=== PATIENT | male | born 1950 | race American Indian/Alaskan Native ===

== ENCOUNTER 2018-06-08 15:12 | Emergency (ER) | payer MEDICARE ==
[2018-06-08 15:22] VITALS: BP 116/74
--- NOTE | 2018-06-08 15:22 | Emergency Department Report ---
Chief Complaint: Upper Respiratory Infection Stated Complaint: COUGH UP BLOOD Time Seen by Provider: 06/08/18 15:19 - HPI History of Present Illness: DR OLIVEIRA CC COUGH WITH BLOOD IN IT FOR COUPLE WEEKS SPUTUM NEW SOB WITH ACTIVITY NO CHEST PAIN SMOKED UNTIL 12 Y AGO PMH GOUT HTN HPLD DENIES CAD/CVA PSH THROAT SURGERY RX ALLOPURINOL STATIN NORVASC METOP LOSARTAN/HCTZ ALLERGY MED DAD DEC PANC CANCER MOM DEC ACS NO ALCOHOL 12 Y MSE COMPLETED MSE screening note: Focused history and physical exam performed. Due to findings the following was ordered: ED Disposition for MSE Condition: Stable
--- NOTE | 2018-06-08 16:31 | Emergency Department Report ---
Minor Respiratory - HPI Chief Complaint: Upper Respiratory Infection Stated Complaint: COUGH UP BLOOD Time Seen by Provider: 06/08/18 15:19 Duration: patient states he's had a chronic cough for the last 2-3 months and was scheduled to see his primary care physician again in the week for an x-ray however he coughed up some blood today and was concerned Severity: mild Minor Respiratory: Yes Able to Tolerate Fluids, Yes Cough (cough normally productive of clear sputum however was bloody today), Yes Hemoptysis, No Sick Contacts, No Chest Pain, No Shortness of Breath, No Fever ED Review of Systems ROS: Stated complaint: COUGH UP BLOOD Other details as noted in HPI Comment: All other systems reviewed and negative ED Past Medical Hx - Past Medical History Previous Medical History?: Yes Hx Hypertension: Yes - Surgical History Past Surgical History?: No - Social History Smoking Status: Former Smoker Substance Use Type: None - Medications Home Medications: Home Medications Medication Instructions Recorded Confirmed Last Taken Type ALBUTEROL Inhaler (OR & NICU) 2 puff IH QID PRN #1 inhalation 06/08/18 Unknown Rx [ProAir HFA Inhaler] predniSONE [Deltasone] 20 mg PO QDAY #5 tab 06/08/18 Unknown Rx Minor Respiratory Exam - Exam General: Vital signs noted. No distress. Alert and acting appropriately. HEENT: Yes Moist Mucous Membranes, No Pharyngeal Erythema, No Pharyngeal Exudates, No Rhinorrhea, No Conjuctival Injection, No Frontal Tenderness, No Maxillary Tenderness Ear: Neither TM Bulge, Neither TM Erythema, Neither EAC Pain, Neither EAC Di scharge Neck: Yes Supple, No Adenopathy Lungs: Yes Good Air Exchange, No Wheezes, No Ronchi, No Stridor, No Cough, No Labored Respirations, No Retractions, No Use of Accessory Muscles, No Other Abnormal Lung Sounds Heart: Yes Regular, No Murmur Abdomen: Yes Normal Bowel Sounds, No Tenderness, No Peritoneal Signs Skin: No Rash, No Edema Neurologic: Alert and oriented, no deficits. Musculoskeletal: Unremarkable. ED Course Vital Signs 06/08/18 15:19 Temperature 97.9 F Pulse Rate 103 H Respiratory 16 Rate Blood Pressure 116/74 O2 Sat by Pulse 94 Oximetry ED Medical Decision Making - EKG Data -: EKG Interpreted by Me EKG shows normal: sinus rhythm, axis, intervals, QRS complexes, ST-T waves Rate: normal - EKG Data Interpretation: normal EKG - Radiology Data interpreted by me: Patient with a mass in the right lower lung. No other abnormalities are seen - Medical Decision Making Patient to be referred to Dr. Mckeon for further care. Patient does have a lung mass that can be worked up as an outpatient. Critical care attestation.: If time is entered above; I have spent that time in minutes in the direct care of this critically ill patient, excluding procedure time. ED Disposition Clinical Impression: Hemoptysis, Lung mass Disposition: TO HOME OR SELFCARE Is pt being admited?: No Does the pt Need Aspirin: No Condition: Stable Instructions: Needle Biopsy of the Lung (ED), Lung Cancer (ED) Referrals: JOANN MCKEON MD [Staff Physician] - 3-5 Days Time of Disposition: 16:31
[2018-06-08 16:39] LABS: Hematocrit 39.6 % (35.5-45.6); Hemoglobin 13.3 gm/dl (11.8-15.2); Mean Corpuscular HGB Conc 34 % (32-34); Mean Corpuscular Volume 86 fl (84-94); Platelet Count 297 K/mm3 (140-440); Red Blood Count 4.59 M/mm3 (3.65-5.03); Red Cell Distribution Width 14.8 % (13.2-15.2)
[2018-06-08 16:46] LABS: Calcium 9.7 mg/dL (8.4-10.2)
--- NOTE | 2018-06-08 16:56 | XRay Report ---
FINAL REPORT EXAM: XR CHEST ROUTINE 2V HISTORY: COUGH TECHNIQUE: Frontal and lateral views of the chest. PRIORS: None currently available. FINDINGS: Cardiac silhouette is within normal limits. Large opacity in the right lower lobe is suspicious for mass. Slightly blunted right costophrenic ang le. No pneumothorax. Left lung is clear. COPD. There are no suspicious osseous lesions. IMPRESSION: Suspect mass in the right lower lobe. Possible small right pleural effusion. Further imaging with a CT thorax with contrast may be helpful if clinically indicated. COPD.
== END 2018-06-08 16:41 | disposition home or self-care (01) ==
LOC: ED 15:12
DX: R04.2 Hemoptysis (principal); R91.8 Other nonspecific abnormal finding of lung field; I10 Essential (primary) hypertension; Z87.891 Personal history of nicotine dependence
CPT/HCPCS: 36415; 71046; 80048; 85027; 93005; 93010

== ENCOUNTER 2018-06-28 09:53 | Inpatient (IN) | payer MEDICARE ==
[2018-06-28] MEDS ORDERED: MAXIPIME/NS 1 GM/100 ML 1 GM/100 ML BAG IV ONE (10:25)
[2018-06-28] MEDS ORDERED: SOLU-Medrol IV ONE (10:29)
--- NOTE | 2018-06-28 10:29 | Emergency Department Report ---
ED Shortness of Breath HPI - General Chief Complaint: Dyspnea/Respdistress Stated Complaint: JOAQUIM Time Seen by Provider: 06/28/18 10:15 Source: patient, EMS Mode of arrival: Stretcher Limitations: No Limitations - History of Present Illness Initial Comments: is 67-year-old gentleman that presents emergency room with complaints of shortness of breath and wheezing 2 hours. Patient states he's been having shortness of breath and wheezing for approximately 2 weeks and has already been referred to a property utilization officer. She states today his symptoms worsens acutely. Patient was given by EMS 3 rounds of albuterol nebs and his symptoms have improved slightly. Patient denies chest pain. Patient states his shortness of breath is better with rest and Pratts dilators. Patient states that shortness breath is worse with exertion and movement. Is also complaining of coughing up blood for 2 weeks. MD Complaint: shortness of breath, cough -: Sudden Severity: severe Consistency: constant Improves With: oxygen, rest, bronchodilators, upright position Worsens With: lying flat, exertion, movement, coughing, inspiration Associated Symptoms: cough, sputum production, orhopnia Treatments Prior to Arrival: oxygen, bronchodilator - Related Data Home Oxygen Therapy: No Home Medications Medication Instructions Recorded Confirmed Last Taken ALBUTEROL Inhaler (OR & NICU) 1 puff IH Q4H PRN 06/28/18 06/28/18 Unknown [ProAir HFA Inhaler] Allopurinol [Zyloprim] 300 mg PO DAILY 06/28/18 06/28/18 Unknown AtorvaSTATin [Lipitor] 20 mg PO DAILY 06/28/18 06/28/18 Unknown Levocetirizine Dihydrochloride 5 mg PO DAILY 06/28/18 06/28/18 Unknown [Xyzal] Losartan/Hydrochlorothiazide 1 each PO QPM 06/28/18 06/28/18 Unknown [Losartan-Hctz 100-25 mg Tab] Metoprolol [Lopressor] 100 mg PO DAILY 06/28/18 06/28/18 Unknown amLODIPine [Norvasc] 10 mg PO DAILY 06/28/18 06/28/18 Unknown predniSONE [Deltasone] 20 mg PO DAILY 06/28/18 06/28/18 Unknown Allergies Allergy/AdvReac Type Severity Reaction Status Date / Time No Known Allergies Allergy Unverified 06/08/18 15:14 ED Review of Systems ROS: Stated complaint: JOAQUIM Other details as noted in HPI Constitutional: denies: chills, fever Eyes: denies: eye pain, eye discharge, vision change ENT: denies: ear pain, throat pain Respiratory: cough, shortness of breath, wheezing Cardiovascular: denies: chest pain, palpitations Endocrine: no symptoms reported Gastrointestinal: denies: abdominal pain, nausea, diarrhea Genitourinary: denies: urgency, dysuria Musculoskeletal: denies: back pain, joint swelling, arthralgia Skin: denies: rash, lesions Neurological: denies: headache, weakness, paresthesias Psychiatric: denies: anxiety, depression Hematological/Lymphatic: denies: easy bleeding, easy bruising ED Past Medical Hx - Past Medical History Previous Medical History?: Yes Hx Hypertension: Yes Additional medical history: Right lung mass - Surgical History Past Surgical History?: No - Family History Family history: no significant - Social History Smoking Status: Former Smoker Substance Use Type: None - Medications Home Medications: Home Medications Medication Instructions Recorded Confirmed Last Taken Type ALBUTEROL Inhaler (OR & NICU) 1 puff IH Q4H PRN 06/28/18 06/28/18 Unknown History [ProAir HFA Inhaler] Allopurinol [Zyloprim] 300 mg PO DAILY 06/28/18 06/28/18 Unknown History AtorvaSTATin [Lipitor] 20 mg PO DAILY 06/28/18 06/28/18 Unknown History Levocetirizine Dihydrochloride 5 mg PO DAILY 06/28/18 06/28/18 Unknown History [Xyzal] Losartan/Hydrochlorothiazide 1 each PO QPM 06/28/18 06/28/18 Unknown History [Losartan-Hctz 100-25 mg Tab] Metoprolol [Lopressor] 100 mg PO DAILY 06/28/18 06/28/18 Unknown History amLODIPine [Norvasc] 10 mg PO DAILY 06/28/18 06/28/18 Unknown History predniSONE [Deltasone] 20 mg PO DAILY 06/28/18 06/28/18 Unknown History ED Physical Exam - General Limitations: No Limitations General appearance: alert, in no apparent distress - Head Head exam: Present: atraumatic, normocephalic - Eye Eye exam: Present: normal appearance - ENT ENT exam: Present: mucous membranes moist - Neck Neck exam: Present: normal inspection - Respiratory Respiratory exam: Present: respiratory distress, wheezes, decreased breath sounds - Cardiovascular Cardiovascular Exam: Present: regular rate, normal rhythm. Absent: systolic murmur, diastolic murmur, rubs, gallop - GI/Abdominal GI/Abdominal exam: Present: soft, normal bowel sounds - Rectal Rectal exam: Present: deferred - Extremities Exam Extremities exam: Present: normal inspection - Back Exam Back exam: Present: normal inspection - Neurological Exam Neurological exam: Present: alert, oriented X3 - Psychiatric Psychiatric exam: Present: normal affect, normal mood - Skin Skin exam: Present: warm, dry, intact, normal color. Absent: rash ED Course Vital Signs 06/28/18 06/28/18 06/28/18 10:01 10:10 10:15 Pulse Rate 82 86 85 Respiratory 16 21 22 Rate Blood Pressure 155/74 155/74 O2 Sat by Pulse 95 97 94 Oximetry 06/28/18 06/28/18 06/28/18 10:30 10:45 11:00 Pulse Rate 85 74 78 Respiratory 14 17 19 Rate Blood Pressure 158/75 151/72 150/70 O2 Sat by Pulse 94 93 95 Oximetry 06/28/18 06/28/18 06/28/18 11:15 11:31 11:45 Pulse Rate 73 80 75 Respiratory 20 18 19 Rate Blood Pressure 139/69 139/69 139/69 O2 Sat by Pulse 95 96 95 Oximetry 06/28/18 06/28/18 06/28/18 12:01 12:15 12:31 Pulse Rate 79 85 79 Respiratory 16 17 18 Rate Blood Pressure 139/69 139/69 139/69 O2 Sat by Pulse 92 90 88 Oximetry 06/28/18 06/28/18 06/28/18 12:45 13:01 13:15 Pulse Rate 77 78 76 Respiratory 26 H 19 22 Rate Blood Pressure 139/69 139/69 139/69 O2 Sat by Pulse 87 90 90 Oximetry 06/28/18 06/28/18 06/28/18 13:31 13:45 14:01 Pulse Rate 74 79 78 Respiratory 18 21 18 Rate Blood Pressure 139/69 139/69 139/69 O2 Sat by Pulse 91 91 93 Oximetry 06/28/18 06/28/18 14:15 14:31 Pulse Rate 89 77 Respiratory 23 17 Rate Blood Pressure 139/69 139/69 O2 Sat by Pulse 95 93 Oximetry - Reevaluation(s) Reevaluation #1: Discussed all results with patient. Patient agrees with plan of care and admission. Patient will be admitted to the hospitalist service 06/28/18 11:45 Patient states he is feeling better. 06/28/18 12:01 - Consultations Consultation #1: Hospitals consulted for admission. Hospitalist will admit patient and assume care of patient. Bridge orders placed 06/28/18 11:46 ED Medical Decision Making - Lab Data Result diagrams: 06/28/18 10:02 06/28/18 10:02 - EKG Data -: EKG Interpreted by Me EKG shows normal: sinus rhythm, axis, intervals, QRS complexes, ST-T waves Rate: normal - Radiology Data Radiology results: report reviewed, image reviewed interpreted by me: Right lung mass noted on my interpretation AP CHEST: HISTORY: Dyspnea Approximate 9 cm mass in the right lower lobe appears unchanged since 06/08/18. The remainder the lungs are clear. Emphysematous changes are again noted. Heart size and pulmonary vascularity are within normal limits. IMPRESSION: Emphysema. No significant change in the right lower lobe mass. No new acute process - Medical Decision Making Agent is 67-year-old male that presents emergency room with complaints of shortness of breath and wheezing and spitting up blood. Patient found to be hypoxic. In route EMS gave the patient 3 nebulizer treatments. Patient's symptoms improved. Patient was admitted to the hospitalist service for further evaluation treatment. Patient's labs are unremarkable except for an elevated white count. - Differential Diagnosis UPT. COPD exacerbation. Wheeze. Hypoxia. Shortness of breath Critical Care Time: Yes Critical care attestation.: If time is entered above; I have spent that time in minutes in the direct care of this critically ill patient, excluding procedure time. Critical Care Time: 45 minutes ED Disposition Clinical Impression: SOB (shortness of breath), Hypoxia, COPD exacerbation, Lung mass, Coughing up blood COPD (chronic obstructive pulmonary disease) with emphysema Qualifiers: Emphysema type: unspecified Qualified Code(s): J43.9 - Emphysema, unspecified Disposition: OP ADMIT IP TO THIS HOSP Is pt being admited?: Yes Does the pt Need Aspirin: No Condition: Critical Time of Disposition: 12:02
[2018-06-28 10:33] LABS: Basophils % (Auto) 0.1 % (0.0-1.8); Eosinophils # (Auto) 0.1 K/mm3 (0.0-0.4); Eosinophils % (Auto) 0.5 % (0.0-4.3); Hematocrit 40.9 % (35.5-45.6); Hemoglobin 13.5 gm/dl (11.8-15.2); Lymphocytes # (Auto) 1.7 K/mm3 (1.2-5.4); Lymphocytes % (Auto) 9.9 % (13.4-35.0); Mean Corpuscular HGB Conc 33 % (32-34); Mean Corpuscular Volume 88 fl (84-94); Monocytes # (Auto) 0.9 K/mm3 (0.0-0.8); Monocytes % (Auto) 5.5 % (0.0-7.3); Platelet Count 311 K/mm3 (140-440); Red Blood Count 4.66 M/mm3 (3.65-5.03); Red Cell Distribution Width 15.8 % (13.2-15.2)
[2018-06-28 10:59] LABS: Creatine Kinase MB 1.6 ng/mL (0.0-4.0)
[2018-06-28 11:01] LABS: Alanine Aminotransferase 11 units/L (7-56); Albumin 3.9 g/dL (3.9-5); BUN/Creatinine Ratio 18; Blood Urea Nitrogen 23 mg/dL (9-20); Calcium 9.9 mg/dL (8.4-10.2); Hemolysis Index 11
--- NOTE | 2018-06-28 11:36 | XRay Report ---
AP CHEST: HISTORY: Dyspnea Approximate 9 cm mass in the right lower lobe appears unchanged since 06/08/18. The remainder the lungs are clear. Emphysematous changes are again noted. Heart size and pulmonary vascularity are within normal limits. IMPRESSION: Emphysema. No significant change in the right lower lobe mass. No new acute process.
[2018-06-28] MEDS ORDERED: MAGNESIUM SULFATE 2GM/50ML 2 GM/50 ML BAG IV ONE (11:47)
[2018-06-28] MEDS ORDERED: PROAIR IH PRN (20:34)
[2018-06-28] MEDS ORDERED: PROVENTIL IH PRN (20:41)
[2018-06-28] MEDS ORDERED: COZAAR PO SCH (21:00)
[2018-06-28] MEDS: ZYLOPRIM PO SCH (22:57)
[2018-06-28] MEDS: NORVASC PO SCH (22:57)
[2018-06-28] MEDS: LEVAQUIN 750MG/150ML 750 MG/150 ML BAG IV SCH (22:57)
[2018-06-28] MEDS: LOPRESSOR PO SCH (23:06)
[2018-06-28] MEDS: SOLU-Medrol IV SCH (23:07)
[2018-06-28] MEDS: NON-FORMULARY (Levocetirizine Dihydrochloride [Xyzal] 5 MG) PO SCH (23:08)
[2018-06-29] MEDS: SOLU-Medrol IV SCH ×3 (05:52→22:42)
--- NOTE | 2018-06-29 06:16 | Event Note ---
Date: 06/28/18 See dictated H/p in reports Acute resp failure COPD exacerbation Follows with Dr Pasha Mckeon
--- NOTE | 2018-06-29 07:38 | History and Physical Report ---
CHIEF COMPLAINT: Dyspnea and severe wheezing for 3 hours. HISTORY OF PRESENT ILLNESS: A 67-year-old male with a history of right lung mass and hypertension, comes in for increasing shortness of breath and wheezing for 3 hours. In the Emergency Room, multiple breathing treatments were given with no relief. Hence, the patient is being admitted. The patient has cough productive of mucoid sputum. No fever or chills. No recent travel. No exacerbating or relieving factors except exercise. No chest pain. PAST MEDICAL HISTORY: As mentioned, asthma/COPD, gout, and hyperlipidemia. PAST SURGICAL HISTORY: None. FAMILY HISTORY: No significant family history. SOCIAL HISTORY: Does not smoke. REVIEW OF SYSTEMS: Significant for bilateral wheezing and mild respiratory distress. Otherwise, review of systems negative. PHYSICAL EXAMINATION: GENERAL: Elderly male, cheerful, cooperative during examination, very pleasant. VITAL SIGNS: Blood pressure is 171/87, temperature is 97.7, pulse is 104, respirations are 18. HEENT: Unremarkable. Pupils equal and reactive. NECK: Supple, no lymphadenopathy, no thyromegaly. LUNGS: Clear to auscultation and percussion. Good air entry. On the re-examination of lungs, bilateral wheezing present, bilateral rhonchi present, diminished air entry. CARDIOVASCULAR SYSTEM: S1, S2 heard. No gallop, no murmur, no rub. ABDOMEN: Soft and benign. No hepatosplenomegaly. No guarding, no rigidity. Hernial orifices are normal. EXTREMITIES: Good pedal pulses. No pedal edema. LABORATORY DATA: Significant for white count of 17,100. H and H is 13.5 and 40.0, platelet count is 311,000. Electrolytes are normal. BUN and creatinine is 23 and 1.3. CK-MB is normal. DIAGNOSTIC DATA: Chest x-ray shows emphysema. No significant change in the right lower lobe mass. ASSESSMENT AND PLAN: 1. Chronic obstructive pulmonary disease exacerbation. The patient started on bronchodilators, nebulizer treatments and IV Solu-Medrol and IV Levaquin, IV antibiotics. 2. Hypertension. Continue antihypertensives in the form of amlodipine and metoprolol. 3. Hyperlipidemia. Continue atorvastatin. 4. Gout. Continue allopurinol for prevention. 5. Deep venous thrombosis prophylaxis, Lovenox 40 mg subcutaneous daily. 6. Pulmonary consult requested by Dr. Diaz who covers for ____. JOB# [id number] CAM/ANN MARIE
[2018-06-29] MEDS: DUONEB *Not for PRN Use IH SCH ×4 (08:28→20:37)
[2018-06-29] MEDS: NORVASC PO SCH (10:55)
[2018-06-29] MEDS: LOPRESSOR PO SCH (10:56)
[2018-06-29] MEDS: LEVAQUIN 750MG/150ML 750 MG/150 ML BAG IV SCH (10:56)
[2018-06-29] MEDS: ZYLOPRIM PO SCH (10:56)
[2018-06-29] MEDS: NON-FORMULARY (Levocetirizine Dihydrochloride [Xyzal] 5 MG) PO SCH (10:56)
[2018-06-29] MEDS: DELTASONE PO SCH (10:56)
--- NOTE | 2018-06-29 13:11 | Consultation ---
History of Present Illness Consult date: 06/29/18 Requesting physician: RAUL ROSARIO Reason for consult: abnormal CXR/CT History of present illness: 67 y/o male admitted with shortness of breath. 1 st seen in the ED back in [place] after coughing some blood while playing basketball. CXR showed large right lower lobe mass but rest of lung clear. Patient was set up for outpatient follow up with Dr. Mckeon but she was ill and had to cancel. Rescheduled for today, but came to ED yesterday weak with more hemoptysis. Has lost about 5lbs intentionally in the last month. Quit smoking 12 years ago but did smoker for about 25 years. No other B symptoms. Past History Past Medical History: hypertension, hyperlipidemia, other (Gout) Medications and Allergies Allergies Allergy/AdvReac Type Severity Reaction Status Date / Time pollen extracts Allergy Mild Itching Verified 06/28/18 16:42 strawberry Allergy Mild Hives Verified 06/28/18 16:42 Home Medications Medication Instructions Recorded Confirmed Last Taken Type ALBUTEROL Inhaler (OR & NICU) 1 puff IH Q4H PRN 06/28/18 06/28/18 06/28/18 History [ProAir HFA Inhaler] Allopurinol [Zyloprim] 300 mg PO DAILY 06/28/18 06/28/18 1 Day Ago History ~06/27/18 AtorvaSTATin [Lipitor] 20 mg PO DAILY 06/28/18 06/28/18 1 Day Ago History ~06/27/18 Levocetirizine Dihydrochloride 5 mg PO DAILY 06/28/18 06/28/18 1 Week Ago History [Xyzal] ~06/21/18 Losartan/Hydrochlorothiazide 1 each PO QPM 06/28/18 06/28/18 1 Day Ago History [Losartan-Hctz 100-25 mg Tab] ~06/27/18 Metoprolol [Lopressor] 100 mg PO DAILY 06/28/18 06/28/18 1 Day Ago History ~06/27/18 amLODIPine [Norvasc] 10 mg PO DAILY 06/28/18 06/28/18 1 Day Ago History ~06/27/18 predniSONE [Deltasone] 20 mg PO DAILY 06/28/18 06/28/18 06/28/18 History Active Meds: Active Medications Albuterol (Proventil) 2.5 mg IH Q4HRT PRN PRN Reason: Shortness Of Breath Albuterol/Ipratropium (Duoneb *Not For Prn Use*) 1 ampul IH QIDRT [facility] Last Admin: 06/29/18 12:26 Dose: 1 ampul Documented by: Allopurinol (Zyloprim) 300 mg PO DAILY [facility] Last Admin: 06/29/18 10:56 Dose: 300 mg Documented by: Amlodipine Besylate (Norvasc) 10 mg PO DAILY [facility] Last Admin: 06/29/18 10:55 Dose: 10 mg Documented by: Atorvastatin Calcium (Lipitor) 20 mg PO DAILY [facility] Last Admin: 06/29/18 10:54 Dose: 20 mg Documented by: Hydrochlorothiazide (Hctz) 25 mg PO QPM [facility] Levofloxacin/Dextrose (Levaquin 750mg/150ml) 750 mg in 150 mls @ 100 mls/hr IV Q24HR [facility]; Protocol Last Admin: 06/29/18 10:56 Dose: 100 mls/hr Documented by: Losartan Potassium (Cozaar) 100 mg PO QPM [facility] Methylprednisolone Sodium Succinate (Solu-Medrol) 60 mg IV Q8HR [facility] Last Admin: 06/29/18 05:52 Dose: 60 mg Documented by: Metoprolol Tartrate (Lopressor) 100 mg PO DAILY [facility] Last Admin: 06/29/18 10:56 Dose: 100 mg Documented by: Miscellaneous Medication (Levocetirizine Dihydrochloride [Xyzal]) 5 mg PO DAILY [facility] Last Admin: 06/29/18 10:56 Dose: Not Given Documented by: Prednisone (Deltasone) 20 mg PO DAILY [facility] Last Admin: 06/29/18 10:56 Dose: 20 mg Documented by: Review of Systems All systems: negative Physical Examination Vital signs: Vital Signs Pulse Resp Pulse Ox 82 16 95 06/28/18 10:01 06/28/18 10:01 06/28/18 10:01 General appearance: no acute distress, alert Eyes: non-icteric ENT: oropharynx moist Neck: supple Effort: normal Ascultation: Bilateral: clear Percussion: Bilateral: not dull Tactile fremitus: Bilateral: normal Cardiovascular: regular rate and rhythm Gastrointestinal: normoactive bowel sounds, non-tender Extremities: no edema, pink and warm, pulses normal normal mental status, non-focal exam Results - Laboratory Findings CBC and BMP: 06/28/18 10:02 06/28/18 10:02 Abnormal lab findings: Abnormal Labs 06/28/18 06/28/18 10:02 10:02 WBC 17.1 H RDW 15.8 H Lymph % (Auto) 9.9 L Cole # 0.9 H Seg Neutrophils % 84.0 H Seg Neutrophils # 14.4 H BUN 23 H Glucose 125 H Total Creatine Kinase 43 L - Diagnostic Findings Chest x-ray: image reviewed Assessment and Plan 67 y/o male with right sided lung mass and hemoptysis. 1. Attempted to get CT guided biopsy today but cannot 2. Will obtain contrasted CT scan (PE protocol) given hemoptysis to rule out PE and further evaluate mass 3. Set up for CT guided biopsy on Monday.
[2018-06-29 14:12] LABS: INR 0.95 (0.87-1.13)
--- NOTE | 2018-06-29 15:44 | Progress Note ---
Assessment and Plan Acute resp failure due to COPD COPD exacerbation hemoptysis, likley from lung mass Right lung mass LL, possible malignancy leukocytosis, reactive. likely from underlying malignancy (patient not septic) - cont to monitor, nebs, supplemental O2, tapering steroid, abx - cont home meds, avoid, heparin/aspirin produce - plan for CT guided bopsy on Monday, if unsuccessful then may need bronch - will consult Onc - SCd for DVt Px Brief History: 67 y/o male presented to the ED back in May after coughing some blood while playing basketball. CXR showed large right lower lobe mass but rest of lung clear. Patient was set up for outpatient follow up with Dr. Mckeon but he was ill and had to cancel and Rescheduled. But came to ED this time with more hemoptysis, SOB and generalized weakness. Has lost about 5lbs intentionally in the last month. Quit smoking 12 years ago but did smoker for about 25 years. Admitted for COPD exacerbation and possible lung biopsy CTA chest: No PE. RLL lung mass Subjective Date of service: 06/29/18 Interval history: Patient seen and examined No acute event o/n denies any SOB or chest pain Objective - Constitutional Vitals: Vital Signs - 12hr 06/29/18 06/29/18 06/29/18 05:21 10:00 10:55 Temperature 97.7 F Pulse Rate 75 83 Respiratory 20 22 Rate Blood Pressure 144/76 143/85 O2 Sat by Pulse 92 96 Oximetry 06/29/18 06/29/18 10:56 11:17 Temperature 97.9 F Pulse Rate 83 74 Respiratory 18 Rate Blood Pressure 143/85 147/81 O2 Sat by Pulse 94 Oximetry General appearance: Present: no acute distress, well-nourished - EENT Eyes: PERRL, EOM intact ENT: hearing intact, clear oral mucosa Ears: bilateral: normal - Neck Neck: supple, normal ROM - Respiratory Respiratory effort: normal Respiratory: bilateral: diminished, rhonchi (RLL) - Cardiovascular Rhythm: regular Heart Sounds: Present: S1 & S2. Absent: gallop, rub Extremities: pulses intact, No edema, normal color, Full ROM - Gastrointestinal General gastrointestinal: Present: soft, non-tender, non-distended, normal bowel sounds - Integumentary Integumentary: clear, warm, dry - Musculoskeletal Musculoskeletal: 1, strength equal bilaterally - Neurologic Neurologic: moves all extremities - Psychiatric Psychiatric: memory intact, appropriate mood/affect, intact judgment & insight - Labs CBC & Chem 7: 06/28/18 10:02 06/28/18 10:02 Labs: Abnormal lab results 06/29/18 Range/Units 13:35 APTT 20.0 L (24.2-36.6) Sec. - Imaging and cardiology CT scan - chest: report reviewed
[2018-06-29] MEDS ORDERED: NON-FORMULARY (Losartan/Hydrochlorothiazide [Losartan-Hctz 100-25 Mg Tab] 1 EACH) PO SCH (18:00)
[2018-06-29] MEDS: COZAAR PO SCH (18:18)
[2018-06-29] MEDS: HCTZ PO SCH (18:19)
[2018-06-29] MEDS ORDERED: HCTZ PO SCH (21:00)
[2018-06-30] MEDS: SOLU-Medrol IV SCH ×3 (06:19→22:52)
--- NOTE | 2018-06-30 07:56 | Cat Scan Report ---
PROCEDURE: CT ANGIO CHEST TECHNIQUE: CT imaging is obtained to the abdomen and pulmonary and systemic angiographic phases foll owing intravenous administration of contrast. Transaxial, coronal and sagittal reformations with maxi mum intensity projection are provided HISTORY: Hemoptysis with large right lower lobe mass COMPARISONS: Radiographs 06/28/2018 and 06/08/2018 FINDINGS: A posterior lower lung mass measures at least 10 x 7 x 6 cm. An endobronchial lesion confluent with a large and possibly partially necrotic subcarinal lymph node is present in the bronchus intermedius a nd axial series 3, images 150-154. The endobronchial lesion measures around 1 cm in greatest dimensio n. The subcarinal heterogeneous likely partially necrotic lymph node measures 1.9 cm AP x 2.9 cm aggarwal sverse. No left hilar lymphadenopathy identified. A couple of punctate left hilar calcifications are noted. Heart size is normal. No pericardial effusion. Coronary artery calcifications are present. Normal ning iber main pulmonary artery. No pulmonary embolism identified. Thoracic aorta is normal in course and caliber. Centrilobular emphysema. Large right apical bullae measure up to 10 cm. A left apical calcified pulmo nary granuloma measures up to 8 mm on axial series 3, image 64. Imaged portion of the upper abdomen i s unremarkable. There are no adrenal masses. The superficial soft tissues are unremarkable. No acute bony abnormality or worrisome osseous lesions identified. IMPRESSION: Right lower lung mass consistent with malignancy measures approximately 10 x 7 x 6 cm. Heterogeneous possibly partially necrotic subcarinal lymph node measures 2.9 x 1.9 cm and may be confluent with a b ronchus intermedius endobronchial lesion measuring up to 1 cm. Pulmonology consultation is recommende d if not already obtained. Bullous emphysema as detailed above. Coronary artery disease. This document is electronically signed by Marshall Monsivais MD., June 30 2018 07:54:19 AM ET
[2018-06-30] MEDS: DUONEB *Not for PRN Use IH SCH (08:05)
[2018-06-30] MEDS ORDERED: DUONEB *Not for PRN Use IH (11:00)
--- NOTE | 2018-06-30 11:00 | Progress Note ---
Assessment and Plan 67 y/o male with right sided lung mass and hemoptysis. 1. Biopsy, CT guided, if not able to could bronch and biopsy endobronchial lesion but CT guided bould be easy to accomplish 2. COPd as evidenced by bullous emphysema on CT scan. Treat for acute exacerbation. Steroids IV 3. Will need Onc consult, POST BIOPSY so they can arrange follow up as an outpatient. Will continue to follow Subjective Date of service: 06/30/18 Interval history: CTA done. No PE. Found to have endobronchial lesion with lymphadenopathy (subcarinal) and large mass in right lower lobe. Also bullous emphysema, proving evidence of COPD Objective Vital Signs - 12hr 06/30/18 06/30/18 06/30/18 05:32 06:12 06:22 Temperature 97.7 F Pulse Rate 92 H Pulse Rate [ 85 88 Anterior Bilateral Throughout] Respiratory 18 Rate Respiratory 20 18 Rate [Anterior Bilateral Throughout] Blood Pressure 119/63 O2 Sat by Pulse 88 Oximetry 06/30/18 06/30/18 06/30/18 08:03 08:07 08:17 Temperature Pulse Rate Pulse Rate [ 89 92 H Anterior Bilateral Throughout] Respiratory Rate Respiratory 22 18 Rate [Anterior Bilateral Throughout] Blood Pressure O2 Sat by Pulse 93 Oximetry Constitutional: no acute distress, alert Eyes: non-icteric ENT: oropharynx moist Neck: supple Effort: normal Ascultation: Bilateral: clear Percussion: Bilateral: not dull Tactile fremitus: Bilateral: normal Cardiovascular: regular rate and rhythm Gastrointestinal: normoactive bowel sounds, non-tender Extremities: no edema, pink and warm, pulses normal Neurologic: normal mental status, non-focal exam CBC and BMP: 06/28/18 10:02 06/28/18 10:02 ABG, PT/INR, D-dimer: PT/INR, D-dimer PT 13.2 Sec. (12.2-14.9) 06/29/18 13:35 INR 0.95 (0.87-1.13) 06/29/18 13:35 Abnormal lab findings: Abnormal Labs 06/28/18 06/28/18 06/29/18 10:02 10:02 13:35 WBC 17.1 H RDW 15.8 H Lymph % (Auto) 9.9 L [place] # 0.9 H Seg Neutrophils % 84.0 H Seg Neutrophils # 14.4 H APTT 20.0 L BUN 23 H Glucose 125 H Total Creatine Kinase 43 L
[2018-06-30] MEDS: NORVASC PO SCH (11:18)
[2018-06-30] MEDS: ZYLOPRIM PO SCH (11:18)
[2018-06-30] MEDS: LOPRESSOR PO SCH (11:19)
[2018-06-30] MEDS: LEVAQUIN 750MG/150ML 750 MG/150 ML BAG IV SCH (11:20)
[2018-06-30] MEDS: NON-FORMULARY (Levocetirizine Dihydrochloride [Xyzal] 5 MG) PO SCH (11:20)
[2018-06-30] MEDS ORDERED: BROVANA NEBU IH SCH (12:00)
[2018-06-30] MEDS ORDERED: PULMICORT IH SCH (12:00)
[2018-06-30] MEDS: PROVENTIL IH PRN ×2 (12:22→17:27)
--- NOTE | 2018-06-30 14:27 | Progress Note ---
Assessment and Plan Acute resp failure due to COPD COPD exacerbation hemoptysis, likley from lung mass Right lung mass LL, possible malignancy leukocytosis, reactive. likely from underlying malignancy (patient not septic) - cont to monitor, nebs, supplemental O2, tapering steroid, abx - cont home meds, avoid, heparin/aspirin produce - plan for CT guided bopsy on Monday, if unsuccessful then may need bronch - will consult Onc - SCd for DVt Px Brief History: 67 y/o male presented to the ED back in May after coughing some blood while playing basketball. CXR showed large right lower lobe mass but rest of lung clear. Patient was set up for outpatient follow up with Dr. Mckeon but he was ill and had to cancel and Rescheduled. But came to ED this time with more hemoptysis, SOB and generalized weakness. Has lost about 5lbs intentionally in the last month. Quit smoking 12 years ago but did smoker for about 25 years. Admitted for COPD exacerbation and possible lung biopsy CTA chest: No PE. RLL lung mass Physical exam: General appearance: Present: no acute distress, well-nourished - EENT Eyes: PERRL, EOM intact ENT: hearing intact, clear oral mucosa Ears: bilateral: normal - Neck Neck: supple, normal ROM - Respiratory Respiratory effort: normal Respiratory: bilateral: diminished, rhonchi (RLL) - Cardiovascular Rhythm: regular Heart Sounds: Present: S1 & S2. Absent: gallop, rub Extremities: pulses intact, No edema, normal color, Full ROM - Gastrointestinal General gastrointestinal: Present: soft, non-tender, non-distended, normal bowel sounds - Integumentary Integumentary: clear, warm, dry - Musculoskeletal Musculoskeletal: 1, strength equal bilaterally - Neurologic Neurologic: moves all extremities - Psychiatric Psychiatric: memory intact, appropriate mood/affect, intact judgment & insight Subjective Date of service: 06/30/18 Interval history: Patient seen and examined No acute event o/n denies any SOB or chest pain pending lung biosy Objective - Constitutional Vitals: Vital Signs - 12hr 06/30/18 06/30/18 06/30/18 05:32 06:12 06:22 Temperature 97.7 F Pulse Rate 92 H Pulse Rate [ 85 88 Anterior Bilateral Throughout] Respiratory 18 Rate Respiratory 20 18 Rate [Anterior Bilateral Throughout] Blood Pressure 119/63 O2 Sat by Pulse 88 Oximetry 06/30/18 06/30/18 06/30/18 08:03 08:07 08:17 Temperature Pulse Rate Pulse Rate [ 89 92 H Anterior Bilateral Throughout] Respiratory Rate Respiratory 22 18 Rate [Anterior Bilateral Throughout] Blood Pressure O2 Sat by Pulse 93 Oximetry 06/30/18 06/30/18 06/30/18 11:18 11:19 11:31 Temperature 97.7 F Pulse Rate 104 H Pulse Rate [ Anterior Bilateral Throughout] Respiratory 18 Rate Respiratory Rate [Anterior Bilateral Throughout] Blood Pressure 144/68 144/68 140/66 O2 Sat by Pulse 89 Oximetry 06/30/18 06/30/18 12:22 12:38 Temperature Pulse Rate Pulse Rate [ 98 H 70 Anterior Bilateral Throughout] Respiratory Rate Respiratory 18 18 Rate [Anterior Bilateral Throughout] Blood Pressure O2 Sat by Pulse Oximetry - Labs CBC & Chem 7: 07/01/18 09:36 07/01/18 09:36
[2018-06-30] MEDS: COZAAR PO SCH (18:37)
[2018-06-30] MEDS: HCTZ PO SCH (18:38)
[2018-06-30] MEDS: BROVANA NEBU IH SCH (19:35)
[2018-06-30] MEDS: PULMICORT IH SCH (19:35)
[2018-06-30] MEDS: DELTASONE PO SCH (19:38)
[2018-07-01] MEDS: BROVANA NEBU IH SCH ×2 (08:45→20:29)
[2018-07-01] MEDS: PULMICORT IH SCH ×2 (08:45→20:29)
--- NOTE | 2018-07-01 09:21 | Event Note ---
Date: 06/30/18 [id number]
[2018-07-01] MEDS: LEVAQUIN 750MG/150ML 750 MG/150 ML BAG IV SCH (10:21)
[2018-07-01 10:24] LABS: Hematocrit 45.7 % (35.5-45.6); Hemoglobin 15.1 gm/dl (11.8-15.2); Mean Corpuscular HGB Conc 33 % (32-34); Mean Corpuscular Volume 88 fl (84-94); Platelet Count 302 K/mm3 (140-440); Red Cell Distribution Width 16.6 % (13.2-15.2)
[2018-07-01] MEDS: SOLU-Medrol IV SCH ×2 (10:26→22:30)
[2018-07-01] MEDS: NORVASC PO SCH (10:28)
[2018-07-01] MEDS: LOPRESSOR PO SCH (10:28)
[2018-07-01] MEDS: ZYLOPRIM PO SCH (10:28)
[2018-07-01] MEDS: NON-FORMULARY (Levocetirizine Dihydrochloride [Xyzal] 5 MG) PO SCH (10:29)
[2018-07-01 10:47] LABS: Albumin 4.4 g/dL (3.9-5); Calcium 10.6 mg/dL (8.4-10.2)
--- NOTE | 2018-07-01 11:37 | Progress Note ---
Assessment and Plan 67 y/o male with right sided lung mass and hemoptysis. 1. Biopsy, CT guided, if not able to could bronch and biopsy endobronchial lesion but CT guided bould be easy to accomplish, ordered for tomorrow. NPO after midnight. 2. COPd as evidenced by bullous emphysema on CT scan. Treat for acute exacerbation. Steroids IV. If oxygen requirement does not come down, should increase roids to q8 dosing. 3. Onc already consulted and evaluated. Will continue to follow Subjective Date of service: 07/01/18 Interval history: oxygen requirement increased on yesterday. Etiology not certain. RT is titrating back down. Objective Vital Signs - 12hr 07/01/18 07/01/18 07/01/18 04:50 08:46 08:47 Temperature 97.6 F Pulse Rate 97 H Pulse Rate [ 86 Anterior Bilateral Throughout] Respiratory 18 Rate Respiratory 18 Rate [Anterior Bilateral Throughout] Blood Pressure 157/77 O2 Sat by Pulse 97 92 Oximetry 07/01/18 07/01/18 09:00 10:28 Temperature Pulse Rate 97 H Pulse Rate [ 88 Anterior Bilateral Throughout] Respiratory Rate Respiratory 18 Rate [Anterior Bilateral Throughout] Blood Pressure 157/77 O2 Sat by Pulse Oximetry Constitutional: no acute distress, alert Eyes: non-icteric ENT: oropharynx moist Neck: supple Effort: normal Ascultation: Bilateral: clear Percussion: Bilateral: not dull Tactile fremitus: Bilateral: normal Cardiovascular: regular rate and rhythm Gastrointestinal: normoactive bowel sounds, non-tender Extremities: no edema, pink and warm, pulses normal Neurologic: normal mental status, non-focal exam CBC and BMP: 07/01/18 09:36 07/01/18 09:36 ABG, PT/INR, D-dimer: PT/INR, D-dimer PT 13.2 Sec. (12.2-14.9) 06/29/18 13:35 INR 0.95 (0.87-1.13) 06/29/18 13:35 Abnormal lab findings: Abnormal Labs 06/28/18 06/28/18 06/29/18 10:02 10:02 13:35 WBC 17.1 H RBC Hct RDW 15.8 H Lymph % (Auto) 9.9 L [place] # 0.9 H Seg Neutrophils % 84.0 H Seg Neutrophils # 14.4 H APTT 20.0 L Chloride BUN 23 H Creatinine Glucose 125 H Calcium Total Creatine Kinase 43 L 07/01/18 07/01/18 09:36 09:36 WBC 17.9 H RBC 5.20 H Hct 45.7 H RDW 16.6 H Lymph % (Auto) [place] # Seg Neutrophils % Seg Neutrophils # APTT Chloride 95.9 L BUN 47 H Creatinine 1.9 H Glucose 191 H Calcium 10.6 H Total Creatine Kinase
--- NOTE | 2018-07-01 11:47 | Hem/Onc Progress Note ---
Assessment and Plan 1. Lung mass. 2. Hemoptysis. 3. Subcarinal lymph nodes. 4. This may be a neoplastic process in the lung. We will do CT abdomen, pelvis and CT head, which was also planned by the primary care. 5. Bronchoscopic versus CT-guided biopsy is being looked into. 6. We will do tumor markers. 7. History of hyperlipidemia. 8. On gout medications. 9. History of hypertension, on medications. I will follow the patient during inpatient stay and then in the clinic setting I discussed with him possibly being neoplastic process. Staging will guide some of our next step. 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 - CT abdo - only oral - and no IV contrast - d/w RN and pt - Patient Problems (1) Lung mass Current Visit: Yes Status: Acute Subjective Date of service: 07/01/18 Principal diagnosis: lung mass Interval history: dizzy - on ambulation - observe for now Objective - Constitutional Vitals: Last Vital Signs Temp 97.6 F 07/01/18 04:50 Pulse 97 H 07/01/18 10:28 Resp 18 07/01/18 09:00 BP 157/77 07/01/18 10:28 Pulse Ox 92 07/01/18 08:46 Pain Intensity (0-10): denies any pain General appearance: no acute distress Performance status: 3-limited selfcare - EENT Eyes: EOM intact ENT: clear oral mucosa Lymph node exam: negative cervical - Neck Neck: supple - Respiratory Respiratory effort: Positive: normal Respiratory: bilateral: diminished (decrease in bases) - Cardiovascular Heart Sounds: Present: S1 & S2 Extremities: No edema - Gastrointestinal General gastrointestinal: Present: soft, non-tender Rectal Exam: deferred - Genitourinary Male genitourinary: Present: deferred - Integumentary Integumentary: warm - Musculoskeletal Musculoskeletal: strength equal bilaterally - Neurologic Neurologic: moves all extremities - Psychiatric Psychiatric: appropriate mood/affect - Labs Lab Results: Laboratory Results - last 24 hr 07/01/18 07/01/18 09:36 09:36 WBC 17.9 H RBC 5.20 H Hgb 15.1 Hct 45.7 H MCV 88 MCH 29 MCHC 33 RDW 16.6 H Plt Count 302 Seg Neutrophils % Wealth Management Consultant Sodium 137 Potassium 4.1 Chloride 95.9 L Carbon Dioxide 22 Anion Gap 23 BUN 47 H Creatinine 1.9 H Estimated GFR 43 BUN/Creatinine Ratio 25 Glucose 191 H Calcium 10.6 H Total Bilirubin 0.40 AST 15 ALT 16 Alkaline Phosphatase 62 Total Protein 8.1 Albumin 4.4 Albumin/Globulin Ratio 1.2 Medications & Allergies - Medications Allergies/Adverse Reactions: Allergies pollen extracts Allergy (Mild, Verified 06/28/18 16:42) Itching runny nose/watery eyes strawberry Allergy (Mild, Verified 06/28/18 16:42) Hives Home Medications: Home Medications Medication Instructions Recorded Confirmed Last Taken Type Allopurinol [Zyloprim] 300 mg PO DAILY 06/28/18 06/28/18 1 Day Ago History ~06/27/18 AtorvaSTATin [Lipitor] 20 mg PO DAILY 06/28/18 06/28/18 1 Day Ago History ~06/27/18 Levocetirizine Dihydrochloride 5 mg PO DAILY 06/28/18 06/28/18 1 Week Ago History [Xyzal] ~06/21/18 Losartan/Hydrochlorothiazide 1 each PO QPM 06/28/18 06/28/18 1 Day Ago History [Losartan-Hctz 100-25 mg Tab] ~06/27/18 Metoprolol [Lopressor] 100 mg PO DAILY 06/28/18 06/28/18 1 Day Ago History ~06/27/18 RX: ALBUTEROL Inhaler (OR & NICU) 1 puff IH Q4H PRN 06/28/18 06/28/18 06/28/18 History [ProAir HFA Inhaler] RX: predniSONE [Deltasone] 20 mg PO DAILY 06/28/18 06/28/18 06/28/18 History amLODIPine [Norvasc] 10 mg PO DAILY 06/28/18 06/28/18 1 Day Ago History ~06/27/18 Active Medications: Generic Name Dose Route Start Last Admin Trade Name Freq PRN Reason Stop Dose Admin Albuterol 2.5 mg 06/30/18 11:01 06/30/18 17:27 Proventil IH 2.5 mg Q4HRT PRN Administration Shortness Of Breath Allopurinol 300 mg 06/28/18 21:00 07/01/18 10:28 Zyloprim PO 300 mg DAILY TRISTAN Administration Amlodipine Besylate 10 mg 06/28/18 21:00 07/01/18 10:28 Norvasc PO 10 mg DAILY TRISTAN Administration Arformoterol Tartrate 15 mcg 06/30/18 20:00 07/01/18 08:45 Brovana Nebu IH 15 mcg Q12HRT TRISTAN Administration Atorvastatin Calcium 20 mg 06/28/18 20:45 07/01/18 10:28 Lipitor PO 20 mg DAILY TRISTAN Administration Budesonide 0.5 mg 06/30/18 20:00 07/01/18 08:45 Pulmicort IH 0.5 mg Q12HRT TRISTAN Administration Hydrochlorothiazide 25 mg 06/29/18 18:00 06/30/18 18:38 Hctz PO Not Given QPM TRISTAN Levofloxacin/Dextrose 750 mg in 150 mls @ 100 mls/hr 06/28/18 21:00 07/01/18 10:21 Levaquin 750mg/150ml IV 100 mls/hr Q24HR TRISTAN Administration Protocol Losartan Potassium 100 mg 06/29/18 18:00 06/30/18 18:37 Cozaar PO Not Given QPM [facility] Methylprednisolone Sodium Succinate 40 mg 06/30/18 22:00 07/01/18 10:26 Solu-Medrol IV 40 mg Q12HR TRISTAN Administration Metoprolol Tartrate 100 mg 06/28/18 21:00 07/01/18 10:28 Lopressor PO 100 mg DAILY TRISTAN Administration Miscellaneous Medication 5 mg 06/28/18 20:45 07/01/18 10:29 Levocetirizine Dihydrochloride [Xyzal] PO Not Given DAILY TRISTAN
[2018-07-01 11:56] LABS: Basophils % (Manual) 0 % (0.0-1.8); Eosinophils % (Manual) 0 % (0.0-4.3); Total Cells Counted 100
--- NOTE | 2018-07-01 11:59 | Progress Note ---
Assessment and Plan Acute resp failure due to COPD COPD exacerbation hemoptysis, likley from lung mass Right lung mass LL, possible malignancy leukocytosis, reactive. likely from underlying malignancy (patient not septic) DIAZ, vasomotor nephropathy vs contrast induced - cont to monitor, nebs, supplemental O2, tapering steroid, abx - cont home meds, avoid, heparin/aspirin produce - plan for CT guided bopsy on Monday, if unsuccessful then may need bronch - Onc following, will start IV fluid for DIAZ, monitor Cr, consult renal - SCd for DVt Px Brief History: 67 y/o male presented to the ED back in May after coughing some blood while playing basketball. CXR showed large right lower lobe mass but rest of lung clear. Patient was set up for outpatient follow up with Dr. Mckeon but he was ill and had to cancel and Rescheduled. But came to ED this time with more hemoptysis, SOB and generalized weakness. Has lost about 5lbs intentionally in the last month. Quit smoking 12 years ago but did smoker for about 25 years. Admitted for COPD exacerbation and possible lung biopsy CTA chest: No PE. RLL lung mass Physical exam: General appearance: Present: no acute distress, well-nourished - EENT Eyes: PERRL, EOM intact ENT: hearing intact, clear oral mucosa Ears: bilateral: normal - Neck Neck: supple, normal ROM - Respiratory Respiratory effort: normal Respiratory: bilateral: diminished, rhonchi (RLL) - Cardiovascular Rhythm: regular Heart Sounds: Present: S1 & S2. Absent: gallop, rub Extremities: pulses intact, No edema, normal color, Full ROM - Gastrointestinal General gastrointestinal: Present: soft, non-tender, non-distended, normal bowel sounds - Integumentary Integumentary: clear, warm, dry - Musculoskeletal Musculoskeletal: 1, strength equal bilaterally - Neurologic Neurologic: moves all extremities - Psychiatric Psychiatric: memory intact, appropriate mood/affect, intact judgment & insight Subjective Date of service: 07/01/18 Interval history: Patient seen and examined No acute event o/n denies any SOB or chest pain pending lung biosy Objective - Constitutional Vitals: Vital Signs - 12hr 07/01/18 07/01/18 07/01/18 04:50 08:46 08:47 Temperature 97.6 F Pulse Rate 97 H Pulse Rate [ 86 Anterior Bilateral Throughout] Respiratory 18 Rate Respiratory 18 Rate [Anterior Bilateral Throughout] Blood Pressure 157/77 O2 Sat by Pulse 97 92 Oximetry 07/01/18 07/01/18 09:00 10:28 Temperature Pulse Rate 97 H Pulse Rate [ 88 Anterior Bilateral Throughout] Respiratory Rate Respiratory 18 Rate [Anterior Bilateral Throughout] Blood Pressure 157/77 O2 Sat by Pulse Oximetry - Labs CBC & Chem 7: 07/01/18 09:36 07/01/18 09:36 Labs: Abnormal lab results 07/01/18 07/01/18 Range/Units 09:36 09:36 WBC 17.9 H (4.5-11.0) K/mm3 RBC 5.20 H (3.65-5.03) M/mm3 Hct 45.7 H (35.5-45.6) % RDW 16.6 H (13.2-15.2) % Chloride 95.9 L (98-107) mmol/L BUN 47 H (9-20) mg/dL Creatinine 1.9 H (0.8-1.5) mg/dL Glucose 191 H (75-100) mg/dL Calcium 10.6 H (8.4-10.2) mg/dL
[2018-07-01 12:06] LABS: Platelet Estimate Consistent w Auto; RBC Morphology Normal
[2018-07-01] MEDS: NACL 0.9% 1000 ML 1,000 ML IV SCH (13:03)
--- NOTE | 2018-07-01 13:22 | Consultation ---
REFERRING PHYSICIAN: Samia Vitale MD REASON FOR CONSULTATION: Right lung mass. HISTORY OF PRESENT ILLNESS: I saw the patient 68-year-old male in the medical floor. He came to the hospital because of increasing shortness of breath and wheezes. Recently for the same complaint he had seen his primary. At that time, there was a plan for chest x-ray and CT chest. As his symptoms became worse, he came to the hospital, was admitted. He has also been having hemoptysis for a few days. During this admission, Radiology showed right lung mass. I have been asked to evaluate the patient for this, plan for bronchoscopy versus CT-guided biopsy to find the primary. At this time, no headache, no visual disturbances. No ear discharge. No chest pain. History of shortness of breath and history of hemoptysis present. No abdominal pain, no vomiting, no diarrhea, no dysuria. PAST MEDICAL HISTORY: As above, COPD, asthma, gout, hyperlipidemia. SURGICAL HISTORY: None. FAMILY HISTORY: Not contributory. The patient has ex-. The patient's son is a tire trucker. The patient has friends, who will help him. REVIEW OF SYSTEMS: No history of smoking. ALLERGIES: POLLEN EXTRACTS and STRAWBERRIES. MEDICATIONS: Includes albuterol, allopurinol, atorvastatin, hydrochlorothiazide, losartan, metoprolol. PHYSICAL EXAMINATION: VITAL SIGNS: Temperature 97, pulse 85, respirations 24, BP 139/67. No pallor, no icterus. NECK: No neck lymph nodes. HEART: S1, S2. LUNGS: Decreased air entry bases. ABDOMEN: Soft. EXTREMITIES: No calf tenderness. NEUROLOGIC: Alert, awake, oriented. LABORATORY DATA: White cells 17, hemoglobin 13, MCV 88, platelet 311. INR 0.9, potassium 3.9, creatinine 1.3, bilirubin 0.4. RADIOLOGY: CT chest was done. This shows 10 cm right lung mass. Endobronchial lesion confluent with large necrotic subcarinal lymph nodes. The subcarinal lymph node is 2.9 cm. ASSESSMENT: 1. Lung mass. 2. Hemoptysis. 3. Subcarinal lymph nodes. 4. This may be a neoplastic process in the lung. We will do CT abdomen, pelvis and CT head, which was also planned by the primary care. 5. Bronchoscopic versus CT-guided biopsy is being looked into. 6. We will do tumor markers. 7. History of hyperlipidemia. 8. On gout medications. 9. History of hypertension, on medications. I will follow the patient during inpatient stay and then in the clinic setting I discussed with him possibly being neoplastic process. Staging will guide some of our next step. JOB# [id number] NM/NTS
--- NOTE | 2018-07-01 17:50 | Cat Scan Report ---
PROCEDURE: CT HEAD/BRAIN WO CON TECHNIQUE: Axial images obtained without intravenous contrast. HISTORY: lung mass COMPARISONS: None FINDINGS: No extra-axial fluid collection. No midline shift. No cisternal effacement. Mild prominence of the garland lci and ventricles compatible with age-appropriate volume loss. Minimal hypoattenuation white matter compatible with chronic microvessel ischemic change. No white matter edema. No parenchymal hemorrhage . Baltazar-white interface maintained. No suspect hyperdensity over the middle cerebral arteries. Calvari um demonstrates no acute abnormality. Paranasal sinuses demonstrate no air-fluid level. IMPRESSION: No acute intracranial process.. This document is electronically signed by Perry Perkins MD., July 01 2018 05:47:04 PM ET
[2018-07-01] MEDS: NORMODYNE PO SCH ×2 (17:51→22:29)
[2018-07-01] MEDS: MUCOMYST ORAL PO SCH ×2 (17:56→22:29)
--- NOTE | 2018-07-01 18:16 | Cat Scan Report ---
PROCEDURE: CT ABDOMEN PELVIS WO CON Technique: Axial images abdomen and pelvis. No intravenous contrast. Oral contrast administered. Sagi ttal and coronal reformatted images obtained. HISTORY: lung mass COMPARISONS: Chest CT June 29, 2018 FINDINGS: Large lobulated mass compatible with neoplasm identified right lower lobe. Please see prior chest CT dictation. No significant interval change. No pleural effusion. Liver, spleen and pancreas unremarkable noncontrast appearance Density in the gallbladder likely reflecting vicarious excretion of contrast. No biliary dilatation. The adrenal glands are unremarkable. Kidneys demonstrate bilateral cysts. No calculus. No hydronephrosis. Bladder unremarkable. Prostate m ildly enlarged. Calcification noted. Atherosclerotic calcification of the aorta. No aneurysm. No retroperitoneal adenopathy. No bowel obstruction. Mild diverticulosis. No diverticulitis. No free air. No free fluid. Normal appe ndix. Omentum and mesentery unremarkable. No acute bony abnormality identified. IMPRESSION: Large lobulated right lower lobe mass reidentified. Please see prior chest CT dictation The abdomen and pelvis demonstrate no adenopathy or mass No free air. No free fluid. No bowel obstruction No acute inflammatory change Renal cysts are present. No calculus. No hydronephrosis.. This document is electronically signed by Perry Perkins MD., July 01 2018 06:15:27 PM ET
[2018-07-01 19:57] LABS: Creatinine,Urine 58.9 mg/dL (0.1-20.0)
[2018-07-01 20:20] LABS: Bilirubin,Urine NEG (Negative); Blood,Urine NEG (Negative); Color,Urine Straw (Yellow); Mucus,Urine FEW /HPF; Protein,Urine <15 mg/dL mg/dL (Negative); Urobilinogen,Urine < 2.0 mg/dL (<2.0); WBC,Urine < 1.0 /HPF (0.0-6.0)
[2018-07-01 20:27] LABS: RBC,Urine < 1.0 /HPF (0.0-6.0)
[2018-07-02] MEDS: NACL 0.9% 1000 ML 1,000 ML IV SCH ×2 (00:24→11:14)
[2018-07-02 06:31] LABS: Calcium 9.5 mg/dL (8.4-10.2)
[2018-07-02] MEDS: BROVANA NEBU IH SCH ×2 (07:29→19:52)
[2018-07-02] MEDS: PULMICORT IH SCH ×2 (07:29→19:52)
--- NOTE | 2018-07-02 08:02 | Consultation ---
History of Present Illness - Reason for Consult Consult date: 07/02/18 acute renal failure - History of Present Illness The patient is a 67 YO male with history significant for HTN, HLD, COPD and right lung mass who was admitted on 06/28/18 with shortness of breath. He also reports coughing up blood on the day of presentation. Patient was set up for outpatient follow up with Dr. Mckeon but she was ill and had to cancel. He has lost about 5lbs over the past month. Patient quit smoking about 12 years ago but did smoke for about 25 years. Patient denies N, V, D, fever, chills, cp, rash, dysuria, hematuria, dizziness or syncope. Creatinine increased to 1.9 yesterday. Nephrology was consulted for further evaluation. Past History Past Medical History: hypertension, hyperlipidemia, other (Gout, right lung mass) Medications and Allergies Allergies Allergy/AdvReac Type Severity Reaction Status Date / Time pollen extracts Allergy Mild Itching Verified 06/28/18 16:42 strawberry Allergy Mild Hives Verified 06/28/18 16:42 Home Medications Medication Instructions Recorded Confirmed Last Taken Type ALBUTEROL Inhaler (OR & NICU) 1 puff IH Q4H PRN 06/28/18 06/28/18 06/28/18 History [ProAir HFA Inhaler] Allopurinol [Zyloprim] 300 mg PO DAILY 06/28/18 06/28/18 1 Day Ago History ~06/27/18 AtorvaSTATin [Lipitor] 20 mg PO DAILY 06/28/18 06/28/18 1 Day Ago History ~06/27/18 Levocetirizine Dihydrochloride 5 mg PO DAILY 06/28/18 06/28/18 1 Week Ago History [Xyzal] ~06/21/18 Losartan/Hydrochlorothiazide 1 each PO QPM 06/28/18 06/28/18 1 Day Ago History [Losartan-Hctz 100-25 mg Tab] ~06/27/18 Metoprolol [Lopressor] 100 mg PO DAILY 06/28/18 06/28/18 1 Day Ago History ~06/27/18 amLODIPine [Norvasc] 10 mg PO DAILY 06/28/18 06/28/18 1 Day Ago History ~06/27/18 predniSONE [Deltasone] 20 mg PO DAILY 06/28/18 06/28/1819 History Active Meds: Active Medications Acetylcysteine (Mucomyst Oral) 200 mg PO Q12HR [facility] Last Admin: 07/01/18 22:29 Dose: 200 mg Documented by: Albuterol (Proventil) 2.5 mg IH Q4HRT PRN PRN Reason: Shortness Of Breath Last Admin: 06/30/18 17:27 Dose: 2.5 mg Documented by: Allopurinol (Zyloprim) 300 mg PO DAILY [facility] Last Admin: 07/01/18 10:28 Dose: 300 mg Documented by: Amlodipine Besylate (Norvasc) 10 mg PO DAILY [facility] Last Admin: 07/01/18 10:28 Dose: 10 mg Documented by: Arformoterol Tartrate (Brovana Nebu) 15 mcg IH Q12HRT [facility] Last Admin: 07/02/18 07:29 Dose: 15 mcg Documented by: Atorvastatin Calcium (Lipitor) 20 mg PO DAILY [facility] Last Admin: 07/01/18 10:28 Dose: 20 mg Documented by: Budesonide (Pulmicort) 0.5 mg IH Q12HRT [facility] Last Admin: 07/02/18 07:29 Dose: 0.5 mg Documented by: Levofloxacin/Dextrose (Levaquin 750mg/150ml) 750 mg in 150 mls @ 100 mls/hr IV Q48H [facility]; Protocol Sodium Chloride (Nacl 0.9% 1000 Ml) 1,000 mls @ 100 mls/hr IV DIRECT [facility] Last Admin: 07/02/18 00:24 Dose: 100 mls/hr Documented by: Labetalol HCl (Normodyne) 200 mg PO BID [facility] Last Admin: 07/01/18 22:29 Dose: 200 mg Documented by: Methylprednisolone Sodium Succinate (Solu-Medrol) 40 mg IV Q12HR [facility] Last Admin: 07/01/18 22:30 Dose: 40 mg Documented by: Metoprolol Tartrate (Lopressor) 100 mg PO DAILY [facility] Last Admin: 07/01/18 10:28 Dose: 100 mg Documented by: Miscellaneous Medication (Levocetirizine Dihydrochloride [Xyzal]) 5 mg PO DAILY [facility] Last Admin: 07/01/18 10:29 Dose: Not Given Documented by: Review of Systems Constitutional: weight loss, no weight gain, no fever, no chills, no anorexia, no poor appetite Cardiovascular: shortness of breath, dyspnea on exertion, high blood pressure, decreased exercise tolerance, no chest pain, no orthopnea, no edema, no syncope, no lightheadedness, no leg edema Respiratory: cough, cough with sputum, hemoptysis, shortness of breath, dyspnea on exertion, no home oxygen Gastrointestinal: no abdominal pain, no nausea, no vomiting, no diarrhea Genitourinary Male: no dysuria, no hematuria Rectal: no bleeding Musculoskeletal: muscle weakness Integumentary: no rash, no wounds, no jaundice Neurological: weakness, no paralysis, no seizures, no syncope, no change in speech, no change in mentation, no confusion, no double vision, no loss of vision Exam - Vital Signs Vital signs: Vital Signs Pulse Resp Pulse Ox 82 16 95 06/28/18 10:01 06/28/18 10:01 06/28/18 10:01 - General Appearance General appearance: well-developed, well-nourished, appears stated age, other (not in distress, on VM O2) EENT: ATNC, PERRL, mucous membranes moist, hearing intact, vision intact Neck: Present: neck supple, trachea midline Respiratory: Clear to Ascultation, Decreased Breath Sounds (right lung) Heart: regular, S1S2, no murmurs Gastrointestinal: Present: normoactive bowel sounds. Absent: tenderness, distended Integumentary: no rash, warm and dry Neurologic: no focal deficit, no asterixis, alert and oriented x3 Musculoskeletal: Present: other (no edema) Psychiatric: cooperative Results - Lab Results 07/01/18 09:36 07/02/18 05:56 Most recent lab results Calcium 9.5 mg/dL (8.4-10.2) 07/02/18 05:56 Urine Creatinine 58.9 mg/dL (0.1-20.0) H 07/01/18 19:46 Urine Sodium 41 mmol/L 07/01/18 19:46 Assessment and Plan 1. Acute kidney injury: DIAZ likely secondary to IV contrast. Creatinine level is improving. Continue IV fluids and Mucomyst. Monitor renal function. Avoid nephrotoxic agents. Meds dosage based on GFR. 2. FEN: Continue IV fluids. Monitor. 3. Right lung mass: S/p biopsy. 4. COPD with exacerbation. 5. Hypoxic respiratory failure.
--- NOTE | 2018-07-02 08:23 | Hem/Onc Progress Note ---
Assessment and Plan 1. Lung mass. 2. Hemoptysis. 3. Subcarinal lymph nodes. 4. This may be a neoplastic process in the lung. We will do CT abdomen, pelvis and CT head, which was also planned by the primary care. 5. Bronchoscopic versus CT-guided biopsy is being looked into. 6. We will do tumor markers. 7. History of hyperlipidemia. 8. On gout medications. 9. History of hypertension, on medications. I will follow the patient during inpatient stay and then in the clinic setting I discussed with him possibly being neoplastic process. Staging will guide some of our next step. 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 - medical coding manager high - CT abdo - only oral - and no IV contrast - d/w RN and pt 07/[address] Abdo Pelvis and CT head - no iv contrast - nil acute in head and abdo - Patient Problems (1) Lung mass Current Visit: Yes Status: Acute Subjective Date of service: 07/02/18 Principal diagnosis: lung mass Interval history: due lung mass bx Objective - Constitutional Vitals: Last Vital Signs Temp 97.5 F L 07/02/18 04:35 Pulse 98 H 07/02/18 07:29 Resp 18 07/02/18 07:29 BP 139/70 07/02/18 04:35 Pulse Ox 94 07/02/18 07:33 Pain Intensity (0-10): denies any pain General appearance: no acute distress Performance status: 4-completely disabled - EENT Eyes: EOM intact ENT: clear oral mucosa Lymph node exam: negative cervical - Neck Neck: normal ROM - Respiratory Respiratory effort: Positive: normal Respiratory: bilateral: CTA (anteriorly) - Cardiovascular Heart Sounds: Present: S1 & S2 Extremities: No edema - Gastrointestinal General gastrointestinal: Present: soft, non-tender Rectal Exam: deferred - Genitourinary Male genitourinary: Present: deferred - Integumentary Integumentary: warm - Musculoskeletal Musculoskeletal: strength equal bilaterally - Neurologic Neurologic: moves all extremities - Labs Lab Results: Laboratory Results - last 24 hr 07/01/18 07/01/18 07/01/18 09:36 09:36 19:43 WBC 17.9 H RBC 5.20 H Hgb 15.1 Hct 45.7 H MCV 88 MCH 29 MCHC 33 RDW 16.6 H Plt Count 302 Add Manual Diff Complete Total Counted 100 Seg Neutrophils % Field Administrator Seg Neuts % (Manual) 92.0 H Band Neutrophils % 0 Lymphocytes % (Manual) 5.0 L Reactive Lymphs % (Man) 1.0 Monocytes % (Manual) 2.0 Eosinophils % (Manual) 0 Basophils % (Manual) 0 Metamyelocytes % 0 Myelocytes % 0 Promyelocytes % 0 Blast Cells % 0 Nucleated RBC % Not Reportable Seg Neutrophils # Man 16.5 H Band Neutrophils # 0.0 Lymphocytes # (Manual) 0.9 L Abs React Lymphs (Man) 0.2 Monocytes # (Manual) 0.4 Eosinophils # (Manual) 0.0 Basophils # (Manual) 0.0 Metamyelocytes # 0.0 Myelocytes # 0.0 Promyelocytes # 0.0 Blast Cells # 0.0 WBC Morphology Not Reportable Hypersegmented Neuts Not Reportable Hyposegmented Neuts Not Reportable Hypogranular Neuts Not Reportable Smudge Cells Not Reportable Toxic Granulation Not Reportable Toxic Vacuolation Not Reportable Dohle Bodies Not Reportable Pelger-Huet Anomaly Not Reportable Gay Rods Not Reportable Platelet Estimate Consistent w auto Clumped Platelets Not Reportable Plt Clumps, EDTA Not Reportable Large Platelets Not Reportable Giant Platelets Not Reportable Platelet Satelliting Not Reportable Plt Morphology Comment Not Reportable RBC Morphology Normal Dimorphic RBCs Not Reportable Polychromasia Not Reportable Hypochromasia Not Reportable Poikilocytosis Not Reportable Anisocytosis Not Reportable Microcytosis Not Reportable Macrocytosis Not Reportable Spherocytes Not Reportable Pappenheimer Bodies Not Reportable Sickle Cells Not Reportable Target Cells Not Reportable Tear Drop Cells Not Reportable Ovalocytes Not Reportable Helmet Cells Not Reportable [place] Bodies Not Reportable [place] Rings Not Reportable Jalyn Cells Not Reportable Bite Cells Not Reportable Crenated Cell Not Reportable Elliptocytes Not Reportable Acanthocytes (Spur) Not Reportable Rouleaux Not Reportable Hemoglobin C Crystals Not Reportable Schistocytes Not Reportable Malaria parasites Not Reportable [place] Bodies Not Reportable Hem Pathologist Commnt No Sodium 137 Potassium 4.1 Chloride 95.9 L Carbon Dioxide 22 Anion Gap 23 BUN 47 H Creatinine 1.9 H Estimated GFR 43 BUN/Creatinine Ratio 25 Glucose 191 H Calcium 10.6 H Total Bilirubin 0.40 AST 15 ALT 16 Alkaline Phosphatase 62 Total Protein 8.1 Albumin 4.4 Albumin/Globulin Ratio 1.2 Urine Color Straw Urine Turbidity Clear Urine pH 5.0 Ur Specific [place] 1.012 Urine Protein <15 mg/dl Urine Glucose (UA) Neg Urine Ketones Neg Urine Blood Neg Urine Nitrite Neg Urine Bilirubin Neg Urine Urobilinogen < 2.0 Ur Leukocyte Esterase Neg Urine WBC (Auto) < 1.0 Urine RBC (Auto) < 1.0 Urine Mucus Few Urine Eosinophils Urine Creatinine Urine Sodium 07/01/18 07/01/18 07/02/18 19:43 19:46 05:56 WBC RBC Hgb Hct MCV MCH MCHC RDW Plt Count Add Manual Diff Total Counted Seg Neutrophils % Seg Neuts % (Manual) Band Neutrophils % Lymphocytes % (Manual) Reactive Lymphs % (Man) Monocytes % (Manual) Eosinophils % (Manual) Basophils % (Manual) Metamyelocytes % Myelocytes % Promyelocytes % Blast Cells % Nucleated RBC % Seg Neutrophils # Man Band Neutrophils # Lymphocytes # (Manual) Abs React Lymphs (Man) Monocytes # (Manual) Eosinophils # (Manual) Basophils # (Manual) Metamyelocytes # Myelocytes # Promyelocytes # Blast Cells # WBC Morphology Hypersegmented Neuts Hyposegmented Neuts Hypogranular Neuts Smudge Cells Toxic Granulation Toxic Vacuolation Dohle Bodies Pelger-Huet Anomaly Gay Rods Platelet Estimate Clumped Platelets Plt Clumps, EDTA Large Platelets Giant Platelets Platelet Satelliting Plt Morphology Comment RBC Morphology Dimorphic RBCs Polychromasia Hypochromasia Poikilocytosis Anisocytosis Microcytosis Macrocytosis Spherocytes Pappenheimer Bodies Sickle Cells Target Cells Tear Drop Cells Ovalocytes Helmet Cells [place] Bodies [place] Rings Jalyn Cells Bite Cells Crenated Cell Elliptocytes Acanthocytes (Spur) Rouleaux Hemoglobin C Crystals Schistocytes Malaria parasites [place] Bodies Hem Pathologist Commnt Sodium 139 Potassium 4.7 Chloride 101.2 Carbon Dioxide 25 Anion Gap 18 BUN 40 H Creatinine 1.5 Estimated GFR 56 BUN/Creatinine Ratio 27 Glucose 207 H Calcium 9.5 Total Bilirubin AST ALT Alkaline Phosphatase Total Protein Albumin Albumin/Globulin Ratio Urine Color Urine Turbidity Urine pH Ur Specific [place] Urine Protein Urine Glucose (UA) Urine Ketones Urine Blood Urine Nitrite Urine Bilirubin Urine Urobilinogen Ur Leukocyte Esterase Urine WBC (Auto) Urine RBC (Auto) Urine Mucus Urine Eosinophils None seen Urine Creatinine 58.9 H Urine Sodium 41 Medications & Allergies - Medications Allergies/Adverse Reactions: Allergies pollen extracts Allergy (Mild, Verified 06/28/18 16:42) Itching runny nose/watery eyes strawberry Allergy (Mild, Verified 06/28/18 16:42) Hives Home Medications: Home Medications Medication Instructions Recorded Confirmed Last Taken Type ALBUTEROL Inhaler (OR & NICU) 1 puff IH Q4H PRN 06/28/18 06/28/18 06/28/18 History [ProAir HFA Inhaler] Allopurinol [Zyloprim] 300 mg PO DAILY 06/28/18 06/28/18 1 Day Ago History ~06/27/18 AtorvaSTATin [Lipitor] 20 mg PO DAILY 06/28/18 06/28/18 1 Day Ago History ~06/27/18 Levocetirizine Dihydrochloride 5 mg PO DAILY 06/28/18 06/28/18 1 Week Ago History [Xyzal] ~06/21/18 Losartan/Hydrochlorothiazide 1 each PO QPM 06/28/18 06/28/18 1 Day Ago History [Losartan-Hctz 100-25 mg Tab] ~06/27/18 Metoprolol [Lopressor] 100 mg PO DAILY 06/28/18 06/28/18 1 Day Ago History ~06/27/18 amLODIPine [Norvasc] 10 mg PO DAILY 06/28/18 06/28/18 1 Day Ago History ~06/27/18 predniSONE [Deltasone] 20 mg PO DAILY 06/28/18 06/28/18 06/28/18 History Active Medications: Generic Name Dose Route Start Last Admin Trade Name Freq PRN Reason Stop Dose Admin Acetylcysteine 200 mg 07/01/18 16:00 07/01/18 22:29 Mucomyst Oral PO 200 mg Q12HR [facility] Administration Albuterol 2.5 mg 06/30/18 11:01 06/30/18 17:27 Proventil IH 2.5 mg Q4HRT PRN Administration Shortness Of Breath Allopurinol 300 mg 06/28/18 21:00 07/01/18 10:28 Zyloprim PO 300 mg DAILY [facility] Administration Amlodipine Besylate 10 mg 06/28/18 21:00 07/01/18 10:28 Norvasc PO 10 mg DAILY [facility] Administration Arformoterol Tartrate 15 mcg 06/30/18 20:00 07/02/18 07:29 Brovana Nebu IH 15 mcg Q12HRT [facility] Administration Atorvastatin Calcium 20 mg 06/28/18 20:45 07/01/18 10:28 Lipitor PO 20 mg DAILY [facility] Administration Budesonide 0.5 mg 06/30/18 20:00 07/02/18 07:29 Pulmicort IH 0.5 mg Q12HRT [facility] Administration Levofloxacin/Dextrose 750 mg in 150 mls @ 100 mls/hr 07/03/18 10:00 Levaquin 750mg/150ml IV Q48H [facility] Protocol Sodium Chloride 1,000 mls @ 100 mls/hr 07/01/18 13:00 07/02/18 00:24 Nacl 0.9% 1000 Ml IV 100 mls/hr DIRECT [facility] Administration Labetalol HCl 200 mg 07/01/18 16:00 07/01/18 22:29 Normodyne PO 200 mg BID [facility] Administration Methylprednisolone Sodium Succinate 40 mg 06/30/18 22:00 07/01/18 22:30 Solu-Medrol IV 40 mg Q12HR [facility] Administration Metoprolol Tartrate 100 mg 06/28/18 21:00 07/01/18 10:28 Lopressor PO 100 mg DAILY [facility] Administration Miscellaneous Medication 5 mg 06/28/18 20:45 07/01/18 10:29 Levocetirizine Dihydrochloride [Xyzal] PO Not Given DAILY [facility]
[2018-07-02] MEDS ORDERED: NACL 0.9% 500 ML 0 ML ONE (09:00)
[2018-07-02] MEDS: SUBLIMAZE IV NR ×2 (09:44→10:16)
[2018-07-02] MEDS ORDERED: VERSED IV ONE (10:00)
[2018-07-02] MEDS: LOPRESSOR PO SCH (11:11)
[2018-07-02] MEDS: SOLU-Medrol IV SCH ×2 (11:11→22:12)
[2018-07-02] MEDS: NORMODYNE PO SCH ×2 (11:11→22:12)
[2018-07-02] MEDS: ZYLOPRIM PO SCH (11:11)
[2018-07-02] MEDS: NORVASC PO SCH (11:11)
[2018-07-02] MEDS: NON-FORMULARY (Levocetirizine Dihydrochloride [Xyzal] 5 MG) PO SCH (11:13)
--- NOTE | 2018-07-02 11:31 | Cat Scan Report ---
CT BIOPSY LUNG RIGHT History: Right lower lobe lung mass Description of procedure: Informed consent was obtained. Sterile technique was utilized. 1% lidocaine for skin anesthesia. Moderate sedation was accomplished with Versed and fentanyl. The patient was sedated for 15 minutes. Intra-observer time of 15 minutes. Independent cardiorespiratory monitoring by RN. Using CT guidance, a 19-gauge introducer needle was advanced within a 10.1 x 6.4 cm right lower lobe mass. 4 separate 2.2 cm 20-gauge core biopsies were obtained for pathology. The samples were deemed adequate by the pathologist on site. No complications. Impression: Successful CT-guided biopsy of a right lower lobe lung mass.
[2018-07-02] MEDS: MUCOMYST ORAL PO SCH ×2 (12:08→22:12)
--- NOTE | 2018-07-02 14:16 | XRay Report ---
AP CHEST: HISTORY: Right lung mass, recent CT biopsy Recent CT-guided biopsy of a right lower lobe lung mass was performed. Followup AP chest demonstrates no evidence for pneumothorax. Right lower lobe mass and emphysematous changes are stable. IMPRESSION: No evidence for pneumothorax.
--- NOTE | 2018-07-02 14:51 | Progress Note ---
Assessment and Plan Imp: 1. Lung mass 2. Hemoptysis 3. Acute respiratory failure, hypoxia 4. Centrilobular/bullous emphysema 5. DIAZ Rec: 1. Cont. Solumedrol, Levaquin, Bronchodilators 2. F/u Pathology on lung mass 3. Home O2 eval. needed 4. Outpatient PFTs -> f/u with us 1 week after d/c Plan of care reviewed w/ patient, he understands/agrees Subjective Date of service: 07/02/18 Principal diagnosis: lung mass Interval history: S/p CT guided biopsy, tolerated well. SOB better on O2. No chest pain. + Cough, and wheezing. Active Medications Acetylcysteine (Mucomyst Oral) 200 mg PO Q12HR [facility] Last Admin: 07/02/18 12:08 Dose: Not Given Documented by: Albuterol (Proventil) 2.5 mg IH Q4HRT PRN PRN Reason: Shortness Of Breath Last Admin: 06/30/18 17:27 Dose: 2.5 mg Documented by: Allopurinol (Zyloprim) 300 mg PO DAILY [facility] Last Admin: 07/02/18 11:11 Dose: 300 mg Documented by: Amlodipine Besylate (Norvasc) 10 mg PO DAILY [facility] Last Admin: 07/02/18 11:11 Dose: 10 mg Documented by: Arformoterol Tartrate (Brovana Nebu) 15 mcg IH Q12HRT [facility] Last Admin: 07/02/18 07:29 Dose: 15 mcg Documented by: Atorvastatin Calcium (Lipitor) 20 mg PO DAILY [facility] Last Admin: 07/02/18 11:11 Dose: 20 mg Documented by: Budesonide (Pulmicort) 0.5 mg IH Q12HRT [facility] Last Admin: 07/02/18 07:29 Dose: 0.5 mg Documented by: Fentanyl (Sublimaze) 100 mcg IV ONCE NR Stop: 07/02/18 16:00 Last Admin: 07/02/18 10:16 Dose: 100 mcg Documented by: Levofloxacin/Dextrose (Levaquin 750mg/150ml) 750 mg in 150 mls @ 100 mls/hr IV Q48H [facility]; Protocol Sodium Chloride (Nacl 0.9% 1000 Ml) 1,000 mls @ 100 mls/hr IV DIRECT [facility] Last Admin: 07/02/18 11:14 Dose: 100 mls/hr Documented by: Labetalol HCl (Normodyne) 200 mg PO BID [facility] Last Admin: 07/02/18 11:11 Dose: 200 mg Documented by: Methylprednisolone Sodium Succinate (Solu-Medrol) 40 mg IV Q12HR [facility] Last Admin: 07/02/18 11:11 Dose: 40 mg Documented by: Metoprolol Tartrate (Lopressor) 100 mg PO DAILY [facility] Last Admin: 07/02/18 11:11 Dose: 100 mg Documented by: Miscellaneous Medication (Levocetirizine Dihydrochloride [Xyzal]) 5 mg PO DAILY [facility] Last Admin: 07/02/18 11:13 Dose: Not Given Documented by: Objective Vital Signs - 12hr 07/02/18 07/02/18 07/02/18 04:35 07:29 07:33 Temperature 97.5 F L Pulse Rate 91 H Pulse Rate [ 98 H Anterior Bilateral Throughout] Pulse Rate [ Intra-Procedure ] Pulse Rate [ Post-Procedure] Pulse Rate [Pre -Procedure] Respiratory 18 Rate Respiratory 18 Rate [Anterior Bilateral Throughout] Respiratory Rate [Intra- Procedure] Respiratory Rate [Post- Procedure] Respiratory Rate [Pre- Procedure] Blood Pressure 139/70 Blood Pressure [Intra- Procedure] Blood Pressure [Post-Procedure ] Blood Pressure [Pre-Procedure] O2 Sat by Pulse 95 94 Oximetry O2 Sat by Pulse Oximetry [ Intra-Procedure ] O2 Sat by Pulse Oximetry [Post -Procedure] O2 Sat by Pulse Oximetry [Pre- Procedure] 07/02/18 07/02/18 07/02/18 07:45 09:36 09:44 Temperature Pulse Rate Pulse Rate [ 100 H Anterior Bilateral Throughout] Pulse Rate [ 112 H Intra-Procedure ] Pulse Rate [ Post-Procedure] Pulse Rate [Pre 105 H -Procedure] Respiratory 20 Rate Respiratory 18 Rate [Anterior Bilateral Throughout] Respiratory 20 Rate [Intra- Procedure] Respiratory Rate [Post- Procedure] Respiratory 19 Rate [Pre- Procedure] Blood Pressure Blood Pressure 134/77 [Intra- Procedure] Blood Pressure [Post-Procedure ] Blood Pressure 137/69 [Pre-Procedure] O2 Sat by Pulse Oximetry O2 Sat by Pulse 94 Oximetry [ Intra-Procedure ] O2 Sat by Pulse Oximetry [Post -Procedure] O2 Sat by Pulse 96 Oximetry [Pre- Procedure] 07/02/18 07/02/18 07/02/18 09:49 09:54 09:58 Temperature Pulse Rate Pulse Rate [ Anterior Bilateral Throughout] Pulse Rate [ 107 H 104 H Intra-Procedure ] Pulse Rate [ 107 H Post-Procedure] Pulse Rate [Pre -Procedure] Respiratory Rate Respiratory Rate [Anterior Bilateral Throughout] Respiratory 19 20 Rate [Intra- Procedure] Respiratory 24 Rate [Post- Procedure] Respiratory Rate [Pre- Procedure] Blood Pressure Blood Pressure 134/72 112/73 [Intra- Procedure] Blood Pressure 128/78 [Post-Procedure ] Blood Pressure [Pre-Procedure] O2 Sat by Pulse Oximetry O2 Sat by Pulse 94 95 Oximetry [ Intra-Procedure ] O2 Sat by Pulse 96 Oximetry [Post -Procedure] O2 Sat by Pulse Oximetry [Pre- Procedure] 07/02/18 07/02/18 07/02/18 10:04 10:09 10:15 Temperature Pulse Rate Pulse Rate [ Anterior Bilateral Throughout] Pulse Rate [ Intra-Procedure ] Pulse Rate [ 108 H 102 H 108 H Post-Procedure] Pulse Rate [Pre -Procedure] Respiratory Rate Respiratory Rate [Anterior Bilateral Throughout] Respiratory Rate [Intra- Procedure] Respiratory 22 22 23 Rate [Post- Procedure] Respiratory Rate [Pre- Procedure] Blood Pressure Blood Pressure [Intra- Procedure] Blood Pressure 125/80 135/79 129/80 [Post-Procedure ] Blood Pressure [Pre-Procedure] O2 Sat by Pulse Oximetry O2 Sat by Pulse Oximetry [ Intra-Procedure ] O2 Sat by Pulse 96 96 96 Oximetry [Post -Procedure] O2 Sat by Pulse Oximetry [Pre- Procedure] 07/02/18 07/02/18 10:16 12:28 Temperature 98.1 F Pulse Rate 87 Pulse Rate [ Anterior Bilateral Throughout] Pulse Rate [ Intra-Procedure ] Pulse Rate [ Post-Procedure] Pulse Rate [Pre -Procedure] Respiratory 20 20 Rate Respiratory Rate [Anterior Bilateral Throughout] Respiratory Rate [Intra- Procedure] Respiratory Rate [Post- Procedure] Respiratory Rate [Pre- Procedure] Blood Pressure 148/65 Blood Pressure [Intra- Procedure] Blood Pressure [Post-Procedure ] Blood Pressure [Pre-Procedure] O2 Sat by Pulse 95 Oximetry O2 Sat by Pulse Oximetry [ Intra-Procedure ] O2 Sat by Pulse Oximetry [Post -Procedure] O2 Sat by Pulse Oximetry [Pre- Procedure] Constitutional: no acute distress, alert Eyes: non-icteric ENT: oropharynx moist Neck: supple Effort: normal Ascultation: Right: wheezes (occasional), Left: diminished breath sounds Percussion: Bilateral: not dull Tactile fremitus: Bilateral: normal Cardiovascular: regular rate and rhythm Gastrointestinal: normoactive bowel sounds, non-tender Extremities: no cyanosis, no edema, pink and warm, pulses normal Neurologic: normal mental status, non-focal exam, pupils equal and round, CN II- XII normal Psychiatric: mood appropriate, affect normal CBC and BMP: 07/01/18 09:36 07/02/18 05:56 ABG, PT/INR, D-dimer: PT/INR, D-dimer PT 13.2 Sec. (12.2-14.9) 06/29/18 13:35 INR 0.95 (0.87-1.13) 06/29/18 13:35 Abnormal lab findings: Abnormal Labs 06/28/18 06/28/18 06/29/18 10:02 10:02 13:35 WBC 17.1 H RBC Hct RDW 15.8 H Lymph % (Auto) 9.9 L [place] # 0.9 H Seg Neutrophils % 84.0 H Seg Neuts % (Manual) Lymphocytes % (Manual) Seg Neutrophils # 14.4 H Seg Neutrophils # Man Lymphocytes # (Manual) APTT 20.0 L Chloride BUN 23 H Creatinine Glucose 125 H Calcium Total Creatine Kinase 43 L Urine Creatinine 07/01/18 07/01/18 07/01/18 09:36 09:36 19:46 WBC 17.9 H RBC 5.20 H Hct 45.7 H RDW 16.6 H Lymph % (Auto) [place] # Seg Neutrophils % Seg Neuts % (Manual) 92.0 H Lymphocytes % (Manual) 5.0 L Seg Neutrophils # Seg Neutrophils # Man 16.5 H Lymphocytes # (Manual) 0.9 L APTT Chloride 95.9 L BUN 47 H Creatinine 1.9 H Glucose 191 H Calcium 10.6 H Total Creatine Kinase Urine Creatinine 58.9 H 07/02/18 05:56 WBC RBC Hct RDW Lymph % (Auto) [place] # Seg Neutrophils % Seg Neuts % (Manual) Lymphocytes % (Manual) Seg Neutrophils # Seg Neutrophils # Man Lymphocytes # (Manual) APTT Chloride BUN 40 H Creatinine Glucose 207 H Calcium Total Creatine Kinase Urine Creatinine Chest x-ray: report reviewed, image reviewed (No PTX after biopsy) CT scan - chest: report reviewed, image reviewed
--- NOTE | 2018-07-02 15:42 | Progress Note ---
Assessment and Plan Acute resp failure due to COPD and lung mass - placed on ventimask since yesterday on 10L O2 COPD exacerbation hemoptysis, likley from lung mass Right lung mass LL, possible malignancy leukocytosis, reactive. likely from underlying malignancy (patient not septic) DIAZ, vasomotor nephropathy vs contrast induced - cont to monitor, nebs, supplemental O2, tapering steroid, abx - cont home meds, avoid heparin/aspirin product - s/p CT guided bopsy today, wean off o2 as tolerated, - Onc following, cont IV fluid for DIAZ, monitor Cr, consulted renal - SCd for DVt Px Brief History: 67 y/o male presented to the ED back in May after coughing some blood while playing basketball. CXR showed large right lower lobe mass but rest of lung clear. Patient was set up for outpatient follow up with Dr. Mckeon but he was ill and had to cancel and Rescheduled. But came to ED this time with more hemoptysis, SOB and generalized weakness. Has lost about 5lbs intentionally in the last month. Quit smoking 12 years ago but did smoker for about 25 years. Admitted for COPD exacerbation and possible lung biopsy CTA chest: No PE. RLL lung mass Physical exam: General appearance: Present: no acute distress, well-nourished - EENT Eyes: PERRL, EOM intact ENT: hearing intact, clear oral mucosa Ears: bilateral: normal - Neck Neck: supple, normal ROM - Respiratory Respiratory effort: normal Respiratory: bilateral: diminished, rhonchi (RLL) - Cardiovascular Rhythm: regular Heart Sounds: Present: S1 & S2. Absent: gallop, rub Extremities: pulses intact, No edema, normal color, Full ROM - Gastrointestinal General gastrointestinal: Present: soft, non-tender, non-distended, normal bowel sounds - Integumentary Integumentary: clear, warm, dry - Musculoskeletal Musculoskeletal: 1, strength equal bilaterally - Neurologic Neurologic: moves all extremities - Psychiatric Psychiatric: memory intact, appropriate mood/affect, intact judgment & insight Subjective Date of service: 07/02/18 Principal diagnosis: lung mass Interval history: Patient seen and examined No acute event o/n C/O SOB, no chest pain S/P CT guided lung biosy today Placed on venti mask since yesterday Objective - Constitutional Vitals: Vital Signs - 12hr 07/02/18 07/02/18 07/02/18 04:35 07:29 07:33 Temperature 97.5 F L Pulse Rate 91 H Pulse Rate [ 98 H Anterior Bilateral Throughout] Pulse Rate [ Intra-Procedure ] Pulse Rate [ Post-Procedure] Pulse Rate [Pre -Procedure] Respiratory 18 Rate Respiratory 18 Rate [Anterior Bilateral Throughout] Respiratory Rate [Intra- Procedure] Respiratory Rate [Post- Procedure] Respiratory Rate [Pre- Procedure] Blood Pressure 139/70 Blood Pressure [Intra- Procedure] Blood Pressure [Post-Procedure ] Blood Pressure [Pre-Procedure] O2 Sat by Pulse 95 94 Oximetry O2 Sat by Pulse Oximetry [ Intra-Procedure ] O2 Sat by Pulse Oximetry [Post -Procedure] O2 Sat by Pulse Oximetry [Pre- Procedure] 07/02/18 07/02/18 07/02/18 07:45 09:36 09:44 Temperature Pulse Rate Pulse Rate [ 100 H Anterior Bilateral Throughout] Pulse Rate [ 112 H Intra-Procedure ] Pulse Rate [ Post-Procedure] Pulse Rate [Pre 105 H -Procedure] Respiratory 20 Rate Respiratory 18 Rate [Anterior Bilateral Throughout] Respiratory 20 Rate [Intra- Procedure] Respiratory Rate [Post- Procedure] Respiratory 19 Rate [Pre- Procedure] Blood Pressure Blood Pressure 134/77 [Intra- Procedure] Blood Pressure [Post-Procedure ] Blood Pressure 137/69 [Pre-Procedure] O2 Sat by Pulse Oximetry O2 Sat by Pulse 94 Oximetry [ Intra-Procedure ] O2 Sat by Pulse Oximetry [Post -Procedure] O2 Sat by Pulse 96 Oximetry [Pre- Procedure] 07/02/18 07/02/18 07/02/18 09:49 09:54 09:58 Temperature Pulse Rate Pulse Rate [ Anterior Bilateral Throughout] Pulse Rate [ 107 H 104 H Intra-Procedure ] Pulse Rate [ 107 H Post-Procedure] Pulse Rate [Pre -Procedure] Respiratory Rate Respiratory Rate [Anterior Bilateral Throughout] Respiratory 19 20 Rate [Intra- Procedure] Respiratory 24 Rate [Post- Procedure] Respiratory Rate [Pre- Procedure] Blood Pressure Blood Pressure 134/72 112/73 [Intra- Procedure] Blood Pressure 128/78 [Post-Procedure ] Blood Pressure [Pre-Procedure] O2 Sat by Pulse Oximetry O2 Sat by Pulse 94 95 Oximetry [ Intra-Procedure ] O2 Sat by Pulse 96 Oximetry [Post -Procedure] O2 Sat by Pulse Oximetry [Pre- Procedure] 07/02/18 07/02/18 07/02/18 10:04 10:09 10:15 Temperature Pulse Rate Pulse Rate [ Anterior Bilateral Throughout] Pulse Rate [ Intra-Procedure ] Pulse Rate [ 108 H 102 H 108 H Post-Procedure] Pulse Rate [Pre -Procedure] Respiratory Rate Respiratory Rate [Anterior Bilateral Throughout] Respiratory Rate [Intra- Procedure] Respiratory 22 22 23 Rate [Post- Procedure] Respiratory Rate [Pre- Procedure] Blood Pressure Blood Pressure [Intra- Procedure] Blood Pressure 125/80 135/79 129/80 [Post-Procedure ] Blood Pressure [Pre-Procedure] O2 Sat by Pulse Oximetry O2 Sat by Pulse Oximetry [ Intra-Procedure ] O2 Sat by Pulse 96 96 96 Oximetry [Post -Procedure] O2 Sat by Pulse Oximetry [Pre- Procedure] 07/02/18 07/02/18 10:16 12:28 Temperature 98.1 F Pulse Rate 87 Pulse Rate [ Anterior Bilateral Throughout] Pulse Rate [ Intra-Procedure ] Pulse Rate [ Post-Procedure] Pulse Rate [Pre -Procedure] Respiratory 20 20 Rate Respiratory Rate [Anterior Bilateral Throughout] Respiratory Rate [Intra- Procedure] Respiratory Rate [Post- Procedure] Respiratory Rate [Pre- Procedure] Blood Pressure 148/65 Blood Pressure [Intra- Procedure] Blood Pressure [Post-Procedure ] Blood Pressure [Pre-Procedure] O2 Sat by Pulse 95 Oximetry O2 Sat by Pulse Oximetry [ Intra-Procedure ] O2 Sat by Pulse Oximetry [Post -Procedure] O2 Sat by Pulse Oximetry [Pre- Procedure] - Labs CBC & Chem 7: 07/03/18 04:40 07/03/18 04:40 Labs: Abnormal lab results 07/01/18 07/02/18 Range/Units 19:46 05:56 BUN 40 H (9-20) mg/dL Glucose 207 H (75-100) mg/dL Urine Creatinine 58.9 H (0.1-20.0) mg/dL
[2018-07-03] MEDS: NACL 0.9% 1000 ML 1,000 ML IV SCH ×2 (01:27→18:43)
[2018-07-03 06:43] LABS: Hemoglobin 12.6 gm/dl (11.8-15.2); Mean Corpuscular HGB Conc 33 % (32-34); Mean Corpuscular Volume 88 fl (84-94); Platelet Count 208 K/mm3 (140-440); Red Blood Count 4.33 M/mm3 (3.65-5.03); Red Cell Distribution Width 16.6 % (13.2-15.2)
[2018-07-03 07:00] LABS: BUN/Creatinine Ratio 26; Blood Urea Nitrogen 31 mg/dL (9-20); Calcium 9.4 mg/dL (8.4-10.2); Hemolysis Index 16
--- NOTE | 2018-07-03 08:17 | Hem/Onc Progress Note ---
Assessment and Plan 1. Lung mass. 2. Hemoptysis. 3. Subcarinal lymph nodes. 4. This may be a neoplastic process in the lung. We will do CT abdomen, pelvis and CT head, which was also planned by the primary care. 5. Bronchoscopic versus CT-guided biopsy is being looked into. 6. We will do tumor markers. 7. History of hyperlipidemia. 8. On gout medications. 9. History of hypertension, on medications. I will follow the patient during inpatient stay and then in the clinic setting I discussed with him possibly being neoplastic process. Staging will guide some of our next step. 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 - [place] up [place] - CT abdo - only oral - and no IV contrast - d/w RN and pt 07/[address] Abdo Pelvis and CT head - no iv contrast - nil acute in head and abdo 07/03 - path pending of lung bx d/w pt reg OP follow up chemo - port - oral meds - PET CT - all these - once we have the path - Patient Problems (1) Lung mass Current Visit: Yes Status: Acute Subjective Date of service: 07/03/18 Principal diagnosis: lung mass Interval history: path pending pt on resp treatment Objective - Constitutional Vitals: Last Vital Signs Temp 97.8 F 07/03/18 06:20 Pulse 87 07/03/18 06:20 Resp 20 07/03/18 06:20 BP 138/76 07/03/18 06:20 Pulse Ox 94 07/03/18 06:20 Pain Intensity (0-10): denies any pain General appearance: no acute distress Performance status: 3-limited selfcare - EENT Eyes: EOM intact ENT: clear oral mucosa Lymph node exam: negative cervical - Neck Neck: normal ROM - Respiratory Respiratory effort: Positive: normal Respiratory: bilateral: CTA (anteriorly) - Cardiovascular Heart Sounds: Present: S1 & S2 Extremities: No edema - Gastrointestinal General gastrointestinal: Present: soft, non-tender Rectal Exam: deferred - Genitourinary Male genitourinary: Present: deferred - Integumentary Integumentary: warm - Musculoskeletal Musculoskeletal: strength equal bilaterally - Labs Lab Results: Laboratory Results - last 24 hr 07/03/18 07/03/18 04:40 04:40 WBC 13.1 H RBC 4.33 Hgb 12.6 Hct 38.0 D MCV 88 MCH 29 MCHC 33 RDW 16.6 H Plt Count 208 Seg Neutrophils % Bonderizer Sodium 140 Potassium 5.0 Chloride 106.3 Carbon Dioxide 22 Anion Gap 17 BUN 31 H Creatinine 1.2 Estimated GFR > 60 BUN/Creatinine Ratio 26 Glucose 187 H Calcium 9.4 Phosphorus 3.60 Magnesium 2.20 Medications & Allergies - Medications Allergies/Adverse Reactions: Allergies pollen extracts Allergy (Mild, Verified 06/28/18 16:42) Itching runny nose/watery eyes strawberry Allergy (Mild, Verified 06/28/18 16:42) Hives Home Medications: Home Medications Medication Instructions Recorded Confirmed Last Taken Type ALBUTEROL Inhaler (OR & NICU) 1 puff IH Q4H PRN 06/28/18 06/28/18 06/28/18 History [ProAir HFA Inhaler] Allopurinol [Zyloprim] 300 mg PO DAILY 06/28/18 06/28/18 1 Day Ago History ~06/27/18 AtorvaSTATin [Lipitor] 20 mg PO DAILY 06/28/18 06/28/18 1 Day Ago History ~06/27/18 Levocetirizine Dihydrochloride 5 mg PO DAILY 06/28/18 06/28/18 1 Week Ago History [Xyzal] ~06/21/18 Losartan/Hydrochlorothiazide 1 each PO QPM 06/28/18 06/28/18 1 Day Ago History [Losartan-Hctz 100-25 mg Tab] ~06/27/18 Metoprolol [Lopressor] 100 mg PO DAILY 06/28/18 06/28/18 1 Day Ago History ~06/27/18 amLODIPine [Norvasc] 10 mg PO DAILY 06/28/18 06/28/18 1 Day Ago History ~06/27/18 predniSONE [Deltasone] 20 mg PO DAILY 06/28/18 06/28/18 06/28/18 History Active Medications: Generic Name Dose Route Start Last Admin Trade Name Freq PRN Reason Stop Dose Admin Acetylcysteine 200 mg 07/01/18 16:00 07/02/18 22:12 Mucomyst Oral PO 200 mg Q12HR TRISTAN Administration Albuterol 2.5 mg 06/30/18 11:01 06/30/18 17:27 Proventil IH 2.5 mg Q4HRT PRN Administration Shortness Of Breath Allopurinol 300 mg 06/28/18 21:00 07/02/18 11:11 Zyloprim PO 300 mg DAILY TRISTAN Administration Amlodipine Besylate 10 mg 06/28/18 21:00 07/02/18 11:11 Norvasc PO 10 mg DAILY TRISTAN Administration Arformoterol Tartrate 15 mcg 06/30/18 20:00 07/02/18 19:52 Brovana Nebu IH 15 mcg Q12HRT TRISTAN Administration Atorvastatin Calcium 20 mg 06/28/18 20:45 07/02/18 11:11 Lipitor PO 20 mg DAILY TRISTAN Administration Budesonide 0.5 mg 06/30/18 20:00 07/02/18 19:52 Pulmicort IH 0.5 mg Q12HRT TRISTAN Administration Levofloxacin/Dextrose 750 mg in 150 mls @ 100 mls/hr 07/03/18 10:00 Levaquin 750mg/150ml IV Q48H TRISTAN Protocol Sodium Chloride 1,000 mls @ 75 mls/hr 07/01/18 13:00 07/03/18 01:27 Nacl 0.9% 1000 Ml IV 100 mls/hr DIRECT TRISTAN Administration Labetalol HCl 200 mg 07/01/18 16:00 07/02/18 22:12 Normodyne PO 200 mg BID TRISTAN Administration Methylprednisolone Sodium Succinate 40 mg 06/30/18 22:00 07/02/18 22:12 Solu-Medrol IV 40 mg Q12HR TRISTAN Administration Metoprolol Tartrate 100 mg 06/28/18 21:00 07/02/18 11:11 Lopressor PO 100 mg DAILY TRISTAN Administration Miscellaneous Medication 5 mg 06/28/18 20:45 07/02/18 11:13 Levocetirizine Dihydrochloride [Xyzal] PO Not Given DAILY TRISTAN
[2018-07-03] MEDS: PULMICORT IH SCH ×2 (08:23→20:06)
[2018-07-03] MEDS: BROVANA NEBU IH SCH ×2 (08:24→20:06)
--- NOTE | 2018-07-03 08:34 | Progress Note ---
Assessment and Plan 1. Acute kidney injury: DIAZ likely secondary to IV contrast. Creatinine level is better. Decrease IV fluids. Monitor renal function. Avoid nephrotoxic agents. Meds dosage based on GFR. 2. FEN: Monitor. 3. Right lung mass: S/p biopsy. 4. COPD with exacerbation. 5. Hypoxic respiratory failure. Subjective Date of service: 07/03/18 Principal diagnosis: lung mass Interval history: Patient is feeling better. Objective - Vital Signs Vital signs: Vital Signs - 12hr 07/02/18 07/02/18 07/03/18 22:12 22:46 06:20 Temperature 97.8 F 97.8 F Pulse Rate 87 85 87 Pulse Rate [ Anterior Bilateral Throughout] Respiratory 18 20 Rate Respiratory Rate [Anterior Bilateral Throughout] Blood Pressure 131/72 132/79 138/76 O2 Sat by Pulse 93 94 Oximetry 07/03/18 07/03/18 08:24 08:25 Temperature Pulse Rate Pulse Rate [ 94 H Anterior Bilateral Throughout] Respiratory Rate Respiratory 20 Rate [Anterior Bilateral Throughout] Blood Pressure O2 Sat by Pulse 94 Oximetry - General Appearance General appearance: well-developed, well-nourished, appears stated age, other (not in distress) EENT: ATNC, PERRL, mucous membranes moist, hearing intact, vision intact Neck: supple Respiratory: Present: Clear to Ascultation, Decreased Breath Sounds (right base) Cardiology: regular, S1S2, no murmurs Gastrointestinal: normoactive bowel sounds, no tenderness, no distended Integumentary: no rash, warm and dry Neurologic: no focal deficit, no asterixis, alert and oriented x3 Musculoskeletal: other (no edema) Psychiatric: cooperative - Lab 07/03/18 04:40 07/03/18 04:40 Most recent lab results Calcium 9.4 mg/dL (8.4-10.2) 07/03/18 04:40 Phosphorus 3.60 mg/dL (2.5-4.5) 07/03/18 04:40 Magnesium 2.20 mg/dL (1.7-2.3) 07/03/18 04:40 Urine Creatinine 58.9 mg/dL (0.1-20.0) H 07/01/18 19:46 Urine Sodium 41 mmol/L 07/01/18 19:46 Medications & Allergies - Medications Allergies/Adverse Reactions: Allergies pollen extracts Allergy (Mild, Verified 06/28/18 16:42) Itching runny nose/watery eyes strawberry Allergy (Mild, Verified 06/28/18 16:42) Hives Home Medications: Home Medications Medication Instructions Recorded Confirmed Last Taken Type ALBUTEROL Inhaler (OR & NICU) 1 puff IH Q4H PRN 06/28/18 06/28/18 06/28/18 H istory [ProAir HFA Inhaler] Allopurinol [Zyloprim] 300 mg PO DAILY 06/28/18 06/28/18 1 Day Ago History ~06/27/18 AtorvaSTATin [Lipitor] 20 mg PO DAILY 06/28/18 06/28/18 1 Day Ago History ~06/27/18 Levocetirizine Dihydrochloride 5 mg PO DAILY 06/28/18 06/28/18 1 Week Ago Histo ry [Xyzal] ~06/21/18 Losartan/Hydrochlorothiazide 1 each PO QPM 06/28/18 06/28/18 1 Day Ago History [Losartan-Hctz 100-25 mg Tab] ~06/27/18 Metoprolol [Lopressor] 100 mg PO DAILY 06/28/18 06/28/18 1 Day Ago History ~06/27/18 amLODIPine [Norvasc] 10 mg PO DAILY 06/28/18 06/28/18 1 Day Ago History ~06/27/18 predniSONE [Deltasone] 20 mg PO DAILY 06/28/18 06/28/18 06/28/18 History Active Medications: Generic Name Dose Route Start Last Admin Trade Name Freq PRN Reason Stop Dose Admin Acetylcysteine 200 mg 07/01/18 16:00 07/02/18 22:12 Mucomyst Oral PO 200 mg Q12HR TRISTAN Administration Albuterol 2.5 mg 06/30/18 11:01 06/30/18 17:27 Proventil IH 2.5 mg Q4HRT PRN Administration Shortness Of Breath Allopurinol 300 mg 06/28/18 21:00 07/02/18 11:11 Zyloprim PO 300 mg DAILY TRISTAN Administration Amlodipine Besylate 10 mg 06/28/18 21:00 07/02/18 11:11 Norvasc PO 10 mg DAILY TRISTAN Administration Arformoterol Tartrate 15 mcg 06/30/18 20:00 07/03/18 08:24 Brovana Nebu IH 15 mcg Q12HRT TRISTAN Administration Atorvastatin Calcium 20 mg 06/28/18 20:45 07/02/18 11:11 Lipitor PO 20 mg DAILY TRISTAN Administration Budesonide 0.5 mg 06/30/18 20:00 07/03/18 08:23 Pulmicort IH 0.5 mg Q12HRT TRISTAN Administration Levofloxacin/Dextrose 750 mg in 150 mls @ 100 mls/hr 07/03/18 10:00 Levaquin 750mg/150ml IV Q48H TRISTAN Protocol Sodium Chloride 1,000 mls @ 75 mls/hr 07/01/18 13:00 07/03/18 01:27 Nacl 0.9% 1000 Ml IV 100 mls/hr DIRECT TRISTAN Administration Labetalol HCl 200 mg 07/01/18 16:00 07/02/18 22:12 Normodyne PO 200 mg BID TRISTAN Administration Methylprednisolone Sodium Succinate 40 mg 06/30/18 22:00 07/02/18 22:12 Solu-Medrol IV 40 mg Q12HR TRISTAN Administration Metoprolol Tartrate 100 mg 06/28/18 21:00 07/02/18 11:11 Lopressor PO 100 mg DAILY TRISTAN Administration Miscellaneous Medication 5 mg 06/28/18 20:45 07/02/18 11:13 Levocetirizine Dihydrochloride [Xyzal] PO Not Given DAILY TRISTAN
[2018-07-03] MEDS: NON-FORMULARY (Levocetirizine Dihydrochloride [Xyzal] 5 MG) PO SCH (10:00)
[2018-07-03] MEDS: LEVAQUIN 750MG/150ML 750 MG/150 ML BAG IV SCH (10:20)
[2018-07-03] MEDS: LOPRESSOR PO SCH (10:21)
[2018-07-03] MEDS: NORVASC PO SCH (10:22)
[2018-07-03] MEDS: ZYLOPRIM PO SCH (10:22)
[2018-07-03] MEDS: NORMODYNE PO SCH ×2 (10:22→22:44)
[2018-07-03] MEDS: SOLU-Medrol IV SCH ×2 (10:23→22:44)
[2018-07-03 10:46] LABS: Total Cells Counted 100
[2018-07-03 10:47] LABS: Basophils % (Manual) 0 % (0.0-1.8); Eosinophils % (Manual) 0 % (0.0-4.3); Platelet Estimate Consistent w Auto; RBC Morphology Normal
[2018-07-03] MEDS: MUCOMYST ORAL PO SCH ×2 (14:22→22:43)
--- NOTE | 2018-07-03 16:10 | Progress Note ---
Assessment and Plan Imp: 1. Lung mass 2. Hemoptysis 3. Acute respiratory failure, hypoxia 4. Centrilobular/bullous emphysema 5. DIAZ Rec: 1. Cont. Solumedrol, Levaquin, Bronchodilators 2. F/u Pathology on lung mass 3. Home O2 eval. needed -> asked RT to be aggressive in weaning to NC 4. Outpatient PFTs -> f/u with us 1 week after d/c Plan of care reviewed w/ patient, he understands/agrees Subjective Date of service: 07/03/18 Principal diagnosis: lung mass Interval history: SOB stable on O2 50% VM. No chest pain. + Cough, and wheezing. Active Medications Acetylcysteine (Mucomyst Oral) 200 mg PO Q12HR [facility] Last Admin: 07/03/18 14:22 Dose: 200 mg Documented by: Albuterol (Proventil) 2.5 mg IH Q4HRT PRN PRN Reason: Shortness Of Breath Last Admin: 06/30/18 17:27 Dose: 2.5 mg Documented by: Allopurinol (Zyloprim) 300 mg PO DAILY [facility] Last Admin: 07/03/18 10:22 Dose: 300 mg Documented by: Amlodipine Besylate (Norvasc) 10 mg PO DAILY [facility] Last Admin: 07/03/18 10:22 Dose: 10 mg Documented by: Arformoterol Tartrate (Brovana Nebu) 15 mcg IH Q12HRT TRISTAN Last Admin: 07/03/18 08:24 Dose: 15 mcg Documented by: Atorvastatin Calcium (Lipitor) 20 mg PO DAILY [facility] Last Admin: 07/03/18 10:20 Dose: 20 mg Documented by: Budesonide (Pulmicort) 0.5 mg IH Q12HRT [facility] Last Admin: 07/03/18 08:23 Dose: 0.5 mg Documented by: Levofloxacin/Dextrose (Levaquin 750mg/150ml) 750 mg in 150 mls @ 100 mls/hr IV Q48H [facility]; Protocol Last Admin: 07/03/18 10:20 Dose: 100 mls/hr Documented by: Sodium Chloride (Nacl 0.9% 1000 Ml) 1,000 mls @ 75 mls/hr IV DIRECT [facility] Last Admin: 07/03/18 01:27 Dose: 100 mls/hr Documented by: Labetalol HCl (Normodyne) 200 mg PO BID [facility] Last Admin: 07/03/18 10:22 Dose: 200 mg Documented by: Methylprednisolone Sodium Succinate (Solu-Medrol) 40 mg IV Q12HR [facility] Last Admin: 07/03/18 10:23 Dose: 40 mg Documented by: Metoprolol Tartrate (Lopressor) 100 mg PO DAILY [facility] Last Admin: 07/03/18 10:21 Dose: 100 mg Documented by: Miscellaneous Medication (Levocetirizine Dihydrochloride [Xyzal]) 5 mg PO DAILY [facility] Last Admin: 07/02/18 11:13 Dose: Not Given Documented by: Objective Vital Signs - 12hr 07/03/18 07/03/18 07/03/18 06:20 08:24 08:25 Temperature 97.8 F Pulse Rate 87 Pulse Rate [ 94 H Anterior Bilateral Throughout] Respiratory 20 Rate Respiratory 20 Rate [Anterior Bilateral Throughout] Blood Pressure 138/76 O2 Sat by Pulse 94 94 Oximetry 07/03/18 07/03/18 07/03/18 08:39 10:21 12:21 Temperature 97.2 F L Pulse Rate 94 H 85 Pulse Rate [ 100 H Anterior Bilateral Throughout] Respiratory 20 Rate Respiratory 20 Rate [Anterior Bilateral Throughout] Blood Pressure 138/76 134/69 O2 Sat by Pulse 93 Oximetry Constitutional: no acute distress, alert Eyes: non-icteric ENT: oropharynx moist Neck: supple Effort: normal Ascultation: Right: wheezes (occasional), Left: diminished breath sounds, Bilateral: clear Cardiovascular: regular rate and rhythm Gastrointestinal: normoactive bowel sounds, non-tender Extremities: no cyanosis, no edema, pink and warm, pulses normal Neurologic: normal mental status, non-focal exam, pupils equal and round, CN II- XII normal Psychiatric: mood appropriate, affect normal CBC and BMP: 07/03/18 04:40 07/03/18 04:40 ABG, PT/INR, D-dimer: PT/INR, D-dimer PT 13.2 Sec. (12.2-14.9) 06/29/18 13:35 INR 0.95 (0.87-1.13) 06/29/18 13:35 Abnormal lab findings: Abnormal Labs 06/28/18 06/28/18 06/29/18 10:02 10:02 13:35 WBC 17.1 H RBC Hct RDW 15.8 H Lymph % (Auto) 9.9 L [place] # 0.9 H Seg Neutrophils % 84.0 H Seg Neuts % (Manual) Lymphocytes % (Manual) Seg Neutrophils # 14.4 H Seg Neutrophils # Man Lymphocytes # (Manual) APTT 20.0 L Chloride BUN 23 H Creatinine Glucose 125 H Calcium Total Creatine Kinase 43 L Urine Creatinine 07/01/18 07/01/18 07/01/18 09:36 09:36 19:46 WBC 17.9 H RBC 5.20 H Hct 45.7 H RDW 16.6 H Lymph % (Auto) [place] # Seg Neutrophils % Seg Neuts % (Manual) 92.0 H Lymphocytes % (Manual) 5.0 L Seg Neutrophils # Seg Neutrophils # Man 16.5 H Lymphocytes # (Manual) 0.9 L APTT Chloride 95.9 L BUN 47 H Creatinine 1.9 H Glucose 191 H Calcium 10.6 H Total Creatine Kinase Urine Creatinine 58.9 H 07/02/18 07/03/18 07/03/18 05:56 04:40 04:40 WBC 13.1 H RBC Hct RDW 16.6 H Lymph % (Auto) [place] # Seg Neutrophils % Seg Neuts % (Manual) 95.0 H Lymphocytes % (Manual) 3.0 L Seg Neutrophils # Seg Neutrophils # Man 12.4 H Lymphocytes # (Manual) 0.4 L APTT Chloride BUN 40 H 31 H Creatinine Glucose 207 H 187 H Calcium Total Creatine Kinase Urine Creatinine Chest x-ray: report reviewed, image reviewed CT scan - chest: report reviewed, image reviewed
--- NOTE | 2018-07-03 16:27 | Progress Note ---
Assessment and Plan Acute resp failure due to COPD and lung mass - placed on ventimask since 07/01/18 COPD exacerbation hemoptysis, likley from lung mass Right lung mass LL, possible malignancy leukocytosis, reactive. likely from underlying malignancy (patient not septic) DIAZ, vasomotor nephropathy vs contrast induced - cont to monitor, nebs, supplemental O2, tapering steroid, abx - cont home meds, avoid heparin/aspirin product - s/p CT guided bopsy will follow result, wean off o2 as tolerated, - Onc following, cont IV fluid for DIAZ, monitor Cr, consulted renal - SCd for DVt Px Brief History: 67 y/o male presented to the ED back in [place] after coughing some blood while playing basketball. CXR showed large right lower lobe mass but rest of lung clear. Patient was set up for outpatient follow up with Dr. Mckeon but he was ill and had to cancel and Rescheduled. But came to ED this time with more hemoptysis, SOB and generalized weakness. Has lost about 5lbs intentionally in the last month. Quit smoking 12 years ago but did smoker for about 25 years. Admitted for COPD exacerbation and possible lung biopsy CTA chest: No PE. RLL lung mass Physical exam: General appearance: Present: no acute distress, well-nourished - EENT Eyes: PERRL, EOM intact ENT: hearing intact, clear oral mucosa Ears: bilateral: normal - Neck Neck: supple, normal ROM - Respiratory Respiratory effort: normal Respiratory: bilateral: diminished, rhonchi (RLL) - Cardiovascular Rhythm: regular Heart Sounds: Present: S1 & S2. Absent: gallop, rub Extremities: pulses intact, No edema, normal color, Full ROM - Gastrointestinal General gastrointestinal: Present: soft, non-tender, non-distended, normal bowel sounds - Integumentary Integumentary: clear, warm, dry - Musculoskeletal Musculoskeletal: 1, strength equal bilaterally - Neurologic Neurologic: moves all extremities - Psychiatric Psychiatric: memory intact, appropriate mood/affect, intact judgment & insight Subjective Date of service: 07/03/18 Principal diagnosis: lung mass Interval history: Patient seen and examined No acute event o/n C/O SOB, no chest pain pending biopsy result Placed on venti mask since yesterday Objective - Constitutional Vitals: Vital Signs - 12hr 07/03/18 07/03/18 07/03/18 06:20 08:24 08:25 Temperature 97.8 F Pulse Rate 87 Pulse Rate [ 94 H Anterior Bilateral Throughout] Respiratory 20 Rate Respiratory 20 Rate [Anterior Bilateral Throughout] Blood Pressure 138/76 O2 Sat by Pulse 94 94 Oximetry 07/03/18 07/03/18 07/03/18 08:39 10:21 12:21 Temperature 97.2 F L Pulse Rate 94 H 85 Pulse Rate [ 100 H Anterior Bilateral Throughout] Respiratory 20 Rate Respiratory 20 Rate [Anterior Bilateral Throughout] Blood Pressure 138/76 134/69 O2 Sat by Pulse 93 Oximetry - Labs CBC & Chem 7: 07/03/18 04:40 07/04/18 06:07 Labs: Abnormal lab results 07/03/18 07/03/18 Range/Units 04:40 04:40 WBC 13.1 H (4.5-11.0) K/mm3 RDW 16.6 H (13.2-15.2) % Seg Neuts % (Manual) 95.0 H (40.0-70.0) % Lymphocytes % (Manual) 3.0 L (13.4-35.0) % Seg Neutrophils # Man 12.4 H (1.8-7.7) K/mm3 Lymphocytes # (Manual) 0.4 L (1.2-5.4) K/mm3 BUN 31 H (9-20) mg/dL Glucose 187 H (75-100) mg/dL
[2018-07-04 07:11] LABS: BUN/Creatinine Ratio 22; Blood Urea Nitrogen 26 mg/dL (9-20); Calcium 9.1 mg/dL (8.4-10.2); Hemolysis Index 8
--- NOTE | 2018-07-04 07:36 | Hem/Onc Progress Note ---
Assessment and Plan 1. Lung mass. 2. Hemoptysis. 3. Subcarinal lymph nodes. 4. This may be a neoplastic process in the lung. We will do CT abdomen, pelvis and CT head, which was also planned by the primary care. 5. Bronchoscopic versus CT-guided biopsy is being looked into. 6. We will do tumor markers. 7. History of hyperlipidemia. 8. On gout medications. 9. History of hypertension, on medications. I will follow the patient during inpatient stay and then in the clinic setting I discussed with him possibly being neoplastic process. Staging will guide some of our next step. 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 - heel dipper high - CT abdo - only oral - and no IV contrast - d/w RN and pt 07/[address] Abdo Pelvis and CT head - no iv contrast - nil acute in head and abdo 07/03 - path pending of lung bx d/w pt reg OP follow up chemo - port - oral meds - PET CT - all these - once we have the path 07/04 - d/w pt reg path - NSCLC - squamous Rad onc consult Port d/w Dr Tanner - Patient Problems (1) Lung mass Current Visit: Yes Status: Acute Subjective Date of service: 07/04/18 Principal diagnosis: lung cancer Interval history: pt getting nebs Rx Objective - Constitutional Vitals: Last Vital Signs Temp 97.3 F L 07/03/18 22:41 Pulse 79 07/03/18 22:44 Resp 21 07/03/18 22:41 BP 131/75 07/03/18 22:44 Pulse Ox 95 07/03/18 22:41 Pain Intensity (0-10): denies any pain General appearance: no acute distress Performance status: 3-limited selfcare - EENT Eyes: EOM intact ENT: clear oral mucosa Lymph node exam: negative cervical - Neck Neck: normal ROM - Respiratory Respiratory effort: Positive: normal Respiratory: bilateral: CTA (anteriorly) - Cardiovascular Heart Sounds: Present: S1 & S2 Extremities: No edema - Gastrointestinal General gastrointestinal: Present: soft, non-tender Rectal Exam: deferred - Genitourinary Male genitourinary: Present: deferred - Integumentary Integumentary: warm - Musculoskeletal Musculoskeletal: strength equal bilaterally - Neurologic Neurologic: moves all extremities - Labs Lab Results: Laboratory Results - last 24 hr 07/01/18 07/03/18 07/04/18 09:36 04:40 06:07 Add Manual Diff Complete Total Counted 100 Seg Neuts % (Manual) 95.0 H Band Neutrophils % 0 Lymphocytes % (Manual) 3.0 L Reactive Lymphs % (Man) 0 Monocytes % (Manual) 2.0 Eosinophils % (Manual) 0 Basophils % (Manual) 0 Metamyelocytes % 0 Myelocytes % 0 Promyelocytes % 0 Blast Cells % 0 Nucleated RBC % Not Reportable Seg Neutrophils # Man 12.4 H Band Neutrophils # 0.0 Lymphocytes # (Manual) 0.4 L Abs React Lymphs (Man) 0.0 Monocytes # (Manual) 0.3 Eosinophils # (Manual) 0.0 Basophils # (Manual) 0.0 Metamyelocytes # 0.0 Myelocytes # 0.0 Promyelocytes # 0.0 Blast Cells # 0.0 WBC Morphology Not Reportable Hypersegmented Neuts Not Reportable Hyposegmented Neuts Not Reportable Hypogranular Neuts Not Reportable Smudge Cells Not Reportable Toxic Granulation Not Reportable Toxic Vacuolation Not Reportable Dohle Bodies Not Reportable Pelger-Huet Anomaly Not Reportable Gay Rods Not Reportable Platelet Estimate Consistent w auto Clumped Platelets Not Reportable Plt Clumps, EDTA Not Reportable Large Platelets Not Reportable Giant Platelets Not Reportable Platelet Satelliting Not Reportable Plt Morphology Comment Not Reportable RBC Morphology Normal Dimorphic RBCs Not Reportable Polychromasia Not Reportable Hypochromasia Not Reportable Poikilocytosis Not Reportable Anisocytosis Not Reportable Microcytosis Not Reportable Macrocytosis Not Reportable Spherocytes Not Reportable Pappenheimer Bodies Not Reportable Sickle Cells Not Reportable Target Cells Not Reportable Tear Drop Cells Not Reportable Ovalocytes Not Reportable Helmet Cells Not Reportable [place] Bodies Not Reportable [place] Rings Not Reportable Jalyn Cells Not Reportable Bite Cells Not Reportable Crenated Cell Not Reportable Elliptocytes Not Reportable Acanthocytes (Spur) Not Reportable Rouleaux Not Reportable Hemoglobin C Crystals Not Reportable Schistocytes Not Reportable Malaria parasites Not Reportable [place] Bodies Not Reportable Hem Pathologist Commnt No Sodium 140 Potassium 4.8 Chloride 104.1 Carbon Dioxide 24 Anion Gap 17 BUN 26 H Creatinine 1.2 Estimated GFR > 60 BUN/Creatinine Ratio 22 Glucose 186 H Calcium 9.1 CA 19-9 Antigen 30 Medications & Allergies - Medications Allergies/Adverse Reactions: Allergies pollen extracts Allergy (Mild, Verified 06/28/18 16:42) Itching runny nose/watery eyes strawberry Allergy (Mild, Verified 06/28/18 16:42) Hives Home Medications: Home Medications Medication Instructions Recorded Confirmed Last Taken Type ALBUTEROL Inhaler (OR & NICU) 1 puff IH Q4H PRN 06/28/18 06/28/18 06/28/18 History [ProAir HFA Inhaler] Allopurinol [Zyloprim] 300 mg PO DAILY 06/28/18 06/28/18 1 Day Ago History ~06/27/18 AtorvaSTATin [Lipitor] 20 mg PO DAILY 06/28/18 06/28/18 1 Day Ago History ~06/27/18 Levocetirizine Dihydrochloride 5 mg PO DAILY 06/28/18 06/28/18 1 Week Ago History [Xyzal] ~06/21/18 Losartan/Hydrochlorothiazide 1 each PO QPM 06/28/18 06/28/18 1 Day Ago History [Losartan-Hctz 100-25 mg Tab] ~06/27/18 Metoprolol [Lopressor] 100 mg PO DAILY 06/28/18 06/28/18 1 Day Ago History ~06/27/18 amLODIPine [Norvasc] 10 mg PO DAILY 06/28/18 06/28/18 1 Day Ago History ~06/27/18 predniSONE [Deltasone] 20 mg PO DAILY 06/28/18 06/28/18 06/28/18 History Active Medications: Generic Name Dose Route Start Last Admin Trade Name Freq PRN Reason Stop Dose Admin Acetylcysteine 200 mg 07/01/18 16:00 07/03/18 22:43 Mucomyst Oral PO 200 mg Q12HR TRISTAN Administration Albuterol 2.5 mg 06/30/18 11:01 06/30/18 17:27 Proventil IH 2.5 mg Q4HRT PRN Administration Shortness Of Breath Allopurinol 300 mg 06/28/18 21:00 07/03/18 10:22 Zyloprim PO 300 mg DAILY TRISTAN Administration Amlodipine Besylate 10 mg 06/28/18 21:00 07/03/18 10:22 Norvasc PO 10 mg DAILY TRISTAN Administration Arformoterol Tartrate 15 mcg 06/30/18 20:00 07/03/18 20:06 Brovana Nebu IH 15 mcg Q12HRT TRISTAN Administration Atorvastatin Calcium 20 mg 06/28/18 20:45 07/03/18 10:20 Lipitor PO 20 mg DAILY TRISTAN Administration Budesonide 0.5 mg 06/30/18 20:00 07/03/18 20:06 Pulmicort IH 0.5 mg Q12HRT TRISTAN Administration Levofloxacin/Dextrose 750 mg in 150 mls @ 100 mls/hr 07/03/18 10:00 07/03/18 10:20 Levaquin 750mg/150ml IV 100 mls/hr Q48H TRISTAN Administration Protocol Sodium Chloride 1,000 mls @ 50 mls/hr 07/01/18 13:00 07/03/18 18:43 Nacl 0.9% 1000 Ml IV 100 mls/hr DIRECT TRISTAN Administration Labetalol HCl 200 mg 07/01/18 16:00 07/03/18 22:44 Normodyne PO 200 mg BID TRISTAN Administration Methylprednisolone Sodium Succinate 40 mg 06/30/18 22:00 07/03/18 22:44 Solu-Medrol IV 40 mg Q12HR TRISTAN Administration Metoprolol Tartrate 100 mg 06/28/18 21:00 07/03/18 10:21 Lopressor PO 100 mg DAILY TRISTAN Administration Miscellaneous Medication 5 mg 06/28/18 20:45 07/03/18 10:00 Levocetirizine Dihydrochloride [Xyzal] PO Not Given DAILY TRISTAN
--- NOTE | 2018-07-04 07:55 | Progress Note ---
Assessment and Plan 1. Acute kidney injury: DIAZ likely secondary to IV contrast. Creatinine level is better. Stop IV fluids. Monitor renal function. Avoid nephrotoxic agents. Meds dosage based on GFR. 2. FEN: Monitor. 3. Right lung mass: S/p biopsy. 4. COPD with exacerbation. 5. Hypoxic respiratory failure. Subjective Date of service: 07/04/18 Principal diagnosis: lung mass Interval history: Patient is feeling better. Objective - Vital Signs Vital signs: Vital Signs - 12hr 07/03/18 07/03/18 07/03/18 20:10 20:11 20:31 Temperature Pulse Rate Pulse Rate [ 86 88 Anterior Bilateral Throughout] Respiratory Rate Respiratory 20 18 Rate [Anterior Bilateral Throughout] Blood Pressure O2 Sat by Pulse 94 Oximetry 07/03/18 07/03/18 07/03/18 22:00 22:41 22:44 Temperature 97.3 F L Pulse Rate 80 79 Pulse Rate [ Anterior Bilateral Throughout] Respiratory 19 21 Rate Respiratory Rate [Anterior Bilateral Throughout] Blood Pressure 131/72 131/75 O2 Sat by Pulse 94 95 Oximetry - General Appearance General appearance: well-developed, well-nourished, appears stated age, other (not in distress, on VM O2) EENT: ATNC, PERRL, mucous membranes moist, hearing intact, vision intact Neck: supple Respiratory: Present: Clear to Ascultation, Decreased Breath Sounds (right base) Cardiology: regular, S1S2, no murmurs Gastrointestinal: normoactive bowel sounds, no tenderness, no distended Integumentary: no rash, warm and dry Neurologic: no focal deficit, no asterixis, alert and oriented x3 Musculoskeletal: other (no edema) - Lab 07/03/18 04:40 07/04/18 06:07 Most recent lab results Calcium 9.1 mg/dL (8.4-10.2) 07/04/18 06:07 Phosphorus 3.60 mg/dL (2.5-4.5) 07/03/18 04:40 Magnesium 2.20 mg/dL (1.7-2.3) 07/03/18 04:40 Urine Creatinine 58.9 mg/dL (0.1-20.0) H 07/01/18 19:46 Urine Sodium 41 mmol/L 07/01/18 19:46 Medications & Allergies - Medications Allergies/Adverse Reactions: Allergies pollen extracts Allergy (Mild, Verified 06/28/18 16:42) Itching runny nose/watery eyes strawberry Allergy (Mild, Verified 06/28/18 16:42) Hives Home Medications: Home Medications Medication Instructions Recorded Confirmed Last Taken Type ALBUTEROL Inhaler (OR & NICU) 1 puff IH Q4H PRN 06/28/18 06/28/18 06/28/18 History [ProAir HFA Inhaler] Allopurinol [Zyloprim] 300 mg PO DAILY 06/28/18 06/28/18 1 Day Ago History ~06/27/18 AtorvaSTATin [Lipitor] 20 mg PO DAILY 06/28/18 06/28/18 1 Day Ago History ~06/27/18 Levocetirizine Dihydrochloride 5 mg PO DAILY 06/28/18 06/28/18 1 Week Ago History [Xyzal] ~06/21/18 Losartan/Hydrochlorothiazide 1 each PO QPM 06/28/18 06/28/18 1 Day Ago History [Losartan-Hctz 100-25 mg Tab] ~06/27/18 Metoprolol [Lopressor] 100 mg PO DAILY 06/28/18 06/28/18 1 Day Ago History ~06/27/18 amLODIPine [Norvasc] 10 mg PO DAILY 06/28/18 06/28/18 1 Day Ago History ~06/27/18 predniSONE [Deltasone] 20 mg PO DAILY 06/28/18 06/28/18 06/28/18 History Active Medications: Generic Name Dose Route Start Last Admin Trade Name Freq PRN Reason Stop Dose Admin Acetylcysteine 200 mg 07/01/18 16:00 07/03/18 22:43 Mucomyst Oral PO 200 mg Q12HR TRISTAN Administration Albuterol 2.5 mg 06/30/18 11:01 06/30/18 17:27 Proventil IH 2.5 mg Q4HRT PRN Administration Shortness Of Breath Allopurinol 300 mg 06/28/18 21:00 07/03/18 10:22 Zyloprim PO 300 mg DAILY TRISTAN Administration Amlodipine Besylate 10 mg 06/28/18 21:00 07/03/18 10:22 Norvasc PO 10 mg DAILY TRISTAN Administration Arformoterol Tartrate 15 mcg 06/30/18 20:00 07/03/18 20:06 Brovana Nebu IH 15 mcg Q12HRT TRISTAN Administration Atorvastatin Calcium 20 mg 06/28/18 20:45 07/03/18 10:20 Lipitor PO 20 mg DAILY TRISTAN Administration Budesonide 0.5 mg 06/30/18 20:00 07/03/18 20:06 Pulmicort IH 0.5 mg Q12HRT TRISTAN Administration Levofloxacin/Dextrose 750 mg in 150 mls @ 100 mls/hr 07/03/18 10:00 07/03/18 10:20 Levaquin 750mg/150ml IV 100 mls/hr Q48H TRISTAN Administration Protocol Sodium Chloride 1,000 mls @ 50 mls/hr 07/01/18 13:00 07/03/18 18:43 Nacl 0.9% 1000 Ml IV 100 mls/hr DIRECT TRISTAN Administration Labetalol HCl 200 mg 07/01/18 16:00 07/03/18 22:44 Normodyne PO 200 mg BID TRISTAN Administration Methylprednisolone Sodium Succinate 40 mg 06/30/18 22:00 07/03/18 22:44 Solu-Medrol IV 40 mg Q12HR TRISTAN Administration Metoprolol Tartrate 100 mg 06/28/18 21:00 07/03/18 10:21 Lopressor PO 100 mg DAILY TRISTAN Administration Miscellaneous Medication 5 mg 06/28/18 20:45 07/03/18 10:00 Levocetirizine Dihydrochloride [Xyzal] PO Not Given DAILY TRISTAN
[2018-07-04] MEDS: PULMICORT IH SCH ×2 (07:58→20:31)
[2018-07-04] MEDS: BROVANA NEBU IH SCH ×2 (07:58→20:31)
[2018-07-04] MEDS: LOPRESSOR PO SCH (10:38)
[2018-07-04] MEDS: SOLU-Medrol IV SCH ×2 (10:38→22:39)
[2018-07-04] MEDS: ZYLOPRIM PO SCH (10:39)
[2018-07-04] MEDS: NORVASC PO SCH (10:39)
[2018-07-04] MEDS: NORMODYNE PO SCH ×2 (10:39→22:39)
[2018-07-04] MEDS: MUCOMYST ORAL PO SCH (12:32)
[2018-07-04] MEDS: NON-FORMULARY (Levocetirizine Dihydrochloride [Xyzal] 5 MG) PO SCH (12:32)
--- NOTE | 2018-07-04 12:45 | Progress Note ---
Assessment and Plan Imp: 1. Lung mass -> NSCLC 2. Hemoptysis 3. Acute respiratory failure, hypoxia 4. Centrilobular/bullous emphysema 5. DIAZ Rec: 1. Cont. Solumedrol, Levaquin, Bronchodilators 2. Oncology eval. re: NSCLC 3. Home O2 eval. needed -> asked RT to be aggressive in weaning to NC 4. Outpatient PFTs -> f/u with us 1 week after d/c Plan of care reviewed w/ patient, he understands/agrees Subjective Date of service: 07/04/18 Principal diagnosis: lung mass Interval history: SOB better on O2 40% VM. No chest pain. + Cough, and wheezing. Active Medications Albuterol (Proventil) 2.5 mg IH Q4HRT PRN PRN Reason: Shortness Of Breath Last Admin: 06/30/18 17:27 Dose: 2.5 mg Documented by: Allopurinol (Zyloprim) 300 mg PO DAILY [facility] Last Admin: 07/04/18 10:39 Dose: 300 mg Documented by: Amlodipine Besylate (Norvasc) 10 mg PO DAILY [facility] Last Admin: 07/04/18 10:39 Dose: 10 mg Documented by: Arformoterol Tartrate (Brovana Nebu) 15 mcg IH Q12HRT [facility] Last Admin: 07/04/18 07:58 Dose: 15 mcg Documented by: Atorvastatin Calcium (Lipitor) 20 mg PO DAILY [facility] Last Admin: 07/04/18 10:39 Dose: 20 mg Documented by: Budesonide (Pulmicort) 0.5 mg IH Q12HRT [facility] Last Admin: 07/04/18 07:58 Dose: 0.5 mg Documented by: Levofloxacin/Dextrose (Levaquin 750mg/150ml) 750 mg in 150 mls @ 100 mls/hr IV Q48H [facility]; Protocol Last Admin: 07/03/18 10:20 Dose: 100 mls/hr Documented by: Labetalol HCl (Normodyne) 200 mg PO BID [facility] Last Admin: 07/04/18 10:39 Dose: 200 mg Documented by: Methylprednisolone Sodium Succinate (Solu-Medrol) 40 mg IV Q12HR [facility] Last Admin: 07/04/18 10:38 Dose: 40 mg Documented by: Metoprolol Tartrate (Lopressor) 100 mg PO DAILY [facility] Last Admin: 07/04/18 10:38 Dose: 100 mg Documented by: Miscellaneous Medication (Levocetirizine Dihydrochloride [Xyzal]) 5 mg PO DAILY [facility] Last Admin: 07/04/18 12:32 Dose: Not Given Documented by: Objective Vital Signs - 12hr 07/04/18 07/04/18 07/04/18 07:58 08:08 09:27 Temperature Pulse Rate Pulse Rate [ 96 H 99 H Anterior Bilateral Throughout] Respiratory Rate Respiratory 20 20 Rate [Anterior Bilateral Throughout] Blood Pressure O2 Sat by Pulse 97 Oximetry 07/04/18 07/04/18 10:38 11:49 Temperature 98.0 F Pulse Rate 95 H 85 Pulse Rate [ Anterior Bilateral Throughout] Respiratory 19 Rate Respiratory Rate [Anterior Bilateral Throughout] Blood Pressure 140/77 100/63 O2 Sat by Pulse 92 Oximetry Constitutional: no acute distress, alert Eyes: non-icteric ENT: oropharynx moist Neck: supple Effort: normal Ascultation: Bilateral: wheezes (occasional) Percussion: Bilateral: not dull Tactile fremitus: Bilateral: normal Cardiovascular: regular rate and rhythm Gastrointestinal: normoactive bowel sounds, non-tender Extremities: no cyanosis, no edema, pink and warm, pulses normal Neurologic: normal mental status, non-focal exam, pupils equal and round, CN II- XII normal Psychiatric: mood appropriate, affect normal CBC and BMP: 07/03/18 04:40 07/04/18 06:07 ABG, PT/INR, D-dimer: PT/INR, D-dimer PT 13.2 Sec. (12.2-14.9) 06/29/18 13:35 INR 0.95 (0.87-1.13) 06/29/18 13:35 Abnormal lab findings: Abnormal Labs 06/28/18 06/28/18 06/29/18 10:02 10:02 13:35 WBC 17.1 H RBC Hct RDW 15.8 H Lymph % (Auto) 9.9 L [place] # 0.9 H Seg Neutrophils % 84.0 H Seg Neuts % (Manual) Lymphocytes % (Manual) Seg Neutrophils # 14.4 H Seg Neutrophils # Man Lymphocytes # (Manual) APTT 20.0 L Chloride BUN 23 H Creatinine Glucose 125 H Calcium Total Creatine Kinase 43 L Urine Creatinine 07/01/18 07/01/18 07/01/18 09:36 09:36 19:46 WBC 17.9 H RBC 5.20 H Hct 45.7 H RDW 16.6 H Lymph % (Auto) [place] # Seg Neutrophils % Seg Neuts % (Manual) 92.0 H Lymphocytes % (Manual) 5.0 L Seg Neutrophils # Seg Neutrophils # Man 16.5 H Lymphocytes # (Manual) 0.9 L APTT Chloride 95.9 L BUN 47 H Creatinine 1.9 H Glucose 191 H Calcium 10.6 H Total Creatine Kinase Urine Creatinine 58.9 H 07/02/18 07/03/18 07/03/18 05:56 04:40 04:40 WBC 13.1 H RBC Hct RDW 16.6 H Lymph % (Auto) [place] # Seg Neutrophils % Seg Neuts % (Manual) 95.0 H Lymphocytes % (Manual) 3.0 L Seg Neutrophils # Seg Neutrophils # Man 12.4 H Lymphocytes # (Manual) 0.4 L APTT Chloride BUN 40 H 31 H Creatinine Glucose 207 H 187 H Calcium Total Creatine Kinase Urine Creatinine 07/04/18 06:07 WBC RBC Hct RDW Lymph % (Auto) [place] # Seg Neutrophils % Seg Neuts % (Manual) Lymphocytes % (Manual) Seg Neutrophils # Seg Neutrophils # Man Lymphocytes # (Manual) APTT Chloride BUN 26 H Creatinine Glucose 186 H Calcium Total Creatine Kinase Urine Creatinine Chest x-ray: report reviewed, image reviewed CT scan - chest: report reviewed, image reviewed
--- NOTE | 2018-07-04 14:10 | Consultation ---
RADIATION ONCOLOGY CONSULTATION NOTE REFERRING PHYSICIAN: Dr. Daly. CHIEF COMPLAINT: " PROFILE: This is a 68-year-old gentleman diagnosed with squamous cell carcinoma of the right lower lung, referred for radiation therapy. CONCLUSION: 1. 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 2. History of chronic obstructive pulmonary disease. 3. Asthma. 4. Gout. 5. Hyperlipidemia. RECOMMENDATION: We agree proceeding forward with a staging workup including PET/CT scan as an outpatient. He should be a candidate for definitive radiation therapy to the right lower lung and mediastinum. We will plan to deliver dose of 60 Gy using megavoltage radiation. He is being evaluated by Dr. Daly of Medical Oncology for systemic chemotherapy as well. ASSESSMENT: This is a very pleasant 68-year-old gentleman who was seen at [facility] because of progressive shortness of breath, wheezing. He had several episodes of hemoptysis. Chest x-ray showed a large right lower lung mass. A CT scan of the chest revealed a right lower lung mass measuring 10 x 7 x 6 cm. An endobronchial lesion confluent with a large necrotic subcarinal lymph node is present in the bronchus intermedius. The endobronchial lesion measures 1 cm. The subcarinal lymph node measures 2.9 x 1.9 cm. There is no left hilar adenopathy. There is evidence of centrilobular emphysema with a right apical bulla measuring up to 10 cm. Otherwise, there is no evidence of metastatic disease to the upper abdomen. CT scan of the head without contrast shows no acute intracranial process. Fine needle aspirate of the right lower lung mass confirms non-small cell carcinoma consistent with squamous cell carcinoma. He is now referred for consideration of definitive radiation therapy. Clinically, the patient states his breathing has improved. Denies any recurrent hemoptysis. He has lost 6 pounds in the last month. He denies any dysphagia. PAST MEDICAL HISTORY: 1. History of stage 3B squamous cell carcinoma of the right lower lung. 2. Chronic obstructive pulmonary disease. 3. Asthma. 4. Gout. 5. Hyperlipidemia. 6. Hypertension. SOCIAL HISTORY: A [id number] history, but quit 12 years ago. FAMILY HISTORY: Noncontributory. MEDICATIONS: Albuterol, allopurinol, atorvastatin, hydrochlorothiazide, losartan. ALLERGIES: POLLEN EXTRACT. REVIEW OF SYSTEMS: CONSTITUTIONAL: He is weak and tired. Denies any fever or chills. HEENT: Denies any double vision, blurry vision, hoarseness, dysphagia. RESPIRATORY: Denies any recurrent hemoptysis. He has shortness of breath. Denies any pleurisy. CARDIOVASCULAR: Denies any palpitations, angina, orthopnea. GASTROINTESTINAL: Denies any nausea, vomiting, diarrhea or rectal bleeding. GENITOURINARY: Denies any incontinence, hematuria. PHYSICAL EXAMINATION: GENERAL: He is a chronically ill-appearing gentleman, in no acute distress. VITAL SIGNS: Blood pressure 140/70, pulse is 80, respirations 20. He is afebrile. ECOG equals 2. Pain equals 0/10. HEENT: Normocephalic, atraumatic. Eyes were clear. Intraoral examination is unremarkable. LUNGS: Show decreased breath sounds in right lower lung field. Left lung was clear. No spinal or CVA tenderness. CARDIOVASCULAR: Regular rate and rhythm. No murmur, gallop or bruit. ABDOMEN: Flat. No palpable masses or hepatosplenomegaly. EXTREMITIES: No clubbing, cyanosis or edema. NEUROLOGIC: His motor, sensory, and cerebellar exam are intact. Cranial nerves 2-12 are grossly intact. DISCUSSION: This is a very pleasant 68-year-old gentleman who was diagnosed with at least stage 3B T4N2M0 squamous cell carcinoma of the right lower lung. He will require a PET/CT scan as an outpatient. If there is no evidence of metastatic disease, we agree with recommendation to proceed forward with definitive radiation therapy and concurrent chemotherapy. We will plan to deliver dose of 60 Gy at 2 Gy per fraction. He is amenable to radiation. Risk of radiation including fatigue, skin changes, esophagitis, dysphagia, pneumonitis, bone marrow suppression was discussed with the patient. I have personally reviewed his CT scan of the chest images dated 06/29/2018. I have discussed the treatment plan with Dr. Daly and he agrees. JOB# [id number] GENEVA/ANN MARIE
--- NOTE | 2018-07-04 14:23 | Progress Note ---
Assessment and Plan Acute resp failure due to COPD and lung mass - placed on ventimask since 07/01/18 - cont to monitor, nebs, supplemental O2, tapering steroid, - need to go down at least on 4L in order to be able to go home COPD exacerbation, cont nebs, supplemental O2, tapering steroid hemoptysis, likley from lung mass, resolved - avoid heparin/aspirin product Right lung mass LL, possible malignancy - - s/p CT guided bopsy on 07/02/18 - path showing squamous cell Ca, consulted red-onc leukocytosis, reactive. likely from underlying malignancy (patient not septic) - trended down, will stop abx DIAZ, vasomotor nephropathy vs contrast induced - cont IV fluid for DIAZ, monitor Cr, consulted renal - SCd for DVt Px Brief History: 67 y/o male presented to the ED back in May after coughing some blood while playing basketball. CXR showed large right lower lobe mass but rest of lung clear. Patient was set up for outpatient follow up with Dr. Mckeon but he was ill and had to cancel and Rescheduled. But came to ED this time with more hemoptysis, SOB and generalized weakness. Has lost about 5lbs intentionally in the last month. Quit smoking 12 years ago but did smoker for about 25 years. Admitted for COPD exacerbation and possible lung biopsy CTA chest: No PE. RLL lung mass Physical exam: General appearance: Present: no acute distress, well-nourished - EENT Eyes: PERRL, EOM intact ENT: hearing intact, clear oral mucosa Ears: bilateral: normal - Neck Neck: supple, normal ROM - Respiratory Respiratory effort: normal Respiratory: bilateral: diminished, rhonchi (RLL) - Cardiovascular Rhythm: regular Heart Sounds: Present: S1 & S2. Absent: gallop, rub Extremities: pulses intact, No edema, normal color, Full ROM - Gastrointestinal General gastrointestinal: Present: soft, non-tender, non-distended, normal bowel sounds - Integumentary Integumentary: clear, warm, dry - Musculoskeletal Musculoskeletal: 1, strength equal bilaterally - Neurologic Neurologic: moves all extremities - Psychiatric Psychiatric: memory intact, appropriate mood/affect, intact judgment & insight Subjective Date of service: 07/04/18 Principal diagnosis: lung mass Interval history: Patient seen and examined No acute event o/n C/O SOB, no chest pain Still on venti mask Objective - Constitutional Vitals: Vital Signs - 12hr 07/04/18 07/04/18 07/04/18 07:58 08:08 09:27 Temperature Pulse Rate Pulse Rate [ 96 H 99 H Anterior Bilateral Throughout] Respiratory Rate Respiratory 20 20 Rate [Anterior Bilateral Throughout] Blood Pressure O2 Sat by Pulse 97 Oximetry 07/04/18 07/04/18 10:38 11:49 Temperature 98.0 F Pulse Rate 95 H 85 Pulse Rate [ Anterior Bilateral Throughout] Respiratory 19 Rate Respiratory Rate [Anterior Bilateral Throughout] Blood Pressure 140/77 100/63 O2 Sat by Pulse 92 Oximetry - Labs CBC & Chem 7: 07/03/18 04:40 07/05/18 04:31 Labs: Abnormal lab results 07/04/18 Range/Units 06:07 BUN 26 H (9-20) mg/dL Glucose 186 H (75-100) mg/dL
[2018-07-05 05:33] LABS: BUN/Creatinine Ratio 23; Blood Urea Nitrogen 27 mg/dL (9-20); Calcium 9.3 mg/dL (8.4-10.2); Hemolysis Index 2
[2018-07-05] MEDS ORDERED: KIONEX PO ONE (06:38)
--- NOTE | 2018-07-05 06:38 | Progress Note ---
Assessment and Plan 1. Acute kidney injury: DIAZ likely secondary to IV contrast. Creatinine level is better. Monitor renal function. Avoid nephrotoxic agents. Meds dosage based on GFR. 2. FEN: Mild hyperkalemia, kayexalate ordered. Monitor. 3. Right lung mass: S/p biopsy. 4. COPD with exacerbation. 5. Hypoxic respiratory failure. Subjective Date of service: 07/05/18 Principal diagnosis: lung mass Interval history: Patient is feeling better. Objective - Vital Signs Vital signs: Vital Signs - 12hr 07/04/18 07/04/18 07/04/18 20:29 20:35 20:36 Temperature Pulse Rate Pulse Rate [ 88 Anterior Bilateral Throughout] Respiratory Rate Respiratory 20 Rate [Anterior Bilateral Throughout] Blood Pressure O2 Sat by Pulse 95 92 Oximetry 07/04/18 07/04/18 07/04/18 20:51 22:39 23:34 Temperature 98.2 F Pulse Rate 85 86 Pulse Rate [ 94 H Anterior Bilateral Throughout] Respiratory 18 Rate Respiratory 20 Rate [Anterior Bilateral Throughout] Blood Pressure 134/75 117/65 O2 Sat by Pulse 91 Oximetry - General Appearance General appearance: well-developed, well-nourished, appears stated age, other (no tin distress, NC O2) EENT: ATNC, PERRL, mucous membranes moist, hearing intact, vision intact Neck: supple Respiratory: Present: Clear to Ascultation, Decreased Breath Sounds (right base) Cardiology: regular, S1S2, no murmurs Gastrointestinal: normoactive bowel sounds, no tenderness, no distended Integumentary: no rash, warm and dry Neurologic: no focal deficit, no asterixis, alert and oriented x3 Musculoskeletal: other (no edema) - Lab 07/03/18 04:40 07/05/18 04:31 Most recent lab results Calcium 9.3 mg/dL (8.4-10.2) 07/05/18 04:31 Phosphorus 3.60 mg/dL (2.5-4.5) 07/03/18 04:40 Magnesium 2.20 mg/dL (1.7-2.3) 07/03/18 04:40 Urine Creatinine 58.9 mg/dL (0.1-20.0) H 07/01/18 19:46 Urine Sodium 41 mmol/L 07/01/18 19:46 Medications & Allergies - Medications Allergies/Adverse Reactions: Allergies pollen extracts Allergy (Mild, Verified 06/28/18 16:42) Itching runny nose/watery eyes strawberry Allergy (Mild, Verified 06/28/18 16:42) Hives Home Medications: Home Medications Medication Instructions Recorded Confirmed Last Taken Type ALBUTEROL Inhaler (OR & NICU) 1 puff IH Q4H PRN 06/28/18 06/28/18 06/28/18 History [ProAir HFA Inhaler] Allopurinol [Zyloprim] 300 mg PO DAILY 06/28/18 06/28/18 1 Day Ago History ~06/27/18 AtorvaSTATin [Lipitor] 20 mg PO DAILY 06/28/18 06/28/18 1 Day Ago History ~06/27/18 Levocetirizine Dihydrochloride 5 mg PO DAILY 06/28/18 06/28/18 1 Week Ago History [Xyzal] ~06/21/18 Losartan/Hydrochlorothiazide 1 each PO QPM 06/28/18 06/28/18 1 Day Ago History [Losartan-Hctz 100-25 mg Tab] ~06/27/18 Metoprolol [Lopressor] 100 mg PO DAILY 06/28/18 06/28/18 1 Day Ago History ~06/27/18 amLODIPine [Norvasc] 10 mg PO DAILY 06/28/18 06/28/18 1 Day Ago History ~06/27/18 predniSONE [Deltasone] 20 mg PO DAILY 06/28/18 06/28/18 06/28/18 History Active Medications: Generic Name Dose Route Start Last Admin Trade Name Freq PRN Reason Stop Dose Admin Albuterol 2.5 mg 06/30/18 11:01 06/30/18 17:27 Proventil IH 2.5 mg Q4HRT PRN Administration Shortness Of Breath Allopurinol 300 mg 06/28/18 21:00 07/04/18 10:39 Zyloprim PO 300 mg DAILY [facility] Administration Amlodipine Besylate 10 mg 06/28/18 21:00 07/04/18 10:39 Norvasc PO 10 mg DAILY [facility] Administration Arformoterol Tartrate 15 mcg 06/30/18 20:00 07/04/18 20:31 Brovana Nebu IH 15 mcg Q12HRT [facility] Administration Atorvastatin Calcium 20 mg 06/28/18 20:45 07/04/18 10:39 Lipitor PO 20 mg DAILY [facility] Administration Budesonide 0.5 mg 06/30/18 20:00 07/04/18 20:31 Pulmicort IH 0.5 mg Q12HRT [facility] Administration Levofloxacin/Dextrose 750 mg in 150 mls @ 100 mls/hr 07/03/18 10:00 07/03/18 10:20 Levaquin 750mg/150ml IV 100 mls/hr Q48H [facility] Administration Protocol Labetalol HCl 200 mg 07/01/18 16:00 07/04/18 22:39 Normodyne PO 200 mg BID [facility] Administration Methylprednisolone Sodium Succinate 40 mg 06/30/18 22:00 07/04/18 22:39 Solu-Medrol IV 40 mg Q12HR [facility] Administration Metoprolol Tartrate 100 mg 06/28/18 21:00 07/04/18 10:38 Lopressor PO 100 mg DAILY [facility] Administration Miscellaneous Medication 5 mg 06/28/18 20:45 07/04/18 12:32 Levocetirizine Dihydrochloride [Xyzal] PO Not Given DAILY [facility]
--- NOTE | 2018-07-05 07:10 | Hem/Onc Progress Note ---
Assessment and Plan 1. Lung mass. 2. Hemoptysis. 3. Subcarinal lymph nodes. 4. This may be a neoplastic process in the lung. We will do CT abdomen, pelvis and CT head, which was also planned by the primary care. 5. Bronchoscopic versus CT-guided biopsy is being looked into. 6. We will do tumor markers. 7. History of hyperlipidemia. 8. On gout medications. 9. History of hypertension, on medications. I will follow the patient during inpatient stay and then in the clinic setting I discussed with him possibly being neoplastic process. Staging will guide some of our next step. 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 - CT abdo - only oral - and no IV contrast - d/w RN and pt 07/[address] Abdo Pelvis and CT head - no iv contrast - nil acute in head and abdo 07/03 - path pending of lung bx d/w pt reg OP follow up chemo - port - oral meds - PET CT - all these - once we have the path 07/04 - d/w pt reg path - NSCLC - squamous Rad onc consult Port d/w Dr Tanner 07/05- d/w dr tierney reg port placement - Patient Problems (1) Lung mass Current Visit: Yes Status: Acute Subjective Date of service: 07/05/18 Principal diagnosis: lung ca - nsclc Interval history: breathing better - seen by xrt Objective - Constitutional Vitals: Last Vital Signs Temp 98.0 F 07/05/18 06:05 Pulse 85 07/05/18 06:05 Resp 20 07/05/18 06:05 BP 144/67 07/05/18 06:05 Pulse Ox 93 07/05/18 06:05 Pain Intensity (0-10): denies any pain General appearance: mild distress (SOB) Performance status: 3-limited selfcare - EENT Eyes: EOM intact ENT: clear oral mucosa Lymph node exam: negative cervical - Neck Neck: normal ROM - Respiratory Respiratory effort: Positive: normal Respiratory: bilateral: CTA - Cardiovascular Heart Sounds: Present: S1 & S2 Extremities: No edema - Gastrointestinal General gastrointestinal: Present: soft, non-tender Rectal Exam: deferred - Genitourinary Male genitourinary: Present: deferred - Integumentary Integumentary: warm - Musculoskeletal Musculoskeletal: strength equal bilaterally - Neurologic Neurologic: moves all extremities - Labs Lab Results: Laboratory Results - last 24 hr 07/04/18 07/05/18 06:07 04:31 Sodium 140 139 Potassium 4.8 5.1 H Chloride 104.1 102.6 Carbon Dioxide 24 26 Anion Gap 17 16 BUN 26 H 27 H Creatinine 1.2 1.2 Estimated GFR > 60 > 60 BUN/Creatinine Ratio 22 23 Glucose 186 H 206 H Calcium 9.1 9.3 Medications & Allergies - Medications Allergies/Adverse Reactions: Allergies pollen extracts Allergy (Mild, Verified 06/28/18 16:42) Itching runny nose/watery eyes strawberry Allergy (Mild, Verified 06/28/18 16:42) Hives Home Medications: Home Medications Medication Instructions Recorded Confirmed Last Taken Type ALBUTEROL Inhaler (OR & NICU) 1 puff IH Q4H PRN 06/28/18 06/28/18 06/28/18 History [ProAir HFA Inhaler] Allopurinol [Zyloprim] 300 mg PO DAILY 06/28/18 06/28/18 1 Day Ago History ~06/27/18 AtorvaSTATin [Lipitor] 20 mg PO DAILY 06/28/18 06/28/18 1 Day Ago History ~06/27/18 Levocetirizine Dihydrochloride 5 mg PO DAILY 06/28/18 06/28/18 1 Week Ago History [Xyzal] ~06/21/18 Losartan/Hydrochlorothiazide 1 each PO QPM 06/28/18 06/28/18 1 Day Ago History [Losartan-Hctz 100-25 mg Tab] ~06/27/18 Metoprolol [Lopressor] 100 mg PO DAILY 06/28/18 06/28/18 1 Day Ago History ~06/27/18 amLODIPine [Norvasc] 10 mg PO DAILY 06/28/18 06/28/18 1 Day Ago History ~06/27/18 predniSONE [Deltasone] 20 mg PO DAILY 06/28/18 06/28/18 06/28/18 History Active Medications: Generic Name Dose Route Start Last Admin Trade Name Freq PRN Reason Stop Dose Admin Albuterol 2.5 mg 06/30/18 11:01 06/30/18 17:27 Proventil IH 2.5 mg Q4HRT PRN Administration Shortness Of Breath Allopurinol 300 mg 06/28/18 21:00 07/04/18 10:39 Zyloprim PO 300 mg DAILY [facility] Administration Amlodipine Besylate 10 mg 06/28/18 21:00 07/04/18 10:39 Norvasc PO 10 mg DAILY [facility] Administration Arformoterol Tartrate 15 mcg 06/30/18 20:00 07/04/18 20:31 Brovana Nebu IH 15 mcg Q12HRT [facility] Administration Atorvastatin Calcium 20 mg 06/28/18 20:45 07/04/18 10:39 Lipitor PO 20 mg DAILY [facility] Administration Budesonide 0.5 mg 06/30/18 20:00 07/04/18 20:31 Pulmicort IH 0.5 mg Q12HRT [facility] Administration Levofloxacin/Dextrose 750 mg in 150 mls @ 100 mls/hr 07/03/18 10:00 07/03/18 10:20 Levaquin 750mg/150ml IV 100 mls/hr Q48H [facility] Administration Protocol Labetalol HCl 200 mg 07/01/18 16:00 07/04/18 22:39 Normodyne PO 200 mg BID [facility] Administration Methylprednisolone Sodium Succinate 40 mg 06/30/18 22:00 07/04/18 22:39 Solu-Medrol IV 40 mg Q12HR [facility] Administration Metoprolol Tartrate 100 mg 06/28/18 21:00 07/04/18 10:38 Lopressor PO 100 mg DAILY [facility] Administration Miscellaneous Medication 5 mg 06/28/18 20:45 07/04/18 12:32 Levocetirizine Dihydrochloride [Xyzal] PO Not Given DAILY [facility]
[2018-07-05] MEDS: BROVANA NEBU IH SCH ×2 (07:59→19:34)
[2018-07-05] MEDS: PULMICORT IH SCH ×2 (07:59→19:34)
[2018-07-05] MEDS: LEVAQUIN 750MG/150ML 750 MG/150 ML BAG IV SCH (10:45)
[2018-07-05] MEDS: SOLU-Medrol IV SCH ×2 (10:46→22:39)
[2018-07-05] MEDS: LOPRESSOR PO SCH (10:47)
[2018-07-05] MEDS: NORMODYNE PO SCH ×2 (10:47→22:39)
[2018-07-05] MEDS: ZYLOPRIM PO SCH (10:47)
[2018-07-05] MEDS: NORVASC PO SCH (11:08)
--- NOTE | 2018-07-05 12:48 | Progress Note ---
Assessment and Plan Imp: 1. Lung mass -> NSCLC 2. Hemoptysis 3. Acute respiratory failure, hypoxia 4. Centrilobular/bullous emphysema 5. DIAZ Rec: 1. Cont. Solumedrol -> change to Prednisone soon; cont. Levaquin, Bronchodilators 2. Oncology and Rad/Onc eval. re: NSCLC 3. Home O2 eval. needed -> asked RT to be aggressive in weaning to NC 4. Outpatient PFTs -> f/u with us 1 week after d/c 5. Try to ambulate Plan of care reviewed w/ patient, he understands/agrees Subjective Date of service: 07/05/18 Principal diagnosis: lung ca - nsclc Interval history: SOB better on 5L NC. No chest pain. + Cough, and wheezing. Active Medications Albuterol (Proventil) 2.5 mg IH Q4HRT PRN PRN Reason: Shortness Of Breath Last Admin: 06/30/18 17:27 Dose: 2.5 mg Documented by: Allopurinol (Zyloprim) 300 mg PO DAILY [facility] Last Admin: 07/05/18 10:47 Dose: 300 mg Documented by: Amlodipine Besylate (Norvasc) 10 mg PO DAILY [facility] Last Admin: 07/05/18 11:08 Dose: 10 mg Documented by: Arformoterol Tartrate (Brovana Nebu) 15 mcg IH Q12HRT [facility] Last Admin: 07/05/18 07:59 Dose: 15 mcg Documented by: Atorvastatin Calcium (Lipitor) 20 mg PO DAILY [facility] Last Admin: 07/05/18 10:47 Dose: 20 mg Documented by: Budesonide (Pulmicort) 0.5 mg IH Q12HRT [facility] Last Admin: 07/05/18 07:59 Dose: 0.5 mg Documented by: Levofloxacin/Dextrose (Levaquin 750mg/150ml) 750 mg in 150 mls @ 100 mls/hr IV Q48H [facility]; Protocol Last Admin: 07/05/18 10:45 Dose: 100 mls/hr Documented by: Labetalol HCl (Normodyne) 200 mg PO BID [facility] Last Admin: 07/05/18 10:47 Dose: 200 mg Documented by: Methylprednisolone Sodium Succinate (Solu-Medrol) 40 mg IV Q12HR [facility] Last Admin: 07/05/18 10:46 Dose: 40 mg Documented by: Metoprolol Tartrate (Lopressor) 100 mg PO DAILY [facility] Last Admin: 07/05/18 10:47 Dose: 100 mg Documented by: Miscellaneous Medication (Levocetirizine Dihydrochloride [Xyzal]) 5 mg PO DAILY [facility] Last Admin: 07/04/18 12:32 Dose: Not Given Documented by: Objective Vital Signs - 12hr 07/05/18 07/05/18 07/05/18 06:05 07:59 08:11 Temperature 98.0 F Pulse Rate 85 Pulse Rate [ 92 H 95 H Anterior Bilateral Throughout] Respiratory 20 Rate Respiratory 24 22 Rate [Anterior Bilateral Throughout] Blood Pressure 144/67 Blood Pressure [Left] O2 Sat by Pulse 93 Oximetry 07/05/18 07/05/18 07/05/18 08:36 11:08 11:43 Temperature 97.5 F L Pulse Rate 85 Pulse Rate [ Anterior Bilateral Throughout] Respiratory 91 H Rate Respiratory Rate [Anterior Bilateral Throughout] Blood Pressure 140/70 Blood Pressure 117/62 [Left] O2 Sat by Pulse 94 Oximetry Constitutional: no acute distress, alert Eyes: non-icteric ENT: oropharynx moist Neck: supple Effort: normal Ascultation: Bilateral: wheezes (occasional) Cardiovascular: regular rate and rhythm Gastrointestinal: normoactive bowel sounds, non-tender Extremities: no cyanosis, no edema, pink and warm, pulses normal Neurologic: normal mental status, non-focal exam, pupils equal and round, CN II- XII normal Psychiatric: mood appropriate, affect normal CBC and BMP: 07/03/18 04:40 07/05/18 04:31 ABG, PT/INR, D-dimer: PT/INR, D-dimer PT 13.2 Sec. (12.2-14.9) 06/29/18 13:35 INR 0.95 (0.87-1.13) 06/29/18 13:35 Abnormal lab findings: Abnormal Labs 06/28/18 06/28/18 06/29/18 10:02 10:02 13:35 WBC 17.1 H RBC Hct RDW 15.8 H Lymph % (Auto) 9.9 L [place] # 0.9 H Seg Neutrophils % 84.0 H Seg Neuts % (Manual) Lymphocytes % (Manual) Seg Neutrophils # 14.4 H Seg Neutrophils # Man Lymphocytes # (Manual) APTT 20.0 L Potassium Chloride BUN 23 H Creatinine Glucose 125 H Calcium Total Creatine Kinase 43 L Urine Creatinine 07/01/18 07/01/18 07/01/18 09:36 09:36 19:46 WBC 17.9 H RBC 5.20 H Hct 45.7 H RDW 16.6 H Lymph % (Auto) [place] # Seg Neutrophils % Seg Neuts % (Manual) 92.0 H Lymphocytes % (Manual) 5.0 L Seg Neutrophils # Seg Neutrophils # Man 16.5 H Lymphocytes # (Manual) 0.9 L APTT Potassium Chloride 95.9 L BUN 47 H Creatinine 1.9 H Glucose 191 H Calcium 10.6 H Total Creatine Kinase Urine Creatinine 58.9 H 07/02/18 07/03/18 07/03/18 05:56 04:40 04:40 WBC 13.1 H RBC Hct RDW 16.6 H Lymph % (Auto) [place] # Seg Neutrophils % Seg Neuts % (Manual) 95.0 H Lymphocytes % (Manual) 3.0 L Seg Neutrophils # Seg Neutrophils # Man 12.4 H Lymphocytes # (Manual) 0.4 L APTT Potassium Chloride BUN 40 H 31 H Creatinine Glucose 207 H 187 H Calcium Total Creatine Kinase Urine Creatinine 07/04/18 07/05/18 06:07 04:31 WBC RBC Hct RDW Lymph % (Auto) [place] # Seg Neutrophils % Seg Neuts % (Manual) Lymphocytes % (Manual) Seg Neutrophils # Seg Neutrophils # Man Lymphocytes # (Manual) APTT Potassium 5.1 H Chloride BUN 26 H 27 H Creatinine Glucose 186 H 206 H Calcium Total Creatine Kinase Urine Creatinine Chest x-ray: report reviewed, image reviewed
[2018-07-05] MEDS ORDERED: KIONEX PO NR (14:00)
--- NOTE | 2018-07-05 15:22 | Progress Note ---
Assessment and Plan Acute resp failure due to COPD and lung mass - placed on ventimask since 07/01/18 - cont to monitor, nebs, supplemental O2, tapering steroid, - need to go down at least on 4L in order to be able to go home COPD exacerbation, cont nebs, supplemental O2, tapering steroid hemoptysis, likley from lung mass, resolved - avoid heparin/aspirin product Right lung mass LL, possible malignancy - - s/p CT guided bopsy on 07/02/18 - path showing squamous cell Ca, consulted red-onc - plan to start radiation leukocytosis, reactive. likely from underlying malignancy (patient not septic) - trended down, will stop abx DIAZ, vasomotor nephropathy vs contrast induced - cont IV fluid for DIAZ, monitor Cr, consulted renal - SCd for DVt Px Brief History: 67 y/o male presented to the ED back in Feb after coughing some blood while playing basketball. CXR showed large right lower lobe mass but rest of lung clear. Patient was set up for outpatient follow up with Dr. Mckeon but he was ill and had to cancel and Rescheduled. But came to ED this time with more hemoptysis, SOB and generalized weakness. Has lost about 5lbs intentionally in the last month. Quit smoking 12 years ago but did smoker for about 25 years. Admitted for COPD exacerbation and possible lung biopsy. CTA chest: No PE. RLL lung mass Physical exam: General appearance: Present: no acute distress, well-nourished - EENT Eyes: PERRL, EOM intact ENT: hearing intact, clear oral mucosa Ears: bilateral: normal - Neck Neck: supple, normal ROM - Respiratory Respiratory effort: normal Respiratory: bilateral: diminished, rhonchi (RLL) - Cardiovascular Rhythm: regular Heart Sounds: Present: S1 & S2. Absent: gallop, rub Extremities: pulses intact, No edema, normal color, Full ROM - Gastrointestinal General gastrointestinal: Present: soft, non-tender, non-distended, normal bowel sounds - Integumentary Integumentary: clear, warm, dry - Musculoskeletal Musculoskeletal: 1, strength equal bilaterally - Neurologic Neurologic: moves all extremities - Psychiatric Psychiatric: memory intact, appropriate mood/affect, intact judgment & insight Subjective Date of service: 07/05/18 Principal diagnosis: lung mass Interval history: Patient seen and examined No acute event o/n C/O SOB, no chest pain was briefly on 5L N/c but then again back on venti mask Objective - Constitutional Vitals: Vital Signs - 12hr 07/05/18 07/05/18 07/05/18 06:05 07:59 08:11 Temperature 98.0 F Pulse Rate 85 Pulse Rate [ 92 H 95 H Anterior Bilateral Throughout] Respiratory 20 Rate Respiratory 24 22 Rate [Anterior Bilateral Throughout] Blood Pressure 144/67 Blood Pressure [Left] O2 Sat by Pulse 93 Oximetry 07/05/18 07/05/18 07/05/18 08:36 11:08 11:43 Temperature 97.5 F L Pulse Rate 85 Pulse Rate [ Anterior Bilateral Throughout] Respiratory 91 H Rate Respiratory Rate [Anterior Bilateral Throughout] Blood Pressure 140/70 Blood Pressure 117/62 [Left] O2 Sat by Pulse 94 Oximetry - Labs CBC & Chem 7: 07/03/18 04:40 07/06/18 06:09 Labs: Abnormal lab results 07/05/18 Range/Units 04:31 Potassium 5.1 H (3.6-5.0) mmol/L BUN 27 H (9-20) mg/dL Glucose 206 H (75-100) mg/dL
[2018-07-05] MEDS: NON-FORMULARY (Levocetirizine Dihydrochloride [Xyzal] 5 MG) PO SCH (16:12)
--- NOTE | 2018-07-05 17:02 | Consultation ---
History of Present Illness Consult date: 07/05/18 Reason for consult: central line Requesting physician: DESTINI MUIR Chief complaint: newly diagnosed lung ca - History of present illness History of present illness: 68yo M with recent diagnosis of lung cancer in need of port placement for chemotherapy. Pt denies any surgeries, trauma, or infections involving the neck or upper chest. Pt's cancer is on the right side. Past History Past Medical History: hypertension, hyperlipidemia, other (Gout, right lung mass) Past Surgical History: Other (hyoid bone resection) Social history: denies: smoking, alcohol abuse, prescription drug abuse Family history: no significant family history Medications and Allergies Allergies Allergy/AdvReac Type Severity Reaction Status Date / Time pollen extracts Allergy Mild Itching Verified 06/28/18 16:42 strawberry Allergy Mild Hives Verified 06/28/18 16:42 Home Medications Medication Instructions Recorded Confirmed Last Taken Type ALBUTEROL Inhaler (OR & NICU) 1 puff IH Q4H PRN 06/28/18 06/28/18 06/28/18 History [ProAir HFA Inhaler] Allopurinol [Zyloprim] 300 mg PO DAILY 06/28/18 06/28/18 1 Day Ago History ~06/27/18 AtorvaSTATin [Lipitor] 20 mg PO DAILY 06/28/18 06/28/18 1 Day Ago History ~06/27/18 Levocetirizine Dihydrochloride 5 mg PO DAILY 06/28/18 06/28/18 1 Week Ago History [Xyzal] ~06/21/18 Losartan/Hydrochlorothiazide 1 each PO QPM 06/28/18 06/28/18 1 Day Ago History [Losartan-Hctz 100-25 mg Tab] ~06/27/18 Metoprolol [Lopressor] 100 mg PO DAILY 06/28/18 06/28/18 1 Day Ago History ~06/27/18 amLODIPine [Norvasc] 10 mg PO DAILY 06/28/18 06/28/18 1 Day Ago History ~06/27/18 predniSONE [Deltasone] 20 mg PO DAILY 06/28/18 06/28/18 06/28/18 History Active Meds: Active Medications Albuterol (Proventil) 2.5 mg IH Q4HRT PRN PRN Reason: Shortness Of Breath Last Admin: 06/30/18 17:27 Dose: 2.5 mg Documented by: Allopurinol (Zyloprim) 300 mg PO DAILY [facility] Last Admin: 07/05/18 10:47 Dose: 300 mg Documented by: Amlodipine Besylate (Norvasc) 10 mg PO DAILY [facility] Last Admin: 07/05/18 11:08 Dose: 10 mg Documented by: Arformoterol Tartrate (Brovana Nebu) 15 mcg IH Q12HRT [facility] Last Admin: 07/05/18 07:59 Dose: 15 mcg Documented by: Atorvastatin Calcium (Lipitor) 20 mg PO DAILY [facility] Last Admin: 07/05/18 10:47 Dose: 20 mg Documented by: Budesonide (Pulmicort) 0.5 mg IH Q12HRT [facility] Last Admin: 07/05/18 07:59 Dose: 0.5 mg Documented by: Levofloxacin/Dextrose (Levaquin 750mg/150ml) 750 mg in 150 mls @ 100 mls/hr IV Q48H [facility]; Protocol Last Admin: 07/05/18 10:45 Dose: 100 mls/hr Documented by: Labetalol HCl (Normodyne) 200 mg PO BID [facility] Last Admin: 07/05/18 10:47 Dose: 200 mg Documented by: Methylprednisolone Sodium Succinate (Solu-Medrol) 40 mg IV Q12HR [facility] Last Admin: 07/05/18 10:46 Dose: 40 mg Documented by: Metoprolol Tartrate (Lopressor) 100 mg PO DAILY [facility] Last Admin: 07/05/18 10:47 Dose: 100 mg Documented by: Miscellaneous Medication (Levocetirizine Dihydrochloride [Xyzal]) 5 mg PO DAILY [facility] Last Admin: 07/05/18 16:12 Dose: Not Given Documented by: Review of Systems - Constitutional no fever, no chills, no chronic pain - Cardiovascular no chest pain - Respiratory shortness of breath - Gastrointestinal no abdominal pain, no nausea, no vomiting - Genitourinary no dysuria - Muskuloskeletal no low back pain - Integumentary no rash, no wounds Exam Vital Signs Pulse Resp Pulse Ox 82 16 95 06/28/18 10:01 06/28/18 10:01 06/28/18 10:01 - General physical appearance Positive: no distress, no pain - Respiratory Positive: normal expansion, normal respiratory effort absent breath sounds: right (at right base) - Cardiovascular Rhythm: regular - Abdomen Abdomen: Present: soft - Integumentary no rash, no growths, no abnormal pigmentation, other (upper chest and neck are clear) - Neurologic Neurologic: alert and oriented to time, place and person - Psychiatric Psychiatric: appropriate mood/affect, intact judgment & insight Results - Labs 07/03/18 04:40 07/05/18 04:31 Abnormal lab results 07/05/18 Range/Units 04:31 Potassium 5.1 H (3.6-5.0) mmol/L BUN 27 H (9-20) mg/dL Glucose 206 H (75-100) mg/dL Diabetes panel 07/05/18 Range/Units 04:31 Sodium 139 (137-145) mmol/L Potassium 5.1 H (3.6-5.0) mmol/L Chloride 102.6 (98-107) mmol/L Carbon Dioxide 26 (22-30) mmol/L BUN 27 H (9-20) mg/dL Creatinine 1.2 (0.8-1.5) mg/dL Glucose 206 H (75-100) mg/dL Calcium 9.3 (8.4-10.2) mg/dL Calcium panel 07/05/18 Range/Units 04:31 Calcium 9.3 (8.4-10.2) mg/dL Pituitary panel 07/05/18 Range/Units 04:31 Sodium 139 (137-145) mmol/L Potassium 5.1 H (3.6-5.0) mmol/L Chloride 102.6 (98-107) mmol/L Carbon Dioxide 26 (22-30) mmol/L BUN 27 H (9-20) mg/dL Creatinine 1.2 (0.8-1.5) mg/dL Glucose 206 H (75-100) mg/dL Calcium 9.3 (8.4-10.2) mg/dL Adrenal panel 07/05/18 Range/Units 04:31 Sodium 139 (137-145) mmol/L Potassium 5.1 H (3.6-5.0) mmol/L Chloride 102.6 (98-107) mmol/L Carbon Dioxide 26 (22-30) mmol/L BUN 27 H (9-20) mg/dL Creatinine 1.2 (0.8-1.5) mg/dL Glucose 206 H (75-100) mg/dL Calcium 9.3 (8.4-10.2) mg/dL Assessment and Plan - Patient Problems (1) Lung mass Current Visit: Yes Status: Acute Plan to address problem: Pt stable. Appropriate candidate for port placement. Procedure, risks, benefits discussed. All questions answered. Consent obtained. Surgery scheduled for Monday at 0730. Please call with questions. Time=30min
[2018-07-06 06:57] LABS: BUN/Creatinine Ratio 23; Blood Urea Nitrogen 25 mg/dL (9-20); Calcium 8.9 mg/dL (8.4-10.2); Hemolysis Index 4
--- NOTE | 2018-07-06 07:29 | Hem/Onc Progress Note ---
Assessment and Plan 1. Lung mass. 2. Hemoptysis. 3. Subcarinal lymph nodes. 4. This may be a neoplastic process in the lung. We will do CT abdomen, pelvis and CT head, which was also planned by the primary care. 5. Bronchoscopic versus CT-guided biopsy is being looked into. 6. We will do tumor markers. 7. History of hyperlipidemia. 8. On gout medications. 9. History of hypertension, on medications. I will follow the patient during inpatient stay and then in the clinic setting I discussed with him possibly being neoplastic process. Staging will guide some of our next step. 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 - CT abdo - only oral - and no IV contrast - d/w RN and pt 07/[address] Abdo Pelvis and CT head - no iv contrast - nil acute in head and abdo 07/03 - path pending of lung bx d/w pt reg OP follow up chemo - port - oral meds - PET CT - all these - once we have the path 07/04 - d/w pt reg path - NSCLC - squamous Rad onc consult Port d/w Dr Tanner 07/05- d/w dr tierney reg port placement 07/06 - XRT team and sx team following at this time there is no evidence of mets plan is to look into chemo - XRT - Patient Problems (1) Lung mass Current Visit: Yes Status: Acute Subjective Date of service: 07/06/18 Principal diagnosis: lung cancer Interval history: seen by sx team still SOB Objective - Constitutional Vitals: Last Vital Signs Temp 98.1 F 07/06/18 04:49 Pulse 89 07/06/18 04:49 Resp 20 07/06/18 04:49 BP 135/76 07/06/18 04:49 Pulse Ox 95 07/06/18 04:49 Pain Intensity (0-10): denies any pain General appearance: mild distress Performance status: 3-limited selfcare - EENT Eyes: EOM intact ENT: clear oral mucosa Lymph node exam: negative cervical - Neck Neck: normal ROM - Respiratory Respiratory effort: Positive: normal Respiratory: bilateral: diminished - Cardiovascular Heart Sounds: Present: S1 & S2 Extremities: No edema - Gastrointestinal General gastrointestinal: Present: soft, non-tender Rectal Exam: deferred - Genitourinary Male genitourinary: Present: deferred - Integumentary Integumentary: warm - Musculoskeletal Musculoskeletal: strength equal bilaterally - Neurologic Neurologic: moves all extremities - Psychiatric Psychiatric: appropriate mood/affect - Labs Lab Results: Laboratory Results - last 24 hr 07/01/18 07/06/18 09:36 06:09 Sodium 139 Potassium 4.6 Chloride 99.1 Carbon Dioxide 28 Anion Gap 17 BUN 25 H Creatinine 1.1 Estimated GFR > 60 BUN/Creatinine Ratio 23 Glucose 220 H Calcium 8.9 Carcinoembryonic Ag See scanned result Medications & Allergies - Medications Allergies/Adverse Reactions: Allergies pollen extracts Allergy (Mild, Verified 06/28/18 16:42) Itching runny nose/watery eyes strawberry Allergy (Mild, Verified 06/28/18 16:42) Hives Home Medications: Home Medications Medication Instructions Recorded Confirmed Last Taken Type ALBUTEROL Inhaler (OR & NICU) 1 puff IH Q4H PRN 06/28/18 06/28/18 06/28/18 History [ProAir HFA Inhaler] Allopurinol [Zyloprim] 300 mg PO DAILY 06/28/18 06/28/18 1 Day Ago History ~06/27/18 AtorvaSTATin [Lipitor] 20 mg PO DAILY 06/28/18 06/28/18 1 Day Ago History ~06/27/18 Levocetirizine Dihydrochloride 5 mg PO DAILY 06/28/18 06/28/18 1 Week Ago History [Xyzal] ~06/21/18 Losartan/Hydrochlorothiazide 1 each PO QPM 06/28/18 06/28/18 1 Day Ago History [Losartan-Hctz 100-25 mg Tab] ~06/27/18 Metoprolol [Lopressor] 100 mg PO DAILY 06/28/18 06/28/18 1 Day Ago History ~06/27/18 amLODIPine [Norvasc] 10 mg PO DAILY 06/28/18 06/28/18 1 Day Ago History ~06/27/18 predniSONE [Deltasone] 20 mg PO DAILY 06/28/18 06/28/18 06/28/18 History Active Medications: Generic Name Dose Route Start Last Admin Trade Name Freq PRN Reason Stop Dose Admin Albuterol 2.5 mg 06/30/18 11:01 03/16/19 17:27 Proventil IH 2.5 mg Q4HRT PRN Administration Shortness Of Breath Allopurinol 300 mg 06/28/18 21:00 07/05/18 10:47 Zyloprim PO 300 mg DAILY [facility] Administration Amlodipine Besylate 10 mg 06/28/18 21:00 07/05/18 11:08 Norvasc PO 10 mg DAILY [facility] Administration Arformoterol Tartrate 15 mcg 06/30/18 20:00 07/05/18 19:34 Brovana Nebu IH 15 mcg Q12HRT [facility] Administration Atorvastatin Calcium 20 mg 06/28/18 20:45 07/05/18 10:47 Lipitor PO 20 mg DAILY [facility] Administration Budesonide 0.5 mg 06/30/18 20:00 07/05/18 19:34 Pulmicort IH 0.5 mg Q12HRT [facility] Administration Levofloxacin/Dextrose 750 mg in 150 mls @ 100 mls/hr 07/03/18 10:00 07/05/18 10:45 Levaquin 750mg/150ml IV 100 mls/hr Q48H [facility] Administration Protocol Labetalol HCl 200 mg 07/01/18 16:00 07/05/18 22:39 Normodyne PO 200 mg BID [facility] Administration Methylprednisolone Sodium Succinate 40 mg 06/30/18 22:00 07/05/18 22:39 Solu-Medrol IV 40 mg Q12HR [facility] Administration Metoprolol Tartrate 100 mg 06/28/18 21:00 07/05/18 10:47 Lopressor PO 100 mg DAILY [facility] Administration Miscellaneous Medication 5 mg 06/28/18 20:45 07/05/18 16:12 Levocetirizine Dihydrochloride [Xyzal] PO Not Given DAILY [facility]
[2018-07-06] MEDS: PULMICORT IH SCH ×2 (08:55→19:52)
[2018-07-06] MEDS: BROVANA NEBU IH SCH ×2 (08:55→19:52)
--- NOTE | 2018-07-06 09:01 | Progress Note ---
Assessment and Plan 1. Acute kidney injury: DIAZ likely secondary to IV contrast. Creatinine level is better. Monitor renal function. Avoid nephrotoxic agents. Meds dosage based on GFR. 2. FEN: Mild hyperkalemia, improved. Monitor. 3. Right lung mass: S/p biopsy. 4. COPD with exacerbation. 5. Hypoxic respiratory failure. Subjective Date of service: 07/06/18 Principal diagnosis: lung cancer Interval history: Patient is feeling ok. Objective - Vital Signs Vital signs: Vital Signs - 12hr 07/05/18 07/05/18 07/06/18 22:39 22:48 04:49 Temperature 97.8 F 98.1 F Pulse Rate 90 89 Pulse Rate [ Anterior Bilateral Throughout] Respiratory 24 20 Rate Respiratory Rate [Anterior Bilateral Throughout] Blood Pressure 130/75 138/75 135/76 O2 Sat by Pulse 94 95 Oximetry 07/06/18 08:55 Temperature Pulse Rate Pulse Rate [ 101 H Anterior Bilateral Throughout] Respiratory Rate Respiratory 20 Rate [Anterior Bilateral Throughout] Blood Pressure O2 Sat by Pulse 96 Oximetry - General Appearance General appearance: well-developed, well-nourished, appears stated age, other (on VM O2) EENT: ATNC, PERRL, hearing intact, vision intact Neck: supple Respiratory: Present: Clear to Ascultation, Decreased Breath Sounds (right base) Cardiology: regular, S1S2, no murmurs Gastrointestinal: normoactive bowel sounds, no tenderness, no distended Integumentary: no rash, warm and dry Neurologic: no focal deficit, no asterixis, alert and oriented x3 Musculoskeletal: other (no edema) - Lab 07/03/18 04:40 07/06/18 06:09 Most recent lab results Calcium 8.9 mg/dL (8.4-10.2) 07/06/18 06:09 Phosphorus 3.60 mg/dL (2.5-4.5) 07/03/18 04:40 Magnesium 2.20 mg/dL (1.7-2.3) 07/03/18 04:40 Urine Creatinine 58.9 mg/dL (0.1-20.0) H 07/01/18 19:46 Urine Sodium 41 mmol/L 07/01/18 19:46 Medications & Allergies - Medications Allergies/Adverse Reactions: Allergies pollen extracts Allergy (Mild, Verified 06/28/18 16:42) Itching runny nose/watery eyes strawberry Allergy (Mild, Verified 06/28/18 16:42) Hives Home Medications: Home Medications Medication Instructions Recorded Confirmed Last Taken Type ALBUTEROL Inhaler (OR & NICU) 1 puff IH Q4H PRN 06/28/18 06/28/18 06/28/18 History [ProAir HFA Inhaler] Allopurinol [Zyloprim] 300 mg PO DAILY 06/28/18 06/28/18 1 Day Ago History ~06/27/18 AtorvaSTATin [Lipitor] 20 mg PO DAILY 06/28/18 06/28/18 1 Day Ago History ~06/27/18 Levocetirizine Dihydrochloride 5 mg PO DAILY 06/28/18 06/28/18 1 Week Ago History [Xyzal] ~06/21/18 Losartan/Hydrochlorothiazide 1 each PO QPM 06/28/18 06/28/18 1 Day Ago History [Losartan-Hctz 100-25 mg Tab] ~06/27/18 Metoprolol [Lopressor] 100 mg PO DAILY 06/28/18 06/28/18 1 Day Ago History ~06/27/18 amLODIPine [Norvasc] 10 mg PO DAILY 06/28/18 06/28/18 1 Day Ago History ~06/27/18 predniSONE [Deltasone] 20 mg PO DAILY 06/28/18 06/28/18 06/28/18 History Active Medications: Generic Name Dose Route Start Last Admin Trade Name Freq PRN Reason Stop Dose Admin Albuterol 2.5 mg 06/30/18 11:01 06/30/18 17:27 Proventil IH 2.5 mg Q4HRT PRN Administration Shortness Of Breath Allopurinol 300 mg 06/28/18 21:00 07/05/18 10:47 Zyloprim PO 300 mg DAILY [facility] Administration Amlodipine Besylate 10 mg 06/28/18 21:00 07/05/18 11:08 Norvasc PO 10 mg DAILY [facility] Administration Arformoterol Tartrate 15 mcg 06/30/18 20:00 07/06/18 08:55 Brovana Nebu IH 15 mcg Q12HRT [facility] Administration Atorvastatin Calcium 20 mg 06/28/18 20:45 07/05/18 10:47 Lipitor PO 20 mg DAILY [facility] Administration Budesonide 0.5 mg 06/30/18 20:00 07/06/18 08:55 Pulmicort IH 0.5 mg Q12HRT [facility] Administration Levofloxacin/Dextrose 750 mg in 150 mls @ 100 mls/hr 07/03/18 10:00 07/05/18 10:45 Levaquin 750mg/150ml IV 100 mls/hr Q48H [facility] Administration Protocol Labetalol HCl 200 mg 07/01/18 16:00 07/05/18 22:39 Normodyne PO 200 mg BID [facility] Administration Methylprednisolone Sodium Succinate 40 mg 06/30/18 22:00 07/05/18 22:39 Solu-Medrol IV 40 mg Q12HR [facility] Administration Metoprolol Tartrate 100 mg 06/28/18 21:00 07/05/18 10:47 Lopressor PO 100 mg DAILY [facility] Administration Miscellaneous Medication 5 mg 06/28/18 20:45 07/05/18 16:12 Levocetirizine Dihydrochloride [Xyzal] PO Not Given DAILY [facility]
[2018-07-06] MEDS: NORVASC PO SCH (10:36)
[2018-07-06] MEDS: ZYLOPRIM PO SCH (10:36)
[2018-07-06] MEDS: LOPRESSOR PO SCH (10:36)
[2018-07-06] MEDS: NORMODYNE PO SCH ×2 (10:38→22:19)
[2018-07-06] MEDS: SOLU-Medrol IV SCH ×2 (10:38→22:22)
--- NOTE | 2018-07-06 11:21 | Progress Note ---
Assessment and Plan Acute resp failure due to COPD and lung mass - Placed on supplemental O2, nebs since admission - placed on ventimask since 07/01/18 - cont to monitor, nebs, supplemental O2, tapering steroid, - need to go down at least on 4L in order to be able to go home COPD exacerbation, cont nebs, supplemental O2, tapering steroid hemoptysis, likley from lung mass, resolved - avoid heparin/aspirin product Right lung mass LL, possible malignancy - - s/p CT guided bopsy on 07/02/18 - path showing squamous cell Ca, consulted red-onc - plan to start radiation - So far no sign of metastasis yet, Brain CT w/contrast pending leukocytosis, reactive. likely from underlying malignancy (patient not septic) - trended down, will stop abx DIAZ, vasomotor nephropathy vs contrast induced - cont IV fluid for DIAZ, monitor Cr, consulted renal - SCd for DVt Px Brief History: 67 y/o male presented to the ED back in [place] after coughing some blood while playing basketball. CXR showed large right lower lobe mass but rest of lung clear. Patient was set up for outpatient follow up with Dr. Mckeon but he was ill and had to cancel and Rescheduled. But came to ED this time with more hemoptysis, SOB and generalized weakness. Has lost about 5lbs intentionally in the last month. Quit smoking 12 years ago but did smoker for about 25 years. Admitted for COPD exacerbation and possible lung biopsy. CTA chest: No PE. RLL lung mass CT abdomen/pelvis: Large lobulated right lower lobe mass reidentified. Please see prior chest CT dictation The abdomen and pelvis demonstrate no adenopathy or mass No free air. No free fluid. No bowel obstruction No acute inflammatory change Renal cysts are present. No calculus. No hydronephrosis.. Physical exam: General appearance: Present: no acute distress, well-nourished - EENT Eyes: PERRL, EOM intact ENT: hearing intact, clear oral mucosa Ears: bilateral: normal - Neck Neck: supple, normal ROM - Respiratory Respiratory effort: normal Respiratory: bilateral: diminished, rhonchi (RLL) - Cardiovascular Rhythm: regular Heart Sounds: Present: S1 & S2. Absent: gallop, rub Extremities: pulses intact, No edema, normal color, Full ROM - Gastrointestinal General gastrointestinal: Present: soft, non-tender, non-distended, normal bowel sounds - Integumentary Integumentary: clear, warm, dry - Musculoskeletal Musculoskeletal: 1, strength equal bilaterally - Neurologic Neurologic: moves all extremities - Psychiatric Psychiatric: memory intact, appropriate mood/affect, intact judgment & insight Subjective Date of service: 07/06/18 Principal diagnosis: lung mass Interval history: Patient seen and examined No acute event o/n C/O SOB, no chest pain patient on venti mask Plan for radiation today Objective - Constitutional Vitals: Vital Signs - 12hr 07/06/18 07/06/18 07/06/18 04:49 08:55 09:09 Temperature 98.1 F Pulse Rate 89 Pulse Rate [ 101 H 93 H Anterior Bilateral Throughout] Respiratory 20 Rate Respiratory 20 20 Rate [Anterior Bilateral Throughout] Blood Pressure 135/76 O2 Sat by Pulse 95 96 Oximetry 07/06/18 07/06/18 10:36 10:38 Temperature Pulse Rate 101 H 101 H Pulse Rate [ Anterior Bilateral Throughout] Respiratory Rate Respiratory Rate [Anterior Bilateral Throughout] Blood Pressure 135/76 135/76 O2 Sat by Pulse Oximetry - Labs CBC & Chem 7: 07/03/18 04:40 07/06/18 06:09 Labs: Abnormal lab results 07/06/18 Range/Units 06:09 BUN 25 H (9-20) mg/dL Glucose 220 H (75-100) mg/dL
--- NOTE | 2018-07-06 11:56 | Progress Note ---
Assessment and Plan Imp: 1. Lung mass -> NSCLC 2. Hemoptysis 3. Acute respiratory failure, hypoxia 4. Centrilobular/bullous emphysema 5. DIAZ Rec: 1. Cont. Solumedrol -> change to Prednisone soon; cont. Levaquin, Bronchodilators 2. Oncology and Rad/Onc eval. re: NSCLC 3. Home O2 eval. needed -> asked RT to be aggressive in weaning to NC 4. Outpatient PFTs -> f/u with us 1 week after d/c 5. Try to ambulate 6. Incentive spirometry 7. Would consider starting XRT in-house as believe his hypoxia is primarily due to tumor Plan of care reviewed w/ patient, he understands/agrees Subjective Date of service: 07/06/18 Principal diagnosis: lung mass Interval history: SOB better but back on 40% VM. No chest pain, cough, wheezing. Active Medications Albuterol (Proventil) 2.5 mg IH Q4HRT PRN PRN Reason: Shortness Of Breath Last Admin: 06/30/18 17:27 Dose: 2.5 mg Documented by: Allopurinol (Zyloprim) 300 mg PO DAILY [facility] Last Admin: 07/06/18 10:36 Dose: 300 mg Documented by: Amlodipine Besylate (Norvasc) 10 mg PO DAILY [facility] Last Admin: 07/06/18 10:36 Dose: 10 mg Documented by: Arformoterol Tartrate (Brovana Nebu) 15 mcg IH Q12HRT [facility] Last Admin: 07/06/18 08:55 Dose: 15 mcg Documented by: Atorvastatin Calcium (Lipitor) 20 mg PO DAILY [facility] Last Admin: 07/06/18 10:35 Dose: 20 mg Documented by: Budesonide (Pulmicort) 0.5 mg IH Q12HRT [facility] Last Admin: 07/06/18 08:55 Dose: 0.5 mg Documented by: Levofloxacin/Dextrose (Levaquin 750mg/150ml) 750 mg in 150 mls @ 100 mls/hr IV Q48H [facility]; Protocol Last Admin: 07/05/18 10:45 Dose: 100 mls/hr Documented by: Labetalol HCl (Normodyne) 200 mg PO BID [facility] Last Admin: 07/06/18 10:38 Dose: 200 mg Documented by: Methylprednisolone Sodium Succinate (Solu-Medrol) 40 mg IV Q12HR [facility] Last Admin: 07/06/18 10:38 Dose: 40 mg Documented by: Metoprolol Tartrate (Lopressor) 100 mg PO DAILY [facility] Last Admin: 07/06/18 10:36 Dose: 100 mg Documented by: Miscellaneous Medication (Levocetirizine Dihydrochloride [Xyzal]) 5 mg PO DAILY [facility] Last Admin: 07/05/18 16:12 Dose: Not Given Documented by: Objective Vital Signs - 12hr 07/06/18 07/06/18 07/06/18 04:49 08:55 09:09 Temperature 98.1 F Pulse Rate 89 Pulse Rate [ 101 H 93 H Anterior Bilateral Throughout] Respiratory 20 Rate Respiratory 20 20 Rate [Anterior Bilateral Throughout] Blood Pressure 135/76 O2 Sat by Pulse 95 96 Oximetry 07/06/18 07/06/18 10:36 10:38 Temperature Pulse Rate 101 H 101 H Pulse Rate [ Anterior Bilateral Throughout] Respiratory Rate Respiratory Rate [Anterior Bilateral Throughout] Blood Pressure 135/76 135/76 O2 Sat by Pulse Oximetry Constitutional: no acute distress, alert Eyes: non-icteric ENT: oropharynx moist Neck: supple Effort: normal Ascultation: Bilateral: clear Cardiovascular: regular rate and rhythm Gastrointestinal: normoactive bowel sounds, non-tender Extremities: no cyanosis, no edema, pink and warm, pulses normal Neurologic: normal mental status, non-focal exam, pupils equal and round, CN II- XII normal Psychiatric: mood appropriate, affect normal CBC and BMP: 07/03/18 04:40 07/06/18 06:09 ABG, PT/INR, D-dimer: PT/INR, D-dimer PT 13.2 Sec. (12.2-14.9) 06/29/18 13:35 INR 0.95 (0.87-1.13) 06/29/18 13:35 Abnormal lab findings: Abnormal Labs 06/28/18 06/28/18 06/29/18 10:02 10:02 13:35 WBC 17.1 H RBC Hct RDW 15.8 H Lymph % (Auto) 9.9 L [place] # 0.9 H Seg Neutrophils % 84.0 H Seg Neuts % (Manual) Lymphocytes % (Manual) Seg Neutrophils # 14.4 H Seg Neutrophils # Man Lymphocytes # (Manual) APTT 20.0 L Potassium Chloride BUN 23 H Creatinine Glucose 125 H Calcium Total Creatine Kinase 43 L Urine Creatinine 07/01/18 07/01/18 07/01/18 09:36 09:36 19:46 WBC 17.9 H RBC 5.20 H Hct 45.7 H RDW 16.6 H Lymph % (Auto) [place] # Seg Neutrophils % Seg Neuts % (Manual) 92.0 H Lymphocytes % (Manual) 5.0 L Seg Neutrophils # Seg Neutrophils # Man 16.5 H Lymphocytes # (Manual) 0.9 L APTT Potassium Chloride 95.9 L BUN 47 H Creatinine 1.9 H Glucose 191 H Calcium 10.6 H Total Creatine Kinase Urine Creatinine 58.9 H 07/02/18 07/03/18 07/03/18 05:56 04:40 04:40 WBC 13.1 H RBC Hct RDW 16.6 H Lymph % (Auto) [place] # Seg Neutrophils % Seg Neuts % (Manual) 95.0 H Lymphocytes % (Manual) 3.0 L Seg Neutrophils # Seg Neutrophils # Man 12.4 H Lymphocytes # (Manual) 0.4 L APTT Potassium Chloride BUN 40 H 31 H Creatinine Glucose 207 H 187 H Calcium Total Creatine Kinase Urine Creatinine 07/04/18 07/05/18 07/06/18 06:07 04:31 06:09 WBC RBC Hct RDW Lymph % (Auto) [place] # Seg Neutrophils % Seg Neuts % (Manual) Lymphocytes % (Manual) Seg Neutrophils # Seg Neutrophils # Man Lymphocytes # (Manual) APTT Potassium 5.1 H Chloride BUN 26 H 27 H 25 H Creatinine Glucose 186 H 206 H 220 H Calcium Total Creatine Kinase Urine Creatinine Chest x-ray: report reviewed, image reviewed CT scan - chest: report reviewed, image reviewed
[2018-07-07] MEDS: PULMICORT IH SCH ×2 (07:45→21:17)
[2018-07-07] MEDS: BROVANA NEBU IH SCH ×2 (07:45→21:17)
--- NOTE | 2018-07-07 11:10 | Hem/Onc Progress Note ---
Assessment and Plan 1. Lung mass. 2. Hemoptysis. 3. Subcarinal lymph nodes. 4. This may be a neoplastic process in the lung. We will do CT abdomen, pelvis and CT head, which was also planned by the primary care. 5. Bronchoscopic versus CT-guided biopsy is being looked into. 6. We will do tumor markers. 7. History of hyperlipidemia. 8. On gout medications. 9. History of hypertension, on medications. I will follow the patient during inpatient stay and then in the clinic setting I discussed with him possibly being neoplastic process. Staging will guide some of our next step. 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 - CT abdo - only oral - and no IV contrast - d/w RN and pt 07/[address] Abdo Pelvis and CT head - no iv contrast - nil acute in head and abdo 07/03 - path pending of lung bx d/w pt reg OP follow up chemo - port - oral meds - PET CT - all these - once we have the path 07/04 - d/w pt reg path - NSCLC - squamous Rad onc consult Port d/w Dr Tanner 07/05- d/w dr tierney reg port placement 07/06 - XRT team and sx team following at this time there is no evidence of mets plan is to look into chemo - XRT 07/07 - xrt marking done port monday as per pt OP chemo - Patient Problems (1) Lung mass Current Visit: Yes Status: Acute Subjective Date of service: 07/07/18 Principal diagnosis: lung cancer Objective - Constitutional Vitals: Last Vital Signs Temp 98.3 F 07/07/18 06:45 Pulse 87 07/07/18 07:55 Resp 20 07/07/18 07:55 BP 138/72 07/07/18 06:45 Pulse Ox 93 07/07/18 08:24 Pain Intensity (0-10): denies any pain General appearance: no acute distress Performance status: 2- selfcare, ambulatory - EENT Eyes: EOM intact ENT: clear oral mucosa Lymph node exam: negative cervical - Neck Neck: normal ROM - Respiratory Respiratory effort: Positive: normal Respiratory: bilateral: CTA - Cardiovascular Heart Sounds: Present: S1 & S2 Extremities: No edema - Gastrointestinal General gastrointestinal: Present: soft, non-tender Rectal Exam: deferred - Genitourinary Male genitourinary: Present: deferred - Integumentary Integumentary: warm - Musculoskeletal Musculoskeletal: strength equal bilaterally - Neurologic Neurologic: moves all extremities Medications & Allergies - Medications Allergies/Adverse Reactions: Allergies pollen extracts Allergy (Mild, Verified 06/28/18 16:42) Itching runny nose/watery eyes strawberry Allergy (Mild, Verified 06/28/18 16:42) Hives Home Medications: Home Medications Medication Instructions Recorded Confirmed Last Taken Type ALBUTEROL Inhaler (OR & NICU) 1 puff IH Q4H PRN 06/28/18 06/28/18 06/28/18 History [ProAir HFA Inhaler] Allopurinol [Zyloprim] 300 mg PO DAILY 06/28/18 06/28/18 1 Day Ago History ~06/27/18 AtorvaSTATin [Lipitor] 20 mg PO DAILY 06/28/18 06/28/18 1 Day Ago History ~06/27/18 Levocetirizine Dihydrochloride 5 mg PO DAILY 06/28/18 06/28/18 1 Week Ago History [Xyzal] ~06/21/18 Losartan/Hydrochlorothiazide 1 each PO QPM 06/28/18 06/28/18 1 Day Ago History [Losartan-Hctz 100-25 mg Tab] ~06/27/18 Metoprolol [Lopressor] 100 mg PO DAILY 06/28/18 06/28/18 1 Day Ago History ~06/27/18 amLODIPine [Norvasc] 10 mg PO DAILY 06/28/18 06/28/18 1 Day Ago History ~06/27/18 predniSONE [Deltasone] 20 mg PO DAILY 06/28/18 06/28/18 06/28/18 History Active Medications: Generic Name Dose Route Start Last Admin Trade Name Freq PRN Reason Stop Dose Admin Albuterol 2.5 mg 06/30/18 11:01 06/30/18 17:27 Proventil IH 2.5 mg Q4HRT PRN Administration Shortness Of Breath Allopurinol 300 mg 06/28/18 21:00 07/06/18 10:36 Zyloprim PO 300 mg DAILY [facility] Administration Amlodipine Besylate 10 mg 06/28/18 21:00 07/06/18 10:36 Norvasc PO 10 mg DAILY [facility] Administration Arformoterol Tartrate 15 mcg 06/30/18 20:00 07/07/18 07:45 Brovana Nebu IH 15 mcg Q12HRT [facility] Administration Atorvastatin Calcium 20 mg 06/28/18 20:45 07/06/18 10:35 Lipitor PO 20 mg DAILY [facility] Administration Budesonide 0.5 mg 06/30/18 20:00 07/07/18 07:45 Pulmicort IH 0.5 mg Q12HRT [facility] Administration Levofloxacin/Dextrose 750 mg in 150 mls @ 100 mls/hr 07/03/18 10:00 07/05/18 10:45 Levaquin 750mg/150ml IV 100 mls/hr Q48H [facility] Administration Protocol Labetalol HCl 200 mg 07/01/18 16:00 07/06/18 22:19 Normodyne PO 200 mg BID [facility] Administration Methylprednisolone Sodium Succinate 40 mg 06/30/18 22:00 07/06/18 22:22 Solu-Medrol IV 40 mg Q12HR [facility] Administration Metoprolol Tartrate 100 mg 06/28/18 21:00 07/06/18 10:36 Lopressor PO 100 mg DAILY [facility] Administration Miscellaneous Medication 5 mg 06/28/18 20:45 07/05/18 16:12 Levocetirizine Dihydrochloride [Xyzal] PO Not Given DAILY [facility]
[2018-07-07] MEDS: LEVAQUIN 750MG/150ML 750 MG/150 ML BAG IV SCH ×2 (11:15→13:30)
[2018-07-07] MEDS: SOLU-Medrol IV SCH ×2 (11:17→22:17)
[2018-07-07] MEDS: NORVASC PO SCH (11:18)
[2018-07-07] MEDS: ZYLOPRIM PO SCH (11:18)
[2018-07-07] MEDS: NORMODYNE PO SCH ×2 (11:18→22:16)
[2018-07-07] MEDS: LOPRESSOR PO SCH (11:19)
--- NOTE | 2018-07-07 12:05 | Progress Note ---
Assessment and Plan Acute resp failure due to COPD and lung mass - Placed on supplemental O2, nebs since admission - placed on ventimask since 07/01/18 - cont to monitor, nebs, supplemental O2, tapering steroid, - need to go down at least on 4L in order to be able to go home COPD exacerbation, cont nebs, supplemental O2, tapering steroid hemoptysis, likley from lung mass, resolved - avoid heparin/aspirin product Right lung mass LL, possible malignancy - - s/p CT guided bopsy on 07/02/18 - path showing squamous cell Ca, consulted red-onc - plan to start radiation - So far no sign of metastasis yet, Brain CT w/contrast pending - plan for Port-a-cath on monday leukocytosis, reactive. likely from underlying malignancy (patient not septic) - trended down, will stop abx DIAZ, vasomotor nephropathy vs contrast induced - cont IV fluid for DIAZ, monitor Cr, consulted renal - SCd for DVt Px Brief History: 67 y/o male presented to the ED back in May after coughing some blood while playing basketball. CXR showed large right lower lobe mass but rest of lung clear. Patient was set up for outpatient follow up with Dr. Mckeon but he was ill and had to cancel and Rescheduled. But came to ED this time with more hemoptysis, SOB and generalized weakness. Has lost about 5lbs intentionally in the last month. Quit smoking 12 years ago but did smoker for about 25 years. Admitted for COPD exacerbation and possible lung biopsy. CTA chest: No PE. RLL lung mass CT abdomen/pelvis: Large lobulated right lower lobe mass reidentified. Please see prior chest CT dictation The abdomen and pelvis demonstrate no adenopathy or mass No free air. No free fluid. No bowel obstruction No acute inflammatory change Renal cysts are present. No calculus. No hydronephrosis.. Physical exam: General appearance: Present: no acute distress, well-nourished - EENT Eyes: PERRL, EOM intact ENT: hearing intact, clear oral mucosa Ears: bilateral: normal - Neck Neck: supple, normal ROM - Respiratory Respiratory effort: normal Respiratory: bilateral: diminished, rhonchi (RLL) - Cardiovascular Rhythm: regular Heart Sounds: Present: S1 & S2. Absent: gallop, rub Extremities: pulses intact, No edema, normal color, Full ROM - Gastrointestinal General gastrointestinal: Present: soft, non-tender, non-distended, normal bowel sounds - Integumentary Integumentary: clear, warm, dry - Musculoskeletal Musculoskeletal: 1, strength equal bilaterally - Neurologic Neurologic: moves all extremities - Psychiatric Psychiatric: memory intact, appropriate mood/affect, intact judgment & insight Subjective Date of service: 07/07/18 Principal diagnosis: lung mass Interval history: Patient seen and examined No acute event o/n C/O SOB, no chest pain patient on venti mask s/p radiation yesterday Objective - Constitutional Vitals: Vital Signs - 12hr 07/07/18 07/07/18 07/07/18 06:45 07:45 07:55 Temperature 98.3 F Pulse Rate 80 Pulse Rate [ 83 87 Anterior Bilateral Throughout] Respiratory 20 Rate Respiratory 18 20 Rate [Anterior Bilateral Throughout] Blood Pressure 138/72 O2 Sat by Pulse 92 95 Oximetry 07/07/18 07/07/18 07/07/18 08:24 11:18 11:19 Temperature Pulse Rate 92 H 92 H Pulse Rate [ Anterior Bilateral Throughout] Respiratory Rate Respiratory Rate [Anterior Bilateral Throughout] Blood Pressure 130/72 130/72 O2 Sat by Pulse 93 Oximetry - Labs CBC & Chem 7: 07/03/18 04:40 07/06/18 06:09
--- NOTE | 2018-07-07 12:58 | Progress Note ---
Assessment and Plan 1. Acute kidney injury: DIAZ likely secondary to IV contrast. Creatinine level is better. Monitor renal function. Avoid nephrotoxic agents. Meds dosage based on GFR. 2. FEN: Mild hyperkalemia, improved. Monitor. 3. Right lung mass: S/p biopsy. 4. COPD with exacerbation. 5. Hypoxic respiratory failure. Subjective Date of service: 07/07/18 Principal diagnosis: lung mass Interval history: Patient is feeling ok. Objective - Vital Signs Vital signs: Vital Signs - 12hr 07/07/18 07/07/18 07/07/18 06:45 07:45 07:55 Temperature 98.3 F Pulse Rate 80 Pulse Rate [ 83 87 Anterior Bilateral Throughout] Respiratory 20 Rate Respiratory 18 20 Rate [Anterior Bilateral Throughout] Blood Pressure 138/72 O2 Sat by Pulse 92 95 Oximetry 07/07/18 07/07/18 07/07/18 08:24 11:18 11:19 Temperature Pulse Rate 92 H 92 H Pulse Rate [ Anterior Bilateral Throughout] Respiratory Rate Respiratory Rate [Anterior Bilateral Throughout] Blood Pressure 130/72 130/72 O2 Sat by Pulse 93 Oximetry 07/07/18 12:19 Temperature 97.7 F Pulse Rate 83 Pulse Rate [ Anterior Bilateral Throughout] Respiratory 18 Rate Respiratory Rate [Anterior Bilateral Throughout] Blood Pressure 116/68 O2 Sat by Pulse 91 Oximetry - General Appearance General appearance: well-developed, well-nourished, appears stated age, other (not in distress) EENT: ATNC, PERRL, hearing intact, vision intact Neck: supple Respiratory: Present: Clear to Ascultation, Decreased Breath Sounds (right base) Cardiology: regular, S1S2, no murmurs Gastrointestinal: normoactive bowel sounds, no tenderness, no distended Integumentary: no rash Neurologic: no focal deficit, no asterixis, alert and oriented x3 Musculoskeletal: other (no edema) Psychiatric: cooperative - Lab 07/03/18 04:40 07/06/18 06:09 Most recent lab results Calcium 8.9 mg/dL (8.4-10.2) 07/06/18 06:09 Phosphorus 3.60 mg/dL (2.5-4.5) 07/03/18 04:40 Magnesium 2.20 mg/dL (1.7-2.3) 07/03/18 04:40 Urine Creatinine 58.9 mg/dL (0.1-20.0) H 07/01/18 19:46 Urine Sodium 41 mmol/L 07/01/18 19:46 Medications & Allergies - Medications Allergies/Adverse Reactions: Allergies pollen extracts Allergy (Mild, Verified 06/28/18 16:42) Itching runny nose/watery eyes strawberry Allergy (Mild, Verified 06/28/18 16:42) Hives Home Medications: Home Medications Medication Instructions Recorded Confirmed Last Taken Type ALBUTEROL Inhaler (OR & NICU) 1 puff IH Q4H PRN 06/28/18 06/28/18 06/28/18 History [ProAir HFA Inhaler] Allopurinol [Zyloprim] 300 mg PO DAILY 06/28/18 06/28/18 1 Day Ago History ~06/27/18 AtorvaSTATin [Lipitor] 20 mg PO DAILY 06/28/18 06/28/18 1 Day Ago History ~06/27/18 Levocetirizine Dihydrochloride 5 mg PO DAILY 06/28/18 06/28/18 1 Week Ago History [Xyzal] ~06/21/18 Losartan/Hydrochlorothiazide 1 each PO QPM 06/28/18 06/28/18 1 Day Ago History [Losartan-Hctz 100-25 mg Tab] ~06/27/18 Metoprolol [Lopressor] 100 mg PO DAILY 06/28/18 06/28/18 1 Day Ago History ~06/27/18 amLODIPine [Norvasc] 10 mg PO DAILY 06/28/18 06/28/18 1 Day Ago History ~06/27/18 predniSONE [Deltasone] 20 mg PO DAILY 06/28/18 06/28/18 06/28/18 History Active Medications: Generic Name Dose Route Start Last Admin Trade Name Freq PRN Reason Stop Dose Admin Albuterol 2.5 mg 06/30/18 11:01 06/30/18 17:27 Proventil IH 2.5 mg Q4HRT PRN Administration Shortness Of Breath Allopurinol 300 mg 06/28/18 21:00 07/07/18 11:18 Zyloprim PO 300 mg DAILY [facility] Administration Amlodipine Besylate 10 mg 06/28/18 21:00 07/07/18 11:18 Norvasc PO 10 mg DAILY [facility] Administration Arformoterol Tartrate 15 mcg 06/30/18 20:00 07/07/18 07:45 Brovana Nebu IH 15 mcg Q12HRT [facility] Administration Atorvastatin Calcium 20 mg 06/28/18 20:45 07/07/18 11:19 Lipitor PO 20 mg DAILY [facility] Administration Budesonide 0.5 mg 06/30/18 20:00 07/07/18 07:45 Pulmicort IH 0.5 mg Q12HRT [facility] Administration Levofloxacin/Dextrose 750 mg in 150 mls @ 100 mls/hr 07/08/18 11:00 Levaquin 750mg/150ml IV Q24H [facility] Protocol Labetalol HCl 200 mg 07/01/18 16:00 07/07/18 11:18 Normodyne PO 200 mg BID [facility] Administration Methylprednisolone Sodium Succinate 40 mg 06/30/18 22:00 07/07/18 11:17 Solu-Medrol IV 40 mg Q12HR [facility] Administration Metoprolol Tartrate 100 mg 06/28/18 21:00 07/07/18 11:19 Lopressor PO 100 mg DAILY [facility] Administration Miscellaneous Medication 5 mg 06/28/18 20:45 07/05/18 16:12 Levocetirizine Dihydrochloride [Xyzal] PO Not Given DAILY [facility]
--- NOTE | 2018-07-07 15:36 | Progress Note ---
Assessment and Plan Imp: 1. Lung mass -> NSCLC 2. Hemoptysis 3. Acute respiratory failure, hypoxia 4. Centrilobular/bullous emphysema 5. DIAZ Rec: 1. Cont. Solumedrol -> change to Prednisone soon; cont. Levaquin, Bronchodilators 2. Oncology and Rad/Onc eval. re: NSCLC 3. Home O2 eval. needed -> asked RT to be aggressive in weaning to NC 4. Outpatient PFTs -> f/u with us 1 week after d/c 5. Try to ambulate 6. Incentive spirometry 7. Recommend starting XRT in-house as believe his hypoxia is primarily due to tumor Plan of care reviewed w/ patient, he understands/agrees Subjective Date of service: 07/07/18 Principal diagnosis: lung mass Interval history: SOB better, down to 6L NC again. Had XRT simulation. No chest pain, cough, wheezing. Active Medications Albuterol (Proventil) 2.5 mg IH Q4HRT PRN PRN Reason: Shortness Of Breath Last Admin: 06/30/18 17:27 Dose: 2.5 mg Documented by: Allopurinol (Zyloprim) 300 mg PO DAILY [facility] Last Admin: 07/07/18 11:18 Dose: 300 mg Documented by: Amlodipine Besylate (Norvasc) 10 mg PO DAILY [facility] Last Admin: 07/07/18 11:18 Dose: 10 mg Documented by: Arformoterol Tartrate (Brovana Nebu) 15 mcg IH Q12HRT [facility] Last Admin: 07/07/18 07:45 Dose: 15 mcg Documented by: Atorvastatin Calcium (Lipitor) 20 mg PO DAILY [facility] Last Admin: 07/07/18 11:19 Dose: 20 mg Documented by: Budesonide (Pulmicort) 0.5 mg IH Q12HRT [facility] Last Admin: 07/07/18 07:45 Dose: 0.5 mg Documented by: Levofloxacin/Dextrose (Levaquin 750mg/150ml) 750 mg in 150 mls @ 100 mls/hr IV Q24H [facility]; Protocol Labetalol HCl (Normodyne) 200 mg PO BID [facility] Last Admin: 07/07/18 11:18 Dose: 200 mg Documented by: Methylprednisolone Sodium Succinate (Solu-Medrol) 40 mg IV Q12HR [facility] Last Admin: 07/07/18 11:17 Dose: 40 mg Documented by: Metoprolol Tartrate (Lopressor) 100 mg PO DAILY [facility] Last Admin: 07/07/18 11:19 Dose: 100 mg Documented by: Miscellaneous Medication (Levocetirizine Dihydrochloride [Xyzal]) 5 mg PO DAILY [facility] Last Admin: 07/05/18 16:12 Dose: Not Given Documented by: Objective Vital Signs - 12hr 07/07/18 07/07/18 07/07/18 06:45 07:45 07:55 Temperature 98.3 F Pulse Rate 80 Pulse Rate [ 83 87 Anterior Bilateral Throughout] Respiratory 20 Rate Respiratory 18 20 Rate [Anterior Bilateral Throughout] Blood Pressure 138/72 O2 Sat by Pulse 92 95 Oximetry 07/07/18 07/07/18 07/07/18 08:24 11:18 11:19 Temperature Pulse Rate 92 H 92 H Pulse Rate [ Anterior Bilateral Throughout] Respiratory Rate Respiratory Rate [Anterior Bilateral Throughout] Blood Pressure 130/72 130/72 O2 Sat by Pulse 93 Oximetry 07/07/18 12:19 Temperature 97.7 F Pulse Rate 83 Pulse Rate [ Anterior Bilateral Throughout] Respiratory 18 Rate Respiratory Rate [Anterior Bilateral Throughout] Blood Pressure 116/68 O2 Sat by Pulse 91 Oximetry Constitutional: no acute distress, alert Eyes: non-icteric ENT: oropharynx moist Neck: supple Effort: normal Ascultation: Right: diminished breath sounds (base), Bilateral: clear Cardiovascular: regular rate and rhythm (no mrg) Gastrointestinal: normoactive bowel sounds, non-tender Extremities: no cyanosis, no edema, pink and warm, pulses normal Neurologic: normal mental status, non-focal exam, pupils equal and round, CN II- XII normal Psychiatric: mood appropriate, affect normal CBC and BMP: 07/03/18 04:40 07/06/18 06:09 ABG, PT/INR, D-dimer: PT/INR, D-dimer PT 13.2 Sec. (12.2-14.9) 06/29/18 13:35 INR 0.95 (0.87-1.13) 06/29/18 13:35 Abnormal lab findings: Abnormal Labs 06/28/18 06/28/18 06/29/18 10:02 10:02 13:35 WBC 17.1 H RBC Hct RDW 15.8 H Lymph % (Auto) 9.9 L [place] # 0.9 H Seg Neutrophils % 84.0 H Seg Neuts % (Manual) Lymphocytes % (Manual) Seg Neutrophils # 14.4 H Seg Neutrophils # Man Lymphocytes # (Manual) APTT 20.0 L Potassium Chloride BUN 23 H Creatinine Glucose 125 H Calcium Total Creatine Kinase 43 L Urine Creatinine 07/01/18 07/01/18 07/01/18 09:36 09:36 19:46 WBC 17.9 H RBC 5.20 H Hct 45.7 H RDW 16.6 H Lymph % (Auto) [place] # Seg Neutrophils % Seg Neuts % (Manual) 92.0 H Lymphocytes % (Manual) 5.0 L Seg Neutrophils # Seg Neutrophils # Man 16.5 H Lymphocytes # (Manual) 0.9 L APTT Potassium Chloride 95.9 L BUN 47 H Creatinine 1.9 H Glucose 191 H Calcium 10.6 H Total Creatine Kinase Urine Creatinine 58.9 H 07/02/18 07/03/18 07/03/18 05:56 04:40 04:40 WBC 13.1 H RBC Hct RDW 16.6 H Lymph % (Auto) [place] # Seg Neutrophils % Seg Neuts % (Manual) 95.0 H Lymphocytes % (Manual) 3.0 L Seg Neutrophils # Seg Neutrophils # Man 12.4 H Lymphocytes # (Manual) 0.4 L APTT Potassium Chloride BUN 40 H 31 H Creatinine Glucose 207 H 187 H Calcium Total Creatine Kinase Urine Creatinine 07/04/18 07/05/18 07/06/18 06:07 04:31 06:09 WBC RBC Hct RDW Lymph % (Auto) [place] # Seg Neutrophils % Seg Neuts % (Manual) Lymphocytes % (Manual) Seg Neutrophils # Seg Neutrophils # Man Lymphocytes # (Manual) APTT Potassium 5.1 H Chloride BUN 26 H 27 H 25 H Creatinine Glucose 186 H 206 H 220 H Calcium Total Creatine Kinase Urine Creatinine Chest x-ray: report reviewed, image reviewed CT scan - chest: report reviewed, image reviewed
[2018-07-08] MEDS ORDERED: ceFAZolin 2 GM in NACL 0.9% 100 ML IV ONE (06:00)
[2018-07-08 07:58] LABS: BUN/Creatinine Ratio 20; Blood Urea Nitrogen 24 mg/dL (9-20)
[2018-07-08 07:59] LABS: Calcium 9.2 mg/dL (8.4-10.2); Hemolysis Index 18
--- NOTE | 2018-07-08 08:18 | Hem/Onc Progress Note ---
Assessment and Plan 1. Lung mass. 2. Hemoptysis. 3. Subcarinal lymph nodes. 4. This may be a neoplastic process in the lung. We will do CT abdomen, pelvis and CT head, which was also planned by the primary care. 5. Bronchoscopic versus CT-guided biopsy is being looked into. 6. We will do tumor markers. 7. History of hyperlipidemia. 8. On gout medications. 9. History of hypertension, on medications. I will follow the patient during inpatient stay and then in the clinic setting I discussed with him possibly being neoplastic process. Staging will guide some of our next step. 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 - CT abdo - only oral - and no IV contrast - d/w RN and pt 07/[address] Abdo Pelvis and CT head - no iv contrast - nil acute in head and abdo 07/03 - path pending of lung bx d/w pt reg OP follow up chemo - port - oral meds - PET CT - all these - once we have the path 07/04 - d/w pt reg path - NSCLC - squamous Rad onc consult Port d/w Dr Tanner 07/05- d/w dr tierney reg port placement 07/06 - XRT team and sx team following at this time there is no evidence of mets plan is to look into chemo - XRT 07/07 - xrt marking done port monday as per pt OP chemo 07/08 - pt says his ht 6 feet and wt 180 lbs - this is to find the dose of chemo - as OP port tomorrow pt aware that he will call his PCP for auth - Patient Problems (1) Lung mass Current Visit: Yes Status: Acute (2) Lung cancer Current Visit: Yes Status: Acute Subjective Date of service: 07/08/18 Principal diagnosis: lung cancer Interval history: feeling better Objective - Constitutional Vitals: Last Vital Signs Temp 98.7 F 07/08/18 05:45 Pulse 83 07/08/18 05:45 Resp 20 07/08/18 05:45 BP 125/67 07/08/18 05:45 Pulse Ox 93 07/08/18 05:45 Pain Intensity (0-10): denies any pain General appearance: no acute distress - EENT Eyes: EOM intact ENT: clear oral mucosa Lymph node exam: negative cervical - Neck Neck: supple - Respiratory Respiratory effort: Positive: normal Respiratory: bilateral: diminished - Cardiovascular Heart Sounds: Present: S1 & S2 Extremities: No edema - Gastrointestinal General gastrointestinal: Present: soft, non-tender Rectal Exam: deferred - Genitourinary Male genitourinary: Present: deferred - Integumentary Integumentary: warm - Musculoskeletal Musculoskeletal: strength equal bilaterally - Neurologic Neurologic: moves all extremities - Labs Lab Results: Laboratory Results - last 24 hr 07/07/18 07/08/18 22:11 07:00 Sodium 136 L Potassium 5.0 Chloride 95.5 L Carbon Dioxide 27 Anion Gap 19 BUN 24 H Creatinine 1.2 Estimated GFR > 60 BUN/Creatinine Ratio 20 Glucose 224 H POC Glucose 235 H Calcium 9.2 Medications & Allergies - Medications Allergies/Adverse Reactions: Allergies pollen extracts Allergy (Mild, Verified 06/28/18 16:42) Itching runny nose/watery eyes strawberry Allergy (Mild, Verified 06/28/18 16:42) Hives Home Medications: Home Medications Medication Instructions Recorded Confirmed Last Taken Type ALBUTEROL Inhaler (OR & NICU) 1 puff IH Q4H PRN 06/28/18 06/28/18 06/28/18 H istory [ProAir HFA Inhaler] Allopurinol [Zyloprim] 300 mg PO DAILY 06/28/18 06/28/18 1 Day Ago History ~06/27/18 AtorvaSTATin [Lipitor] 20 mg PO DAILY 06/28/18 06/28/18 1 Day Ago History ~06/27/18 Levocetirizine Dihydrochloride 5 mg PO DAILY 06/28/18 06/28/18 1 Week Ago History [Xyzal] ~06/21/18 Losartan/Hydrochlorothiazide 1 each PO QPM 06/28/18 06/28/18 1 Day Ago History [Losartan-Hctz 100-25 mg Tab] ~06/27/18 Metoprolol [Lopressor] 100 mg PO DAILY 06/28/18 06/28/18 1 Day Ago History ~06/27/18 amLODIPine [Norvasc] 10 mg PO DAILY 06/28/18 06/28/18 1 Day Ago History ~06/27/18 predniSONE [Deltasone] 20 mg PO DAILY 06/28/18 06/28/18 06/28/18 History Active Medications: Generic Name Dose Route Start Last Admin Trade Name Mani PRN Reason Stop Dose Admin Albuterol 2.5 mg 06/30/18 11:01 06/30/18 17:27 Proventil IH 2.5 mg Q4HRT PRN Administration Shortness Of Breath Allopurinol 300 mg 06/28/18 21:00 07/07/18 11:18 Zyloprim PO 300 mg DAILY [facility] Administration Amlodipine Besylate 10 mg 06/28/18 21:00 07/07/18 11:18 Norvasc PO 10 mg DAILY [facility] Administration Arformoterol Tartrate 15 mcg 06/30/18 20:00 07/07/18 21:17 Brovana Nebu IH 15 mcg Q12HRT [facility] Administration Atorvastatin Calcium 20 mg 06/28/18 20:45 07/07/18 11:19 Lipitor PO 20 mg DAILY [facility] Administration Budesonide 0.5 mg 06/30/18 20:00 07/07/18 21:17 Pulmicort IH 0.5 mg Q12HRT [facility] Administration Levofloxacin/Dextrose 750 mg in 150 mls @ 100 mls/hr 07/08/18 11:00 Levaquin 750mg/150ml IV Q24H [facility] Protocol Labetalol HCl 200 mg 07/01/18 16:00 07/07/18 22:16 Normodyne PO 200 mg BID [facility] Administration Methylprednisolone Sodium Succinate 40 mg 06/30/18 22:00 07/07/18 22:17 Solu-Medrol IV 40 mg Q12HR [facility] Administration Metoprolol Tartrate 100 mg 06/28/18 21:00 07/07/18 11:19 Lopressor PO 100 mg DAILY [facility] Administration Miscellaneous Medication 5 mg 06/28/18 20:45 07/05/18 16:12 Levocetirizine Dihydrochloride [Xyzal] PO Not Given DAILY [facility]
[2018-07-08] MEDS: PULMICORT IH SCH ×2 (08:36→20:47)
[2018-07-08] MEDS: BROVANA NEBU IH SCH ×2 (08:36→20:47)
[2018-07-08] MEDS: LOPRESSOR PO SCH (10:25)
[2018-07-08] MEDS: SOLU-Medrol IV SCH ×2 (10:25→22:21)
[2018-07-08] MEDS: NORMODYNE PO SCH ×2 (10:25→22:22)
[2018-07-08] MEDS: NORVASC PO SCH (10:26)
[2018-07-08] MEDS: ZYLOPRIM PO SCH (10:26)
[2018-07-08] MEDS: LEVAQUIN 750MG/150ML 750 MG/150 ML BAG IV SCH (10:26)
--- NOTE | 2018-07-08 12:45 | Progress Note ---
Assessment and Plan 1. Acute kidney injury: DIAZ likely secondary to IV contrast. Creatinine level is better. Monitor renal function. Avoid nephrotoxic agents. Meds dosage based on GFR. 2. FEN: Mild hyperkalemia, improved. Monitor. 3. Right lung mass: NSCLC - squamous. Followed by Heme-Onc. 4. COPD with exacerbation. 5. Hypoxic respiratory failure. Subjective Date of service: 07/08/18 Principal diagnosis: lung cancer Interval history: Patient is doing ok. Objective - Vital Signs Vital signs: Vital Signs - 12hr 07/08/18 07/08/18 05:45 10:25 Temperature 98.7 F Pulse Rate 83 83 Respiratory 20 Rate Blood Pressure 125/67 125/67 O2 Sat by Pulse 93 Oximetry - General Appearance General appearance: well-developed, well-nourished, appears stated age, other (not in distress, NC O2) EENT: ATNC, PERRL, mucous membranes moist, hearing intact, vision intact Neck: supple Respiratory: Present: Clear to Ascultation, Decreased Breath Sounds (right base) Cardiology: regular, S1S2, no murmurs Gastrointestinal: normoactive bowel sounds, no tenderness, no distended Integumentary: no rash, warm and dry Neurologic: no focal deficit, no asterixis, alert and oriented x3 Musculoskeletal: other (no edema) Psychiatric: cooperative - Lab 07/03/18 04:40 07/08/18 07:00 Most recent lab results Calcium 9.2 mg/dL (8.4-10.2) 07/08/18 07:00 Phosphorus 3.60 mg/dL (2.5-4.5) 07/03/18 04:40 Magnesium 2.20 mg/dL (1.7-2.3) 07/03/18 04:40 Urine Creatinine 58.9 mg/dL (0.1-20.0) H 07/01/18 19:46 Urine Sodium 41 mmol/L 07/01/18 19:46 Medications & Allergies - Medications Allergies/Adverse Reactions: Allergies pollen extracts Allergy (Mild, Verified 06/28/18 16:42) Itching runny nose/watery eyes strawberry Allergy (Mild, Verified 06/28/18 16:42) Hives Home Medications: Home Medications Medication Instructions Recorded Confirmed Last Taken Type ALBUTEROL Inhaler (OR & NICU) 1 puff IH Q4H PRN 06/28/18 06/28/18 06/28/18 History [ProAir HFA Inhaler] Allopurinol [Zyloprim] 300 mg PO DAILY 06/28/18 06/28/18 1 Day Ago History ~06/27/18 AtorvaSTATin [Lipitor] 20 mg PO DAILY 06/28/18 06/28/18 1 Day Ago History ~06/27/18 Levocetirizine Dihydrochloride 5 mg PO DAILY 06/28/18 06/28/18 1 Week Ago Hist ory [Xyzal] ~06/21/18 Losartan/Hydrochlorothiazide 1 each PO QPM 06/28/18 06/28/18 1 Day Ago History [Losartan-Hctz 100-25 mg Tab] ~06/27/18 Metoprolol [Lopressor] 100 mg PO DAILY 06/28/18 06/28/18 1 Day Ago History ~06/27/18 amLODIPine [Norvasc] 10 mg PO DAILY 06/28/18 06/28/18 1 Day Ago History ~06/27/18 predniSONE [Deltasone] 20 mg PO DAILY 06/28/18 06/28/18 06/28/18 History Active Medications: Generic Name Dose Route Start Last Admin Trade Name Freq PRN Reason Stop Dose Admin Albuterol 2.5 mg 06/30/18 11:01 06/30/18 17:27 Proventil IH 2.5 mg Q4HRT PRN Administration Shortness Of Breath Allopurinol 300 mg 06/28/18 21:00 07/08/18 10:26 Zyloprim PO 300 mg DAILY [facility] Administration Amlodipine Besylate 10 mg 06/28/18 21:00 07/08/18 10:26 Norvasc PO 10 mg DAILY [facility] Administration Arformoterol Tartrate 15 mcg 06/30/18 20:00 07/08/18 08:36 Brovana Nebu IH 15 mcg Q12HRT [facility] Administration Atorvastatin Calcium 20 mg 06/28/18 20:45 07/08/18 10:24 Lipitor PO 20 mg DAILY [facility] Administration Budesonide 0.5 mg 06/30/18 20:00 07/08/18 08:36 Pulmicort IH 0.5 mg Q12HRT [facility] Administration Levofloxacin/Dextrose 750 mg in 150 mls @ 100 mls/hr 07/08/18 11:00 03/24/19 10:26 Levaquin 750mg/150ml IV 100 mls/hr Q24H [facility] Administration Protocol Labetalol HCl 200 mg 07/01/18 16:00 07/08/18 10:25 Normodyne PO 200 mg BID [facility] Administration Methylprednisolone Sodium Succinate 40 mg 06/30/18 22:00 07/08/18 10:25 Solu-Medrol IV 40 mg Q12HR [facility] Administration Metoprolol Tartrate 100 mg 06/28/18 21:00 07/08/18 10:25 Lopressor PO 100 mg DAILY [facility] Administration Miscellaneous Medication 5 mg 06/28/18 20:45 07/05/18 16:12 Levocetirizine Dihydrochloride [Xyzal] PO Not Given DAILY [facility]
--- NOTE | 2018-07-08 12:58 | Progress Note ---
Assessment and Plan Acute resp failure due to COPD and lung mass - Placed on supplemental O2, nebs since admission - placed on ventimask since 07/01/18 - now on 5L N/c - cont to monitor, nebs, supplemental O2, tapering steroid, - need to go down at least on 4L N/C in order to be able to go home COPD exacerbation, cont nebs, supplemental O2, tapering steroid hemoptysis, likley from lung mass, resolved - avoid heparin/aspirin product Right lung mass LL, possible malignancy - - s/p CT guided bopsy on 07/02/18 - path showing squamous cell Ca, consulted red-onc - plan to start radiation - So far no sign of metastasis yet, Brain CT w/contrast pending - plan for Port-a-cath on monday leukocytosis, reactive. likely from underlying malignancy (patient not septic) - trended down, will stop abx DIAZ, vasomotor nephropathy vs contrast induced - cont IV fluid for DIAZ, monitor Cr, consulted renal - SCd for DVt Px Brief History: 67 y/o male presented to the ED back in May after coughing some blood while playing basketball. CXR showed large right lower lobe mass but rest of lung clear. Patient was set up for outpatient follow up with Dr. Mckeon but he was ill and had to cancel and Rescheduled. But came to ED this time with more hemoptysis, SOB and generalized weakness. Has lost about 5lbs intentionally in the last month. Quit smoking 12 years ago but did smoker for about 25 years. Admitted for COPD exacerbation and possible lung biopsy. CTA chest: No PE. RLL lung mass CT abdomen/pelvis: Large lobulated right lower lobe mass reidentified. Please see prior chest CT dictation The abdomen and pelvis demonstrate no adenopathy or mass No free air. No free fluid. No bowel obstruction No acute inflammatory change Renal cysts are present. No calculus. No hydronephrosis.. Physical exam: General appearance: Present: no acute distress, well-nourished - EENT Eyes: PERRL, EOM intact ENT: hearing intact, clear oral mucosa Ears: bilateral: normal - Neck Neck: supple, normal ROM - Respiratory Respiratory effort: normal Respiratory: bilateral: diminished, rhonchi (RLL) - Cardiovascular Rhythm: regular Heart Sounds: Present: S1 & S2. Absent: gallop, rub Extremities: pulses intact, No edema, normal color, Full ROM - Gastrointestinal General gastrointestinal: Present: soft, non-tender, non-distended, normal bowel sounds - Integumentary Integumentary: clear, warm, dry - Musculoskeletal Musculoskeletal: 1, strength equal bilaterally - Neurologic Neurologic: moves all extremities - Psychiatric Psychiatric: memory intact, appropriate mood/affect, intact judgment & insight Subjective Date of service: 07/08/18 Principal diagnosis: lung cancer Interval history: Patient seen and examined No acute event o/n C/O SOB, no chest pain patient on N/c s/p radiation on Monday Objective - Constitutional Vitals: Vital Signs - 12hr 07/08/18 07/08/18 07/08/18 05:45 08:36 08:46 Temperature 98.7 F Pulse Rate 83 Pulse Rate [ 89 92 H Anterior Bilateral Throughout] Respiratory 20 Rate Respiratory 20 20 Rate [Anterior Bilateral Throughout] Blood Pressure 125/67 O2 Sat by Pulse 93 92 Oximetry 07/08/18 07/08/18 10:25 12:47 Temperature 97.5 F L Pulse Rate 83 79 Pulse Rate [ Anterior Bilateral Throughout] Respiratory 24 Rate Respiratory Rate [Anterior Bilateral Throughout] Blood Pressure 125/67 107/63 O2 Sat by Pulse 93 Oximetry - Labs CBC & Chem 7: 07/03/18 04:40 07/08/18 07:00 Labs: Abnormal lab results 07/07/18 07/08/18 Range/Units 22:11 07:00 Sodium 136 L (137-145) mmol/L Chloride 95.5 L (98-107) mmol/L BUN 24 H (9-20) mg/dL Glucose 224 H (75-100) mg/dL POC Glucose 235 H (70-105)
--- NOTE | 2018-07-08 15:02 | Progress Note ---
Assessment and Plan Imp: 1. Lung mass -> NSCLC 2. Hemoptysis 3. Acute respiratory failure, hypoxia 4. Centrilobular/bullous emphysema 5. DIAZ Rec: 1. Cont. Solumedrol -> change to Prednisone soon; cont. Levaquin x 10 days, Bronchodilators 2. Oncology and Rad/Onc eval. re: NSCLC 3. Home O2 eval. needed -> asked RT to be aggressive in weaning to NC 4. Outpatient PFTs -> f/u with us 1 week after d/c 5. Try to ambulate 6. Incentive spirometry 7. Recommend starting XRT in-house as believe his hypoxia is primarily due to tumor, scheduled for 07/09/18 along with port Plan of care reviewed w/ patient, he understands/agrees Subjective Date of service: 07/08/18 Principal diagnosis: lung cancer Interval history: SOB better, down to 5L NC. Had XRT simulation. No chest pain, cough, wheezing. Active Medications Albuterol (Proventil) 2.5 mg IH Q4HRT PRN PRN Reason: Shortness Of Breath Last Admin: 06/30/18 17:27 Dose: 2.5 mg Documented by: Allopurinol (Zyloprim) 300 mg PO DAILY [facility] [place] Last Admin: 07/08/18 10:26 Dose: 300 mg Documented by: Amlodipine Besylate (Norvasc) 10 mg PO DAILY [facility] [place] Last Admin: 07/08/18 10:26 Dose: 10 mg Documented by: Arformoterol Tartrate (Brovana Nebu) 15 mcg IH Q12HRT [facility] [place] Last Admin: 07/08/18 08:36 Dose: 15 mcg Documented by: Atorvastatin Calcium (Lipitor) 20 mg PO DAILY [facility] [place] Last Admin: 07/08/18 10:24 Dose: 20 mg Documented by: Budesonide (Pulmicort) 0.5 mg IH Q12HRT [facility] [place] Last Admin: 07/08/18 08:36 Dose: 0.5 mg Documented by: Levofloxacin/Dextrose (Levaquin 750mg/150ml) 750 mg in 150 mls @ 100 mls/hr IV Q24H [facility] [place]; Protocol Last Admin: 07/08/18 10:26 Dose: 100 mls/hr Documented by: Labetalol HCl (Normodyne) 200 mg PO BID [facility] [place] Last Admin: 07/08/18 10:25 Dose: 200 mg Documented by: Methylprednisolone Sodium Succinate (Solu-Medrol) 40 mg IV Q12HR [facility] Last Admin: 07/08/18 10:25 Dose: 40 mg Documented by: Metoprolol Tartrate (Lopressor) 100 mg PO DAILY [facility] [place] Last Admin: 07/08/18 10:25 Dose: 100 mg Documented by: Miscellaneous Medication (Levocetirizine Dihydrochloride [Xyzal]) 5 mg PO DAILY [facility] Last Admin: 07/05/18 16:12 Dose: Not Given Documented by: Objective Vital Signs - 12hr 07/08/18 07/08/18 07/08/18 05:45 08:36 08:46 Temperature 98.7 F Pulse Rate 83 Pulse Rate [ 89 92 H Anterior Bilateral Throughout] Respiratory 20 Rate Respiratory 20 20 Rate [Anterior Bilateral Throughout] Blood Pressure 125/67 O2 Sat by Pulse 93 92 Oximetry 07/08/18 07/08/18 10:25 12:47 Temperature 97.5 F L Pulse Rate 83 79 Pulse Rate [ Anterior Bilateral Throughout] Respiratory 24 Rate Respiratory Rate [Anterior Bilateral Throughout] Blood Pressure 125/67 107/63 O2 Sat by Pulse 93 Oximetry Constitutional: no acute distress, alert Eyes: non-icteric ENT: oropharynx moist Neck: supple Effort: normal Ascultation: Right: diminished breath sounds (base), Bilateral: clear Cardiovascular: regular rate and rhythm (no mrg) Gastrointestinal: normoactive bowel sounds, non-tender Extremities: no cyanosis, no edema, pink and warm, pulses normal Neurologic: normal mental status, non-focal exam, pupils equal and round, CN II- XII normal Psychiatric: mood appropriate, affect normal CBC and BMP: 07/03/18 04:40 07/08/18 07:00 ABG, PT/INR, D-dimer: PT/INR, D-dimer PT 13.2 Sec. (12.2-14.9) 06/29/18 13:35 INR 0.95 (0.87-1.13) 06/29/18 13:35 Abnormal lab findings: Abnormal Labs 06/28/18 06/28/18 06/29/18 10:02 10:02 13:35 WBC 17.1 H RBC Hct RDW 15.8 H Lymph % (Auto) 9.9 L Pine # 0.9 H Seg Neutrophils % 84.0 H Seg Neuts % (Manual) Lymphocytes % (Manual) Seg Neutrophils # 14.4 H Seg Neutrophils # Man Lymphocytes # (Manual) APTT 20.0 L Sodium Potassium Chloride BUN 23 H Creatinine Glucose 125 H POC Glucose Calcium Total Creatine Kinase 43 L Urine Creatinine 07/01/18 07/01/18 07/01/18 09:36 09:36 19:46 WBC 17.9 H RBC 5.20 H Hct 45.7 H RDW 16.6 H Lymph % (Auto) Pine # Seg Neutrophils % Seg Neuts % (Manual) 92.0 H Lymphocytes % (Manual) 5.0 L Seg Neutrophils # Seg Neutrophils # Man 16.5 H Lymphocytes # (Manual) 0.9 L APTT Sodium Potassium Chloride 95.9 L BUN 47 H Creatinine 1.9 H Glucose 191 H POC Glucose Calcium 10.6 H Total Creatine Kinase Urine Creatinine 58.9 H 07/02/18 07/03/18 07/03/18 05:56 04:40 04:40 WBC 13.1 H RBC Hct RDW 16.6 H Lymph % (Auto) Pine # Seg Neutrophils % Seg Neuts % (Manual) 95.0 H Lymphocytes % (Manual) 3.0 L Seg Neutrophils # Seg Neutrophils # Man 12.4 H Lymphocytes # (Manual) 0.4 L APTT Sodium Potassium Chloride BUN 40 H 31 H Creatinine Glucose 207 H 187 H POC Glucose Calcium Total Creatine Kinase Urine Creatinine 07/04/18 07/05/18 07/06/18 06:07 04:31 06:09 WBC RBC Hct RDW Lymph % (Auto) Pine # Seg Neutrophils % Seg Neuts % (Manual) Lymphocytes % (Manual) Seg Neutrophils # Seg Neutrophils # Man Lymphocytes # (Manual) APTT Sodium Potassium 5.1 H Chloride BUN 26 H 27 H 25 H Creatinine Glucose 186 H 206 H 220 H POC Glucose Calcium Total Creatine Kinase Urine Creatinine 07/07/18 07/08/18 22:11 07:00 WBC RBC Hct RDW Lymph % (Auto) Pine # Seg Neutrophils % Seg Neuts % (Manual) Lymphocytes % (Manual) Seg Neutrophils # Seg Neutrophils # Man Lymphocytes # (Manual) APTT Sodium 136 L Potassium Chloride 95.5 L BUN 24 H Creatinine Glucose 224 H POC Glucose 235 H Calcium Total Creatine Kinase Urine Creatinine Chest x-ray: report reviewed, image reviewed CT scan - chest: report reviewed, image reviewed
[2018-07-08] MEDS: ALUM-MAG HYDROX-SIMETH 200-200-20MG/5ML PO PRN ×2 (18:04→22:22)
[2018-07-09 04:39] LABS: Hematocrit 38.4 % (35.5-45.6); Hemoglobin 12.9 gm/dl (11.8-15.2); Mean Corpuscular HGB Conc 34 % (32-34); Mean Corpuscular Volume 87 fl (84-94); Red Cell Distribution Width 15.8 % (13.2-15.2)
[2018-07-09 04:49] LABS: INR 0.93 (0.87-1.13)
[2018-07-09 04:56] LABS: BUN/Creatinine Ratio 26; Blood Urea Nitrogen 26 mg/dL (9-20); Calcium 8.9 mg/dL (8.4-10.2); Hemolysis Index 82
[2018-07-09] MEDS ORDERED: ceFAZolin 2 GM in NACL 0.9% 100 ML IV ONE ×2 (05:14→07:00)
[2018-07-09 06:23] LABS: Basophils % (Manual) 0 % (0.0-1.8); Eosinophils % (Manual) 0 % (0.0-4.3); Total Cells Counted 100
[2018-07-09 06:24] LABS: Platelet Estimate Consistent w Auto; RBC Morphology Normal
[2018-07-09 06:25] LABS: Platelet Count 164 K/mm3 (140-440)
[2018-07-09] MEDS ORDERED: XYLOCAINE 1% 20 mL ONE (06:32)
[2018-07-09] MEDS ORDERED: HEPARIN 10,000 UNITS/10 ML ONE (06:33)
[2018-07-09] MEDS ORDERED: MARCAINE 0.5% INFILTRATI ONE (06:33)
[2018-07-09] MEDS ORDERED: NACL 0.9% 250ML 250 ML ONE (06:33)
[2018-07-09] MEDS ORDERED: LACTATED RINGERS 1,000 ML IV SCH (06:50)
[2018-07-09] MEDS ORDERED: HumuLIN R IV ONE (06:53)
[2018-07-09] MEDS ORDERED: NACL 0.9% 1000 ML 1,000 ML IV SCH ×2 (07:00→08:00)
[2018-07-09] MEDS ORDERED: XYLOCAINE MPF 2% ONE (07:05)
[2018-07-09] MEDS ORDERED: DIPRIVAN 10 MG/ML IV ONE (07:05)
[2018-07-09] MEDS ORDERED: SUBLIMAZE ONE (07:05)
[2018-07-09] MEDS: NACL 0.9% 1000 ML 1,000 ML IV SCH ×2 (07:05→16:54)
[2018-07-09] MEDS ORDERED: ROBINUL ONE (07:07)
[2018-07-09] MEDS ORDERED: VERSED ONE (07:07)
[2018-07-09] MEDS ORDERED: KETALAR ONE (07:23)
[2018-07-09] MEDS ORDERED: MARCAINE-EPI 0.5%-1:200,000 INFILTRATI ONE ×3 (07:23→07:56)
--- NOTE | 2018-07-09 07:54 | Hem/Onc Progress Note ---
Assessment and Plan 1. Lung mass. 2. Hemoptysis. 3. Subcarinal lymph nodes. 4. This may be a neoplastic process in the lung. We will do CT abdomen, pelvis and CT head, which was also planned by the primary care. 5. Bronchoscopic versus CT-guided biopsy is being looked into. 6. We will do tumor markers. 7. History of hyperlipidemia. 8. On gout medications. 9. History of hypertension, on medications. I will follow the patient during inpatient stay and then in the clinic setting I discussed with him possibly being neoplastic process. Staging will guide some of our next step. 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 - CT abdo - only oral - and no IV contrast - d/w RN and pt 07/[address] Abdo Pelvis and CT head - no iv contrast - nil acute in head and abdo 07/03 - path pending of lung bx d/w pt reg OP follow up chemo - port - oral meds - PET CT - all these - once we have the path 07/04 - d/w pt reg path - NSCLC - squamous Rad onc consult Port d/w Dr Tanner 07/05- d/w dr tierney reg port placement 07/06 - XRT team and sx team following at this time there is no evidence of mets plan is to look into chemo - XRT 07/07 - xrt marking done port monday as per pt OP chemo 07/08 - pt says his ht 6 feet and wt 180 lbs - this is to find the dose of chemo - as OP port tomorrow pt aware that he will call his PCP for auth 07/09 - Port placement - Patient Problems (1) Lung mass Current Visit: Yes Status: Acute (2) Lung cancer Current Visit: Yes Status: Acute Subjective Date of service: 07/09/18 Principal diagnosis: lung ca Objective - Constitutional Vitals: Last Vital Signs Temp 98.5 F 07/09/18 04:12 Pulse 81 07/09/18 04:12 Resp 24 07/09/18 04:12 BP 138/71 07/09/18 04:12 Pulse Ox 93 07/09/18 04:12 Pain Intensity (0-10): denies any pain General appearance: no acute distress Performance status: 3-limited selfcare - EENT Eyes: EOM intact ENT: clear oral mucosa Lymph node exam: negative cervical - Neck Neck: normal ROM - Respiratory Respiratory effort: Positive: normal Respiratory: bilateral: CTA - Cardiovascular Heart Sounds: Present: S1 & S2 Extremities: No edema - Gastrointestinal General gastrointestinal: Present: soft, non-tender Rectal Exam: deferred - Genitourinary Male genitourinary: Present: deferred - Musculoskeletal Musculoskeletal: strength equal bilaterally - Neurologic Neurologic: moves all extremities - Psychiatric Psychiatric: appropriate mood/affect - Labs Lab Results: Laboratory Results - last 24 hr 07/08/18 07/09/18 07/09/18 07:00 04:17 04:17 WBC 17.5 H RBC 4.40 Hgb 12.9 Hct 38.4 MCV 87 MCH 29 MCHC 34 RDW 15.8 H Plt Count 164 Add Manual Diff Complete Total Counted 100 Seg Neutrophils % [place] Seg Neuts % (Manual) 96.0 H Band Neutrophils % 0 Lymphocytes % (Manual) 1.0 L Reactive Lymphs % (Man) 0 Monocytes % (Manual) 3.0 Eosinophils % (Manual) 0 Basophils % (Manual) 0 Metamyelocytes % 0 Myelocytes % 0 Promyelocytes % 0 Blast Cells % 0 Nucleated RBC % Not Reportable Seg Neutrophils # Man 16.8 H Band Neutrophils # 0.0 Lymphocytes # (Manual) 0.2 L Abs React Lymphs (Man) 0.0 Monocytes # (Manual) 0.5 Eosinophils # (Manual) 0.0 Basophils # (Manual) 0.0 Metamyelocytes # 0.0 Myelocytes # 0.0 Promyelocytes # 0.0 Blast Cells # 0.0 WBC Morphology Not Reportable Hypersegmented Neuts Not Reportable Hyposegmented Neuts Not Reportable Hypogranular Neuts Not Reportable Smudge Cells Not Reportable Toxic Granulation Not Reportable Toxic Vacuolation Not Reportable Dohle Bodies Not Reportable Pelger-Huet Anomaly Not Reportable Gay Rods Not Reportable Platelet Estimate Consistent w auto Clumped Platelets Not Reportable Plt Clumps, EDTA Not Reportable Large Platelets Not Reportable Giant Platelets Not Reportable Platelet Satelliting Not Reportable Plt Morphology Comment Not Reportable RBC Morphology Normal Dimorphic RBCs Not Reportable Polychromasia Not Reportable Hypochromasia Not Reportable Poikilocytosis Not Reportable Anisocytosis Not Reportable Microcytosis Not Reportable Macrocytosis Not Reportable Spherocytes Not Reportable Pappenheimer Bodies Not Reportable Sickle Cells Not Reportable Target Cells Not Reportable Tear Drop Cells Not Reportable Ovalocytes Not Reportable Helmet Cells Not Reportable [place] Bodies Not Reportable Newman Rings Not Reportable Roberts Cells Not Reportable Bite Cells Not Reportable Crenated Cell Not Reportable Elliptocytes Not Reportable Acanthocytes (Spur) Not Reportable Rouleaux Not Reportable Hemoglobin C Crystals Not Reportable Schistocytes Not Reportable Malaria parasites Not Reportable Umang Bodies Not Reportable Hem Pathologist Commnt No PT 13.0 INR 0.93 Sodium 136 L Potassium 5.0 Chloride 95.5 L Carbon Dioxide 27 Anion Gap 19 BUN 24 H Creatinine 1.2 Estimated GFR > 60 BUN/Creatinine Ratio 20 Glucose 224 H POC Glucose Calcium 9.2 07/09/18 07/09/18 04:17 07:14 WBC RBC Hgb Hct MCV MCH MCHC RDW Plt Count Add Manual Diff Total Counted Seg Neutrophils % Seg Neuts % (Manual) Band Neutrophils % Lymphocytes % (Manual) Reactive Lymphs % (Man) Monocytes % (Manual) Eosinophils % (Manual) Basophils % (Manual) Metamyelocytes % Myelocytes % Promyelocytes % Blast Cells % Nucleated RBC % Seg Neutrophils # Man Band Neutrophils # Lymphocytes # (Manual) Abs React Lymphs (Man) Monocytes # (Manual) Eosinophils # (Manual) Basophils # (Manual) Metamyelocytes # Myelocytes # Promyelocytes # Blast Cells # WBC Morphology Hypersegmented Neuts Hyposegmented Neuts Hypogranular Neuts Smudge Cells Toxic Granulation Toxic Vacuolation Dohle Bodies Pelger-Huet Anomaly Gay Rods Platelet Estimate Clumped Platelets Plt Clumps, EDTA Large Platelets Giant Platelets Platelet Satelliting Plt Morphology Comment RBC Morphology Dimorphic RBCs Polychromasia Hypochromasia Poikilocytosis Anisocytosis Microcytosis Macrocytosis Spherocytes Pappenheimer Bodies Sickle Cells Target Cells Tear Drop Cells Ovalocytes Helmet Cells [place] Bodies Newman Rings Jalyn Cells Bite Cells Crenated Cell Elliptocytes Acanthocytes (Spur) Rouleaux Hemoglobin C Crystals Schistocytes Malaria parasites Umang Bodies Hem Pathologist Commnt PT INR Sodium 132 L Potassium 5.5 H Chloride 96.1 L Carbon Dioxide 25 Anion Gap 16 BUN 26 H Creatinine 1.0 Estimated GFR > 60 BUN/Creatinine Ratio 26 Glucose 261 H POC Glucose 222 H Calcium 8.9 Medications & Allergies - Medications Allergies/Adverse Reactions: Allergies pollen extracts Allergy (Mild, Verified 06/28/18 16:42) Itching runny nose/watery eyes strawberry Allergy (Mild, Verified 06/28/18 16:42) Hives Home Medications: Home Medications Medication Instructions Recorded Confirmed Last Taken Type ALBUTEROL Inhaler (OR & NICU) 1 puff IH Q4H PRN 06/28/18 06/28/18 06/28/18 History [ProAir HFA Inhaler] Allopurinol [Zyloprim] 300 mg PO DAILY 06/28/18 06/28/18 1 Day Ago History ~06/27/18 AtorvaSTATin [Lipitor] 20 mg PO DAILY 06/28/18 06/28/18 1 Day Ago History ~06/27/18 Levocetirizine Dihydrochloride 5 mg PO DAILY 06/28/18 06/28/18 1 Week Ago History [Xyzal] ~06/21/18 Losartan/Hydrochlorothiazide 1 each PO QPM 06/28/18 06/28/18 1 Day Ago History [Losartan-Hctz 100-25 mg Tab] ~06/27/18 Metoprolol [Lopressor] 100 mg PO DAILY 06/28/18 06/28/18 1 Day Ago History ~06/27/18 amLODIPine [Norvasc] 10 mg PO DAILY 06/28/18 06/28/18 1 Day Ago History ~06/27/18 predniSONE [Deltasone] 20 mg PO DAILY 06/28/18 06/28/18 06/28/18 History Active Medications: Generic Name Dose Route Start Last Admin Trade Name Freq PRN Reason Stop Dose Admin Al Hydrox/Mg Hydrox/Simethicone 30 ml 07/08/18 17:43 07/08/18 22:22 Alum-Mag Hydrox-Simeth [id number]/5ml PO 30 ml Q4H PRN Administration Indigestion Albuterol 2.5 mg 06/30/18 11:01 06/30/18 17:27 Proventil IH 2.5 mg Q4HRT PRN Administration Shortness Of Breath Allopurinol 300 mg 06/28/18 21:00 07/08/18 10:26 Zyloprim PO 300 mg DAILY [facility] Administration Amlodipine Besylate 10 mg 06/28/18 21:00 07/08/18 10:26 Norvasc PO 10 mg DAILY [facility] Administration Arformoterol Tartrate 15 mcg 06/30/18 20:00 07/08/18 20:47 Brovana Nebu IH 15 mcg Q12HRT [facility] Administration Atorvastatin Calcium 20 mg 06/28/18 20:45 07/08/18 10:24 Lipitor PO 20 mg DAILY [facility] Administration Budesonide 0.5 mg 06/30/18 20:00 07/08/18 20:47 Pulmicort IH 0.5 mg Q12HRT [facility] Administration Levofloxacin/Dextrose 750 mg in 150 mls @ 100 mls/hr 07/08/18 11:00 07/08/18 10:26 Levaquin 750mg/150ml IV 100 mls/hr Q24H [facility] Administration Protocol Lactated Ringer's 1,000 mls @ 75 mls/hr 07/09/18 06:50 Lactated Ringers IV 07/09/18 23:59 DIRECT [facility] Sodium Chloride 1,000 mls @ 75 mls/hr 07/09/18 08:00 Nacl 0.9% 1000 Ml IV DIRECT [facility] Sodium Chloride 1,000 mls @ 75 mls/hr 07/09/18 06:50 Nacl 0.9% 1000 Ml IV DIRECT [facility] Labetalol HCl 200 mg 07/01/18 16:00 07/08/18 22:22 Normodyne PO 200 mg BID [facility] Administration Methylprednisolone Sodium Succinate 40 mg 06/30/18 22:00 07/08/18 22:21 Solu-Medrol IV 40 mg Q12HR [facility] Administration Metoprolol Tartrate 100 mg 06/28/18 21:00 07/08/18 10:25 Lopressor PO 100 mg DAILY [facility] Administration Miscellaneous Medication 5 mg 06/28/18 20:45 07/05/18 16:12 Levocetirizine Dihydrochloride [Xyzal] PO Not Given DAILY [facility] Sodium Polystyrene Sulfonate 30 gm 07/09/18 07:38 Kionex MO 07/09/18 07:39 ONCE ONE
[2018-07-09] MEDS ORDERED: XYLOCAINE 1% 20 mL INFILTRATI ONE ×2 (07:56)
--- NOTE | 2018-07-09 07:58 | Anesthesia Consultation ---
Anesthesia Consult and Med Hx Date of service: 07/09/18 - Airway Anesthetic Teeth Evaluation: Partials ROM Head & Neck: Adequate Mental/Hyoid Distance: Adequate Mallampati Class: Class III Intubation Access Assessment: Possibly Difficult - Pulmonary Exam CTA: No (scattered wheezing R side) - Cardiac Exam Cardiac Exam: RRR - Pre-Operative Health Status ASA Pre-Surgery Classification: ASA4 Proposed Anesthetic Plan: MAC - Pulmonary Hx Smoking: Yes (quit 12 yrs ago) Hx Respiratory Symptoms: Yes (hypoxia requiring supplemental O2 this admission) COPD: Yes Home Oxygen Therapy: No - Cardiovascular System Hx Hypertension: Yes Hx Heart Attack/AMI: No Hx Percutaneous Transluminal Coronary Angioplasty (PTCA): No Hx Cardia Arrhythmia: No - Central Nervous System Hx Seizures: No CVA: No Hx Psychiatric Problems: No - Gastrointestinal Hx Gastroesophageal Reflux Disease: No - Endocrine Hx Renal Disease: Yes (DIAZ, hyperkalemia) Hx Insulin Dependent Diabetes: No (elevated blood glucose presumably 2/2 steroid use this admission) Hx Non-Insulin Dependent Diabetes: No Hx Thyroid Disease: No - Hematic Hx Anemia: No - Other Systems Hx Cancer: Yes (RLL SCC) Hx Obesity: No - Additional Comments Anesthesia Medical History Comments: No hx anesthetic complications. O2 requires decreased over last several days; now SpO2 low 90s on 3-4L NC. No increased WOB.
--- NOTE | 2018-07-09 07:58 | Anesthesia Day of Surgery ---
Anesthesia Day of Surgery - Day of Surgery Patient Examined: Yes Patient H&P Reviewed: Yes Patient is NPO: Yes
[2018-07-09] MEDS ORDERED: HEPARIN IV ONE (08:06)
[2018-07-09] MEDS ORDERED: NACL 0.9% 250ML IV ONE (08:06)
[2018-07-09] MEDS ORDERED: HEPARIN 10,000 UNITS/10 ML IV ONE (08:09)
[2018-07-09] MEDS: BROVANA NEBU IH SCH ×2 (08:19→19:50)
[2018-07-09] MEDS: PULMICORT IH SCH ×2 (08:19→19:50)
--- NOTE | 2018-07-09 08:29 | Post Operative Note ---
Date of procedure: 07/09/18 (Dictation: [id number]) Pre-op diagnosis: lung cancer Post-op diagnosis: same Findings: normal anatomy. CXR with no obvious complications Procedure: Left IJ port placement with US guidance Anesthesia: MAC Surgeon: MARIBELL RODRIGUEZ Estimated blood loss: minimal (<10cc) Pathology: none Condition: stable Disposition: PACU
--- NOTE | 2018-07-09 08:43 | Fluoroscopy Report ---
AP CHEST: HISTORY: Lung cancer, [id number] insertion A left IJ [id number]-[id number] has been inserted which terminates near the cavoatrial junction. There is no evidence for pneumothorax. Underlying emphysematous changes to an approximate 9 cm mass at the right lung base are unchanged. Heart size is within normal limits. IMPRESSION: Left [id number] placement as described. No pneumothorax.
[2018-07-09] MEDS ORDERED: SUBLIMAZE IV PRN (09:00)
[2018-07-09] MEDS ORDERED: KIONEX PR NR (09:00)
[2018-07-09] MEDS ORDERED: NORCO 5/325 PO PRN (09:00)
--- NOTE | 2018-07-09 09:28 | Progress Note ---
Assessment and Plan 1. Acute kidney injury: DIAZ likely secondary to IV contrast. Creatinine level is better. Monitor renal function. Avoid nephrotoxic agents. Meds dosage based on GFR. 2. FEN: Mild hyperkalemia, kayexalate ordered. Monitor. 3. Right lung mass: NSCLC - squamous. Followed by Heme-Onc. 4. COPD with exacerbation. 5. Hypoxic respiratory failure. Subjective Date of service: 07/09/18 Principal diagnosis: lung cancer Interval history: Patient is doing ok. Objective - Vital Signs Vital signs: Vital Signs - 12hr 07/08/18 07/08/18 07/09/18 22:04 22:22 04:12 Temperature 98.5 F 98.5 F Pulse Rate 88 81 Respiratory 28 H 24 Rate Blood Pressure 129/70 129/70 138/71 O2 Sat by Pulse 94 93 Oximetry 07/09/18 07/09/18 07/09/18 06:30 08:47 08:51 Temperature 97.6 F 97.6 F 97.1 F L Pulse Rate 18 L 18 L 87 Respiratory 18 18 12 Rate Blood Pressure 132/70 132/70 132/75 O2 Sat by Pulse 78 L 78 L 90 Oximetry 07/09/18 07/09/18 07/09/18 08:55 09:04 09:15 Temperature Pulse Rate 86 80 82 Respiratory 12 10 L 10 L Rate Blood Pressure 125/80 132/72 106/67 O2 Sat by Pulse 90 95 91 Oximetry - General Appearance General appearance: well-developed, well-nourished, appears stated age, other (not in distress) EENT: ATNC, PERRL, mucous membranes moist, hearing intact, vision intact Neck: supple Respiratory: Present: Clear to Ascultation, Decreased Breath Sounds (right base) Cardiology: regular, S1S2, no murmurs Gastrointestinal: normoactive bowel sounds, no tenderness, no distended Integumentary: no rash, warm and dry Neurologic: no focal deficit, no asterixis, alert and oriented x3 Musculoskeletal: other (no edema) - Lab 07/09/18 04:17 07/09/18 17:01 Most recent lab results Calcium 8.9 mg/dL (8.4-10.2) 07/09/18 04:17 Phosphorus 3.60 mg/dL (2.5-4.5) 07/03/18 04:40 Magnesium 2.20 mg/dL (1.7-2.3) 07/03/18 04:40 Urine Creatinine 58.9 mg/dL (0.1-20.0) H 07/01/18 19:46 Urine Sodium 41 mmol/L 07/01/18 19:46 Medications & Allergies - Medications Allergies/Adverse Reactions: Allergies pollen extracts Allergy (Mild, Verified 06/28/18 16:42) Itching runny nose/watery eyes strawberry Allergy (Mild, Verified 06/28/18 16:42) Hives Home Medications: Home Medications Medication Instructions Recorded Confirmed Last Taken Type ALBUTEROL Inhaler (OR & NICU) 1 puff IH Q4H PRN 06/28/18 06/28/18 06/28/18 History [ProAir HFA Inhaler] Allopurinol [Zyloprim] 300 mg PO DAILY 06/28/18 06/28/18 1 Day Ago History ~06/27/18 AtorvaSTATin [Lipitor] 20 mg PO DAILY 06/28/18 06/28/18 1 Day Ago History ~06/27/18 Levocetirizine Dihydrochloride 5 mg PO DAILY 06/28/18 06/28/18 1 Week Ago History [Xyzal] ~06/21/18 Losartan/Hydrochlorothiazide 1 each PO QPM 06/28/18 06/28/18 1 Day Ago History [Losartan-Hctz 100-25 mg Tab] ~06/27/18 Metoprolol [Lopressor] 100 mg PO DAILY 06/28/18 06/28/18 1 Day Ago History ~06/27/18 amLODIPine [Norvasc] 10 mg PO DAILY 06/28/18 06/28/18 1 Day Ago History ~06/27/18 predniSONE [Deltasone] 20 mg PO DAILY 06/28/18 06/28/18 06/28/18 History Active Medications: Generic Name Dose Route Start Last Admin Trade Name Freq PRN Reason Stop Dose Admin Acetaminophen/Hydrocodone Bitart 1 each 07/09/18 09:00 Porter 5/325 PO Q6H PRN Pain, Moderate (4-6) Al Hydrox/Mg Hydrox/Simethicone 30 ml 07/08/18 17:43 07/08/18 22:22 Alum-Mag Hydrox-Simeth 129-514-16ju/5ml PO 30 ml Q4H PRN Administration Indigestion Albuterol 2.5 mg 06/30/18 11:01 06/30/18 17:27 Proventil IH 2.5 mg Q4HRT PRN Administration Shortness Of Breath Allopurinol 300 mg 06/28/18 21:00 07/08/18 10:26 Zyloprim PO 300 mg DAILY TRISTAN Administration Amlodipine Besylate 10 mg 06/28/18 21:00 07/08/18 10:26 Norvasc PO 10 mg DAILY TRISTAN Administration Arformoterol Tartrate 15 mcg 06/30/18 20:00 07/09/18 08:19 Brovana Nebu IH Not Given Q12HRT TRISTAN Atorvastatin Calcium 20 mg 06/28/18 20:45 07/08/18 10:24 Lipitor PO 20 mg DAILY TRISTAN Administration Budesonide 0.5 mg 06/30/18 20:00 07/09/18 08:19 Pulmicort IH Not Given Q12HRT TRISTAN Fentanyl 50 mcg 07/09/18 09:00 Sublimaze IV 07/09/18 16:00 Q5MIN PRN Pain , Severe (7-10) Levofloxacin/Dextrose 750 mg in 150 mls @ 100 mls/hr 07/08/18 11:00 07/08/18 10:26 Levaquin 750mg/150ml IV 100 mls/hr Q24H TRISTAN Administration Protocol Lactated Ringer's 1,000 mls @ 75 mls/hr 07/09/18 06:50 Lactated Ringers IV 07/09/18 23:59 DIRECT TRISTAN Sodium Chloride 1,000 mls @ 75 mls/hr 07/09/18 09:00 Nacl 0.9% 1000 Ml IV DIRECT TRISTAN Labetalol HCl 200 mg 07/01/18 16:00 07/08/18 22:22 Normodyne PO 200 mg BID TRISTAN Administration Methylprednisolone Sodium Succinate 40 mg 06/30/18 22:00 07/08/18 22:21 Solu-Medrol IV 40 mg Q12HR TRISTAN Administration Metoprolol Tartrate 100 mg 06/28/18 21:00 07/08/18 10:25 Lopressor PO 100 mg DAILY TRISTAN Administration Miscellaneous Medication 5 mg 06/28/18 20:45 07/05/18 16:12 Levocetirizine Dihydrochloride [Xyzal] PO Not Given DAILY TRISTAN Sodium Polystyrene Sulfonate 30 gm 07/09/18 09:00 Kionex MO 07/09/18 15:00 ONCE NR
--- NOTE | 2018-07-09 09:29 | Post Anesthesia Evaluation ---
- Post Anesthesia Evaluation Patient Participated: Yes Airway Patent: Yes Stable Respiratory Function: Yes (back to baseline SpO2 on 4L NC) Nausea/Vomiting: No Temp > 96.8F: Yes Pain Manageable: Yes Adequeate Hydration: Yes Anesthesia Complications: No Block Receding Appropriately: Not Applicable Other Comments: Albuterol neb administered in PACU.
--- NOTE | 2018-07-09 09:56 | Event Note ---
Date: 07/09/18 Uneventful port placement this AM. May use port immediately. May shower tomorrow. Pat dry wounds. Ok to d/c at anytime from my standpoint. f/u prn. please call with questions.
[2018-07-09] MEDS: LOPRESSOR PO SCH (10:00)
[2018-07-09] MEDS: NORMODYNE PO SCH ×2 (10:00→22:32)
[2018-07-09] MEDS: ZYLOPRIM PO SCH (10:00)
[2018-07-09] MEDS: NORVASC PO SCH (10:01)
[2018-07-09] MEDS: SOLU-Medrol IV SCH (10:01)
[2018-07-09] MEDS: LEVAQUIN 750MG/150ML 750 MG/150 ML BAG IV SCH (10:07)
--- NOTE | 2018-07-09 11:37 | Progress Note ---
Assessment and Plan 67 y/o male with right sided lung mass and hemoptysis. Imp: 1. Lung mass -> NSCLC 2. Hemoptysis 3. Acute respiratory failure, hypoxia 4. Centrilobular/bullous emphysema 5. DIAZ Rec: 1. Cont. Solumedrol -> change to Prednisone soon; cont. Levaquin x 10 days, Bronchodilators 2. Oncology and Rad/Onc eval. re: NSCLC 3. Home O2 eval. needed -> asked RT to be aggressive in weaning to NC 4. Outpatient PFTs -> f/u with us 1 week after d/c 5. Try to ambulate 6. Incentive spirometry 7. Recommend starting XRT in-house as believe his hypoxia is primarily due to tumor, scheduled for 07/09/18 along with port that was placed already this morning. Subjective Date of service: 07/09/18 Principal diagnosis: lung cancer Interval history: No acute events. had Port placed this am and tolerated well. Objective Vital Signs - 12hr 07/09/18 07/09/18 07/09/18 04:12 06:30 08:47 Temperature 98.5 F 97.6 F 97.6 F Pulse Rate 81 18 L 18 L Respiratory 24 18 18 Rate Blood Pressure 138/71 132/70 132/70 O2 Sat by Pulse 93 78 L 78 L Oximetry 07/09/18 07/09/18 07/09/18 08:51 08:55 09:04 Temperature 97.1 F L Pulse Rate 87 86 80 Respiratory 12 12 10 L Rate Blood Pressure 132/75 125/80 132/72 O2 Sat by Pulse 90 90 95 Oximetry 07/09/18 07/09/18 07/09/18 09:15 10:00 10:01 Temperature Pulse Rate 82 Respiratory 10 L Rate Blood Pressure 106/67 115/68 115/68 O2 Sat by Pulse 91 Oximetry 07/09/18 10:25 Temperature Pulse Rate Respiratory Rate Blood Pressure O2 Sat by Pulse 93 Oximetry Constitutional: no acute distress, alert Eyes: non-icteric ENT: oropharynx moist Neck: supple Effort: normal Ascultation: Right: diminished breath sounds (base), Bilateral: clear, wheezes (occasional) Percussion: Bilateral: not dull Tactile fremitus: Bilateral: normal Cardiovascular: regular rate and rhythm (no mrg) Gastrointestinal: normoactive bowel sounds, non-tender Extremities: no cyanosis, no edema, pink and warm, pulses normal Neurologic: normal mental status, non-focal exam, pupils equal and round, CN II- XII normal Psychiatric: mood appropriate, affect normal CBC and BMP: 07/09/18 04:17 07/09/18 04:17 ABG, PT/INR, D-dimer: PT/INR, D-dimer PT 13.0 Sec. (12.2-14.9) 07/09/18 04:17 INR 0.93 (0.87-1.13) 07/09/18 04:17 Abnormal lab findings: Abnormal Labs 06/28/18 06/28/18 06/29/18 10:02 10:02 13:35 WBC 17.1 H RBC Hct RDW 15.8 H Lymph % (Auto) 9.9 L Hardy # 0.9 H Seg Neutrophils % 84.0 H Seg Neuts % (Manual) Lymphocytes % (Manual) Seg Neutrophils # 14.4 H Seg Neutrophils # Man Lymphocytes # (Manual) APTT 20.0 L Sodium Potassium Chloride BUN 23 H Creatinine Glucose 125 H POC Glucose Calcium Total Creatine Kinase 43 L Urine Creatinine 07/01/18 07/01/18 07/01/18 09:36 09:36 19:46 WBC 17.9 H RBC 5.20 H Hct 45.7 H RDW 16.6 H Lymph % (Auto) Hardy # Seg Neutrophils % Seg Neuts % (Manual) 92.0 H Lymphocytes % (Manual) 5.0 L Seg Neutrophils # Seg Neutrophils # Man 16.5 H Lymphocytes # (Manual) 0.9 L APTT Sodium Potassium Chloride 95.9 L BUN 47 H Creatinine 1.9 H Glucose 191 H POC Glucose Calcium 10.6 H Total Creatine Kinase Urine Creatinine 58.9 H 07/02/18 07/03/18 07/03/18 05:56 04:40 04:40 WBC 13.1 H RBC Hct RDW 16.6 H Lymph % (Auto) Hardy # Seg Neutrophils % Seg Neuts % (Manual) 95.0 H Lymphocytes % (Manual) 3.0 L Seg Neutrophils # Seg Neutrophils # Man 12.4 H Lymphocytes # (Manual) 0.4 L APTT Sodium Potassium Chloride BUN 40 H 31 H Creatinine Glucose 207 H 187 H POC Glucose Calcium Total Creatine Kinase Urine Creatinine 07/04/18 07/05/18 07/06/18 06:07 04:31 06:09 WBC RBC Hct RDW Lymph % (Auto) Hardy # Seg Neutrophils % Seg Neuts % (Manual) Lymphocytes % (Manual) Seg Neutrophils # Seg Neutrophils # Man Lymphocytes # (Manual) APTT Sodium Potassium 5.1 H Chloride BUN 26 H 27 H 25 H Creatinine Glucose 186 H 206 H 220 H POC Glucose Calcium Total Creatine Kinase Urine Creatinine 07/07/18 07/08/18 07/09/18 22:11 07:00 04:17 WBC 17.5 H RBC Hct RDW 15.8 H Lymph % (Auto) Hardy # Seg Neutrophils % Seg Neuts % (Manual) 96.0 H Lymphocytes % (Manual) 1.0 L Seg Neutrophils # Seg Neutrophils # Man 16.8 H Lymphocytes # (Manual) 0.2 L APTT Sodium 136 L Potassium Chloride 95.5 L BUN 24 H Creatinine Glucose 224 H POC Glucose 235 H Calcium Total Creatine Kinase Urine Creatinine 07/09/18 07/09/18 04:17 07:14 WBC RBC Hct RDW Lymph % (Auto) Hardy # Seg Neutrophils % Seg Neuts % (Manual) Lymphocytes % (Manual) Seg Neutrophils # Seg Neutrophils # Man Lymphocytes # (Manual) APTT Sodium 132 L Potassium 5.5 H Chloride 96.1 L BUN 26 H Creatinine Glucose 261 H POC Glucose 222 H Calcium Total Creatine Kinase Urine Creatinine
--- NOTE | 2018-07-09 12:06 | Operative Report ---
PREOPERATIVE DIAGNOSIS: Lung cancer. POSTOPERATIVE DIAGNOSIS: Lung cancer. PROCEDURES: 1. Insertion of tunneled centrally-inserted central venous access device with subcutaneous port. 2. Ultrasound guidance for vascular access. SURGEON: Malinda Mariscal MD ANESTHESIA: Local MAC. ESTIMATED BLOOD LOSS: Minimal. FLUIDS: 600 mL. FINDINGS: Normal vascular anatomy, no obvious complications on chest x-ray. IMPLANTS: Smart Port. COMPLICATIONS: None. DISPOSITION: Stable, transferred to Recovery Room. INDICATIONS: This is a 68-year-old gentleman with a recently diagnosed right lung cancer. The patient was assessed to be in need for neoadjuvant chemotherapy. Request was made for port placement. Procedure, risks, benefits were explained to the patient. Risks included but were not limited to infection, bleeding, pain, injury to surrounding structures, possible need for port placement, possible need for further procedure in the future. The patient understood and consented. OPERATIVE NOTE: The patient was brought to the operating room and placed on the table in supine position. After adequate general anesthesia was established, the patient was prepped and draped in the usual sterile fashion. Ancef had been administered prior to start of the case. SCDs were in place. Time-out was called. The patient was placed in Trendelenburg position. I evaluated both the internal jugular and subclavian vein sites with ultrasound prior to the start of the case. The internal jugular vein was wide open. No evidence of any strictures or clots, appeared to be a good target. Subclavian vein was difficult to identify. Therefore, decision was made to go internal jugular vein. 1% lidocaine and 0.5% Marcaine with epinephrine were used to anesthetize the planned insertion site. Small incision was made. Under ultrasound guidance, I advanced the echogenic needle into the vein, I was able to access it on the first attempt. Guidewire was easily passed. I confirmed the position of the needle and the guidewire in the vein with ultrasound. It was going down the appropriate direction. The entire access was done under ultrasound guidance. We then brought fluoroscopy in. Wire was going down to the right side of the heart. We did have some mild ectopy for which the wire was retracted slightly. The wire was secured. We turned our attention to the pocket and the tunnel. Additional local was injected into the planned pocket site and the planned tunneling site. Incision was made in the left chest in line with the lines of skin tension. Subcutaneous pocket was created. It was checked to make sure the port could easily fit, which it did and then we passed the catheter and tunneler up to the neck, and brought it out the small incision that was made for the access. Once the catheter was in place, we then passed the dilator and sheath over the wire. We checked multiple times to make sure the wire could move freely as we inserted the dilator. We then removed the dilator and wire leaving the sheath in place. Catheter was inserted. We checked with fluoroscopy. We adjusted the length and then we modified the distal aspect of the catheter and attached the port. Collar was attached. We had good aspiration and flushing with heparinized saline. We removed the sheath completely, adjusted the catheter so that was completely in the vessel. We checked one last time, the distal tip appeared to be in a good position at least 2 vertebral bodies below the bianca. We then administered the locking solution, easy aspiration and flush. It appeared to work very good. Subcutaneous tissue at the port was closed with interrupted 3-0 Vicryl. Skin sites were closed with 4-0 Monocryl subcuticular stitch. The skin was cleaned and dried. Dermabond was placed. The patient tolerated the procedure well. There were no complications. All counts were correct at the end of the case. Postoperative chest x-ray showed no obvious abnormalities. Official dictation is pending at the time of this dictation. JOB# [id number] JESSICA/ANN MARIE
[2018-07-09] MEDS ORDERED: KIONEX PO PRN (14:10)
--- NOTE | 2018-07-09 14:31 | Progress Note ---
Assessment and Plan Acute respiratory failure due to COPD and lung mass - Placed on supplemental O2, nebs since admission - placed on ventimask since 07/01/18 - now on 5L N/c - cont to monitor, nebs, supplemental O2, tapering steroid, - need to go down at least on 4L N/C in order to be able to go home COPD exacerbation, cont nebs, supplemental O2, tapering steroid hemoptysis, likley from lung mass, resolved - avoid heparin/aspirin product Right lung mass LL, possible malignancy - - s/p CT guided bopsy on 07/02/18 - path showing squamous cell Ca, consulted red-onc - started on radiation therapy - So far no sign of metastasis yet, Brain CT w/contrast pending - postponded for worsening renal function - s/p Port-a-cath placed today leukocytosis, reactive. likely from underlying malignancy (patient not septic) - trended down, cont abx for another 10 days per pulmonary DIAZ, vasomotor nephropathy vs contrast induced - cont IV fluid for DIAZ, monitor Cr, consulted renal - Cr trended down - SCd for DVt Px Brief History: 67 y/o male presented to the ED back in Feb after coughing some blood while playing basketball. CXR showed large right lower lobe mass but rest of lung was clear. Patient was set up for outpatient follow up with Dr. Mckeon but he was ill and had to cancel and Rescheduled. But came to ED this time with more hemoptysis, SOB and generalized weakness. Has lost about 5lbs intentionally in the last month. Quit smoking 12 years ago but did smoker for about 25 years. Admitted for COPD exacerbation and possible lung biopsy. s/p biopsy on 07/02/18, requiring high flow O2. Biopsy showed squamous cell cancer, started on radiation therapy, placed Port-a- cath today. Plan to d/c home when he can go down to atleast 4 L n/c O2. Radiological data: CTA chest: No PE. RLL lung mass CT abdomen/pelvis: Large lobulated right lower lobe mass reidentified. Please see prior chest CT dictation The abdomen and pelvis demonstrate no adenopathy or mass No free air. No free fluid. No bowel obstruction No acute inflammatory change Renal cysts are present. No calculus. No hydronephrosis.. Physical exam: General appearance: Present: no acute distress, well-nourished - EENT Eyes: PERRL, EOM intact ENT: hearing intact, clear oral mucosa Ears: bilateral: normal - Neck Neck: supple, normal ROM - Respiratory Respiratory effort: normal Respiratory: bilateral: diminished, rhonchi (RLL) - Cardiovascular Rhythm: regular Heart Sounds: Present: S1 & S2. Absent: gallop, rub Extremities: pulses intact, No edema, normal color, Full ROM - Gastrointestinal General gastrointestinal: Present: soft, non-tender, non-distended, normal bowel sounds - Integumentary Integumentary: clear, warm, dry - Musculoskeletal Musculoskeletal: 1, strength equal bilaterally - Neurologic Neurologic: moves all extremities - Psychiatric Psychiatric: memory intact, appropriate mood/affect, intact judgment & insight Subjective Date of service: 07/09/18 Principal diagnosis: lung cancer Interval history: Patient seen and examined No acute event o/n C/O SOB, no chest pain patient on N/c s/p Port-A-cath placed today Scheduled for radiation therapy Objective - Constitutional Vitals: Vital Signs - 12hr 07/09/18 07/09/18 07/09/18 04:12 06:30 08:47 Temperature 98.5 F 97.6 F 97.6 F Pulse Rate 81 18 L 18 L Respiratory 24 18 18 Rate Blood Pressure 138/71 132/70 132/70 O2 Sat by Pulse 93 78 L 78 L Oximetry 07/09/18 07/09/18 07/09/18 08:51 08:55 09:04 Temperature 97.1 F L Pulse Rate 87 86 80 Respiratory 12 12 10 L Rate Blood Pressure 132/75 125/80 132/72 O2 Sat by Pulse 90 90 95 Oximetry 07/09/18 07/09/18 07/09/18 09:15 09:50 10:00 Temperature Pulse Rate 82 85 Respiratory 10 L 20 Rate Blood Pressure 106/67 115/68 115/68 O2 Sat by Pulse 91 92 Oximetry 07/09/18 07/09/18 07/09/18 10:01 10:25 12:06 Temperature 97.8 F Pulse Rate 75 Respiratory 14 Rate Blood Pressure 115/68 109/65 O2 Sat by Pulse 93 93 Oximetry - Labs CBC & Chem 7: 07/09/18 04:17 07/09/18 17:01 Labs: Abnormal lab results 07/09/18 07/09/1819 Range/Units 04:17 04:17 07:14 WBC 17.5 H (4.5-11.0) K/mm3 RDW 15.8 H (13.2-15.2) % Seg Neuts % (Manual) 96.0 H (40.0-70.0) % Lymphocytes % (Manual) 1.0 L (13.4-35.0) % Seg Neutrophils # Man 16.8 H (1.8-7.7) K/mm3 Lymphocytes # (Manual) 0.2 L (1.2-5.4) K/mm3 Sodium 132 L (137-145) mmol/L Potassium 5.5 H (3.6-5.0) mmol/L Chloride 96.1 L (98-107) mmol/L BUN 26 H (9-20) mg/dL Glucose 261 H (75-100) mg/dL POC Glucose 222 H (70-105)
[2018-07-10] MEDS: NACL 0.9% 1000 ML 1,000 ML IV SCH (05:07)
[2018-07-10 06:31] LABS: Basophils % (Auto) 0.1 % (0.0-1.8); Eosinophils % (Auto) 0.1 % (0.0-4.3); Hematocrit 35.1 % (35.5-45.6); Hemoglobin 11.8 gm/dl (11.8-15.2); Lymphocytes # (Auto) 0.5 K/mm3 (1.2-5.4); Lymphocytes % (Auto) 4.2 % (13.4-35.0); Mean Corpuscular HGB Conc 34 % (32-34); Mean Corpuscular Volume 87 fl (84-94); Monocytes # (Auto) 0.9 K/mm3 (0.0-0.8); Monocytes % (Auto) 7.1 % (0.0-7.3); Platelet Count 155 K/mm3 (140-440); Red Blood Count 4.05 M/mm3 (3.65-5.03)
[2018-07-10 07:13] LABS: BUN/Creatinine Ratio 20; Blood Urea Nitrogen 18 mg/dL (9-20); Calcium 8.5 mg/dL (8.4-10.2); Hemolysis Index 16
[2018-07-10] MEDS: BROVANA NEBU IH SCH ×2 (08:26→19:40)
[2018-07-10] MEDS: PULMICORT IH SCH ×2 (08:26→19:40)
--- NOTE | 2018-07-10 09:16 | Progress Note ---
Assessment and Plan 1. Acute kidney injury: DIAZ likely secondary to IV contrast. Renal function is better. Monitor renal function. Avoid nephrotoxic agents. Meds dosage based on GFR. 2. FEN: Mild hyperkalemia, improved. Monitor. 3. Right lung mass: NSCLC - squamous. Followed by Heme-Onc. 4. COPD with exacerbation. 5. Hypoxic respiratory failure. Will see patient intermittently / as needed basis. Subjective Date of service: 07/10/18 Principal diagnosis: lung cancer Interval history: Patient is doing ok. Objective - Vital Signs Vital signs: Vital Signs - 12hr 07/09/18 07/09/18 07/09/18 21:58 22:32 23:00 Temperature 98.7 F Pulse Rate 84 89 Pulse Rate [ Anterior Bilateral Throughout] Respiratory 20 Rate Respiratory Rate [Anterior Bilateral Throughout] Blood Pressure 128/65 126/70 O2 Sat by Pulse 91 91 Oximetry 07/10/18 07/10/18 07/10/18 04:57 08:27 08:29 Temperature 98.7 F Pulse Rate 89 Pulse Rate [ 94 H Anterior Bilateral Throughout] Respiratory 20 Rate Respiratory 19 Rate [Anterior Bilateral Throughout] Blood Pressure 126/64 O2 Sat by Pulse 93 92 Oximetry 07/10/18 08:39 Temperature Pulse Rate Pulse Rate [ 94 H Anterior Bilateral Throughout] Respiratory Rate Respiratory 18 Rate [Anterior Bilateral Throughout] Blood Pressure O2 Sat by Pulse Oximetry - General Appearance General appearance: well-developed, well-nourished, appears stated age, other (not in distress) EENT: ATNC, PERRL, mucous membranes moist, hearing intact, vision intact Neck: supple Respiratory: Present: Clear to Ascultation, Decreased Breath Sounds (right base) Cardiology: regular, S1S2, no murmurs Gastrointestinal: normoactive bowel sounds, no tenderness, no distended Integumentary: no rash, warm and dry Neurologic: no focal deficit, no asterixis, alert and oriented x3 Musculoskeletal: other (no edema) Psychiatric: cooperative - Lab 07/10/18 05:53 07/10/18 05:53 Most recent lab results Calcium 8.5 mg/dL (8.4-10.2) 07/10/18 05:53 Phosphorus 3.60 mg/dL (2.5-4.5) 07/03/18 04:40 Magnesium 2.20 mg/dL (1.7-2.3) 07/03/18 04:40 Urine Creatinine 58.9 mg/dL (0.1-20.0) H 07/01/18 19:46 Urine Sodium 41 mmol/L 07/01/18 19:46 Medications & Allergies - Medications Allergies/Adverse Reactions: Allergies pollen extracts Allergy (Mild, Verified 06/28/18 16:42) Itching runny nose/watery eyes strawberry Allergy (Mild, Verified 06/28/18 16:42) Hives Home Medications: Home Medications Medication Instructions Recorded Confirmed Last Taken Type ALBUTEROL Inhaler (OR & NICU) 1 puff IH Q4H PRN 06/28/18 06/28/18 06/28/18 History [ProAir HFA Inhaler] Allopurinol [Zyloprim] 300 mg PO DAILY 06/28/18 06/28/18 1 Day Ago History ~06/27/18 AtorvaSTATin [Lipitor] 20 mg PO DAILY 06/28/18 06/28/18 1 Day Ago History ~06/27/18 Levocetirizine Dihydrochloride 5 mg PO DAILY 06/28/18 06/28/18 1 Week Ago History [Xyzal] ~06/21/18 Losartan/Hydrochlorothiazide 1 each PO QPM 06/28/18 06/28/18 1 Day Ago History [Losartan-Hctz 100-25 mg Tab] ~06/27/18 Metoprolol [Lopressor] 100 mg PO DAILY 06/28/18 06/28/18 1 Day Ago History ~06/27/18 amLODIPine [Norvasc] 10 mg PO DAILY 06/28/18 06/28/18 1 Day Ago History ~06/27/18 predniSONE [Deltasone] 20 mg PO DAILY 06/28/18 06/28/18 06/28/18 History Active Medications: Generic Name Dose Route Start Last Admin Trade Name Freq PRN Reason Stop Dose Admin Acetaminophen/Hydrocodone Bitart 1 each 07/09/18 09:00 Brethren 5/325 PO Q6H PRN Pain, Moderate (4-6) Al Hydrox/Mg Hydrox/Simethicone 30 ml 07/08/18 17:43 07/08/18 22:22 Alum-Mag Hydrox-Simeth 137-707-33wc/5ml PO 30 ml Q4H PRN Administration Indigestion Albuterol 2.5 mg 06/30/18 11:01 06/30/18 17:27 Proventil IH 2.5 mg Q4HRT PRN Administration Shortness Of Breath Allopurinol 300 mg 06/28/18 21:00 07/09/18 10:00 Zyloprim PO 300 mg DAILY TRISTAN Administration Amlodipine Besylate 10 mg 06/28/18 21:00 07/09/18 10:01 Norvasc PO 10 mg DAILY TRISTAN Administration Arformoterol Tartrate 15 mcg 06/30/18 20:00 07/10/18 08:26 Brovana Nebu IH 15 mcg Q12HRT TRISTAN Administration Atorvastatin Calcium 20 mg 06/28/18 20:45 07/09/18 10:01 Lipitor PO 20 mg DAILY TRISTAN Administration Budesonide 0.5 mg 06/30/18 20:00 07/10/18 08:26 Pulmicort IH 0.5 mg Q12HRT TRISTAN Administration Levofloxacin/Dextrose 750 mg in 150 mls @ 100 mls/hr 07/08/18 11:00 07/09/18 10:07 Levaquin 750mg/150ml IV 100 mls/hr Q24H TRISTAN Administration Protocol Sodium Chloride 1,000 mls @ 75 mls/hr 07/09/18 09:00 07/10/18 05:07 Nacl 0.9% 1000 Ml IV 75 mls/hr DIRECT TRISTAN Administration Labetalol HCl 200 mg 07/01/18 16:00 07/09/18 22:32 Normodyne PO 200 mg BID TRISTAN Administration Methylprednisolone Sodium Succinate 40 mg 07/10/18 10:00 Solu-Medrol IV Q24HR TRISTAN Metoprolol Tartrate 100 mg 06/28/18 21:00 07/09/18 10:00 Lopressor PO 100 mg DAILY TRISTAN Administration Miscellaneous Medication 5 mg 06/28/18 20:45 07/05/18 16:12 Levocetirizine Dihydrochloride [Xyzal] PO Not Given DAILY [facility] Sodium Polystyrene Sulfonate 15 gm 07/09/18 14:10 Kionex PO Q6HR PRN Hyperkalemia
[2018-07-10] MEDS: LOPRESSOR PO SCH (09:31)
[2018-07-10] MEDS: NORMODYNE PO SCH ×2 (09:31→22:30)
[2018-07-10] MEDS: ZYLOPRIM PO SCH (09:32)
[2018-07-10] MEDS: NORVASC PO SCH (09:32)
[2018-07-10] MEDS: SOLU-Medrol IV SCH (09:33)
--- NOTE | 2018-07-10 10:19 | Hem/Onc Progress Note ---
Assessment and Plan 1. Lung mass. 2. Hemoptysis. 3. Subcarinal lymph nodes. 4. This may be a neoplastic process in the lung. We will do CT abdomen, pelvis and CT head, which was also planned by the primary care. 5. Bronchoscopic versus CT-guided biopsy is being looked into. 6. We will do tumor markers. 7. History of hyperlipidemia. 8. On gout medications. 9. History of hypertension, on medications. I will follow the patient during inpatient stay and then in the clinic setting I discussed with him possibly being neoplastic process. Staging will guide some of our next step. 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 - CT abdo - only oral - and no IV contrast - d/w RN and pt 07/[address] Abdo Pelvis and CT head - no iv contrast - nil acute in head and abdo 07/03 - path pending of lung bx d/w pt reg OP follow up chemo - port - oral meds - PET CT - all these - once we have the path 07/04 - d/w pt reg path - NSCLC - squamous Rad onc consult Port d/w Dr Tanner 07/05- d/w dr tierney reg port placement 07/06 - XRT team and sx team following at this time there is no evidence of mets plan is to look into chemo - XRT 07/07 - xrt marking done port monday as per pt OP chemo 07/08 - pt says his ht 6 feet and wt 180 lbs - this is to find the dose of chemo - as OP port tomorrow pt aware that he will call his PCP for auth 07/09 - Port placement 07/10 - port placed pt says will be d/c today OP follow up advised - Patient Problems (1) Lung mass Current Visit: Yes Status: Acute (2) Lung cancer Current Visit: Yes Status: Acute Subjective Date of service: 07/10/18 Principal diagnosis: lung cancer Interval history: s/p port Objective - Constitutional Vitals: Last Vital Signs Temp 98.7 F 07/10/18 04:57 Pulse 94 H 07/10/18 08:39 Resp 18 07/10/18 08:39 BP 132/65 07/10/18 09:32 Pulse Ox 92 07/10/18 08:29 Pain Intensity (0-10): denies any pain General appearance: no acute distress Performance status: 3-limited selfcare - EENT Eyes: EOM intact ENT: clear oral mucosa Lymph node exam: negative cervical - Neck Neck: normal ROM - Respiratory Respiratory effort: Positive: normal Respiratory: bilateral: CTA - Cardiovascular Heart Sounds: Present: S1 & S2 Extremities: No edema - Gastrointestinal General gastrointestinal: Present: soft, non-tender Rectal Exam: deferred - Genitourinary Male genitourinary: Present: deferred - Integumentary Integumentary: warm - Musculoskeletal Musculoskeletal: strength equal bilaterally - Neurologic Neurologic: moves all extremities - Labs Lab Results: Laboratory Results - last 24 hr 07/09/18 07/10/18 07/10/18 17:01 05:53 05:53 WBC 12.9 H RBC 4.05 Hgb 11.8 Hct 35.1 L MCV 87 MCH 29 MCHC 34 RDW 16.0 H Plt Count 155 Lymph % (Auto) 4.2 L Jones % (Auto) 7.1 Eos % (Auto) 0.1 Baso % (Auto) 0.1 Lymph # 0.5 L [place] # 0.9 H Eos # 0.0 Baso # 0.0 Seg Neutrophils % 88.5 H Seg Neutrophils # 11.4 H Sodium 135 L Potassium 4.7 3.9 Chloride 99.0 Carbon Dioxide 29 Anion Gap 11 BUN 18 Creatinine 0.9 Estimated GFR > 60 BUN/Creatinine Ratio 20 Glucose 163 H Calcium 8.5 Medications & Allergies - Medications Allergies/Adverse Reactions: Allergies pollen extracts Allergy (Mild, Verified 06/28/18 16:42) Itching runny nose/watery eyes strawberry Allergy (Mild, Verified 06/28/18 16:42) Hives Home Medications: Home Medications Medication Instructions Recorded Confirmed Last Taken Type ALBUTEROL Inhaler (OR & NICU) 1 puff IH Q4H PRN 06/28/18 06/28/18 06/28/18 History [ProAir HFA Inhaler] Allopurinol [Zyloprim] 300 mg PO DAILY 06/28/18 06/28/18 1 Day Ago History ~06/27/18 AtorvaSTATin [Lipitor] 20 mg PO DAILY 06/28/18 06/28/18 1 Day Ago History ~06/27/18 Levocetirizine Dihydrochloride 5 mg PO DAILY 06/28/18 06/28/18 1 Week Ago H istory [Xyzal] ~06/21/18 Losartan/Hydrochlorothiazide 1 each PO QPM 06/28/18 06/28/18 1 Day Ago History [Losartan-Hctz 100-25 mg Tab] ~06/27/18 Metoprolol [Lopressor] 100 mg PO DAILY 06/28/18 06/28/18 1 Day Ago History ~06/27/18 amLODIPine [Norvasc] 10 mg PO DAILY 06/28/18 06/28/18 1 Day Ago History ~06/27/18 predniSONE [Deltasone] 20 mg PO DAILY 06/28/18 06/28/18 06/28/18 History Active Medications: Generic Name Dose Route Start Last Admin Trade Name Freq PRN Reason Stop Dose Admin Acetaminophen/Hydrocodone Bitart 1 each 07/09/18 09:00 [place] 5/325 PO Q6H PRN Pain, Moderate (4-6) Al Hydrox/Mg Hydrox/Simethicone 30 ml 07/08/18 17:43 07/08/18 22:22 Alum-Mag Hydrox-Simeth 199-070-59iz/5ml PO 30 ml Q4H PRN Administration Indigestion Albuterol 2.5 mg 06/30/18 11:01 06/30/18 17:27 Proventil IH 2.5 mg Q4HRT PRN Administration Shortness Of Breath Allopurinol 300 mg 06/28/18 21:00 07/10/18 09:32 Zyloprim PO 300 mg DAILY TRISTAN Administration Amlodipine Besylate 10 mg 06/28/18 21:00 07/10/18 09:32 Norvasc PO 10 mg DAILY TRISTAN Administration Arformoterol Tartrate 15 mcg 06/30/18 20:00 07/10/18 08:26 Brovana Nebu IH 15 mcg Q12HRT TRISTAN Administration Atorvastatin Calcium 20 mg 06/28/18 20:45 07/10/18 09:32 Lipitor PO 20 mg DAILY TRISTAN Administration Budesonide 0.5 mg 06/30/18 20:00 07/10/18 08:26 Pulmicort IH 0.5 mg Q12HRT TRISTAN Administration Levofloxacin/Dextrose 750 mg in 150 mls @ 100 mls/hr 07/08/18 11:00 07/09/18 10:07 Levaquin 750mg/150ml IV 100 mls/hr Q24H TRISTAN Administration Protocol Sodium Chloride 1,000 mls @ 75 mls/hr 07/09/18 09:00 07/10/18 05:07 Nacl 0.9% 1000 Ml IV 75 mls/hr DIRECT TRISTAN Administration Labetalol HCl 200 mg 07/01/18 16:00 07/10/18 09:31 Normodyne PO 200 mg BID TRISTAN Administration Methylprednisolone Sodium Succinate 40 mg 07/10/18 10:00 07/10/18 09:33 Solu-Medrol IV 40 mg Q24HR TRISTAN Administration Metoprolol Tartrate 100 mg 06/28/18 21:00 07/10/18 09:31 Lopressor PO 100 mg DAILY TRISTAN Administration Miscellaneous Medication 5 mg 06/28/18 20:45 07/05/18 16:12 Levocetirizine Dihydrochloride [Xyzal] PO Not Given DAILY TRISTAN Sodium Polystyrene Sulfonate 15 gm 07/09/18 14:10 Kionex PO Q6HR PRN Hyperkalemia
--- NOTE | 2018-07-10 12:04 | Progress Note ---
Assessment and Plan - Patient Problems (1) Lung mass Current Visit: Yes Status: Acute Plan to address problem: s/p US guided port placement. Pt doing well. Ok to d/c home from my perspective. May use port at any time. F/u prn. Please call with questions. Subjective Date of service: 07/10/18 Patient Reports: Positive: no new complaints Objective Vital Signs - 12hr 07/10/18 07/10/18 07/10/18 04:57 08:27 08:29 Temperature 98.7 F Pulse Rate 89 Pulse Rate [ 94 H Anterior Bilateral Throughout] Respiratory 20 Rate Respiratory 19 Rate [Anterior Bilateral Throughout] Blood Pressure 126/64 O2 Sat by Pulse 93 92 Oximetry 07/10/18 07/10/18 07/10/18 08:39 09:31 09:32 Temperature Pulse Rate Pulse Rate [ 94 H Anterior Bilateral Throughout] Respiratory Rate Respiratory 18 Rate [Anterior Bilateral Throughout] Blood Pressure 132/65 132/65 O2 Sat by Pulse Oximetry - General physical appearance no distress, no pain - Respiratory normal expansion, normal respiratory effort - Integumentary no rash, no growths, no abnormal pigmentation, other (Incisions C/D/I) - Labs 07/10/18 05:53 07/10/18 05:53 Diabetes panel 07/09/18 07/10/18 Range/Units 17:01 05:53 Sodium 135 L (137-145) mmol/L Potassium 4.7 3.9 (3.6-5.0) mmol/L Chloride 99.0 (98-107) mmol/L Carbon Dioxide 29 (22-30) mmol/L BUN 18 (9-20) mg/dL Creatinine 0.9 (0.8-1.5) mg/dL Glucose 163 H (75-100) mg/dL Calcium 8.5 (8.4-10.2) mg/dL Calcium panel 07/10/18 Range/Units 05:53 Calcium 8.5 (8.4-10.2) mg/dL Pituitary panel 07/09/18 07/10/18 Range/Units 17:01 05:53 Sodium 135 L (137-145) mmol/L Potassium 4.7 3.9 (3.6-5.0) mmol/L Chloride 99.0 (98-107) mmol/L Carbon Dioxide 29 (22-30) mmol/L BUN 18 (9-20) mg/dL Creatinine 0.9 (0.8-1.5) mg/dL Glucose 163 H (75-100) mg/dL Calcium 8.5 (8.4-10.2) mg/dL Adrenal panel 07/09/18 07/10/18 Range/Units 17:01 05:53 Sodium 135 L (137-145) mmol/L Potassium 4.7 3.9 (3.6-5.0) mmol/L Chloride 99.0 (98-107) mmol/L Carbon Dioxide 29 (22-30) mmol/L BUN 18 (9-20) mg/dL Creatinine 0.9 (0.8-1.5) mg/dL Glucose 163 H (75-100) mg/dL Calcium 8.5 (8.4-10.2) mg/dL
[2018-07-10] MEDS: LEVAQUIN 750MG/150ML 750 MG/150 ML BAG IV SCH (12:22)
--- NOTE | 2018-07-10 13:38 | Progress Note ---
Assessment and Plan 67 y/o male with right sided lung mass and hemoptysis. Imp: 1. Lung mass -> NSCLC 2. Hemoptysis 3. Acute respiratory failure, hypoxia 4. Centrilobular/bullous emphysema 5. DIAZ Rec: 1. Cont. Solumedrol -> change to Prednisone soon; cont. Levaquin x 10 days, Bronchodilators At discharge send out on Prednisone 40 daily for 2 days, 30 nelia ly for 4 days, 20 daily for 4 days then 10 daily for 4 days then stop. 2. Oncology and Rad/Onc Following. 3. Home O2 eval. needed 4. Outpatient PFTs -> f/u with us 1 week after d/c (Ramandeep) 5. Try to ambulate 6. Incentive spirometry 7. No objection to discharge from a pulmonary standpoint. Subjective Date of service: 07/10/18 Principal diagnosis: lung cancer Interval history: No acute events. Had raditation yesterday and appears to have tolerated well. Objective Vital Signs - 12hr 07/10/18 07/10/18 07/10/18 04:57 08:27 08:29 Temperature 98.7 F Pulse Rate 89 Pulse Rate [ 94 H Anterior Bilateral Throughout] Respiratory 20 Rate Respiratory 19 Rate [Anterior Bilateral Throughout] Blood Pressure 126/64 O2 Sat by Pulse 93 92 Oximetry 07/10/18 07/10/18 07/10/18 08:39 09:31 09:32 Temperature Pulse Rate Pulse Rate [ 94 H Anterior Bilateral Throughout] Respiratory Rate Respiratory 18 Rate [Anterior Bilateral Throughout] Blood Pressure 132/65 132/65 O2 Sat by Pulse Oximetry 07/10/18 07/10/18 09:34 11:35 Temperature 97.7 F Pulse Rate 93 H 83 Pulse Rate [ Anterior Bilateral Throughout] Respiratory 22 18 Rate Respiratory Rate [Anterior Bilateral Throughout] Blood Pressure 132/65 138/63 O2 Sat by Pulse 95 91 Oximetry Constitutional: no acute distress, alert Eyes: non-icteric ENT: oropharynx moist Neck: supple Effort: normal Ascultation: Right: diminished breath sounds (base), Bilateral: clear, wheezes (occasional) Percussion: Bilateral: not dull Tactile fremitus: Bilateral: normal Cardiovascular: regular rate and rhythm (no mrg) Gastrointestinal: normoactive bowel sounds, non-tender Extremities: no cyanosis, no edema, pink and warm, pulses normal Neurologic: normal mental status, non-focal exam, pupils equal and round, CN II- XII normal Psychiatric: mood appropriate, affect normal CBC and BMP: 07/10/18 05:53 07/10/18 05:53 ABG, PT/INR, D-dimer: PT/INR, D-dimer PT 13.0 Sec. (12.2-14.9) 07/09/18 04:17 INR 0.93 (0.87-1.13) 07/09/18 04:17 Abnormal lab findings: Abnormal Labs 06/28/18 06/28/18 06/29/18 10:02 10:02 13:35 WBC 17.1 H RBC Hct RDW 15.8 H Lymph % (Auto) 9.9 L Lymph # [place] # 0.9 H Seg Neutrophils % 84.0 H Seg Neuts % (Manual) Lymphocytes % (Manual) Seg Neutrophils # 14.4 H Seg Neutrophils # Man Lymphocytes # (Manual) APTT 20.0 L Sodium Potassium Chloride BUN 23 H Creatinine Glucose 125 H POC Glucose Calcium Total Creatine Kinase 43 L Urine Creatinine 07/01/18 07/01/18 07/01/18 09:36 09:36 19:46 WBC 17.9 H RBC 5.20 H Hct 45.7 H RDW 16.6 H Lymph % (Auto) Lymph # [place] # Seg Neutrophils % Seg Neuts % (Manual) 92.0 H Lymphocytes % (Manual) 5.0 L Seg Neutrophils # Seg Neutrophils # Man 16.5 H Lymphocytes # (Manual) 0.9 L APTT Sodium Potassium Chloride 95.9 L BUN 47 H Creatinine 1.9 H Glucose 191 H POC Glucose Calcium 10.6 H Total Creatine Kinase Urine Creatinine 58.9 H 07/02/18 07/03/18 07/03/18 05:56 04:40 04:40 WBC 13.1 H RBC Hct RDW 16.6 H Lymph % (Auto) Lymph # [place] # Seg Neutrophils % Seg Neuts % (Manual) 95.0 H Lymphocytes % (Manual) 3.0 L Seg Neutrophils # Seg Neutrophils # Man 12.4 H Lymphocytes # (Manual) 0.4 L APTT Sodium Potassium Chloride BUN 40 H 31 H Creatinine Glucose 207 H 187 H POC Glucose Calcium Total Creatine Kinase Urine Creatinine 07/04/18 07/05/18 07/06/18 06:07 04:31 06:09 WBC RBC Hct RDW Lymph % (Auto) Lymph # [place] # Seg Neutrophils % Seg Neuts % (Manual) Lymphocytes % (Manual) Seg Neutrophils # Seg Neutrophils # Man Lymphocytes # (Manual) APTT Sodium Potassium 5.1 H Chloride BUN 26 H 27 H 25 H Creatinine Glucose 186 H 206 H 220 H POC Glucose Calcium Total Creatine Kinase Urine Creatinine 07/07/18 07/08/18 07/09/18 22:11 07:00 04:17 WBC 17.5 H RBC Hct RDW 15.8 H Lymph % (Auto) Lymph # [place] # Seg Neutrophils % Seg Neuts % (Manual) 96.0 H Lymphocytes % (Manual) 1.0 L Seg Neutrophils # Seg Neutrophils # Man 16.8 H Lymphocytes # (Manual) 0.2 L APTT Sodium 136 L Potassium Chloride 95.5 L BUN 24 H Creatinine Glucose 224 H POC Glucose 235 H Calcium Total Creatine Kinase Urine Creatinine 07/09/18 07/09/18 07/10/18 04:17 07:14 05:53 WBC 12.9 H RBC Hct 35.1 L RDW 16.0 H Lymph % (Auto) 4.2 L Lymph # 0.5 L [place] # 0.9 H Seg Neutrophils % 88.5 H Seg Neuts % (Manual) Lymphocytes % (Manual) Seg Neutrophils # 11.4 H Seg Neutrophils # Man Lymphocytes # (Manual) APTT Sodium 132 L Potassium 5.5 H Chloride 96.1 L BUN 26 H Creatinine Glucose 261 H POC Glucose 222 H Calcium Total Creatine Kinase Urine Creatinine 07/10/18 05:53 WBC RBC Hct RDW Lymph % (Auto) Lymph # [place] # Seg Neutrophils % Seg Neuts % (Manual) Lymphocytes % (Manual) Seg Neutrophils # Seg Neutrophils # Man Lymphocytes # (Manual) APTT Sodium 135 L Potassium Chloride BUN Creatinine Glucose 163 H POC Glucose Calcium Total Creatine Kinase Urine Creatinine
--- NOTE | 2018-07-10 14:41 | Progress Note ---
Assessment and Plan Assessment and plan: Patient is 67 y/o male presented to the ED back in Feb after coughing some blood while playing basketball. CXR showed large right lower lobe mass but rest of lung was clear. Patient was set up for outpatient follow up with Dr. Mckeon but he was ill and had to cancel and Rescheduled. But came to ED this time with more hemoptysis, SOB and generalized weakness. Has lost about 5lbs in the last month. Quit smoking 12 years ago but did smoker for about 25 years. Admitted for COPD exacerbation and possible lung biopsy. s/p biopsy on 07/02/18, requiring high flow O2. Biopsy showed squamous cell cancer, started on radiation therapy, placed Port-a- cath . Plan to d/c home when he can go down to atleast 4 L n/c O2. Acute respiratory failure due to COPD and lung mass - Placed on supplemental O2, nebs since admission - placed on ventimask since 07/01/18 - now on 4 l/min NC - cont to monitor, nebs, supplemental O2, tapering steroid, COPD exacerbation, cont nebs, supplemental O2, tapering steroid Hemoptysis from lung cancer, resolved - avoid heparin/aspirin product Squamous cell cancer right lung - - s/p CT guided biopsy on 07/02/18 - path showing squamous cell Ca, consulted red-onc - started on radiation therapy - So far no sign of metastasis yet, Brain CT w/contrast pending - postponded for worsening renal function - s/p Port-a-cath placed leukocytosis, reactive. likely from underlying malignancy (patient not septic) - trended down, cont abx for another 10 days per pulmonary DIAZ, vasomotor nephropathy vs contrast induced - Now resolved - SCd for DVt Px -Discussed with Case management. Hopefully dc home tomorrow if home Oxygen arranged. History Interval history: Shortness of breath Hospitalist Physical - Physical exam Narrative exam: GEN: Not in acute distress, lying in bed, Oxygen by NC HEENT: Normocephalic, atraumatic, Neck: supple, No JVD heart: S1 and S2 reg, no murmurs, rubs or gallop Lungs: Clear to auscultation bilaterally, no wheeze Abd:soft, non tender, non distended, normal bowel sounds Ext: No edema,no clubbing, no cyanosis, Neuro:Awake,alert,oriented X 3, no focal signs, moves all ext Psych: normal mood - Constitutional Vitals: Temp Pulse Resp BP Pulse Ox 97.7 F 83 18 138/63 91 07/10/18 11:35 07/10/18 11:35 07/10/18 11:35 07/10/18 11:35 07/10/18 11:35 General appearance: Present: no acute distress, well-nourished Results - Labs CBC & Chem 7: 07/10/18 05:53 07/10/18 05:53 Labs: Laboratory Last Values WBC 12.9 K/mm3 (4.5-11.0) H 07/10/18 05:53 RBC 4.05 M/mm3 (3.65-5.03) 07/10/18 05:53 Hgb 11.8 gm/dl (11.8-15.2) 07/10/18 05:53 Hct 35.1 % (35.5-45.6) L 07/10/18 05:53 MCV 87 fl (84-94) 07/10/18 05:53 MCH 29 pg (28-32) 07/10/18 05:53 MCHC 34 % (32-34) 07/10/18 05:53 RDW 16.0 % (13.2-15.2) H 07/10/18 05:53 Plt Count 155 K/mm3 (140-440) 07/10/18 05:53 Lymph % (Auto) 4.2 % (13.4-35.0) L 07/10/18 05:53 [place] % (Auto) 7.1 % (0.0-7.3) 07/10/18 05:53 Eos % (Auto) 0.1 % (0.0-4.3) 07/10/18 05:53 Baso % (Auto) 0.1 % (0.0-1.8) 07/10/18 05:53 Lymph # 0.5 K/mm3 (1.2-5.4) L 07/10/18 05:53 [place] # 0.9 K/mm3 (0.0-0.8) H 07/10/18 05:53 Eos # 0.0 K/mm3 (0.0-0.4) 07/10/18 05:53 Baso # 0.0 K/mm3 (0.0-0.1) 07/10/18 05:53 Add Manual Diff Complete 07/09/18 04:17 Total Counted 100 07/09/18 04:17 Seg Neutrophils % 88.5 % (40.0-70.0) H 07/10/18 05:53 Seg Neuts % (Manual) 96.0 % (40.0-70.0) H 07/09/18 04:17 Band Neutrophils % 0 % 07/09/18 04:17 Lymphocytes % (Manual) 1.0 % (13.4-35.0) L 07/09/18 04:17 Reactive Lymphs % (Man) 0 % 07/09/18 04:17 Monocytes % (Manual) 3.0 % (0.0-7.3) 07/09/18 04:17 Eosinophils % (Manual) 0 % (0.0-4.3) 07/09/18 04:17 Basophils % (Manual) 0 % (0.0-1.8) 07/09/18 04:17 Metamyelocytes % 0 % 07/09/18 04:17 Myelocytes % 0 % 07/09/18 04:17 Promyelocytes % 0 % 07/09/18 04:17 Blast Cells % 0 % 07/09/18 04:17 Nucleated RBC % Not Reportable 07/09/18 04:17 Seg Neutrophils # 11.4 K/mm3 (1.8-7.7) H 07/10/18 05:53 Seg Neutrophils # Man 16.8 K/mm3 (1.8-7.7) H 07/09/18 04:17 Band Neutrophils # 0.0 K/mm3 07/09/18 04:17 Lymphocytes # (Manual) 0.2 K/mm3 (1.2-5.4) L 07/09/18 04:17 Abs React Lymphs (Man) 0.0 K/mm3 07/09/18 04:17 Monocytes # (Manual) 0.5 K/mm3 (0.0-0.8) 07/09/18 04:17 Eosinophils # (Manual) 0.0 K/mm3 (0.0-0.4) 07/09/18 04:17 Basophils # (Manual) 0.0 K/mm3 (0.0-0.1) 07/09/18 04:17 Metamyelocytes # 0.0 K/mm3 07/09/18 04:17 Myelocytes # 0.0 K/mm3 07/09/18 04:17 Promyelocytes # 0.0 K/mm3 07/09/18 04:17 Blast Cells # 0.0 K/mm3 07/09/18 04:17 WBC Morphology Not Reportable 07/09/18 04:17 Hypersegmented Neuts Not Reportable 07/09/18 04:17 Hyposegmented Neuts Not Reportable 07/09/18 04:17 Hypogranular Neuts Not Reportable 07/09/18 04:17 Smudge Cells Not Reportable 07/09/18 04:17 Toxic Granulation Not Reportable 07/09/18 04:17 Toxic Vacuolation Not Reportable 07/09/18 04:17 Dohle Bodies Not Reportable 07/09/18 04:17 Pelger-Huet Anomaly Not Reportable 07/09/18 04:17 Gay Rods Not Reportable 07/09/18 04:17 Platelet Estimate Consistent w auto 07/09/18 04:17 Clumped Platelets Not Reportable 07/09/18 04:17 Plt Clumps, EDTA Not Reportable 07/09/18 04:17 Large Platelets Not Reportable 07/09/18 04:17 Giant Platelets Not Reportable 07/09/18 04:17 Platelet Satelliting Not Reportable 07/09/18 04:17 Plt Morphology Comment Not Reportable 07/09/18 04:17 RBC Morphology Normal 07/09/18 04:17 Dimorphic RBCs Not Reportable 07/09/18 04:17 Polychromasia Not Reportable 07/09/18 04:17 Hypochromasia Not Reportable 07/09/18 04:17 Poikilocytosis Not Reportable 07/09/18 04:17 Anisocytosis Not Reportable 07/09/18 04:17 Microcytosis Not Reportable 07/09/18 04:17 Macrocytosis Not Reportable 07/09/18 04:17 Spherocytes Not Reportable 07/09/18 04:17 Pappenheimer Bodies Not Reportable 07/09/18 04:17 Sickle Cells Not Reportable 07/09/18 04:17 Target Cells Not Reportable 07/09/18 04:17 Tear Drop Cells Not Reportable 07/09/18 04:17 Ovalocytes Not Reportable 07/09/18 04:17 Helmet Cells Not Reportable 07/09/18 04:17 [place] Bodies Not Reportable 07/09/18 04:17 [place] Rings Not Reportable 07/09/18 04:17 [place] Cells Not Reportable 07/09/18 04:17 Bite Cells Not Reportable 07/09/18 04:17 Crenated Cell Not Reportable 07/09/18 04:17 Elliptocytes Not Reportable 07/09/18 04:17 Acanthocytes (Spur) Not Reportable 07/09/18 04:17 Rouleaux Not Reportable 07/09/18 04:17 Hemoglobin C Crystals Not Reportable 07/09/18 04:17 Schistocytes Not Reportable 07/09/18 04:17 Malaria parasites Not Reportable 07/09/18 04:17 [place] Bodies Not Reportable 07/09/18 04:17 Hem Pathologist Commnt No 07/09/18 04:17 PT 13.0 Sec. (12.2-14.9) 07/09/18 04:17 INR 0.93 (0.87-1.13) 07/09/18 04:17 APTT 20.0 Sec. (24.2-36.6) L 06/29/18 13:35 Sodium 135 mmol/L (137-145) L 07/10/18 05:53 Potassium 3.9 mmol/L (3.6-5.0) 07/10/18 05:53 Chloride 99.0 mmol/L (98-107) 07/10/18 05:53 Carbon Dioxide 29 mmol/L (22-30) 07/10/18 05:53 Anion Gap 11 mmol/L 07/10/18 05:53 BUN 18 mg/dL (9-20) 07/10/18 05:53 Creatinine 0.9 mg/dL (0.8-1.5) 07/10/18 05:53 Estimated GFR > 60 ml/min 07/10/18 05:53 BUN/Creatinine Ratio 20 % 07/10/18 05:53 Glucose 163 mg/dL (75-100) H 07/10/18 05:53 POC Glucose 222 (70-105) H 07/09/18 07:14 Lactic Acid 1.60 mmol/L (0.7-2.0) 06/28/18 12:56 Calcium 8.5 mg/dL (8.4-10.2) 07/10/18 05:53 Phosphorus 3.60 mg/dL (2.5-4.5) 07/03/18 04:40 Magnesium 2.20 mg/dL (1.7-2.3) 07/03/18 04:40 Total Bilirubin 0.40 mg/dL (0.1-1.2) 07/01/18 09:36 AST 15 units/L (5-40) 07/01/18 09:36 ALT 16 units/L (7-56) 07/01/18 09:36 Alkaline Phosphatase 62 units/L (35-129) 07/01/18 09:36 Total Creatine Kinase 43 units/L (55-170) L 06/28/18 10:02 CK-MB (CK-2) 1.6 ng/mL (0.0-4.0) 06/28/18 10:02 CK-MB (CK-2) Rel Index 3.7 (0-4) 06/28/18 10:02 Troponin T < 0.010 ng/mL (0.00-0.029) 06/28/18 10:02 NT-Pro-B Natriuret Pep 56.34 pg/mL (0-900) 06/28/18 10:31 Total Protein 8.1 g/dL (6.3-8.2) 07/01/18 09:36 Albumin 4.4 g/dL (3.9-5) 07/01/18 09:36 Albumin/Globulin Ratio 1.2 % 07/01/18 09:36 Carcinoembryonic Ag See scanned result 07/01/18 09:36 CA 19-9 Antigen 30 U/mL (<34) 07/01/18 09:36 Urine Color Straw (Yellow) 07/01/18 19:43 Urine Turbidity Clear (Clear) 07/01/18 19:43 Urine pH 5.0 (5.0-7.0) 07/01/18 19:43 Ur Specific [place] 1.012 (1.003-1.030) 07/01/18 19:43 Urine Protein <15 mg/dl mg/dL (Negative) 07/01/18 19:43 Urine Glucose (UA) Neg mg/dL (Negative) 07/01/18 19:43 Urine Ketones Neg mg/dL (Negative) 07/01/18 19:43 Urine Blood Neg (Negative) 07/01/18 19:43 Urine Nitrite Neg (Negative) 07/01/18 19:43 Urine Bilirubin Neg (Negative) 07/01/18 19:43 Urine Urobilinogen < 2.0 mg/dL (<2.0) 07/01/18 19:43 Ur Leukocyte Esterase Neg (Negative) 07/01/18 19:43 Urine WBC (Auto) < 1.0 /HPF (0.0-6.0) 07/01/18 19:43 Urine RBC (Auto) < 1.0 /HPF (0.0-6.0) 07/01/18 19:43 Urine Mucus Few /HPF 07/01/18 19:43 Urine Eosinophils None seen (None Seen) 07/01/18 19:43 Urine Creatinine 58.9 mg/dL (0.1-20.0) H 07/01/18 19:46 Urine Sodium 41 mmol/L 07/01/18 19:46 Active Medications - Current Medications Current Medications: Generic Name Dose Route Start Last Admin Trade Name Freq PRN Reason Stop Dose Admin Acetaminophen/Hydrocodone Bitart 1 each 07/09/18 09:00 [place] 5/325 PO Q6H PRN Pain, Moderate (4-6) Al Hydrox/Mg Hydrox/Simethicone 30 ml 07/08/18 17:43 07/08/18 22:22 Alum-Mag Hydrox-Simeth 542-587-06or/5ml PO 30 ml Q4H PRN Administration Indigestion Albuterol 2.5 mg 06/30/18 11:01 06/30/18 17:27 Proventil IH 2.5 mg Q4HRT PRN Administration Shortness Of Breath Allopurinol 300 mg 06/28/18 21:00 07/10/18 09:32 Zyloprim PO 300 mg DAILY TRISTAN Administration Amlodipine Besylate 10 mg 06/28/18 21:00 07/10/18 09:32 Norvasc PO 10 mg DAILY TRISTAN Administration Arformoterol Tartrate 15 mcg 06/30/18 20:00 07/10/18 08:26 Brovana Nebu IH 15 mcg Q12HRT TRISTAN Administration Atorvastatin Calcium 20 mg 06/28/18 20:45 07/10/18 09:32 Lipitor PO 20 mg DAILY TRISTAN Administration Budesonide 0.5 mg 06/30/18 20:00 07/10/18 08:26 Pulmicort IH 0.5 mg Q12HRT TRISTAN Administration Levofloxacin/Dextrose 750 mg in 150 mls @ 100 mls/hr 07/08/18 11:00 07/10/18 12:22 Levaquin 750mg/150ml IV 100 mls/hr Q24H TRISTAN Administration Protocol Sodium Chloride 1,000 mls @ 75 mls/hr 07/09/18 09:00 07/10/18 05:07 Nacl 0.9% 1000 Ml IV 75 mls/hr DIRECT TRISTAN Administration Labetalol HCl 200 mg 07/01/18 16:00 07/10/18 09:31 Normodyne PO 200 mg BID TRISTAN Administration Methylprednisolone Sodium Succinate 40 mg 07/10/18 10:00 07/10/18 09:33 Solu-Medrol IV 40 mg Q24HR TRISTAN Administration Metoprolol Tartrate 100 mg 06/28/18 21:00 07/10/18 09:31 Lopressor PO 100 mg DAILY TRISTAN Administration Miscellaneous Medication 5 mg 06/28/18 20:45 07/05/18 16:12 Levocetirizine Dihydrochloride [Xyzal] PO Not Given DAILY TRISTAN Sodium Polystyrene Sulfonate 15 gm 07/09/18 14:10 Kionex PO Q6HR PRN Hyperkalemia Nutrition/Malnutrition Assess - Dietary Evaluation Nutrition/Malnutrition Findings: Nutrition Notes Start: 07/05/18 14:28 Freq: Status: Active Protocol: Document 07/05/18 14:29 RM (Rec: 07/05/18 14:29 RM [id number]) Nutrition Notes Need for Assessment generated from: LOS Initial or Follow up Brief Note Height 5 ft 11 in Weight 85.7 kg [place] Body Weight (kg) 78.18 BMI 26.3 Subjective/Other Information Screened for LOS. PO intake 80% X 1 week. Nutrition Intervention Revisit per MD consult or patient Sign Off request:
[2018-07-11] MEDS: NACL 0.9% 1000 ML 1,000 ML IV SCH (04:49)
--- NOTE | 2018-07-11 07:41 | Hem/Onc Progress Note ---
Assessment and Plan 1. Lung mass. 2. Hemoptysis. 3. Subcarinal lymph nodes. 4. This may be a neoplastic process in the lung. We will do CT abdomen, pelvis and CT head, which was also planned by the primary care. 5. Bronchoscopic versus CT-guided biopsy is being looked into. 6. We will do tumor markers. 7. History of hyperlipidemia. 8. On gout medications. 9. History of hypertension, on medications. I will follow the patient during inpatient stay and then in the clinic setting I discussed with him possibly being neoplastic process. Staging will guide some of our next step. 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 - CT abdo - only oral - and no IV contrast - d/w RN and pt 07/[address] Abdo Pelvis and CT head - no iv contrast - nil acute in head and abdo 07/03 - path pending of lung bx d/w pt reg OP follow up chemo - port - oral meds - PET CT - all these - once we have the path 07/04 - d/w pt reg path - NSCLC - squamous Rad onc consult Port d/w Dr Tanner 07/05- d/w dr tierney reg port placement 07/06 - XRT team and sx team following at this time there is no evidence of mets plan is to look into chemo - XRT 07/07 - xrt marking done port monday as per pt OP chemo 07/08 - pt says his ht 6 feet and wt 180 lbs - this is to find the dose of chemo - as OP port tomorrow pt aware that he will call his PCP for auth 07/09 - Port placement 07/10 - port placed pt says will be d/c today OP follow up advised 07/11 - d/w dr aguayo OP follow up o2 at home xrt as OP - Patient Problems (1) Lung mass Current Visit: Yes Status: Acute (2) Lung cancer Current Visit: Yes Status: Acute Subjective Date of service: 07/11/18 Principal diagnosis: lung ca Interval history: feeling better - on o2 Objective - Constitutional Vitals: Last Vital Signs Temp 98.3 F 07/11/18 05:05 Pulse 80 07/11/18 05:05 Resp 20 07/11/18 05:05 BP 111/55 07/11/18 05:05 Pulse Ox 94 07/11/18 05:05 Pain Intensity (0-10): denies any pain General appearance: no acute distress Performance status: 3-limited selfcare - EENT Eyes: EOM intact ENT: clear oral mucosa Lymph node exam: negative cervical - Neck Neck: normal ROM - Respiratory Respiratory effort: Positive: normal, other (on o2) Respiratory: bilateral: diminished - Cardiovascular Heart Sounds: Present: S1 & S2 Extremities: No edema - Gastrointestinal General gastrointestinal: Present: soft, non-tender Rectal Exam: deferred - Genitourinary Male genitourinary: Present: deferred - Integumentary Integumentary: warm - Musculoskeletal Musculoskeletal: strength equal bilaterally - Neurologic Neurologic: moves all extremities Medications & Allergies - Medications Allergies/Adverse Reactions: Allergies pollen extracts Allergy (Mild, Verified 06/28/18 16:42) Itching runny nose/watery eyes strawberry Allergy (Mild, Verified 06/28/18 16:42) Hives Home Medications: Home Medications Medication Instructions Recorded Confirmed Last Taken Type ALBUTEROL Inhaler (OR & NICU) 1 puff IH Q4H PRN 06/28/18 06/28/18 06/28/18 History [ProAir HFA Inhaler] Allopurinol [Zyloprim] 300 mg PO DAILY 06/28/18 06/28/18 1 Day Ago History ~06/27/18 AtorvaSTATin [Lipitor] 20 mg PO DAILY 06/28/18 06/28/18 1 Day Ago History ~06/27/18 Levocetirizine Dihydrochloride 5 mg PO DAILY 06/28/18 06/28/18 1 Week Ago History [Xyzal] ~06/21/18 Losartan/Hydrochlorothiazide 1 each PO QPM 06/28/18 06/28/18 1 Day Ago History [Losartan-Hctz 100-25 mg Tab] ~06/27/18 Metoprolol [Lopressor] 100 mg PO DAILY 06/28/18 06/28/18 1 Day Ago History ~06/27/18 amLODIPine [Norvasc] 10 mg PO DAILY 06/28/18 06/28/18 1 Day Ago History ~06/27/18 predniSONE [Deltasone] 20 mg PO DAILY 06/28/18 06/28/18 06/28/18 History Active Medications: Generic Name Dose Route Start Last Admin Trade Name Freq PRN Reason Stop Dose Admin Acetaminophen/Hydrocodone Bitart 1 each 07/09/18 09:00 [place] 5/325 PO Q6H PRN Pain, Moderate (4-6) Al Hydrox/Mg Hydrox/Simethicone 30 ml 07/08/18 17:43 07/08/18 22:22 Alum-Mag Hydrox-Simeth 504-045-72ej/5ml PO 30 ml Q4H PRN Administration Indigestion Albuterol 2.5 mg 06/30/18 11:01 06/30/18 17:27 Proventil IH 2.5 mg Q4HRT PRN Administration Shortness Of Breath Allopurinol 300 mg 06/28/18 21:00 07/10/18 09:32 Zyloprim PO 300 mg DAILY TRISTAN Administration Amlodipine Besylate 10 mg 06/28/18 21:00 07/10/18 09:32 Norvasc PO 10 mg DAILY TRISTAN Administration Arformoterol Tartrate 15 mcg 06/30/18 20:00 07/10/18 19:40 Brovana Nebu IH 15 mcg Q12HRT TRISTAN Administration Atorvastatin Calcium 20 mg 06/28/18 20:45 07/10/18 09:32 Lipitor PO 20 mg DAILY TRISTAN Administration Budesonide 0.5 mg 06/30/18 20:00 07/10/18 19:40 Pulmicort IH 0.5 mg Q12HRT TRISTAN Administration Levofloxacin/Dextrose 750 mg in 150 mls @ 100 mls/hr 07/08/18 11:00 07/10/18 12:22 Levaquin 750mg/150ml IV 100 mls/hr Q24H TRISTAN Administration Protocol Sodium Chloride 1,000 mls @ 75 mls/hr 07/09/18 09:00 07/11/18 04:49 Nacl 0.9% 1000 Ml IV 75 mls/hr DIRECT TRISTAN Administration Labetalol HCl 200 mg 07/01/18 16:00 07/10/18 22:30 Normodyne PO 200 mg BID TRISTAN Administration Methylprednisolone Sodium Succinate 40 mg 07/10/18 10:00 07/10/18 09:33 Solu-Medrol IV 40 mg Q24HR TRISTAN Administration Metoprolol Tartrate 100 mg 06/28/18 21:00 07/10/18 09:31 Lopressor PO 100 mg DAILY TRISTAN Administration Miscellaneous Medication 5 mg 06/28/18 20:45 07/05/18 16:12 Levocetirizine Dihydrochloride [Xyzal] PO Not Given DAILY [facility] Sodium Polystyrene Sulfonate 15 gm 07/09/18 14:10 Kionex PO Q6HR PRN Hyperkalemia
[2018-07-11] MEDS: PULMICORT IH SCH (08:11)
[2018-07-11] MEDS: BROVANA NEBU IH SCH (08:11)
[2018-07-11] MEDS: NORMODYNE PO SCH (09:54)
[2018-07-11] MEDS: ZYLOPRIM PO SCH (09:54)
[2018-07-11] MEDS: NORVASC PO SCH (09:55)
[2018-07-11] MEDS: SOLU-Medrol IV SCH (09:55)
[2018-07-11 09:57] VITALS: BP 132/63
[2018-07-11] MEDS: LOPRESSOR PO SCH (09:57)
--- NOTE | 2018-07-11 10:26 | Discharge Summary ---
Providers - Providers Date of Admission: 06/28/18 11:50 Date of discharge: 07/11/18 Attending physician: LEYDI CHRISTIE 06/29/18 06:21 Consult to Physician [CONS] Routine Comment: Consulting Provider: LASHELL ENAMORADO Physician Instructions: Reason For Exam: Rt lung mass/COPD 06/30/18 14:26 Consult to Physician [CONS] Routine Comment: Consulting Provider: DESTINI DALY Physician Instructions: Reason For Exam: RLL mass 07/01/18 12:01 Consult to Physician [CONS] Routine Comment: Consulting Provider: QUIN MOSLEY Physician Instructions: Reason For Exam: DIAZ 07/04/18 07:35 Consult to Physician [CONS] Routine Comment: Consulting Provider: FELICIA LINARES Physician Instructions: Reason For Exam: lung cancer 07/04/18 22:14 Consult to Physician [CONS] Routine Comment: Consulting Provider: MARIBELL RODRIGUEZ Physician Instructions: lung ca - - for chemo Reason For Exam: PORT 07/10/18 12:01 Physical Therapy Evaluation and Treat [CONS] Routine Comment: Reason For Exam: Gen weakness [facility] Condition: [facility] Hospital course: Patient is 67 y/o male presented to the ED in Feb after coughing some blood while playing basketball. CXR showed large right lower lobe mass but rest of lung was clear. Patient was set up for outpatient follow up with Dr. Mckeon but he was ill and had to cancel and Rescheduled. But came to ED this time with more hemoptysis, SOB and generalized weakness. He had Has lost about 5 lbs weight in the last month. He had been a smoker for about 25 years but quit recently. He was admitted for COPD exacerbation and lung biopsy. Lung biopsy was done on 07/02/18, revealed squamous cell cancer. He has been started on radiation therapy, placed Port-a- cath . He was re-evaluated on 07/11/18, his Oxygen sat was 95% on 3l/min Oxygen so was discharged home to follow as outpatient. Total time spent on discharge, 32 mins Disposition: [id number] HOME UNDER HOME HLTH - Discharge Diagnoses (1) Acute respiratory failure Status: Acute (2) Acute respiratory failure with hypoxemia Status: Acute (3) COPD exacerbation Status: Acute (4) Lung cancer Status: Acute (5) DIAZ (acute kidney injury) Status: Acute (6) Vasomotor nephropathy Status: Acute (7) Leukocytosis Status: Acute Core Measure Documentation - Palliative Care Palliative Care/ Comfort Measures: Not Applicable - Core Measures Any of the following diagnoses?: none Exam - Physical Exam Narrative exam: GEN: Not in acute distress, lying in bed, Oxygen by NC HEENT: Normocephalic, atraumatic, Neck: supple, No JVD heart: S1 and S2 reg, no murmurs, rubs or gallop Lungs: Clear to auscultation bilaterally, no wheeze Abd:soft, non tender, non distended, normal bowel sounds Ext: No edema,no clubbing, no cyanosis, Neuro:Awake,alert,oriented X 3, no focal signs, moves all ext Psych: normal mood - Constitutional Vitals: Temp Pulse Resp BP Pulse Ox 98.3 F 84 20 132/63 95 07/11/18 05:05 07/11/18 08:32 07/11/18 08:32 07/11/18 09:57 07/11/18 08:11 Plan Activity: advance as tolerated Diet: regular Additional Instructions: 1.Follow up with PCP in 3-5 days. 2.Follow up with DR. Daly, Oncology in 2-3 days. 3.Follow up with Radiation therapy today 07/11/18. 4.Continue Home Oxygen at 3l/min. 5.Follow up with Amauri Lopez in 1 week Follow up with: [facility] RASHID [Primary Care Provider] - 7 Days Prescriptions: Prednisone [predniSONE 5 mg (6-Day Pack, 21 Tabs)] 5 mg PO .TAPER #1 tab.ds.pk
[2018-07-11] MEDS: LEVAQUIN 750MG/150ML 750 MG/150 ML BAG IV SCH (10:33)
--- NOTE | 2018-07-11 16:16 | Progress Note ---
Assessment and Plan 67 y/o male with right sided lung mass and hemoptysis. Imp: 1. Lung mass -> NSCLC 2. Hemoptysis 3. Acute respiratory failure, hypoxia 4. Centrilobular/bullous emphysema 5. DIAZ Rec: 1. Levaquin x 10 days, Bronchodilators At discharge send out on Prednisone 40 daily for 2 days, 30 daily for 4 days, 20 daily for 4 days then 10 daily for 4 days then stop. 2. Oncology and Rad/Onc Following. 3. Home O2 eval. needed 4. Outpatient PFTs -> f/u with us 1 week after d/c ([place]) Will need full PFT and 6 minute walk as well as baseline CXR 5. Try to ambulate 6. Incentive spirometry 7. No objection to discharge from a pulmonary standpoint. Subjective Date of service: 07/11/18 Principal diagnosis: lung ca Interval history: Being discharged today. Objective Vital Signs - 12hr 07/11/18 07/11/18 07/11/18 05:05 08:11 08:32 Temperature 98.3 F Pulse Rate 80 Pulse Rate [ 85 84 Anterior Bilateral Throughout] Respiratory 20 Rate Respiratory 18 20 Rate [Anterior Bilateral Throughout] Blood Pressure 111/55 O2 Sat by Pulse 94 95 Oximetry 07/11/18 07/11/18 07/11/18 09:54 09:55 09:57 Temperature Pulse Rate Pulse Rate [ Anterior Bilateral Throughout] Respiratory Rate Respiratory Rate [Anterior Bilateral Throughout] Blood Pressure 132/63 132/63 132/63 O2 Sat by Pulse Oximetry Constitutional: no acute distress, alert Eyes: non-icteric ENT: oropharynx moist Neck: supple Effort: normal Ascultation: Right: diminished breath sounds (base), Bilateral: clear, wheezes (occasional) Percussion: Bilateral: not dull Tactile fremitus: Bilateral: normal Cardiovascular: regular rate and rhythm (no mrg) Gastrointestinal: normoactive bowel sounds, non-tender Extremities: no cyanosis, no edema, pink and warm, pulses normal Neurologic: normal mental status, non-focal exam, pupils equal and round, CN II- XII normal Psychiatric: mood appropriate, affect normal CBC and BMP: 07/10/18 05:53 07/10/18 05:53 ABG, PT/INR, D-dimer: PT/INR, D-dimer PT 13.0 Sec. (12.2-14.9) 07/09/18 04:17 INR 0.93 (0.87-1.13) 07/09/18 04:17 Abnormal lab findings: Abnormal Labs 06/28/18 06/28/18 06/29/18 10:02 10:02 13:35 WBC 17.1 H RBC Hct RDW 15.8 H Lymph % (Auto) 9.9 L Lymph # Ada # 0.9 H Seg Neutrophils % 84.0 H Seg Neuts % (Manual) Lymphocytes % (Manual) Seg Neutrophils # 14.4 H Seg Neutrophils # Man Lymphocytes # (Manual) APTT 20.0 L Sodium Potassium Chloride BUN 23 H Creatinine Glucose 125 H POC Glucose Calcium Total Creatine Kinase 43 L Urine Creatinine 07/01/18 07/01/18 07/01/18 09:36 09:36 19:46 WBC 17.9 H RBC 5.20 H Hct 45.7 H RDW 16.6 H Lymph % (Auto) Lymph # Ada # Seg Neutrophils % Seg Neuts % (Manual) 92.0 H Lymphocytes % (Manual) 5.0 L Seg Neutrophils # Seg Neutrophils # Man 16.5 H Lymphocytes # (Manual) 0.9 L APTT Sodium Potassium Chloride 95.9 L BUN 47 H Creatinine 1.9 H Glucose 191 H POC Glucose Calcium 10.6 H Total Creatine Kinase Urine Creatinine 58.9 H 07/02/18 07/03/18 07/03/18 05:56 04:40 04:40 WBC 13.1 H RBC Hct RDW 16.6 H Lymph % (Auto) Lymph # Ada # Seg Neutrophils % Seg Neuts % (Manual) 95.0 H Lymphocytes % (Manual) 3.0 L Seg Neutrophils # Seg Neutrophils # Man 12.4 H Lymphocytes # (Manual) 0.4 L APTT Sodium Potassium Chloride BUN 40 H 31 H Creatinine Glucose 207 H 187 H POC Glucose Calcium Total Creatine Kinase Urine Creatinine 07/04/18 07/05/18 07/06/18 06:07 04:31 06:09 WBC RBC Hct RDW Lymph % (Auto) Lymph # Ada # Seg Neutrophils % Seg Neuts % (Manual) Lymphocytes % (Manual) Seg Neutrophils # Seg Neutrophils # Man Lymphocytes # (Manual) APTT Sodium Potassium 5.1 H Chloride BUN 26 H 27 H 25 H Creatinine Glucose 186 H 206 H 220 H POC Glucose Calcium Total Creatine Kinase Urine Creatinine 07/07/18 07/08/18 07/09/18 22:11 07:00 04:17 WBC 17.5 H RBC Hct RDW 15.8 H Lymph % (Auto) Lymph # Ada # Seg Neutrophils % Seg Neuts % (Manual) 96.0 H Lymphocytes % (Manual) 1.0 L Seg Neutrophils # Seg Neutrophils # Man 16.8 H Lymphocytes # (Manual) 0.2 L APTT Sodium 136 L Potassium Chloride 95.5 L BUN 24 H Creatinine Glucose 224 H POC Glucose 235 H Calcium Total Creatine Kinase Urine Creatinine 07/09/18 07/09/18 07/10/18 04:17 07:14 05:53 WBC 12.9 H RBC Hct 35.1 L RDW 16.0 H Lymph % (Auto) 4.2 L Lymph # 0.5 L Ada # 0.9 H Seg Neutrophils % 88.5 H Seg Neuts % (Manual) Lymphocytes % (Manual) Seg Neutrophils # 11.4 H Seg Neutrophils # Man Lymphocytes # (Manual) APTT Sodium 132 L Potassium 5.5 H Chloride 96.1 L BUN 26 H Creatinine Glucose 261 H POC Glucose 222 H Calcium Total Creatine Kinase Urine Creatinine 07/10/18 05:53 WBC RBC Hct RDW Lymph % (Auto) Lymph # Ada # Seg Neutrophils % Seg Neuts % (Manual) Lymphocytes % (Manual) Seg Neutrophils # Seg Neutrophils # Man Lymphocytes # (Manual) APTT Sodium 135 L Potassium Chloride BUN Creatinine Glucose 163 H POC Glucose Calcium Total Creatine Kinase Urine Creatinine
[2018-07-12] MEDS ORDERED: LEVAQUIN PO SCH (10:00)
== END 2018-07-11 13:50 | disposition home health service (06) | DRG 180 ==
LOC: ED 09:53 → 3A 11:50
PROVIDERS: ADMIT Internal Medicine; ATTEND Internal Medicine
PROC: 0BBF3ZX Excision of Right Lower Lung Lobe, Percutaneous Approach, Diagnostic (ICD-10-PCS; principal; 2018-07-02)
PROC: 0JH63XZ Insertion of Tunneled Vascular Access Device into Chest Subcutaneous Tissue and Fascia, Percutaneous Approach (ICD-10-PCS; 2018-07-09)
PROC: 02HV33Z Insertion of Infusion Device into Superior Vena Cava, Percutaneous Approach (ICD-10-PCS; 2018-07-09)
PROC: B5181ZA Fluoroscopy of Superior Vena Cava using Low Osmolar Contrast, Guidance (ICD-10-PCS; 2018-07-09)
PROC: B548ZZA Ultrasonography of Superior Vena Cava, Guidance (ICD-10-PCS; 2018-07-09)
DX: C34.31 Malignant neoplasm of lower lobe, right bronchus or lung (principal); J96.01 Acute respiratory failure with hypoxia; J44.1 Chronic obstructive pulmonary disease with (acute) exacerbation; R04.2 Hemoptysis; N17.9 Acute kidney failure, unspecified; M10.9 Gout, unspecified; E78.5 Hyperlipidemia, unspecified; Z91.018 Allergy to other foods; Z79.51 Long term (current) use of inhaled steroids; Z79.899 Other long term (current) drug therapy; Z87.891 Personal history of nicotine dependence
CPT/HCPCS: 36415; 70450; 71045; 71275; 74176; 77001; 77012; 80048; 80053; 81001; 82140; 82378; 82550; 82553; 82570; 82962; 83735; 83880; 84100; 84132; 84300; 84484; 85007; 85025; 85610; 85730; 86301; 88173; 88305; 88333; 88341; 88342; 89050; 93005; 93010; 94640; 94760; 96365; 96366; 96367; 96375; G0378; A9270-GY; C1788; J0690; J0692; J1644; J1956; J2250; J2704; J2930; J3010; J3246; J3475; J7030; J7040; J7050; J7120; J7512; Q9967

== ENCOUNTER 2018-08-02 02:19 | Emergency (ER) | payer MEDICARE ==
--- NOTE | 2018-08-02 02:50 | Emergency Department Report ---
ED Male HPI - General Chief complaint: Urogenital-Male Stated complaint: UNABLE TO URINATE Source: patient, RN notes reviewed, old records reviewed Mode of arrival: Ambulatory Limitations: No Limitations - History of Present Illness Initial comments: This is a 68-year-old gentleman. His past medical history includes newly diagnosed lung cancer, currently in outpatient chemotherapy, left-sided Port-A-Cath, questionable COPD. His oncologist is Dr. Daly The patient presents to the emergency room today with a complaint of inability to urinate. The symptoms have been going on for around 5 hours prior to arrival in the emergency room. This is never happened to the patient before. He denies headache, neck pain, chest pain, he initially had suprapubic abdominal pain, which is now resolved, and had mid lower back pain, which was throbbing and aching in nature, and is now basically resolved. His symptoms were basically improved with placement of a Gaspar catheter. The patient reports no testicular pain, no irritative urinary symptoms. The patient had a CT scan of the abdomen and pelvis 07/01/2018, symptoms started no acute intra-abdominal findings, a large lobulated right lower lobe mass. The patient reports no recent sexual activity. He does not have a private urologist. This has never happened to him in the past. MD Complaint: other -: Sudden, hour(s) Radiation: none Severity: severe Consistency: now resolved (result with placement of Gaspar catheter) Improves with: other Worsens with: urination urinary retention - Related Data Sexually active: No Home Medications Medication Instructions Recorded Confirmed Last Taken ALBUTEROL Inhaler (OR & NICU) 1 puff IH Q4H PRN 06/28/18 06/28/18 06/28/18 [ProAir HFA Inhaler] Allopurinol [Zyloprim] 300 mg PO DAILY 06/28/18 06/28/18 1 Day Ago ~06/27/18 AtorvaSTATin [Lipitor] 20 mg PO DAILY 06/28/18 06/28/18 1 Day Ago ~06/27/18 Levocetirizine Dihydrochloride 5 mg PO DAILY 06/28/18 06/28/18 1 Week Ago [Xyzal] ~06/21/18 Losartan/Hydrochlorothiazide 1 each PO QPM 06/28/18 06/28/18 1 Day Ago [Losartan-Hctz 100-25 mg Tab] ~06/27/18 Metoprolol [Lopressor TAB] 100 mg PO DAILY 06/28/18 06/28/18 1 Day Ago ~06/27/18 amLODIPine [Norvasc] 10 mg PO DAILY 06/28/18 06/28/18 1 Day Ago ~06/27/18 Previous Rx's Medication Instructions Recorded Last Taken Type Prednisone [predniSONE 5 mg (6-Day 5 mg PO .TAPER #1 tab.ds.pk 07/11/18 Unknown Rx Pack, 21 Tabs)] Magnesium Oxide [Magnesium] 400 mg PO BID #14 tablet 08/02/18 Unknown Rx Allergies Allergy/AdvReac Type Severity Reaction Status Date / Time pollen extracts Allergy Mild Itching Verified 06/28/18 16:42 strawberry Allergy Mild Hives Verified 06/28/18 16:42 ED Review of Systems ROS: Stated complaint: UNABLE TO URINATE Other details as noted in HPI Constitutional: denies: fever, malaise Eyes: denies: eye discharge ENT: denies: epistaxis Respiratory: denies: cough Cardiovascular: denies: chest pain Gastrointestinal: abdominal pain. denies: vomiting Genitourinary: other. denies: urgency, dysuria, frequency, hematuria, testicular pain Musculoskeletal: back pain Skin: denies: lesions Neurological: weakness Psychiatric: anxiety ED Past Medical Hx - Past Medical History Previous Medical History?: Yes Hx Hypertension: Yes Hx Heart Attack/AMI: No Hx Diabetes: Yes (prediabetes) Hx Renal Disease: Yes (DIAZ, hyperkalemia) Hx Seizures: No Hx Kidney Stones: Yes (at 14y/o) Hx COPD: Yes Hx HIV: No Additional medical history: Right lung mass, Chemo, Radiation - Surgical History Past Surgical History?: Yes Additional Surgical History: port right chest - Social History Smoking Status: Former Smoker Substance Use Type: None - Medications Home Medications: Home Medications Medication Instructions Recorded Confirmed Last Taken Type ALBUTEROL Inhaler (OR & NICU) 1 puff IH Q4H PRN 06/28/18 06/28/18 06/28/18 History [ProAir HFA Inhaler] Allopurinol [Zyloprim] 300 mg PO DAILY 06/28/18 06/28/18 1 Day Ago History ~06/27/18 AtorvaSTATin [Lipitor] 20 mg PO DAILY 06/28/18 06/28/18 1 Day Ago History ~06/27/18 Levocetirizine Dihydrochloride 5 mg PO DAILY 06/28/18 06/28/18 1 Week Ago History [Xyzal] ~06/21/18 Losartan/Hydrochlorothiazide 1 each PO QPM 06/28/18 06/28/18 1 Day Ago History [Losartan-Hctz 100-25 mg Tab] ~06/27/18 Metoprolol [Lopressor TAB] 100 mg PO DAILY 06/28/18 06/28/18 1 Day Ago History ~06/27/18 amLODIPine [Norvasc] 10 mg PO DAILY 06/28/18 06/28/18 1 Day Ago History ~06/27/18 Prednisone [predniSONE 5 mg (6-Day 5 mg PO .TAPER #1 tab.ds.pk 07/11/18 Unknown Rx Pack, 21 Tabs)] Magnesium Oxide [Magnesium] 400 mg PO BID #14 tablet 08/02/18 Unknown Rx ED Physical Exam - General Limitations: No Limitations General appearance: alert, in no apparent distress - Head Head exam: Present: atraumatic, normocephalic - Eye Eye exam: Present: normal appearance, EOMI. Absent: nystagmus - ENT ENT exam: Present: normal exam, normal orophraynx, mucous membranes moist, normal external ear exam - Neck Neck exam: Present: normal inspection, full ROM. Absent: tenderness, meningismus - Respiratory Respiratory exam: Present: normal lung sounds bilaterally, other (there is a left-sided Port-A-Cath noted, no redness, pus or streaking). Absent: respiratory distress, chest wall tenderness - Cardiovascular Cardiovascular Exam: Present: normal rhythm, tachycardia, normal heart sounds. Absent: systolic murmur, diastolic murmur, rubs, gallop - GI/Abdominal GI/Abdominal exam: Present: soft. Absent: distended, tenderness, guarding, rebound, rigid, pulsatile mass - Rectal Rectal exam: Present: deferred - exam: Present: normal inspection, other (chaperoned by nurse Keturah Martinez). Absent: testicular tenderness External exam: Present: normal external exam, other (there is no testicular tenderness. There is normal testicular lie bilaterally. There is normal cremasteric reflex bilaterally.) - Extremities Exam Extremities exam: Present: normal inspection (chronic appearing Ecchymosis noted on the upper extremities. These are painless.), full ROM, other (2+ pulses noted in the bilateral upper, lower extremities. Compartments soft. No long bony tenderness. The pelvis is stable.). Absent: calf tenderness - Back Exam Back exam: Present: normal inspection - Neurological Exam Neurological exam: Present: alert, other (Extraocular movements intact. Tongue midline. No facial droop. Facial sensation intact to light touch in the V1, V2, V3 distribution bilaterally. 5 and 5 strength in 4 extremities.. Sensation is intact to light touch in 4 extremities.). Absent: motor sensory deficit - Psychiatric Psychiatric exam: Present: anxious - Skin Skin exam: Present: warm ED Course Vital Signs 08/02/18 08/02/18 02:33 03:30 Temperature 97.4 F L Pulse Rate 136 H 114 H Respiratory 20 15 Rate Blood Pressure 122/79 127/74 O2 Sat by Pulse 96 98 Oximetry - Reevaluation(s) Reevaluation #1: 08/02/18 03:52 Differential diagnosis, including not limited to: Hypervolemic hypernatremia, obstructive uropathy, BPH, prostatic malignancy Assessment and plan: 68-year-old gentleman with resolved urinary retention. The patient is afebrile with reassuring vital signs with the exception of tachycardia. This may be secondary to pain, anxiety Laboratories show mild hyponatremia. Patient does not appear to have forward fluid overload, he does not have crackles, he does not have rales. He will be given a trial bolus of IV fluids. May also be a component of his underlying lung malignancy. Given his complaint of back pain, we will obtain a noncontrast CT scan of the abdomen and pelvis. He is counseled that he will be discharged with a leg bag, attached to the Gaspar catheter, and he is counseled to follow up with an outpatient urologist for outpatient trial of void, and to exclude a prostatic cancer, tumor, malignancy. The patient verbalizes understanding. He has a follow-up appointment later on today with his palliative care nurse practitioner for his routine outpa tient lung cancer treated. 08/02/18 05:37 Reevaluation #2: 08/02/18 05:35 CT scan of the abdomen and pelvis is negative for acute disease. Patient is somewhat anxious, heart rate goes as low as 105 bpm, and is currently at 107 bpm. The patient has follow-up with his hematology oncologist later on today. The patient can follow up with primary care doctor palliative care nurse practitioner hot stone setter specialist for repeat Evaluation of potassium and magnesium. ED Medical Decision Making - Lab Data Result diagrams: 08/02/18 02:59 08/02/18 02:59 Vital Signs 08/02/18 08/02/18 02:33 03:30 Temperature 97.4 F L Pulse Rate 136 H 114 H Respiratory 20 15 Rate Blood Pressure 122/79 127/74 O2 Sat by Pulse 96 98 Oximetry Lab Results 08/02/18 08/02/18 08/02/18 Range/Units 02:59 02:59 03:09 WBC 5.1 (4.5-11.0) K/mm3 RBC 3.28 L (3.65-5.03) M/mm3 Hgb 9.6 L (11.8-15.2) gm/dl Hct 27.8 L (35.5-45.6) % MCV 85 (84-94) fl MCH 29 (28-32) pg MCHC 34 (32-34) % RDW 16.0 H (13.2-15.2) % Plt Count 381 (140-440) K/mm3 Sodium 125 L (137-145) mmol/L Potassium 4.3 (3.6-5.0) mmol/L Chloride 88.2 L (98-107) mmol/L Carbon Dioxide 20 L (22-30) mmol/L Anion Gap 21 mmol/L BUN 11 (9-20) mg/dL Creatinine 1.1 (0.8-1.5) mg/dL Estimated GFR > 60 ml/min BUN/Creatinine Ratio 10 % Glucose 146 H (75-100) mg/dL Calcium 8.5 (8.4-10.2) mg/dL Urine Color Straw (Yellow) Urine Turbidity Clear (Clear) Urine pH 6.0 (5.0-7.0) Ur Specific [place] 1.005 (1.003-1.030) Urine Protein <15 mg/dl (Negative) mg/dL Urine Glucose (UA) Neg (Negative) mg/dL Urine Ketones Tr (Negative) mg/dL Urine Blood Neg (Negative) Urine Nitrite Neg (Negative) Urine Bilirubin Neg (Negative) Urine Urobilinogen < 2.0 (<2.0) mg/dL Ur Leukocyte Esterase Neg (Negative) Urine WBC (Auto) 3.0 (0.0-6.0) /HPF Urine RBC (Auto) 3.0 (0.0-6.0) /HPF U Epithel Cells (Auto) < 1.0 (0-13.0) /HPF Amorphous Crystals 1+ Hyaline Casts 1 /LPF - Radiology Data Radiology results: report reviewed, image reviewed Print Report Referring Physician: LEYDI GONZALES Patient Name: JEIMY GALVEZ Date of : 1950 Sex: Male Report Date: 2018-08-02 Report Status: Finalized Findings [facility] [address] [place] [address] Cat Scan Report Signed Patient: JEIMY GALVEZ MR#: [id number] : 1950 Acct:[id number] Age/Sex: 68 / M ADM Date: 08/02/18 Loc: ED Attending Dr: Ordering Physician: LEYDI GONZALES MD Date of Service: 08/02/18 Procedure(s): CT abdomen pelvis wo con Accession Number(s): [id number] cc: LEYDI GONZALES MD PROCEDURE: CT ABDOMEN PELVIS WO CON TECHNIQUE: Computerized axial tomography of the abdomen and pelvis was performed without intravenous contrast. This study is performed without intravascular contrast material and its sensitivity for abdominal and pelvic pathology, including neoplasms, inflammation, abscess, free fluid, thrombosis, arterial dissection and infarction, is reduced compared with a contrast enhanced study. CT DOSE LENGTH PRODUCT: mGycm HISTORY: back pain urinary retention COMPARISONS: 07/01/2018 . FINDINGS: Visualized lower thorax: There is a complex pleural based mass at the right lung base which is slightly smaller than on the prior study.. Liver: Normal size and attenuation. Spleen: Normal size and attenuation. Gallbladder and biliary system: Normal. Pancreas: Normal. Adrenals: Normal. Kidneys: There are bilateral kidney cysts. There are no kidney stones. There is no hydronephrosis.. GI tract: There is no bowel obstruction. There is mucosal thickening of the stomach antrum suggesting possible gastritis. The appendix is normal. . Lymph nodes and mesentery: Normal. Vasculature: Normal.. Bladder: There is a Gaspar catheter in urinary bladder.. Reproductive organs: Normal. Peritoneum: There is no ascites, free air, abscess or adenopathy.. Musculoskeletal structures: No significant abnormality. IMPRESSION: There is a complex pleural based mass at the right lung base which is slightly smaller than on the prior study.. There are bilateral kidney cysts. There are no kidney stones. There is no hydronephrosis.. There is no bowel obstruction. There is mucosal thickening of the stomach antrum suggesting possible gastritis. The appendix is normal. . There is a Gaspar catheter in urinary bladder.. There is no ascites, free air, abscess or adenopathy.. . This document is electronically signed by Hosea Ventura MD., August 02 2018 05:25:09 AM ET Transcribed By: CO Dictated By: HOSEA VENTURA MD Electronically Authenticated By: HOSEA VENTURA MD Signed Date/Time: 08/02/18 0527 DD/ [id number] TD/TT: 08/02/18 0429 Critical Care Time: Yes Critical care time in (mins) excluding proc time.: 35 Critical care attestation.: If time is entered above; I have spent that time in minutes in the direct care of this critically ill patient, excluding procedure time. Critical Care Time: Critical care time includes interpretation of laboratory studies, radiology studies, multiple bedside evaluations, and time spent managing a patient with hypomagnesemia, requiring magnesium infusion, which in turn requires cardiac monitoring. This does not include procedure time. ED Disposition Clinical Impression: Urinary retention, Lung mass, Hypomagnesemia Disposition: -01 TO HOME OR SELFCARE Is pt being admited?: No Does the pt Need Aspirin: No Condition: Stable Instructions: Urinary Retention in Men (ED) Additional Instructions: Cultures were sent today, and results be available in the next 3-5 days. Have a primary care doctor contact the medical records department to obtain culture results. Keep the Gasapr catheter in place, attached to the leg bag. Follow up with a urology specialist within the next 7-10 days. Patient will need to follow-up with a urologist for outpatient trial of void, and for further outpatient evaluation to exclude prostate cancer, tumor, malignancy. Continue current outpatient chemotherapy, radiation therapy as scheduled with your outpatient palliative care nurse practitioner, return to the emergency room right away with new pain, worsening pain, migration of pain, projectile vomiting, change in mental status, confusion, inability to tolerate liquid feeds, new, worsening or different symptoms. Laboratory studies today demonstrated decreased magnesium, and decreased sodium levels. Please have this rechecked, followed up by either primary care doctor or hematology oncology physician within the next 72 hours. Potassium supplementation as directed. Prescriptions: Magnesium Oxide [Magnesium] 400 mg PO BID #14 tablet Referrals: PRIMARY CAREMD [Referring] - 3-5 Days BONILLA RAMIRES MD [Staff Physician] - 3-5 Days [facility] [Provider Group] - 3-5 Days
[2018-08-02] MEDS ORDERED: NACL 0.9% 1000 ML 1,000 ML IV ONE (03:24)
[2018-08-02 03:25] LABS: Hematocrit 27.8 % (35.5-45.6); Hemoglobin 9.6 gm/dl (11.8-15.2); Mean Corpuscular HGB Conc 34 % (32-34); Mean Corpuscular Volume 85 fl (84-94); Red Blood Count 3.28 M/mm3 (3.65-5.03)
[2018-08-02 03:26] LABS: Platelet Count 381 K/mm3 (140-440)
[2018-08-02 03:42] LABS: Amorphous Crystals,Urine 1+; Bilirubin,Urine NEG (Negative); Blood,Urine NEG (Negative); Color,Urine Straw (Yellow); Hyaline Casts,Urine 1 /LPF; Protein,Urine <15 mg/dL mg/dL (Negative); Urobilinogen,Urine < 2.0 mg/dL (<2.0)
[2018-08-02 03:46] LABS: BUN/Creatinine Ratio 10; Blood Urea Nitrogen 11 mg/dL (9-20); Calcium 8.5 mg/dL (8.4-10.2); Hemolysis Index 2
[2018-08-02] MEDS ORDERED: MAGNESIUM SULFATE 2GM/50ML 2 GM/50 ML BAG IV ONE (04:34)
[2018-08-02] MEDS ORDERED: MAGNESIUM SULFATE 1 GM in NACL 0.9% 50 ML IV ONE (04:34)
--- NOTE | 2018-08-02 05:27 | Cat Scan Report ---
PROCEDURE: CT ABDOMEN PELVIS WO CON TECHNIQUE: Computerized axial tomography of the abdomen and pelvis was performed without intravenous contrast. This study is performed without intravascular contrast material and its sensitivity for ab dominal and pelvic pathology, including neoplasms, inflammation, abscess, free fluid, thrombosis, art erial dissection and infarction, is reduced compared with a contrast enhanced study. CT DOSE LENGTH PRODUCT: mGycm HISTORY: back pain urinary retention COMPARISONS: 07/01/2018 . FINDINGS: Visualized lower thorax: There is a complex pleural based mass at the right lung base which is slight ly smaller than on the prior study.. Liver: Normal size and attenuation. Spleen: Normal size and attenuation. Gallbladder and biliary system: Normal. Pancreas: Normal. Adrenals: Normal. Kidneys: There are bilateral kidney cysts. There are no kidney stones. There is no hydronephrosis.. GI tract: There is no bowel obstruction. There is mucosal thickening of the stomach antrum suggestin g possible gastritis. The appendix is normal. . Lymph nodes and mesentery: Normal. Vasculature: Normal.. Bladder: There is a Gaspar catheter in urinary bladder.. Reproductive organs: Normal. Peritoneum: There is no ascites, free air, abscess or adenopathy.. Musculoskeletal structures: No significant abnormality. IMPRESSION: There is a complex pleural based mass at the right lung base which is slightly smaller than on the pr ior study.. There are bilateral kidney cysts. There are no kidney stones. There is no hydronephrosis.. There is no bowel obstruction. There is mucosal thickening of the stomach antrum suggesting possible gastritis. The appendix is normal. . There is a Gaspar catheter in urinary bladder.. There is no ascites, free air, abscess or adenopathy.. . This document is electronically signed by Hosea Howard MD., August 02 2018 05:25:09 AM ET
[2018-08-02 07:21] VITALS: BP 143/71
== END 2018-08-02 07:21 | disposition home or self-care (01) ==
LOC: ED 02:19
DX: R33.9 Retention of urine, unspecified (principal); R91.8 Other nonspecific abnormal finding of lung field; E83.42 Hypomagnesemia; I10 Essential (primary) hypertension; E11.9 Type 2 diabetes mellitus without complications
CPT/HCPCS: 36415; 51702; 74176; 80048; 81001; 82550; 83735; 85027; 87086; 96365; 96368; 99291; J3475; J7030

== ENCOUNTER 2018-08-08 15:52 | Inpatient (IN) | payer MEDICARE ==
[2018-08-08] MEDS ORDERED: NACL 0.9% 1000 ML IV ONE (16:39)
--- NOTE | 2018-08-08 16:45 | Emergency Department Report ---
HPI - General Chief Complaint: Dyspnea/Respdistress Time Seen by Provider: 08/08/18 16:32 - HPI HPI: 68-year-old male presents to the emergency department with complaint of shortness of breath, productive cough and a syncopal episode. The patient was just here last week and discharged on Monday, 4 days ago, after he was here for shortness of breath and hematemesis. He was found to have a bleeding ulcer. He has a past medical history of lung cancer and COPD. He is a former smoker but denies any illicit drug use. He was at the clinic today to get his chemotherapy when he says that he became very short of breath and passed out. He arrives via EMS and did not have any treatment prior to arrival. No recent travel. He presents with a low-grade fever but denies feeling feverish. A code sepsis was initiated. ED Past Medical Hx - Past Medical History Previous Medical History?: Yes Hx Hypertension: Yes Hx Heart Attack/AMI: No Hx Congestive Heart Failure: Yes Hx Diabetes: Yes (prediabetes) Hx Renal Disease: Yes (DIAZ, hyperkalemia) Hx of Cancer: Yes (lung cancer) Hx Arthritis: No Hx Seizures: No Hx Kidney Stones: Yes (at 14y/o) Hx Asthma: No Hx COPD: Yes Hx HIV: No Additional medical history: Right lung mass, Chemo, Radiation - Surgical History Past Surgical History?: No Additional Surgical History: port right chest - Social History Smoking Status: Former Smoker - Medications Home Medications: Home Medications Medication Instructions Recorded Confirmed Last Taken Type ALBUTEROL Inhaler (OR & NICU) 2 puff IH Q4H PRN 06/28/18 08/08/18 06/28/18 History [ProAir HFA Inhaler] Allopurinol [Zyloprim] 300 mg PO DAILY 06/28/18 08/08/18 1 Day Ago History ~06/27/18 AtorvaSTATin [Lipitor] 20 mg PO DAILY 06/28/18 08/08/18 1 Day Ago History ~06/27/18 Losartan/Hydrochlorothiazide 1 each PO DAILY 06/28/18 08/08/18 1 Day Ago History [Losartan-Hctz 100-25 mg Tab] ~06/27/18 amLODIPine [Norvasc] 10 mg PO DAILY 06/28/18 08/08/18 1 Day Ago History ~06/27/18 Metoprolol Xl [Metoprolol 100 mg PO QDAY 08/08/18 08/08/18 Unknown History SUCCINATE ER TAB] ED Review of Systems ROS: Stated complaint: JOAQUIM Other details as noted in HPI Comment: All other systems reviewed and negative Constitutional: weakness. denies: chills Eyes: denies: eye pain, vision change ENT: denies: ear pain, throat pain Respiratory: cough, shortness of breath Cardiovascular: syncope. denies: chest pain Gastrointestinal: denies: abdominal pain, vomiting Genitourinary: denies: dysuria, discharge Musculoskeletal: denies: back pain, arthralgia Skin: denies: rash, lesions Neurological: denies: headache, numbness Physical Exam - Physical Exam Vital Signs: Vital Signs 08/08/18 16:33 Temperature 99.9 F H Pulse Rate 134 H Respiratory 17 Rate Blood Pressure 112/65 [Right] O2 Sat by Pulse 99 Oximetry Physical Exam: GENERAL: The patient is well-developed well-nourished. HEENT: Normocephalic. Atraumatic. Patient has moist mucous membranes. EYES: Extraocular motions are intact. Pupils are equal and reactive to light bilaterally. NECK: Supple. Trachea is midline. CHEST/LUNGS: Mild rhonchi heard. There is some tachypnea and accessory muscle use. Clear to auscultation. There is no respiratory distress noted. Left- sided chest port in place. HEART/CARDIOVASCULAR: Regular. There is mild to moderate tachycardia. There is no obvious murmur. ABDOMEN: Abdomen is soft, nontender. Patient has normal bowel sounds. There is no abdominal distention. SKIN: Skin is warm and dry. NEURO: The patient is awake, alert, and oriented. The patient is cooperative. The patient has no focal neurologic deficits. The patient has normal speech. Cranial nerves II through XII grossly intact. MUSCULOSKELETAL: There is no tenderness or deformity. There is no limitation range of motion. There is no evidence of acute injury. ED Course Vital Signs 08/08/18 16:33 Temperature 99.9 F H Pulse Rate 134 H Respiratory 17 Rate Blood Pressure 112/65 [Right] O2 Sat by Pulse 99 Oximetry ED Medical Decision Making - Lab Data Result diagrams: 08/08/18 16:45 08/08/18 16:45 - EKG Data -: EKG Interpreted by Mo EKG shows normal: sinus rhythm, axis, intervals, QRS complexes, ST-T waves Rate: tachycardia (120 bpm) - EKG Data When compared to previous EKG there are: previous EKG unavailable Interpretation: other (sinus tach at 120 bpm) - Radiology Data Radiology results: report reviewed, image reviewed P PROCEDURE: XR CHEST 1V AP TECHNIQUE: Chest radiograph , single frontal view. HISTORY: cough COMPARISONS: CXR 08/03/18 . FINDINGS: Heart: Normal. Mediastinum/Vessels: Normal. Lungs/Pleural space: Hyperlucency in the upper lung zones suggests underlying bullous changes. A rounded nodular density in the right base appears slightly smaller.. Bony thorax: No acute osseous abnormality. Life support devices: Left jugular port catheter is unchanged.. IMPRESSION: Slight reduction in size of the nodular density in the right lung base. This document is electronically signed by Joceline Hurd MD., August 08 2018 05:36:57 PM ET Transcribed By: [facility] Dictated By: JOCELINE HURD MD Electronically Authenticated By: JOCELINE HURD MD Signed Date/Time: 08/08/18 5635 PROCEDURE: CT ANGIO CHEST TECHNIQUE: Computerized tomographic angiography of the chest was performed after the IV injection of iodinated nonionic contrast including image processing. The image data was postprocessed using 2-dimensional multiplanar reformatted (MPR) and 3-dimensional (MIP and/or volume rendered) techniques. Automated exposure control, adjustment of mA and/or kV according to patient size, or iterative reconstruction dose optimization techniques were utilized. CT DOSE LENGTH PRODUCT: 0 mGycm HISTORY: SOB, elevated dimer COMPARISONS: 06/29/2018 . FINDINGS: There is interval resolution of consolidation involving posterior segment right lower lobe which now measures about 5.3 x 6.3 cm with air bronchogram. Previously noted endobronchial filling defect is no longer visualized. Subcarinal lymphadenopathy is again identified without significant interval change. Calcified lymph nodes are noted in the aortopulmonic and left hilar regions. Large bullae are again identified in the right upper lobe largest measuring 10 x 9 x 6 cm. Areas of irregular scarring are noted involving bilateral lungs. Bronchiectatic changes are identified involving the left lower lobe. IMPRESSION: Interval partial resolution of right lower lobe consolidation distended with pneumonia. Subcarinal lymphadenopathy is unchanged Interval resolution of intrabronchial filling defect most likely representing secretions. Parenchymal scarring bilateral lungs with bronchiectatic changes left lower lobe This document is electronically signed by Peyton Watts MD., August 08 2018 08:32:09 PM ET Transcribed By: [facility] Dictated By: PEYTON WATTS Electronically Authenticated By: PEYTON WATTS Signed Date/Time: 08/08/182032 - Medical Decision Making Patient presents to the emergency department from his oncology clinic after he passed out and had some shortness of breath. Since being in the emergency department he is awake and alert and oriented and does not appear in any respiratory distress. EKG was done that shows sinus tachycardia but otherwise no ST elevation AL, ischemia or dysrhythmia. Chest x-ray showed some right l ower lobe nodule and/or mass. Patient was started off as a code sepsis with a low-grade fever and moderate tachycardia. He was given IV fluid resuscitation and placed on some Levaquin. He was later given some Tylenol for his fever.the patient has some anemia that is consistent with previous visits. He has an elevated d-dimer and some mild hyponatremia. Otherwise the rest of the labs are mostly unremarkable. CT angiography of the chest did not show any signs of any pulmonary embolism, dissection or aneurysm but shows signs of right lower lobe pneumonia along with consolidation. The patient will be admitted to the hospital for further evaluation and treatment was accepted for admission by the hospitalist, Dr. Lloyd. - Differential Diagnosis pneumonia, UTI, PE, sepsis Critical Care Time: No Critical care attestation.: If time is entered above; I have spent that time in minutes in the direct care of this critically ill patient, excluding procedure time. ED Disposition Clinical Impression: SOB (shortness of breath) Sepsis Qualifiers: Sepsis type: sepsis due to unspecified organism Qualified Code(s): A41.9 - Sepsis, unspecified organism Syncope Qualifiers: Syncope type: unspecified Qualified Code(s): R55 - Syncope and collapse Pneumonia Qualifiers: Pneumonia type: due to unspecified organism Laterality: right Lung location: lower lobe of lung Qualified Code(s): J18.1 - Lobar pneumonia, unspecified organism Disposition: OP ADMIT IP TO THIS HOSP Is pt being admited?: Yes Condition: Serious Time of Disposition: 00:03
[2018-08-08] MEDS ORDERED: LEVAQUIN 750MG/150ML 750 MG/150 ML BAG IV SCH (17:00)
[2018-08-08 17:15] LABS: Hematocrit 24.5 % (35.5-45.6); Hemoglobin 8.2 gm/dl (11.8-15.2); Mean Corpuscular HGB Conc 34 % (32-34); Mean Corpuscular Volume 87 fl (84-94); Platelet Count 343 K/mm3 (140-440); Red Cell Distribution Width 16.6 % (13.2-15.2)
[2018-08-08 17:26] LABS: Partial Thromboplastin Time 30.9 Sec. (24.2-36.6)
[2018-08-08 17:32] LABS: Alanine Aminotransferase 7 units/L (7-56); Albumin 2.6 g/dL (3.9-5); BUN/Creatinine Ratio 13; Blood Urea Nitrogen 9 mg/dL (9-20); Calcium 7.8 mg/dL (8.4-10.2); Hemolysis Index 2
[2018-08-08] MEDS ORDERED: TYLENOL PO ONE (17:37)
--- NOTE | 2018-08-08 17:39 | XRay Report ---
P PROCEDURE: XR CHEST 1V AP TECHNIQUE: Chest radiograph , single frontal view. HISTORY: cough COMPARISONS: CXR 08/03/18 . FINDINGS: Heart: Normal. Mediastinum/Vessels: Normal. Lungs/Pleural space: Hyperlucency in the upper lung zones suggests underlying bullous changes. A rou nded nodular density in the right base appears slightly smaller.. Bony thorax: No acute osseous abnormality. Life support devices: Left jugular port catheter is unchanged.. IMPRESSION: Slight reduction in size of the nodular density in the right lung base. This document is electronically signed by Joceline Hurd MD., August 08 2018 05:36:57 PM ET
[2018-08-08 18:58] LABS: Total Cells Counted 100
[2018-08-08 19:00] LABS: Anisocytosis 1+; Basophils % (Manual) 0 % (0.0-1.8); Platelet Estimate Consistent w Auto
[2018-08-08 19:01] LABS: Bilirubin,Urine NEG (Negative); Blood,Urine SM (Negative); Color,Urine Yellow (Yellow); Mucus,Urine FEW /HPF; Protein,Urine <15 mg/dL mg/dL (Negative); Urobilinogen,Urine < 2.0 mg/dL (<2.0)
--- NOTE | 2018-08-08 20:33 | Cat Scan Report ---
PROCEDURE: CT ANGIO CHEST TECHNIQUE: Computerized tomographic angiography of the chest was performed after the IV injection of iodinated nonionic contrast including image processing. The image data was postprocessed using 2-di mensional multiplanar reformatted (MPR) and 3-dimensional (MIP and/or volume rendered) techniques. Au tomated exposure control, adjustment of mA and/or kV according to patient size, or iterative reconstr uction dose optimization techniques were utilized. CT DOSE LENGTH PRODUCT: 0 mGycm HISTORY: SOB, elevated dimer COMPARISONS: 06/29/2018 . FINDINGS: There is interval resolution of consolidation involving posterior segment right lower lobe which now measures about 5.3 x 6.3 cm with air bronchogram. Previously noted endobronchial filling defect is no longer visualized. Subcarinal lymphadenopathy is again identified without significant interval nixon e. Calcified lymph nodes are noted in the aortopulmonic and left hilar regions. Large bullae are agai n identified in the right upper lobe largest measuring 10 x 9 x 6 cm. Areas of irregular scarring are noted involving bilateral lungs. Bronchiectatic changes are identified involving the left lower lobe . IMPRESSION: Interval partial resolution of right lower lobe consolidation distended with pneumonia. Subcarinal lymphadenopathy is unchanged Interval resolution of intrabronchial filling defect most likely representing secretions. Parenchymal scarring bilateral lungs with bronchiectatic changes left lower lobe This document is electronically signed by Elkin Watts MD., August 08 2018 08:32:09 PM ET
[2018-08-08] MEDS ORDERED: NACL 0.9% 1000 ML 1,000 ML ONE (20:43)
[2018-08-08] MEDS ORDERED: NACL 0.9% 1000 ML 1,000 ML IV ONE (20:47)
--- NOTE | 2018-08-08 22:00 | History and Physical Report ---
History of Present Illness Date of examination: 08/08/18 History of present illness: 68-year-old man with a history of hypertension, lung cancer, asthma, gout, hyperlipidemia, peptic ulcer disease, diabetes, COPD was recently discharged from the hospital for GI bleed. He stated today he was at radiation therapy, he felt faint prior to treatment and had a syncopal episode for a few seconds. Complaint of cough productive of brown phlegm, shortness of breath, fever, chills. Review of systems Constitutional: no weight loss Ears, eyes, nose, mouth and throat: no nasal congestion, no nasal discharge, no sinus pressure, no vision change, no red eye. Neck: No neck pain or rigidity. Cardiovascular: no palpitations, chest pain Respiratory:+ cough, +shortness of breath Gastrointestinal: no hematochezia, abdominal pain Genitourinary : no frequency , no hematuria Musculoskeletal: no joint swelling or muscle ache Integumentary: no rash, no pruritis Neurological: no parathesias, no focal weakness Endocrine: no cold or heat intolerance, no polyuria or polydipsia Hematologic/Lymphatic: no easy bruising, no easy bleeding, no gland swelling Allergic/Immunologic: no urticaria, no angioedema. PAST MEDICAL HISTORY: hypertension, lung cancer, asthma, gout, hyperlipidemia, peptic ulcer disease, diabetes, COPD PAST SURGICAL HISTORY: Port placement SOCIAL HISTORY: Denies alcohol, drugs, tobacco FAMILY HISTORY: Hypertension Medications and Allergies Allergies Allergy/AdvReac Type Severity Reaction Status Date / Time pollen extracts Allergy Mild Itching Verified 06/28/18 16:42 strawberry Allergy Mild Hives Verified 06/28/18 16:42 Home Medications Medication Instructions Recorded Confirmed Last Taken Type ALBUTEROL Inhaler (OR & NICU) 2 puff IH Q4H PRN 06/28/18 08/08/18 06/28/18 History [ProAir HFA Inhaler] Allopurinol [Zyloprim] 300 mg PO DAILY 06/28/18 08/08/18 1 Day Ago History ~06/27/18 AtorvaSTATin [Lipitor] 20 mg PO DAILY 06/28/18 08/08/18 1 Day Ago History ~06/27/18 Losartan/Hydrochlorothiazide 1 each PO DAILY 06/28/18 08/08/18 1 Day Ago History [Losartan-Hctz 100-25 mg Tab] ~06/27/18 amLODIPine [Norvasc] 10 mg PO DAILY 06/28/18 08/08/18 1 Day Ago History ~06/27/18 Metoprolol Xl [Metoprolol 100 mg PO QDAY 08/08/18 08/08/18 Unknown History SUCCINATE ER TAB] Active Meds: Active Medications Levofloxacin/Dextrose (Levaquin 750mg/150ml) 750 mg in 150 mls @ 100 mls/hr IV Q24HR [facility]; Protocol Last Admin: 08/08/18 17:20 Dose: 100 mls/hr Documented by: Exam - Physical Exam Narrative exam: General Apperance: The patient lying in bed, breathing comfortable HEENT: Normocephalic, atraumatic. Pupils equally round and reactive to light, EOMI, no sclericterus or JVD or thyromegaly or nodule. , no carotid bruit, mucous membranes moist, no exudate or erythema Heart: S1-S2, regular is rhythm Lungs: Crackles, breathing comfortable Abdomen: Positive bowel sounds, soft, nontender, nondistended, no organomegaly Extremities: No edema cyanosis clubbing Skin: no rash, nodule, warm and dry Neuro: cranial nerves 2-12 intact, speech is fluent, motor/sensory intact - Constitutional Vitals: Temp Pulse Resp BP Pulse Ox 99.9 F H 105 H 18 115/63 99 08/08/18 16:33 08/08/18 21:43 08/08/18 21:43 08/08/18 21:43 08/08/18 21:43 Results - Labs CBC & Chem 7: 08/08/18 16:45 08/08/18 16:45 Labs: Abnormal lab results 08/08/18 08/08/18 08/08/18 Range/Units 16:45 16:45 16:45 RBC 2.80 L (3.65-5.03) M/mm3 Hgb 8.2 L (11.8-15.2) gm/dl Hct 24.5 L (35.5-45.6) % RDW 16.6 H (13.2-15.2) % Seg Neuts % (Manual) 90.0 H (40.0-70.0) % Lymphocytes % (Manual) 1.0 L (13.4-35.0) % Lymphocytes # (Manual) 0.0 L (1.2-5.4) K/mm3 D-Dimer 1348.04 H (0-234) ng/mlDDU Sodium 129 L (137-145) mmol/L Chloride 92.6 L (98-107) mmol/L Creatinine 0.7 L (0.8-1.5) mg/dL Glucose 134 H (75-100) mg/dL Calcium 7.8 L (8.4-10.2) mg/dL Total Protein 5.6 L (6.3-8.2) g/dL Albumin 2.6 L (3.9-5) g/dL - Imaging and Cardiology EKG: image reviewed Chest x-ray: report reviewed CT scan - chest: report reviewed Assessment and Plan Nosocomial pneumonia Peptic ulcer disease Hypertension Asthma Diabetes COPD Lung cancer Plan Admit to medicine Status post IV Levaquin in the emergency room Start IV Zosyn, follow cultures Check fingersticks and initiate insulin sliding scale Continue appropriate outpatient medications DVT prophylaxis with SCD, recent GI bleed
[2018-08-08] MEDS ORDERED: PROTONIX PO ONE (22:30)
[2018-08-09] MEDS ORDERED: APRESOLINE IV PRN (00:54)
[2018-08-09] MEDS ORDERED: ZOSYN/NS 3.375GM/50ML 3.375 GM/50 ML BAG IV SCH (02:00)
[2018-08-09] MEDS ORDERED: SODIUM CHLORIDE FLUSH SYRINGE 10 ML IV PRN (04:35)
[2018-08-09] MEDS ORDERED: ZOFRAN IV PRN (04:35)
[2018-08-09] MEDS: CARAFATE PO SCH ×4 (06:01→23:28)
--- NOTE | 2018-08-09 08:20 | Progress Note ---
Assessment and Plan Assessment and plan: Patient is a 68 yo man with a history of hypertension, lung cancer, asthma, gout, hyperlipidemia, peptic ulcer disease, diabetes, COPD was recently discharged from this hospital for GI bleed on 08/05/18 who comes back to [facility] ED on 08/08/18 after syncope episode prior XRT treatment (with Dr. Solis). He also c/o productive brown cough, fever and chills. 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 Subcarinal lymphadenopathy is unch anged Interval resolution of intrabronchial filling defect most likely representing secretions. Parenchymal scarring bilateral lungs with bronchiectatic changes left lower lobe Syncope, suspect Vasovagal autonomic dysfunction: Ordered Orthostatic vitals, ECHO and CT head and treat the pneumonia Nosocomial pneumonia: treat with iv abx, RLL squamous Cell cancer: consult Dr. Daly Anemia appears chronic: monitor h/h Peptic ulcer disease: treat with PPI Hypertension: low salt diet, continue to monitor Asthma: duo neb Diabetes mellitus type 2: Check fingersticks and initiate insulin sliding scale COPD by history: continue present management DVT prophylaxis add sq heparin, monitor the anemia Orthostatic vitals, ECHO and CT head pending. History Interval history: Patient was seen and examined. Follow-up on current diagnosis of Syncope. Overnight uneventful. Patient denies any chest pain, shortness breath, nausea/vomiting or severe headaches. Imaging, nursing note, chart, labs and old chart reviewed. Discussed with patient. Hospitalist Physical - Physical exam Narrative exam: Gen: WDWN, NAD, Awake, Alert, Orientated HEENT: NCAT, EOMI, PERRL, OP Clear Neck: supple, no adenopathy, no thyromegaly, no JVD CVS/Heart: RRR, normal S1S2, pulses present bilaterally Chest/Lungs: coarse bs RLL Symmetrical chest expansion, good air entry bilaterally GI/Abdomen: soft, NTND, good bowel sounds, no guarding or rebound /Bladder: no suprapubic tenderness, no CVA or paraspinal tenderness Extermity/Skin: no c/c/e, no obvious rash MSK: FROM x 4 Neuro: CN 2-12 grossly intact, no new focal deficits Psych: calm - Constitutional Vitals: Temp Pulse Resp BP Pulse Ox 99.0 F 117 H 18 121/63 96 08/09/18 07:47 08/09/18 07:47 08/09/18 07:47 08/09/18 07:47 08/09/18 07:47 Results - Labs CBC & Chem 7: 08/08/18 16:45 08/08/18 16:45 Labs: Laboratory Last Values WBC 4.6 K/mm3 (4.5-11.0) 08/08/18 16:45 RBC 2.80 M/mm3 (3.65-5.03) L 08/08/18 16:45 Hgb 8.2 gm/dl (11.8-15.2) L 08/08/18 16:45 Hct 24.5 % (35.5-45.6) L 08/08/18 16:45 MCV 87 fl (84-94) 08/08/18 16:45 MCH 29 pg (28-32) 08/08/18 16:45 MCHC 34 % (32-34) 08/08/18 16:45 RDW 16.6 % (13.2-15.2) H 08/08/18 16:45 Plt Count 343 K/mm3 (140-440) 08/08/18 16:45 Add Manual Diff Complete 08/08/18 16:45 Total Counted 100 08/08/18 16:45 Seg Neuts % (Manual) 90.0 % (40.0-70.0) H 08/08/18 16:45 Band Neutrophils % 0 % 08/08/18 16:45 Lymphocytes % (Manual) 1.0 % (13.4-35.0) L 08/08/18 16:45 Reactive Lymphs % (Man) 0 % 08/08/18 16:45 Monocytes % (Manual) 6.0 % (0.0-7.3) 08/08/18 16:45 Eosinophils % (Manual) 3.0 % (0.0-4.3) 08/08/18 16:45 Basophils % (Manual) 0 % (0.0-1.8) 08/08/18 16:45 Metamyelocytes % 0 % 08/08/18 16:45 Myelocytes % 0 % 08/08/18 16:45 Promyelocytes % 0 % 08/08/18 16:45 Blast Cells % 0 % 08/08/18 16:45 Nucleated RBC % Not Reportable 08/08/18 16:45 Seg Neutrophils # Man 4.1 K/mm3 (1.8-7.7) 08/08/18 16:45 Band Neutrophils # 0.0 K/mm3 08/08/18 16:45 Lymphocytes # (Manual) 0.0 K/mm3 (1.2-5.4) L 08/08/18 16:45 Abs React Lymphs (Man) 0.0 K/mm3 08/08/18 16:45 Monocytes # (Manual) 0.3 K/mm3 (0.0-0.8) 08/08/18 16:45 Eosinophils # (Manual) 0.1 K/mm3 (0.0-0.4) 08/08/18 16:45 Basophils # (Manual) 0.0 K/mm3 (0.0-0.1) 08/08/18 16:45 Metamyelocytes # 0.0 K/mm3 08/08/18 16:45 Myelocytes # 0.0 K/mm3 08/08/18 16:45 Promyelocytes # 0.0 K/mm3 08/08/18 16:45 Blast Cells # 0.0 K/mm3 08/08/18 16:45 WBC Morphology Not Reportable 08/08/18 16:45 Hypersegmented Neuts Not Reportable 08/08/18 16:45 Hyposegmented Neuts Not Reportable 08/08/18 16:45 Hypogranular Neuts Not Reportable 08/08/18 16:45 Smudge Cells Not Reportable 08/08/18 16:45 Toxic Granulation Not Reportable 08/08/18 16:45 Toxic Vacuolation Not Reportable 08/08/18 16:45 Dohle Bodies Not Reportable 08/08/18 16:45 Pelger-Huet Anomaly Not Reportable 08/08/18 16:45 Gay Rods Not Reportable 08/08/18 16:45 Platelet Estimate Consistent w auto 08/08/18 16:45 Clumped Platelets Not Reportable 08/08/18 16:45 Plt Clumps, EDTA Not Reportable 08/08/18 16:45 Large Platelets Not Reportable 08/08/18 16:45 Giant Platelets Not Reportable 08/08/18 16:45 Platelet Satelliting Not Reportable 08/08/18 16:45 Plt Morphology Comment Not Reportable 08/08/18 16:45 RBC Morphology Not Reportable 08/08/18 16:45 Dimorphic RBCs Not Reportable 08/08/18 16:45 Polychromasia Not Reportable 08/08/18 16:45 Hypochromasia Not Reportable 08/08/18 16:45 Poikilocytosis Not Reportable 08/08/18 16:45 Anisocytosis 1+ 08/08/18 16:45 Microcytosis Not Reportable 08/08/18 16:45 Macrocytosis Not Reportable 08/08/18 16:45 Spherocytes Not Reportable 08/08/18 16:45 Pappenheimer Bodies Not Reportable 08/08/18 16:45 Sickle Cells Not Reportable 08/08/18 16:45 Target Cells Not Reportable 08/08/18 16:45 Tear Drop Cells Not Reportable 08/08/18 16:45 Ovalocytes Not Reportable 08/08/18 16:45 Helmet Cells Not Reportable 08/08/18 16:45 [place] Bodies Not Reportable 08/08/18 16:45 [place] Rings Not Reportable 08/08/18 16:45 Jalyn Cells Not Reportable 08/08/18 16:45 Bite Cells Not Reportable 08/08/18 16:45 Crenated Cell Not Reportable 08/08/18 16:45 Elliptocytes Not Reportable 08/08/18 16:45 Acanthocytes (Spur) Not Reportable 08/08/18 16:45 Rouleaux Not Reportable 08/08/18 16:45 Hemoglobin C Crystals Not Reportable 08/08/18 16:45 Schistocytes Not Reportable 08/08/18 16:45 Malaria parasites Not Reportable 08/08/18 16:45 Umang Bodies Not Reportable 08/08/18 16:45 Hem Pathologist Commnt No 08/08/18 16:45 APTT 30.9 Sec. (24.2-36.6) 08/08/18 16:45 D-Dimer 1348.04 ng/mlDDU (0-234) H 08/08/18 16:45 Sodium 129 mmol/L (137-145) L 08/08/18 16:45 Potassium 3.7 mmol/L (3.6-5.0) 08/08/18 16:45 Chloride 92.6 mmol/L (98-107) L 08/08/18 16:45 Carbon Dioxide 25 mmol/L (22-30) 08/08/18 16:45 Anion Gap 15 mmol/L 08/08/18 16:45 BUN 9 mg/dL (9-20) 08/08/18 16:45 Creatinine 0.7 mg/dL (0.8-1.5) L 08/08/18 16:45 Estimated GFR > 60 ml/min 08/08/18 16:45 BUN/Creatinine Ratio 13 % 08/08/18 16:45 Glucose 134 mg/dL (75-100) H 08/08/18 16:45 Lactic Acid 0.90 mmol/L (0.7-2.0) 08/08/18 20:22 Calcium 7.8 mg/dL (8.4-10.2) L 08/08/18 16:45 Total Bilirubin 0.30 mg/dL (0.1-1.2) 08/08/18 16:45 AST 15 units/L (5-40) 08/08/18 16:45 ALT 7 units/L (7-56) 08/08/18 16:45 Alkaline Phosphatase 47 units/L (35-129) 08/08/18 16:45 Total Creatine Kinase 48 units/L (55-170) L 08/09/18 04:50 CK-MB (CK-2) 1.0 ng/mL (0.0-4.0) 08/09/18 04:50 CK-MB (CK-2) Rel Index 2.0 (0-4) 08/09/18 04:50 Troponin T < 0.010 ng/mL (0.00-0.029) 08/09/18 04:50 Total Protein 5.6 g/dL (6.3-8.2) L 08/08/18 16:45 Albumin 2.6 g/dL (3.9-5) L 08/08/18 16:45 Albumin/Globulin Ratio 0.9 % 08/08/18 16:45 Urine Color Yellow (Yellow) 08/08/18 18:40 Urine Turbidity Clear (Clear) 08/08/18 18:40 Urine pH 6.0 (5.0-7.0) 08/08/18 18:40 Ur Specific [place] 1.009 (1.003-1.030) 08/08/18 18:40 Urine Protein <15 mg/dl mg/dL (Negative) 08/08/18 18:40 Urine Glucose (UA) Neg mg/dL (Negative) 08/08/18 18:40 Urine Ketones Tr mg/dL (Negative) 08/08/18 18:40 Urine Blood Sm (Negative) 08/08/18 18:40 Urine Nitrite Neg (Negative) 08/08/18 18:40 Urine Bilirubin Neg (Negative) 08/08/18 18:40 Urine Urobilinogen < 2.0 mg/dL (<2.0) 08/08/18 18:40 Ur Leukocyte Esterase Neg (Negative) 08/08/18 18:40 Urine WBC (Auto) 2.0 /HPF (0.0-6.0) 08/08/18 18:40 Urine RBC (Auto) 3.0 /HPF (0.0-6.0) 08/08/18 18:40 Urine Mucus Few /HPF 08/08/18 18:40 Influenza A (Rapid) Negative (Negative) 08/08/18 17:35 Influenza B (Rapid) Negative (Negative) 08/08/18 17:35 Active Medications - Current Medications Current Medications: Generic Name Dose Route Start Last Admin Trade Name Freq PRN Reason Stop Dose Admin Acetaminophen 650 mg 08/09/18 04:35 Tylenol PO Q4H PRN Pain MILD(1-3)/Fever >100.5/GUPTA Allopurinol 300 mg 08/09/18 10:00 Zyloprim PO DAILY [facility] Amlodipine Besylate 10 mg 08/09/18 10:00 Norvasc PO DAILY [facility] Atorvastatin Calcium 20 mg 08/09/18 10:00 Lipitor PO DAILY [facility] Hydralazine HCl 5 mg 08/09/18 00:54 Apresoline IV Q6H PRN Hypertension Hydrochlorothiazide 25 mg 08/09/18 10:00 Hctz PO QDAY [facility] Piperacillin Sod/Tazobactam Sod 4.5 gm in 100 mls @ 200 mls/hr 08/09/18 09:00 Zosyn/Ns 4.5gm/100ml IV Q8HR [facility] Losartan Potassium 100 mg 08/09/18 10:00 Cozaar PO DAILY [facility] Metoprolol Succinate 100 mg 08/09/18 10:00 Toprol Xl PO QDAY [facility] Ondansetron HCl 4 mg 08/09/18 04:35 Zofran IV Q8H PRN Nausea And Vomiting Pantoprazole Sodium 40 mg 08/09/18 10:00 Protonix PO BID [facility] Sodium Chloride 10 ml 08/09/18 10:00 Sodium Chloride Flush Syringe 10 Ml IV BID [facility] Sodium Chloride 10 ml 08/09/18 04:35 Sodium Chloride Flush Syringe 10 Ml IV PRN PRN LINE FLUSH Sucralfate 1 gm 08/09/18 06:00 08/09/18 06:01 Carafate PO 1 gm Q6HR [facility] Administration
[2018-08-09] MEDS ORDERED: PROTONIX PO SCH (10:00)
[2018-08-09] MEDS ORDERED: LOVENOX SUB-Q SCH (10:00)
[2018-08-09] MEDS ORDERED: PROAIR IH PRN (10:23)
[2018-08-09] MEDS ORDERED: PROVENTIL IH PRN (10:52)
[2018-08-09] MEDS ORDERED: PERCOCET 5/325 PO PRN (11:05)
[2018-08-09] MEDS ORDERED: ZOFRAN ODT PO PRN (11:05)
[2018-08-09] MEDS: ZOSYN/NS 4.5GM/100ML 4.5 GM/100 ML VIAL IV SCH ×3 (11:12→21:22)
[2018-08-09] MEDS: TOPROL XL PO SCH (11:12)
[2018-08-09] MEDS: ZYLOPRIM PO SCH (11:13)
[2018-08-09] MEDS: HCTZ PO SCH ×2 (11:13→11:47)
[2018-08-09] MEDS: NORVASC PO SCH ×2 (11:13→11:48)
[2018-08-09] MEDS: COZAAR PO SCH ×2 (11:14→11:46)
[2018-08-09] MEDS: SODIUM CHLORIDE FLUSH SYRINGE 10 ML IV SCH ×2 (11:15→21:25)
[2018-08-09 11:31] LABS: Creatine Kinase MB < 1.0 ng/mL (0.0-4.0)
[2018-08-09] MEDS: PROTONIX PO SCH ×2 (11:45→21:23)
--- NOTE | 2018-08-09 15:24 | Cat Scan Report ---
CT HEAD WITHOUT CONTRAST: HISTORY: Syncope. TECHNIQUE: Sequential 2.5mm CT images. COMPARISON: 07/01/18. FINDINGS: Cerebral Parenchyma: Within normal limits. Cerebellum: Within normal limits. Brainstem: Within normal limits. Ventricles: Normal. Sella: Normal. Extra-axial spaces: Normal. Basal Cisterns: Normal. Intracranial Hemorrhage: None. Midline Shift: None. Calvarium: Normal. Sinuses: Normal. Mastoid Air Cells: Normal. Visualized Orbits: Normal. IMPRESSION: Cranial CT scan within normal limits.
[2018-08-09] MEDS: HEPARIN SUB-Q SCH (21:22)
[2018-08-09] MEDS: REMERON PO SCH (21:23)
[2018-08-10] MEDS: TYLENOL PO PRN ×2 (04:20→16:34)
[2018-08-10] MEDS: CARAFATE PO SCH ×3 (05:12→17:09)
[2018-08-10] MEDS: ZOSYN/NS 4.5GM/100ML 4.5 GM/100 ML VIAL IV SCH ×3 (05:12→22:13)
[2018-08-10 05:59] LABS: Hematocrit 20.5 % (35.5-45.6); Hemoglobin 6.9 gm/dl (11.8-15.2); Mean Corpuscular HGB Conc 34 % (32-34); Mean Corpuscular Volume 88 fl (84-94); Platelet Count 326 K/mm3 (140-440); Red Blood Count 2.34 M/mm3 (3.65-5.03); Red Cell Distribution Width 16.5 % (13.2-15.2)
[2018-08-10 06:16] LABS: BUN/Creatinine Ratio 6; Blood Urea Nitrogen 6 mg/dL (9-20); Hemolysis Index 1
[2018-08-10] MEDS: HEPARIN SUB-Q SCH (08:59)
[2018-08-10] MEDS ORDERED: NACL 0.9% 500 ML 500 ML IV NR (09:00)
[2018-08-10] MEDS: HCTZ PO SCH (09:00)
[2018-08-10] MEDS: COZAAR PO SCH (09:00)
[2018-08-10] MEDS: TOPROL XL PO SCH (09:02)
[2018-08-10] MEDS: SODIUM CHLORIDE FLUSH SYRINGE 10 ML IV SCH ×2 (09:02→22:13)
[2018-08-10] MEDS: ZYLOPRIM PO SCH (09:02)
[2018-08-10] MEDS: PROTONIX PO SCH ×2 (09:02→22:07)
[2018-08-10] MEDS: NORVASC PO SCH (09:02)
[2018-08-10 10:40] LABS: Anisocytosis 1+; Band Neutrophils # (Manual) 0.1 K/mm3; Basophils % (Manual) 0 % (0.0-1.8); Eosinophils % (Manual) 0 % (0.0-4.3); Hypochromasia 2+; Ovalocytes Few; Platelet Estimate Consistent w Auto; Tear Drop Cells Few; Total Cells Counted 100
--- NOTE | 2018-08-10 11:30 | Progress Note ---
Assessment and Plan Assessment and plan: Patient is a 68 yo man with a history of hypertension, lung cancer, asthma, gout, hyperlipidemia, peptic ulcer disease, diabetes, COPD was recently discharged from this hospital for GI bleed on 08/05/18 who comes back to [facility] ED on 08/08/18 after syncope episode prior XRT treatment (with Dr. Solis). He also c/o productive brown cough, fever and chills. 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 Subcarinal lymphadenopathy is unch anged Interval resolution of intrabronchial filling defect most likely representing secretions. Parenchymal scarring bilateral lungs with bronchiectatic changes left lower lobe Syncope, suspect Vasovagal autonomic dysfunction: Ordered Orthostatic vitals, ECHO and CT head and treat the pneumonia Nosocomial pneumonia: treat with iv abx, RLL squamous Cell cancer: consult Dr. Daly Acute worsening of AOCD, no signs of bleeding, requiring blood transfusion: repeat cbc in am Peptic ulcer disease: treat with PPI Hypertension: low salt diet, continue to monitor Asthma, chronic, stable: duo neb prn Diabetes mellitus type 2: Check fingersticks and initiate insulin sliding scale COPD by history: continue present management DVT prophylaxis stopped sq heparin b/c anemia, use scd Orthostatic vitals, not done yesterday as ordered, d/w Nursing ECHO still pending CT head negative Disposition: contine inpatient care, if h/h stable, d/c on Augmentin tomorrow. History Interval history: Patient was seen and examined. Follow-up on current diagnosis of Syncope. Overnight uneventful. Patient denies any chest pain, shortness breath, nausea/vomiting or severe headaches. Imaging, nursing note, chart, labs and old chart reviewed. Discussed with patient. Hospitalist Physical - Physical exam Narrative exam: Gen: WDWN, NAD, Awake, Alert, Orientated HEENT: NCAT, EOMI, PERRL, OP Clear Neck: supple, no adenopathy, no thyromegaly, no JVD CVS/Heart: RRR, normal S1S2, pulses present bilaterally Chest/Lungs: coarse bs RLL Symmetrical chest expansion, good air entry bilaterally GI/Abdomen: soft, NTND, good bowel sounds, no guarding or rebound /Bladder: no suprapubic tenderness, no CVA or paraspinal tenderness Extermity/Skin: no c/c/e, no obvious rash MSK: FROM x 4 Neuro: CN 2-12 grossly intact, no new focal deficits Psych: calm - Constitutional Vitals: Temp Pulse Resp BP Pulse Ox 98.2 F 102 H 20 125/68 98 08/10/18 07:21 08/10/18 10:26 08/10/18 10:26 08/10/18 09:00 08/10/18 10:26 Results - Labs CBC & Chem 7: 08/10/18 05:31 08/10/18 05:31 Labs: Laboratory Last Values WBC 3.2 K/mm3 (4.5-11.0) L 08/10/18 05:31 RBC 2.34 M/mm3 (3.65-5.03) L 08/10/18 05:31 Hgb 6.9 gm/dl (11.8-15.2) L 08/10/18 05:31 Hct 20.5 % (35.5-45.6) L 08/10/18 05:31 MCV 88 fl (84-94) 08/10/18 05:31 MCH 29 pg (28-32) 08/10/18 05:31 MCHC 34 % (32-34) 08/10/18 05:31 RDW 16.5 % (13.2-15.2) H 08/10/18 05:31 Plt Count 326 K/mm3 (140-440) 08/10/18 05:31 [place] % (Auto) Drafter Refrigeration 08/10/18 05:31 Add Manual Diff Complete 08/10/18 05:31 Total Counted 100 08/10/18 05:31 Seg Neuts % (Manual) 73.0 % (40.0-70.0) H 08/10/18 05:31 Band Neutrophils % 3.0 % 08/10/18 05:31 Lymphocytes % (Manual) 8.0 % (13.4-35.0) L 08/10/18 05:31 Reactive Lymphs % (Man) 0 % 08/10/18 05:31 Monocytes % (Manual) 16.0 % (0.0-7.3) H 08/10/18 05:31 Eosinophils % (Manual) 0 % (0.0-4.3) 08/10/18 05:31 Basophils % (Manual) 0 % (0.0-1.8) 08/10/18 05:31 Metamyelocytes % 0 % 08/10/18 05:31 Myelocytes % 0 % 08/10/18 05:31 Promyelocytes % 0 % 08/10/18 05:31 Blast Cells % 0 % 08/10/18 05:31 Nucleated RBC % Not Reportable 08/10/18 05:31 Seg Neutrophils # Man 2.3 K/mm3 (1.8-7.7) 08/10/18 05:31 Band Neutrophils # 0.1 K/mm3 08/10/18 05:31 Lymphocytes # (Manual) 0.3 K/mm3 (1.2-5.4) L 08/10/18 05:31 Abs React Lymphs (Man) 0.0 K/mm3 08/10/18 05:31 Monocytes # (Manual) 0.5 K/mm3 (0.0-0.8) 08/10/18 05:31 Eosinophils # (Manual) 0.0 K/mm3 (0.0-0.4) 08/10/18 05:31 Basophils # (Manual) 0.0 K/mm3 (0.0-0.1) 08/10/18 05:31 Metamyelocytes # 0.0 K/mm3 08/10/18 05:31 Myelocytes # 0.0 K/mm3 08/10/18 05:31 Promyelocytes # 0.0 K/mm3 08/10/18 05:31 Blast Cells # 0.0 K/mm3 08/10/18 05:31 WBC Morphology Not Reportable 08/10/18 05:31 Hypersegmented Neuts Not Reportable 08/10/18 05:31 Hyposegmented Neuts Not Reportable 08/10/18 05:31 Hypogranular Neuts Not Reportable 08/10/18 05:31 Smudge Cells Not Reportable 08/10/18 05:31 Toxic Granulation Not Reportable 08/10/18 05:31 Toxic Vacuolation Not Reportable 08/10/18 05:31 Dohle Bodies Not Reportable 08/10/18 05:31 Pelger-Huet Anomaly Not Reportable 08/10/18 05:31 Gay Rods Not Reportable 08/10/18 05:31 Platelet Estimate Consistent w auto 08/10/18 05:31 Clumped Platelets Not Reportable 08/10/18 05:31 Plt Clumps, EDTA Not Reportable 08/10/18 05:31 Large Platelets Not Reportable 08/10/18 05:31 Giant Platelets Not Reportable 08/10/18 05:31 Platelet Satelliting Not Reportable 08/10/18 05:31 Plt Morphology Comment Not Reportable 08/10/18 05:31 RBC Morphology Not Reportable 08/10/18 05:31 Dimorphic RBCs Not Reportable 08/10/18 05:31 Polychromasia Not Reportable 08/10/18 05:31 Hypochromasia 2+ 08/10/18 05:31 Poikilocytosis Not Reportable 08/10/18 05:31 Anisocytosis 1+ 08/10/18 05:31 Microcytosis 1+ 08/10/18 05:31 Macrocytosis Not Reportable 08/10/18 05:31 Spherocytes Not Reportable 08/10/18 05:31 Pappenheimer Bodies Not Reportable 08/10/18 05:31 Sickle Cells Not Reportable 08/10/18 05:31 Target Cells Not Reportable 08/10/18 05:31 Tear Drop Cells Few 08/10/18 05:31 Ovalocytes Few 08/10/18 05:31 Helmet Cells Not Reportable 08/10/18 05:31 [place] Bodies Not Reportable 08/10/18 05:31 [place] Rings Not Reportable 08/10/18 05:31 Jalyn Cells Not Reportable 08/10/18 05:31 Bite Cells Not Reportable 08/10/18 05:31 Crenated Cell Not Reportable 08/10/18 05:31 Elliptocytes Not Reportable 08/10/18 05:31 Acanthocytes (Spur) Not Reportable 08/10/18 05:31 Rouleaux Not Reportable 08/10/18 05:31 Hemoglobin C Crystals Not Reportable 08/10/18 05:31 Schistocytes Not Reportable 08/10/18 05:31 Malaria parasites Not Reportable 08/10/18 05:31 Umang Bodies Not Reportable 08/10/18 05:31 Hem Pathologist Commnt No 08/10/18 05:31 APTT 30.9 Sec. (24.2-36.6) 08/08/18 16:45 D-Dimer 1348.04 ng/mlDDU (0-234) H 08/08/18 16:45 Sodium 139 mmol/L (137-145) D 08/10/18 05:31 Potassium 3.9 mmol/L (3.6-5.0) 08/10/18 05:31 Chloride 102.2 mmol/L (98-107) 08/10/18 05:31 Carbon Dioxide 25 mmol/L (22-30) 08/10/18 05:31 Anion Gap 16 mmol/L 08/10/18 05:31 BUN 6 mg/dL (9-20) L 08/10/18 05:31 Creatinine 1.0 mg/dL (0.8-1.5) 08/10/18 05:31 Estimated GFR > 60 ml/min 08/10/18 05:31 BUN/Creatinine Ratio 6 % 08/10/18 05:31 Glucose 101 mg/dL (75-100) H 08/10/18 05:31 Lactic Acid 0.90 mmol/L (0.7-2.0) 08/08/18 20:22 Calcium 8.0 mg/dL (8.4-10.2) L 08/10/18 05:31 Total Bilirubin 0.30 mg/dL (0.1-1.2) 08/08/18 16:45 AST 15 units/L (5-40) 08/08/18 16:45 ALT 7 units/L (7-56) 08/08/18 16:45 Alkaline Phosphatase 47 units/L (35-129) 08/08/18 16:45 Total Creatine Kinase 44 units/L (55-170) L 08/09/18 10:47 CK-MB (CK-2) < 1.0 ng/mL (0.0-4.0) 08/09/18 10:47 CK-MB (CK-2) Rel Index 2.2 (0-4) 08/09/18 10:47 Troponin T < 0.010 ng/mL (0.00-0.029) 08/09/18 10:47 Total Protein 5.6 g/dL (6.3-8.2) L 08/08/18 16:45 Albumin 2.6 g/dL (3.9-5) L 08/08/18 16:45 Albumin/Globulin Ratio 0.9 % 08/08/18 16:45 Urine Color Yellow (Yellow) 08/08/18 18:40 Urine Turbidity Clear (Clear) 08/08/18 18:40 Urine pH 6.0 (5.0-7.0) 08/08/18 18:40 Ur Specific [place] 1.009 (1.003-1.030) 08/08/18 18:40 Urine Protein <15 mg/dl mg/dL (Negative) 08/08/18 18:40 Urine Glucose (UA) Neg mg/dL (Negative) 08/08/18 18:40 Urine Ketones Tr mg/dL (Negative) 08/08/18 18:40 Urine Blood Sm (Negative) 08/08/18 18:40 Urine Nitrite Neg (Negative) 08/08/18 18:40 Urine Bilirubin Neg (Negative) 08/08/18 18:40 Urine Urobilinogen < 2.0 mg/dL (<2.0) 08/08/18 18:40 Ur Leukocyte Esterase Neg (Negative) 08/08/18 18:40 Urine WBC (Auto) 2.0 /HPF (0.0-6.0) 08/08/18 18:40 Urine RBC (Auto) 3.0 /HPF (0.0-6.0) 08/08/18 18:40 Urine Mucus Few /HPF 08/08/18 18:40 Influenza A (Rapid) Negative (Negative) 08/08/18 17:35 Influenza B (Rapid) Negative (Negative) 08/08/18 17:35 Blood Type B POSITIVE 08/10/18 09:14 Antibody Screen Negative 08/10/18 09:14 Crossmatch See Detail 08/10/18 09:14 Active Medications - Current Medications Current Medications: Generic Name Dose Route Start Last Admin Trade Name Freq PRN Reason Stop Dose Admin Acetaminophen 650 mg 08/09/18 04:35 08/10/18 04:20 Tylenol PO 650 mg Q4H PRN Administration Pain MILD(1-3)/Fever >100.5/GUPTA Albuterol 2.5 mg 08/09/18 10:52 Proventil IH Q4HRT PRN Shortness Of Breath Allopurinol 300 mg 08/09/18 10:00 08/10/18 09:02 Zyloprim PO 300 mg DAILY [facility] Administration Amlodipine Besylate 10 mg 08/09/18 10:00 08/10/18 09:02 Norvasc PO Not Given DAILY [facility] Atorvastatin Calcium 20 mg 08/09/18 10:00 08/10/18 09:02 Lipitor PO 20 mg DAILY [facility] Administration Hydralazine HCl 5 mg 08/09/18 00:54 Apresoline IV Q6H PRN Hypertension Hydrochlorothiazide 25 mg 08/09/18 10:00 08/10/18 09:00 Hctz PO Not Given QDAY [facility] Piperacillin Sod/Tazobactam Sod 4.5 gm in 100 mls @ 200 mls/hr 08/09/18 09:00 08/10/18 05:12 Zosyn/Ns 4.5gm/100ml IV 200 mls/hr Q8HR [facility] Administration Sodium Chloride 500 mls @ 0 mls/hr 08/10/18 09:00 08/10/18 08:47 Nacl 0.9% 500 Ml IV 08/10/18 17:00 50 mls/hr ONCE NR Administration As Directed Losartan Potassium 100 mg 08/09/18 10:00 08/10/18 09:00 Cozaar PO Not Given DAILY [facility] Metoprolol Succinate 100 mg 08/09/18 10:00 08/10/18 09:02 Toprol Xl PO Not Given QDAY [facility] Mirtazapine 15 mg 08/09/18 22:00 08/09/18 21:23 Remeron PO 15 mg QHS [facility] Administration Ondansetron HCl 4 mg 08/09/18 04:35 Zofran IV Q8H PRN Nausea And Vomiting Ondansetron HCl 8 mg 08/09/18 11:05 Zofran Odt PO Q8HR PRN Nausea Oxycodone/Acetaminophen 1 tab 04/25/19 11:05 Percocet 5/325 PO Q4HR PRN Pain, Moderate (4-6) Pantoprazole Sodium 40 mg 08/09/18 12:00 08/10/18 09:02 Protonix PO 40 mg BID [facility] Administration Sodium Chloride 10 ml 08/09/18 10:00 08/10/18 09:02 Sodium Chloride Flush Syringe 10 Ml IV 10 ml BID [facility] Administration Sodium Chloride 10 ml 08/09/18 04:35 Sodium Chloride Flush Syringe 10 Ml IV PRN PRN LINE FLUSH Sucralfate 1 gm 08/09/18 06:00 08/10/18 05:12 Carafate PO 1 gm Q6HR [facility] Administration Nutrition/Malnutrition Assess - Dietary Evaluation Nutrition/Malnutrition Findings: Nutrition Notes Start: 08/09/18 09:30 Freq: Status: Active Protocol: Document 08/09/18 09:31 SA (Rec: 08/09/18 09:37 SA [id number]) Co-Sign 08/09/18 09:31 LP Nutrition Notes Need for Assessment generated from: silk spreader Initial or Follow up Assessment Current Diagnosis COPD,Diabetes,Hypertension, Hyperlipidemia Other Pertinent Diagnosis lung cancer, asthma, gout, peptic ulcer disease Current Diet Cardiac Labs/Tests Na: 129 Cr: 0.7 Glu: 134 Pertinent Medications Reviewed Height 6 ft Weight 80 kg [place] Body Weight (kg) 80.90 BMI 23.9 Weight change and time frame 9.2% wt loss in 1 month Weight Status Appropriate Subjective/Other Information RN screen for MST and Skin Risk. MST: 3 and Skin Risk: 19 . Patient states appetite is really good. Pt reports eating 50% of meals at hospital stay becuase he doesn't like some of the food. Pt states he was eating great [employer]. Pt denies N/ V/D. Pt states UBW: 194#. Pt reports unintentional weight loss in 1 month. He reports being 194# and now being 196# (18# wt loss). Pt interested in ONS. Percent of energy/protein needs met: 51%/52% Burn Absent Trauma Absent Interpretation of Weight Loss (severe) >5% in 1 month #1 Nutrition Diagnosis Inadequate oral intake Etiology pt doesn't like the food As Evidenced by Signs and Symptoms eating 50% of meals at hospital stay Is patient on ventilator? No Is Patient Ambulatory and/or Out of Bed Yes REE-([facility]-ambulatory/OOB) [ 2083.900 [id number]] Calculation Used for Recommendations [facility] Additional Notes Protein: 80-96 g/day (1-1.2 g/ kg) Fluid: 1 ml/kca Nutrition Intervention Change Diet Order: Cardiac/Consistent CHO Add Supplement/Snack (indicate name/kcal Glucerna one daily /protein ) Provides kCal: 220 Provides Protein (gm) 10 Goal #1 Meet at least 75% of needs via PO and ONS intake Anticipated Discharge Needs: Cardiac/Consistent CHO Follow-Up By: 08/13/18 Additional Comments F/U: PO and ONS intake
--- NOTE | 2018-08-10 20:18 | Event Note ---
Date: 08/10/18 NSCLC being Rx as stage III on carbo taxol with XRT PET CT not done as pt is in middle of Rx and he was SOB when he was discharged from hospital after newly diagnosed lung ca [id number]
[2018-08-10] MEDS: REMERON PO SCH (22:07)
[2018-08-11] MEDS: CARAFATE PO SCH ×3 (00:10→11:59)
[2018-08-11 05:42] LABS: Hematocrit 28.5 % (35.5-45.6); Hemoglobin 9.6 gm/dl (11.8-15.2); Mean Corpuscular HGB Conc 34 % (32-34); Mean Corpuscular Volume 88 fl (84-94); Platelet Count 381 K/mm3 (140-440); Red Blood Count 3.22 M/mm3 (3.65-5.03); Red Cell Distribution Width 16.5 % (13.2-15.2)
[2018-08-11 06:00] LABS: BUN/Creatinine Ratio 6; Blood Urea Nitrogen 6 mg/dL (9-20); Calcium 8.3 mg/dL (8.4-10.2); Hemolysis Index 2
[2018-08-11] MEDS: ZOSYN/NS 4.5GM/100ML 4.5 GM/100 ML VIAL IV SCH (07:12)
--- NOTE | 2018-08-11 08:11 | Hem/Onc Progress Note ---
Assessment and Plan non small lung ca on chemo - xrt. anemia DM HTN asthma COPD Pneumonia OP follow up an option - Patient Problems (1) Lung cancer Status: Acute Subjective Date of service: 08/11/18 Principal diagnosis: lung ca Interval history: feeling better Objective - Constitutional Vitals: Last Vital Signs Temp 97.8 F 08/11/18 02:00 Pulse 117 H 08/11/18 02:00 Resp 20 08/11/18 02:00 BP 141/71 08/11/18 02:00 Pulse Ox 97 08/11/18 02:00 Pain Intensity (0-10): denies any pain General appearance: no acute distress Performance status: 3-limited selfcare - EENT Eyes: EOM intact ENT: clear oral mucosa Lymph node exam: negative cervical - Neck Neck: normal ROM - Respiratory Respiratory effort: Positive: normal Respiratory: bilateral: diminished - Cardiovascular Heart Sounds: Present: S1 & S2 Extremities: No edema - Gastrointestinal General gastrointestinal: Present: soft, non-tender Rectal Exam: deferred - Genitourinary Male genitourinary: Present: deferred - Integumentary Integumentary: warm - Musculoskeletal Musculoskeletal: strength equal bilaterally - Neurologic Neurologic: moves all extremities - Labs Lab Results: Laboratory Results - last 24 hr 08/10/18 08/10/18 08/11/18 05:31 09:14 05:08 WBC 3.8 L RBC 3.22 L Hgb 9.6 L Hct 28.5 L D MCV 88 MCH 30 MCHC 34 RDW 16.5 H Plt Count 381 Add Manual Diff Complete Total Counted 100 Seg Neuts % (Manual) 73.0 H Band Neutrophils % 3.0 Lymphocytes % (Manual) 8.0 L Reactive Lymphs % (Man) 0 Monocytes % (Manual) 16.0 H Eosinophils % (Manual) 0 Basophils % (Manual) 0 Metamyelocytes % 0 Myelocytes % 0 Promyelocytes % 0 Blast Cells % 0 Nucleated RBC % Not Reportable Seg Neutrophils # Man 2.3 Band Neutrophils # 0.1 Lymphocytes # (Manual) 0.3 L Abs React Lymphs (Man) 0.0 Monocytes # (Manual) 0.5 Eosinophils # (Manual) 0.0 Basophils # (Manual) 0.0 Metamyelocytes # 0.0 Myelocytes # 0.0 Promyelocytes # 0.0 Blast Cells # 0.0 WBC Morphology Not Reportable Hypersegmented Neuts Not Reportable Hyposegmented Neuts Not Reportable Hypogranular Neuts Not Reportable Smudge Cells Not Reportable Toxic Granulation Not Reportable Toxic Vacuolation Not Reportable Dohle Bodies Not Reportable Pelger-Huet Anomaly Not Reportable Gay Rods Not Reportable Platelet Estimate Consistent w auto Clumped Platelets Not Reportable Plt Clumps, EDTA Not Reportable Large Platelets Not Reportable Giant Platelets Not Reportable Platelet Satelliting Not Reportable Plt Morphology Comment Not Reportable RBC Morphology Not Reportable Dimorphic RBCs Not Reportable Polychromasia Not Reportable Hypochromasia 2+ Poikilocytosis Not Reportable Anisocytosis 1+ Microcytosis 1+ Macrocytosis Not Reportable Spherocytes Not Reportable Pappenheimer Bodies Not Reportable Sickle Cells Not Reportable Target Cells Not Reportable Tear Drop Cells Few Ovalocytes Few Helmet Cells Not Reportable [place] Bodies Not Reportable [place] Rings Not Reportable [employer] Cells Not Reportable Bite Cells Not Reportable Crenated Cell Not Reportable Elliptocytes Not Reportable Acanthocytes (Spur) Not Reportable Rouleaux Not Reportable Hemoglobin C Crystals Not Reportable Schistocytes Not Reportable Malaria parasites Not Reportable [place] Bodies Not Reportable Hem Pathologist Commnt No Sodium Potassium Chloride Carbon Dioxide Anion Gap BUN Creatinine Estimated GFR BUN/Creatinine Ratio Glucose Calcium Blood Type B POSITIVE Antibody Screen Negative Crossmatch See Detail 08/11/18 05:08 WBC RBC Hgb Hct MCV MCH MCHC RDW Plt Count Add Manual Diff Total Counted Seg Neuts % (Manual) Band Neutrophils % Lymphocytes % (Manual) Reactive Lymphs % (Man) Monocytes % (Manual) Eosinophils % (Manual) Basophils % (Manual) Metamyelocytes % Myelocytes % Promyelocytes % Blast Cells % Nucleated RBC % Seg Neutrophils # Man Band Neutrophils # Lymphocytes # (Manual) Abs React Lymphs (Man) Monocytes # (Manual) Eosinophils # (Manual) Basophils # (Manual) Metamyelocytes # Myelocytes # Promyelocytes # Blast Cells # WBC Morphology Hypersegmented Neuts Hyposegmented Neuts Hypogranular Neuts Smudge Cells Toxic Granulation Toxic Vacuolation Dohle Bodies Pelger-Huet Anomaly Gay Rods Platelet Estimate Clumped Platelets Plt Clumps, EDTA Large Platelets Giant Platelets Platelet Satelliting Plt Morphology Comment RBC Morphology Dimorphic RBCs Polychromasia Hypochromasia Poikilocytosis Anisocytosis Microcytosis Macrocytosis Spherocytes Pappenheimer Bodies Sickle Cells Target Cells Tear Drop Cells Ovalocytes Helmet Cells [place] Bodies [place] Rings [employer] Cells Bite Cells Crenated Cell Elliptocytes Acanthocytes (Spur) Rouleaux Hemoglobin C Crystals Schistocytes Malaria parasites [place]ang Bodies Hem Pathologist Commnt Sodium 140 Potassium 3.9 Chloride 101.9 Carbon Dioxide 28 Anion Gap 14 BUN 6 L Creatinine 1.0 Estimated GFR > 60 BUN/Creatinine Ratio 6 Glucose 110 H Calcium 8.3 L Blood Type Antibody Screen Crossmatch Medications & Allergies - Medications Allergies/Adverse Reactions: Allergies pollen extracts Allergy (Mild, Verified 06/28/18 16:42) Itching runny nose/watery eyes strawberry Allergy (Mild, Verified 06/28/18 16:42) Hives Home Medications: Home Medications Medication Instructions Recorded Confirmed Last Taken Type ALBUTEROL Inhaler (OR & NICU) 2 puff IH Q4H PRN 06/28/18 08/08/18 06/28/18 History [ProAir HFA Inhaler] Allopurinol [Zyloprim] 300 mg PO DAILY 06/28/18 08/08/18 1 Day Ago History ~06/27/18 AtorvaSTATin [Lipitor] 20 mg PO DAILY 06/28/18 08/08/18 1 Day Ago History ~06/27/18 Losartan/Hydrochlorothiazide 1 each PO DAILY 06/28/18 08/08/18 1 Day Ago History [Losartan-Hctz 100-25 mg Tab] ~06/27/18 amLODIPine [Norvasc] 10 mg PO DAILY 06/28/18 08/08/18 1 Day Ago History ~06/27/18 Metoprolol Xl [Metoprolol 100 mg PO QDAY 08/08/18 08/08/18 Unknown History SUCCINATE ER TAB] Magnesium Oxide [Mag-Ox] 400 mg PO BID 08/09/18 08/09/18 08/07/18 History Mirtazapine [Remeron] 15 mg PO DAILY 08/09/18 08/09/18 08/07/18 History Ondansetron [Zofran ODT TAB] 8 mg PO Q8HR PRN 08/09/18 08/09/18 Unknown History Pantoprazole [Protonix TAB] 40 mg PO BID 0408/09/18 08/07/18 History oxyCODONE /ACETAMINOPHEN [Percocet 1 tab PO Q4HR PRN 08/09/18 08/09/18 08/06/18 History 5/325 mg] Acetaminophen [Acetaminophen TAB] 650 mg PO Q4H PRN #30 tablet 08/11/18 Unknown Rx Amoxicillin/Potassium Clav 1 each PO BID #8 tablet 08/11/18 Unknown Rx [Augmentin 875-125 Tablet] Sucralfate [Carafate] 1 gm PO Q6HR 30 Days tablet 08/11/18 Unknown Rx Active Medications: Generic Name Dose Route Start Last Admin Trade Name Freq PRN Reason Stop Dose Admin Acetaminophen 650 mg 08/09/18 04:35 08/10/18 16:34 Tylenol PO 650 mg Q4H PRN Administration Pain MILD(1-3)/Fever >100.5/GUPTA Albuterol 2.5 mg 08/09/18 10:52 Proventil IH Q4HRT PRN Shortness Of Breath Allopurinol 300 mg 08/09/18 10:00 08/10/18 09:02 Zyloprim PO 300 mg DAILY TRISTAN Administration Amlodipine Besylate 10 mg 08/09/18 10:00 08/10/18 09:02 Norvasc PO Not Given DAILY TRISTAN Atorvastatin Calcium 20 mg 08/09/18 10:00 08/10/18 09:02 Lipitor PO 20 mg DAILY TRISTAN Administration Hydralazine HCl 5 mg 08/09/18 00:54 Apresoline IV Q6H PRN Hypertension Hydrochlorothiazide 25 mg 08/09/18 10:00 08/10/18 09:00 Hctz PO Not Given QDAY TRISTAN Piperacillin Sod/Tazobactam Sod 4.5 gm in 100 mls @ 200 mls/hr 08/09/18 09:00 08/11/18 07:12 Zosyn/Ns 4.5gm/100ml IV 200 mls/hr Q8HR TRISTAN Administration Losartan Potassium 100 mg 08/09/18 10:00 08/10/18 09:00 Cozaar PO Not Given DAILY TRISTAN Metoprolol Succinate 100 mg 08/09/18 10:00 08/10/18 09:02 Toprol Xl PO Not Given QDAY TRISTAN Mirtazapine 15 mg 08/09/18 22:00 08/10/18 22:07 Remeron PO 15 mg QHS TRISTAN Administration Ondansetron HCl 4 mg 08/09/18 04:35 Zofran IV Q8H PRN Nausea And Vomiting Ondansetron HCl 8 mg 08/09/18 11:05 Zofran Odt PO Q8HR PRN Nausea Oxycodone/Acetaminophen 1 tab 08/09/18 11:05 Percocet 5/325 PO Q4HR PRN Pain, Moderate (4-6) Pantoprazole Sodium 40 mg 08/09/18 12:00 08/10/18 22:07 Protonix PO 40 mg BID TRISTAN Administration Sodium Chloride 10 ml 08/09/18 10:00 08/10/18 22:13 Sodium Chloride Flush Syringe 10 Ml IV 10 ml BID TRISTAN Administration Sodium Chloride 10 ml 08/09/18 04:35 Sodium Chloride Flush Syringe 10 Ml IV PRN PRN LINE FLUSH Sucralfate 1 gm 08/09/18 06:00 08/11/18 07:13 Carafate PO 1 gm Q6HR TRISTAN Administration
[2018-08-11 08:24] VITALS: BP 146/79
--- NOTE | 2018-08-11 09:40 | Consultation ---
REFERRED BY: Axel Ryan MD REASON FOR CONSULTATION: History of lung cancer. HISTORY OF PRESENT ILLNESS: I saw the patient, a 68-year-old male in the medical floor. 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 The mass was large, but there was no evidence of mets. The patient was treated as stage 3. He received carboplatin, Taxol and radiation. In the beginning, Dr. Driscoll had given the larger course of radiation to shrink. He was very short of breath. This has improved. He was slightly anemic in the clinic. When he went to the radiation place, he felt dizzy and came to the hospital. The patient has history of hypertension, asthma, gout, hyperlipidemia, peptic ulcer disease, diabetes, COPD. He was found to be anemic, transfusion support. At this time, no headache, no visual disturbances. No ear discharge. Had a fainting syncopal episode for a few seconds. No chest pain, no abdominal pain, no vomiting, no diarrhea, no dysuria. PAST MEDICAL HISTORY: As above. SURGICAL HISTORY: Port placement. SOCIAL HISTORY: No history of tobacco or alcohol usage. FAMILY HISTORY: Hypertension. ALLERGIES: POLLEN. MEDICATIONS AT HOME: Included inhalers, nebulizers, Lipitor, losartan, amlodipine. PHYSICAL EXAMINATION: VITAL SIGNS: Temperature 100, pulse 115, respirations 18, BP 131/69. HEENT: Pallor present, no icterus. NECK: No neck lymph nodes. HEART: S1, S2. Port present. LUNGS: Air entry improved compared to past. ABDOMEN: Soft. EXTREMITIES: No calf tenderness. NEUROLOGIC: Alert, awake, oriented. LABORATORY DATA: White cell 3.2, hemoglobin at admission was 8 and then 6.9, MCV 88, platelet 326, potassium 3.9, creatinine 1, bilirubin 0.3, calcium 7.8. RADIOLOGY: CT head and CT chest was done. CT chest shows interval resolution of consolidation, which now measured 6.3 cm. Large bullae in the right upper lobe 10 cm. ASSESSMENT AND PLAN: 1. Non-small cell lung cancer. The patient on carboplatin, Taxol with radiation. In the beginning, the patient had received larger dose of radiation. 2. He was very short of breath in June. 3. Anemia, likely secondary to chemotherapy. Transfusion support. 4. History of hypertension. 5. History of pneumonia. 6. History of asthma. 7. History of diabetes. 8. History of chronic obstructive pulmonary disease. I will follow the patient during inpatient stay and then in the clinic setting. JOB# [id number] TAMANNA/NTS
[2018-08-11] MEDS: PROTONIX PO SCH (10:00)
[2018-08-11] MEDS: NORVASC PO SCH (10:21)
[2018-08-11] MEDS: ZYLOPRIM PO SCH (10:22)
[2018-08-11] MEDS: TOPROL XL PO SCH ×2 (10:22→10:54)
[2018-08-11] MEDS: HCTZ PO SCH (10:22)
[2018-08-11] MEDS: SODIUM CHLORIDE FLUSH SYRINGE 10 ML IV SCH (10:23)
[2018-08-11] MEDS: COZAAR PO SCH (10:23)
--- NOTE | 2018-08-11 11:38 | Discharge Summary ---
Providers - Providers Date of Admission: 08/08/18 21:59 Date of discharge: 08/11/18 Attending physician: RAMONA DONALD 08/09/18 11:14 Consult to Physician [CONS] Routine Comment: called office/ jesus Consulting Provider: DESTINI DALY Physician Instructions: Reason For Exam: NSCLC, your patient Hospitalization Condition: Stable Hospital course: Patient is a 68 yo man with a history of hypertension, lung cancer, asthma, gout, hyperlipidemia, peptic ulcer disease, diabetes, COPD was recently discharged from this hospital for GI bleed on 08/05/18 who comes back to [facility] ED on 08/08/18 after syncope episode prior XRT treatment (with Dr. Solis). He also c/o productive brown cough, fever and chills. * 07/02/2018 Fine needle Lung Biospy (I suspect right lung) showed Non small cell carcinoma consistent with squamous cell carcinoma with p63 immunohistochemical positive stain and negative TTF-1 and negative synaptophysin prior admission 08/04/18 EGD Pre-op diagnosis: gi bleed; Post-op diagnosis: same, Findings: EGD: hiatal hernia, mild esophagitis (bx's0 large cratered 2-2 1/2 cm ulcer distal lesser curvature w/ old clot (bx's ulcer x 3 (5-14 mm) ulcer duodenal bulb, largest cratered (bx's) * 08/08/18 CTA chest IMPRESSION: Interval partial resolution of right lower lobe consolidation distended with pneumonia. Subcarinal lymphadenopathy is unchanged Interval resolution of intrabronchial filling defect most likely representing secretions. Parenchymal scarring bilateral lungs with bronchiectatic changes left lower lobe Syncope, suspect Vasovagal autonomic dysfunction: Ordered Orthostatic vitals, ECHO, CT head negative and treat the pneumonia Nosocomial pneumonia: treat with iv abx, RLL NSCLC, squamous Cell cancer: consult Dr. Daly==>NSCLC, being Rx as stage III, on carbo taxol with XRT, PET CT not done as pt is in middle of Rx and he was SOB when he was discharged from hospital after newly diagnosed lung ca Acute worsening of AOCD, no signs of bleeding, requiring blood transfusion: repeat cbc in am Peptic ulcer disease: treat with PPI Hypertension: low salt diet, continue to monitor Asthma, chronic, stable: duo neb prn Diabetes mellitus type 2: Check fingersticks and initiate insulin sliding scale COPD by history: continue present management DVT prophylaxis stopped sq heparin b/c anemia, use scd ECHO still pending, reached out to Cardiology Disposition: home pt says he has urinary retention and urologist put the kee in. ok to discharge with kee and follow up with Urology within 1 week Disposition: -01 TO HOME OR SELFCARE Time spent for discharge: 34 minutes Core Measure Documentation - Palliative Care Palliative Care/ Comfort Measures: Not Applicable - Core Measures Any of the following diagnoses?: none - VTE Discharge Requirements Deep Vein Thrombosis/Pulmonary Embolism Present on Admission: No Has pt received <5 days of overlap therapy or INR<2.0: No Anticoagulant overlap therapy prescribed at discharge: No Contraindication No Overlap Therapy order at DC: Not Indicated Exam - Physical Exam Narrative exam: Gen: WDWN, NAD, Awake, Alert, Orientated HEENT: NCAT, EOMI, PERRL, OP Clear Neck: supple, no adenopathy, no thyromegaly, no JVD CVS/Heart: RRR, normal S1S2, pulses present bilaterally Chest/Lungs: coarse bs RLL Symmetrical chest expansion, good air entry bilaterally GI/Abdomen: soft, NTND, good bowel sounds, no guarding or rebound /Bladder: no suprapubic tenderness, no CVA or paraspinal tenderness Extermity/Skin: no c/c/e, no obvious rash MSK: FROM x 4 Neuro: CN 2-12 grossly intact, no new focal deficits Psych: calm - Constitutional Vitals: Temp Pulse Resp BP Pulse Ox 98.2 F 112 H 20 146/79 92 08/11/18 08:24 08/11/18 08:14 08/11/18 08:14 08/11/18 08:14 08/11/18 08:14 Plan Activity: other (no strenous activity) Diet: low salt, diabetic, advance as tolerated Special Instructions: record daily BP diary, record blood sugar diary Additional Instructions: ok to discharge with kee and follow up with Urology within 1 week Follow up with: BERNARDO PASTRANA [Other] - 7 Days DESTINI DALY MD [Staff Physician] - 7 Days BONILLA RAMIRES MD [Staff Physician] - 7 Days Prescriptions: Amoxicillin/Potassium Clav [Augmentin 875-125 Tablet] 1 each PO BID #8 tablet Sucralfate [Carafate] 1 gm PO Q6HR 30 Days tablet
== END 2018-08-11 14:00 | disposition home health service (06) | DRG 871 ==
LOC: ED 15:52 → 2B-ACE 21:59
PROVIDERS: ADMIT Internal Medicine; ATTEND Internal Medicine
PROC: 30233N1 Transfusion of Nonautologous Red Blood Cells into Peripheral Vein, Percutaneous Approach (ICD-10-PCS; principal; 2018-08-10)
DX: A41.9 Sepsis, unspecified organism (principal); J18.9 Pneumonia, unspecified organism; E43 Unspecified severe protein-calorie malnutrition; C34.90 Malignant neoplasm of unspecified part of unspecified bronchus or lung; G90.9 Disorder of the autonomic nervous system, unspecified; M10.9 Gout, unspecified; E11.9 Type 2 diabetes mellitus without complications; J44.9 Chronic obstructive pulmonary disease, unspecified; D63.8 Anemia in other chronic diseases classified elsewhere; I11.0 Hypertensive heart disease with heart failure; I50.9 Heart failure, unspecified; R33.9 Retention of urine, unspecified; Z68.24 Body mass index [BMI] 24.0-24.9, adult; Z87.11 Personal history of peptic ulcer disease; Z82.49 Family history of ischemic heart disease and other diseases of the circulatory system; Z79.899 Other long term (current) drug therapy; Z87.442 Personal history of urinary calculi
CPT/HCPCS: 36415; 70450; 71045; 71275; 80048; 80053; 81001; 82140; 82550; 82553; 84484; 85007; 85025; 85027; 85379; 85730; 86850; 86900; 86901; 86920; 87040; 87086; 87400; 93005; 93010; 93306; 94760; 96365; G0378; A9270-GY; J1644; J1956; J2543; J7030; J7040; P9016; Q0162; Q9967